=== PATIENT | female | born 1950 | race Caucasian/White ===

== ENCOUNTER 2023-07-19 12:59 | Emergency (ER) | payer MEDICARE, SELFPAY ==
[2023-07-19 13:00] VITALS: BP 153/109
[2023-07-19 13:34] LABS: ALT (SGPT) 53 U/L (0-35); AST (SGOT) 72 U/L (14-36); Albumin 3.9 g/dl (3.5-5.0); Alkaline Phosphatase 97 U/L (38-126); Blood Urea Nitrogen 18 mg/dl (7-17); Calcium 8.9 mg/dl (8.4-10.2); Carbon Dioxide 18 mmol/L (22-30); Chloride 107 mmol/L (98-107); Glucose 270 mg/dl (70-99); Potassium 4.4 mmol/L (3.5-5.1); Sodium 133 mmol/L (135-145); Total Bilirubin 1.5 mg/dl (0.2-1.3); Total Protein 8.5 g/dl (6.3-8.2); eGFR > 60.00
[2023-07-19 13:40] LABS: % Basophils 0.3 % (0-2); % Immature Granulocytes 0.5 % (0-0.5); % Lymphocytes 14.2 % (20.5-51.1); % Monocytes 5.1 % (1.7-9.3); % Neutrophils 79.9 % (42.2-75.2); Absolute Lymphocytes 0.9 10^3/uL (1.2-3.4); Absolute Monocytes 0.3 10^3/uL (0.1-0.6); Absolute Neutrophils 5.1 10^3/uL (1.4-6.5); Hematocrit 41.7 % (37.0-47.0); Mean Corp Hgb Conc. 33.6 g/dL (33.0-37.0); Mean Corpuscular Hgb 29.6 pg (27.0-31.0); Mean Corpuscular Volume 88.2 fL (81.0-99.0); Mean Platelet Volume 11.6 fL (7.4-10.4); Nucleated Red Blood Cells % 0 %; Platelet Count 131 10^3/uL (130-400); Red Blood Cell Count 4.73 10^6/uL (4.20-5.40); Red Cell Dist. Width 17.5 % (11.5-14.5); White Blood Cell Count 6.3 10^3/uL (4.8-10.8)
--- NOTE | 2023-07-19 14:34 | ED.GENMED ---
History of Present Illness
<Birgit Lopes PA-C - Last Filed: 07/21/23 18:56>
General
Chief Complaint: Musculo-Skeletal Complaint
Source: patient
Exam Limitations: none
Time Seen by Provider: 07/19/23 14:29
Nursing documentation reviewed up to this point in time: agreed with
Travel History
Have you had any contact with someone who has COVID-19?: No
Do you have any symptoms of coronavirus? Fever > 100 degrees, chills, cough, shortness of breath, sore throat, loss of taste or smell, muscle aches, or headache?: No
History of Present Illness
History of Present Illness:
72-year-old female with past medical history of polymyositis, hyperlipidemia, hypertension, diabetes presenting emergency department today with concerns of atraumatic left foot pain for the past few days, and right finger pain for the past few
weeks. Patient states that she started experiencing pain in her foot the last few days. Patient does not recall trauma to the foot, excessive jumping or new exercise routine, twisting her ankle, or anything else. Patient has had no falls. Patient
states that she also had an overlying redness to her left foot which her neurologist thought was that infection. Patient has no fevers or chills, nausea or vomiting, chest pain, shortness of breath. Patient denies foreign body, diabetic neuropathy,
recent injection in the area. Patient saw a librarian many years ago for a stress fracture in her left foot. Patient does have an orthopedic shoe at home to use for foot fractures, and she does have a walker. Patient does have some pain with
ambulation but is able to ambulate without difficulty.
Past History
<Birgit Lopes PA-C - Last Filed: 07/21/23 18:56>
Past History
ED Past Medical History: Asthma, CHF, HTN, Hypercholesterolemia, NIDDM, Other (polymyositis) and Other (breast cancer 2007)
ED Past Surgical History: Other (breast lumpectomy x 2)
Social History
Tobacco: Non-smoker
Alcohol: None
Drug: None
Personal:
Living: with family
Employment: Disabled
Family History
Family History: Diabetes
Review of Systems
<Birgit Lopes PA-C - Last Filed: 07/21/23 18:56>
Review of Systems
All Other Systems: ROS reviewed and negative except as documented in HPI and ROS
Phy Exam
<Birgit Lopes PA-C - Last Filed: 07/21/23 18:56>
Physical Exam
Physical Exam:
General: Patient is well appearing and in no acute distress.
Skin: On the right index finger, there is redness and swelling with an ulcerated lesion at the tip of the finger. On the dorsal surface of the left foot, there is a 3 cm right 2 cm area of erythema surrounding the second and third distal metatarsals.
Head: Normocephalic, atraumatic, no signs of trauma
Cardiac: Regular rate and rhythm, no murmurs
Peripheral Vascular: 2+ DP, PT pulses b/l. 2+ right radial and ulnar pulses, cap refill <2 seconds.
Pulm: Normal respiratory effort, no wheezes, rales, or rhonchi
Abdomen: No tenderness to palpation
Musculoskeletal: Patient has full range of motion of the right index finger and the right hand. Patient has full ROM of b/l lower extremities. Patient has tenderness to palpation of the left 2nd and 3rd metacarpals, no tenderness to palpation of the
phalanges.
Neuro: AAOx3.
Course
<Birgit Lopes PA-C - Last Filed: 07/21/23 18:56>
Orders/Labs/Results
Orders:
Orders
07/19/23 13:02
Foot, Left 3 View [CR Foot - Left Min 3 Views] Urgent
Comment:
Reason For Exam: pain
07/19/23 13:12
Complete Blood Count/With Diff Urgent
Comprehensive Metabolic Panel Urgent
Abnormal Lab Results
07/19/23
13:12
RDW 17.5 H %
(11.5-14.5)
MPV 11.6 H fL
(7.4-10.4)
Absolute Lymphs (auto) 0.9 L 10^3/uL
(1.2-3.4)
Neutrophils % 79.9 H %
(42.2-75.2)
Lymphocytes % 14.2 L %
(20.5-51.1)
Sodium 133 L mmol/L
(135-145)
Carbon Dioxide 18 L mmol/L
(22-30)
BUN 18 H mg/dl
(7-17)
Creatinine 0.5 L mg/dL
(0.6-1.0)
Glucose 270 H mg/dl
(70-99)
Total Bilirubin 1.5 H mg/dl
(0.2-1.3)
AST 72 H U/L
(14-36)
ALT 53 H U/L
(0-35)
Total Protein 8.5 H g/dl
(6.3-8.2)
07/19/23 13:12
07/19/23 13:12
Vital Signs
Initial and Last Documented VS:
Initial Vital Signs
Temp Pulse Resp BP Pulse Ox
98.4 F 111 16 153/109 98
07/19/23 13:00 07/19/23 13:00 07/19/23 13:00 07/19/23 13:00 07/19/23 13:00
Last Documented Vital Signs
Temp Pulse Resp BP Pulse Ox
98.4 F 111 16 153/109 98
07/19/23 13:00 07/19/23 13:00 07/19/23 13:00 07/19/23 13:00 07/19/23 13:00
<Samuel Sepulveda, DO - Last Filed: 07/24/23 08:10>
Orders/Labs/Results
Orders:
Orders
07/19/23 13:02
Foot, Left 3 View [CR Foot - Left Min 3 Views] Urgent
Comment:
Reason For Exam: pain
07/19/23 13:12
Complete Blood Count/With Diff Urgent
Comprehensive Metabolic Panel Urgent
Abnormal Lab Results
07/19/23
13:12
RDW 17.5 H %
(11.5-14.5)
MPV 11.6 H fL
(7.4-10.4)
Absolute Lymphs (auto) 0.9 L 10^3/uL
(1.2-3.4)
Neutrophils % 79.9 H %
(42.2-75.2)
Lymphocytes % 14.2 L %
(20.5-51.1)
Sodium 133 L mmol/L
(135-145)
Carbon Dioxide 18 L mmol/L
(22-30)
BUN 18 H mg/dl
(7-17)
Creatinine 0.5 L mg/dL
(0.6-1.0)
Glucose 270 H mg/dl
(70-99)
Total Bilirubin 1.5 H mg/dl
(0.2-1.3)
AST 72 H U/L
(14-36)
ALT 53 H U/L
(0-35)
Total Protein 8.5 H g/dl
(6.3-8.2)
07/19/23 13:12
07/19/23 13:12
Vital Signs
Initial and Last Documented VS:
Initial Vital Signs
Temp Pulse Resp BP Pulse Ox
98.4 F 111 16 153/109 98
07/19/23 13:00 07/19/23 13:00 07/19/23 13:00 07/19/23 13:00 07/19/23 13:00
Last Documented Vital Signs
Temp Pulse Resp BP Pulse Ox
98.4 F 111 16 153/109 98
07/19/23 13:00 07/19/23 13:00 07/19/23 13:00 07/19/23 13:00 07/19/23 13:00
<Birgit Lopes PA-C - Last Filed: 07/21/23 18:56>
MDM/Problems Addressed
Differential Diagnosis Includes:
Differentials include cellulitis, musculoskeletal sprain/strain, plantar fasciitis, tarsal fracture,
MDM/Problems Addressed:
foot pain
finger pain
Chronic conditions affecting care: DM and HTN
Acute Exacerbation and/or Progression of Chronic Illness: DM and HTN
<Birgit Lopes PA-C - Last Filed: 07/21/23 18:56>
*Pulse Oximetry
Patient hypoxic: no
*Critical Care Note
Total Time (30-74mins, 75-104mins- exclusive of procedures): Not Applicable
Data Reviewed
Review of Other/Old Records Reveals: Records (Reviewed ER physician documentation from 02/20/2020) and Discharge Summary (Reviewed discharge summary from 01/26/2022)
Source: patient and records
<Birgit Lopes PA-C - Last Filed: 07/21/23 18:56>
Patient Management
Escalation/DeEscalation of care consider admission/obs:
72-year-old female with past medical history of polymyositis, hyperlipidemia, hypertension, diabetes presenting emergency department today with concerns of atraumatic left foot pain for the past few days, and right finger pain for the past few
weeks. On exam, she is able to bear weight but with pain. She also has tenderness palpation of the left second and third metatarsals. There is a small area of erythema overlying the left second and third metatarsal she also has right finger pain,
is swollen and there is a small ulcerated lesion on the superficial surface. She states that a while back, she poked herself while embroidering the wound has never healed despite use of topical antibiotic ointment. Her x-ray reveals a nondisplaced
fracture involving the distal shaft of the second metatarsal. We will give patient referral for a librarian, and have her wear her orthopedic foot boot at home, and use her walker as needed. In terms of her erythema on her foot, I do not think
this represents acute cellulitis, however in the setting of her right finger pain and erythema, we will treat for developing cellulitis with Keflex. Patient aware of plan all questions answered, stable for discharge
ED Attending Note
<Birgit Lopes PA-C - Last Filed: 07/21/23 18:56>
-
Portions of this chart may have been created with voice recognition software.� Occasional wrong word or��sound alike� substitutions may have occurred due to the inherent limitations of voice recognition software.
<Samuel Sepulveda DO - Last Filed: 07/24/23 08:10>
ED Attending Note
Patient seen and examined by attending physician: Yes
I performed a history and physical exam of patient and discussed management with resident, I reviewed resident's note and agree with documented findings and plan of care.: Yes
ED Attending Note:
I have reviewed and agree with history and treatment plan by Birgit Lopes. My exam reveals 72-year-old female with left foot erythema and tenderness palpation. X-ray showing nondisplaced fracture of distal shaft of second metatarsal. Patient
has walker boot at home which she will use. Follow-up with podiatry
-
Portions of this chart may have been created with voice recognition software.� Occasional wrong word or��sound alike� substitutions may have occurred due to the inherent limitations of voice recognition software. Questionable cellulitis, no fever
erythema related to fracture.
Discharge Plan
Departure
Patient Disposition: Home (Routine Discharge)
Date of Disposition: 07/19/23
Time of Disposition: 15:02
Patient with high blood pressure during this ER visit?: Yes
Condition: Good
Discharge Problem:
Metatarsal stress fracture of left foot
Instructions: Stress Fracture of the Metatarsal Bone (DC), Cellulitis (Skin Infection), Adult (DC)
Prescriptions:
New
cephalexin 500 mg capsule
500 mg PO Q6H 5 Days Qty: 20 0RF
No Action
prednisone 5 MG tablet
15 mg PO DAILY Qty: 0
Gammagard Liquid 10 GRAM/100 ML solution
1 dose IV UD
Patient Comments:
05/13/20- SUNDAY,SUNDAY AND SUNDAY (EVERY WEEK) EVERY THREE WEEK
Rx Instructions:
take every 3 weeks for only 3 days during those 3 weeks
carvedilol 12.5 MG tablet
25 mg PO BID
spironolactone 25 MG tablet
12.5 mg PO DAILY
albuterol sulfate 1 PUFF HFA aerosol inhaler
2 puff inhalation R Q4HPRN PRN (Reason: SOB)
furosemide 20 MG tablet
20 mg PO DAILY PRN (Reason: leg swelling )
Patient Comments:
therapeutic multivitamin Tablet
1 tab PO DAILY
calcium carbonate 500 mg calcium (1,250 mg) Tablet
500 mg PO DAILY
lisinopril 10 mg Tablet
10 mg PO DAILY
alendronate 70 mg tablet
70 mg PO FR
pantoprazole 40 mg Tablet,Delayed Release (Dr/Ec)
40 mg PO DAILY 30 Days Qty: 30 2RF
Eliquis DVT-PE Treat 30D Start 5 mg (74 tabs) tablets,dose pack
5 mg PO ONCE Qty: 74 0RF
Eliquis 5 mg tablet
5 mg PO BID 30 Days Qty: 60 0RF
Rx Instructions:
Start taking once finished Eliquis starter pack
Referrals:
Angel Hurtado DPM [Specified Professional Personl] - Call in 1-3 days for appt
Cole Suazo MD [Family Provider] -
Activity Restrictions/Additional Instructions:
We have sent a medication called Keflex to your pharmacy. Please take 1 tablet 4 times daily for 5 days.
Please wear your orthotic foot boot while ambulating and use your walker as needed. Please call your librarian tomorrow for an appointment for follow-up.
Please return emergency department for any concerns.
Interventions
Interventions:
*Risk Screen - Suicide Last Done: 07/19/23 13:00
*General Assessment Last Done: 07/19/23 13:00
*Neglect/Abuse Screening Last Done: 07/19/23 13:00
ED- Fall Risk Assessment Last Done: 07/19/23 13:53
*ED COVID-19 Vaccine History Last Done: 07/19/23 13:00
*Nursing Disposition Last Done: 07/19/23 15:19
ED-Musculoskeletal Assessment Last Done: 07/19/23 13:51
Discharge Date and Time
Discharge Date/Time: 07/19/23 15:20
== END 2023-07-19 15:20 | disposition home or self-care (01) ==
LOC: EMR 12:59
PROVIDERS: EMERGENCY PHYSICIAN Emergency Medicine; FAMILY PHYSICIAN Family Medicine
DX: M84.375A Stress fracture, left foot, initial encounter for fracture (principal); X58.XXXA Exposure to other specified factors, initial encounter; M79.644 Pain in right finger(s); E78.00 Pure hypercholesterolemia, unspecified; I10 Essential (primary) hypertension; E11.9 Type 2 diabetes mellitus without complications
CPT/HCPCS: 99284; 73630; 80053; 85025

== ENCOUNTER 2023-09-12 09:47 | Emergency (ER) | payer MEDICARE, SELFPAY ==
[2023-09-12 09:49] VITALS: BP 125/70
--- NOTE | 2023-09-12 10:54 | ED.GENMED ---
History of Present Illness
General
Chief Complaint: Back Pain
Source: patient
Exam Limitations: none
Time Seen by Provider: 09/12/23 10:39
Nursing documentation reviewed up to this point in time: agreed with
Travel History
Have you had any contact with someone who has COVID-19?: No
Do you have any symptoms of coronavirus? Fever > 100 degrees, chills, cough, shortness of breath, sore throat, loss of taste or smell, muscle aches, or headache?: No
History of Present Illness
History of Present Illness:
72-year-old female with history of polymyositis on chronic steroids CHF hypertension hyperlipidemia diverticulitis insulin-dependent diabetes, DVT history on presents to the ER for evaluation of low back pain. She reports on Sunday, 3 days
ago she stood up while getting up off of the toilet and heard and felt a crack in the low back. Since then she has had low back pain which is worse with any movement twisting turning etc. She denies any radiation to legs. She denies any
incontinence of bowel or bladder she denies any numbness tingling or weakness to extremities. She has been taking Tylenol without relief
Past History
Past History
ED Past Medical History: Asthma, CHF, HTN, Hypercholesterolemia, NIDDM, Other (polymyositis) and Other (breast cancer 2007)
ED Past Surgical History: Other (breast lumpectomy x 2)
Social History
Tobacco: Non-smoker
Alcohol: None
Drug: None
Personal:
Living: with family
Employment: Disabled
Family History
Family History: Diabetes
Review of Systems
Review of Systems
Allergies reviewed?: Yes
All Other Systems: ROS reviewed and negative except as documented in HPI and ROS
Constitutional: Reports no symptoms
Respiratory: Reports no symptoms
Cardiac: Reports no symptoms
ABD/GI: Reports no symptoms
Musculoskeletal: Reports back pain (low back pain )
Skin: Reports no symptoms
Hematologic/Lymphatic: Reports no symptoms
Psychiatric: Reports no symptoms
Phy Exam
General Physical Exam
General Presentation: no apparent distress
General age: appears stated age
General Skin: warm and dry
General Habitus: normal
General Mental: alert
Gastrointestinal Exam
Gastrointestinal Exam: non tender and soft
Neurological Exam
Neurological Exam: alert, oriented x3, no motor deficits and no sensory deficits
Musculoskeletal Exam
Musculoskeletal Exam: other (Nontender throughout however there is a second-degree burn( reports from heating pad) to lower back )
Skin Exam
Skin Exam: normal color and warm/dry
Psychiatric Exam
Psychiatric Exam: normal mood/affect
Course
Orders/Labs/Results
Orders:
Orders
09/12/23 10:53
Lidocaine [Lidocaine 4% Patch] 1 patch TOPICAL NOW STA
diazePAM [Valium Injection] 5 mg IM NOW STA
Lumbar Spine Complete, 4 View [CR Lumbar Spine Comp Min 4 Vw*] Urgent
Comment:
Reason For Exam: pain
09/12/23 10:54
Acetaminophen [Tylenol] 1,000 mg PO NOW STA
09/12/23 12:32
Vital Signs- Treatment ONCE
Frequency: Once
Vital Signs
Initial and Last Documented VS:
Initial Vital Signs
Temp Pulse Resp BP Pulse Ox
98.3 F 86 18 125/70 99
09/12/23 09:49 09/12/23 09:49 09/12/23 09:49 09/12/23 09:49 09/12/23 09:49
Last Documented Vital Signs
Temp Pulse Resp BP Pulse Ox
98.3 F 54 14 151/87 97
09/12/23 09:49 09/12/23 12:35 09/12/23 12:35 09/12/23 12:35 09/12/23 12:35
MDM/Problems Addressed
Differential Diagnosis Includes:
Not limited to lumbar sprain strain herniated disc, compression fracture
MDM/Problems Addressed:
Patient is a 71-year-old female who complains of low back pain. She complains of pain ever since she got up off the toilet 3 days ago. At that time she had a crack in her back. She denies any actual trauma. She has had pain across her low back
but does not radiate. Denies any bowel or bladder incontinence denies any numbness tingling this. Patient presents awake alert no acute distress worse with changing position symptoms distant with muscular pain however x-ray does show a compression
fracture age-indeterminate was not seen on prior imaging. Patient was given Valium here and a lidocaine patch feeling better. She is already on low-dose steroids so we will hold off on that. I did review with family and patient that Valium is
sedating however because this has helped her will DC with a short course of Valium along with Tylenol lidocaine patch and outpatient Ortho follow-up
Acute Exacerbation and/or Progression of Chronic Illness:
On steroids for polymyositis
*Critical Care Note
Total Time (30-74mins, 75-104mins- exclusive of procedures): Not Applicable
ED Attending Note
-
Portions of this chart may have been created with voice recognition software.� Occasional wrong word or��sound alike� substitutions may have occurred due to the inherent limitations of voice recognition software.
Discharge Plan
Departure
Patient Disposition: Home (Routine Discharge)
Date of Disposition: 09/12/23
Time of Disposition: 12:31
Patient with high blood pressure during this ER visit?: No
Condition: Fair
Covid-19: Not Applicable
Discharge Problem:
Low back pain, Closed compression fracture of body of first lumbar vertebra
Instructions: Low Back Pain (DC), Vertebral Compression Fracture (DC)
Prescriptions:
New
diazepam [Valium] 5 mg tablet
5 mg PO TID PRN (Reason: muscle spasm) Qty: 10 0RF
lidocaine 5 % adhesive patch,medicated
1 patch topical DAILY PRN (Reason: back pain) Qty: 15 0RF
Rx Instructions:
remove after 12 hrs
No Action
prednisone 5 MG tablet
15 mg PO DAILY Qty: 0
Gammagard Liquid 10 GRAM/100 ML solution
1 dose IV UD
Patient Comments:
05/13/20- SUNDAY,SUNDAY AND SUNDAY (EVERY WEEK) EVERY THREE WEEK
Rx Instructions:
take every 3 weeks for only 3 days during those 3 weeks
carvedilol 12.5 MG tablet
25 mg PO BID
spironolactone 25 MG tablet
12.5 mg PO DAILY
albuterol sulfate 1 PUFF HFA aerosol inhaler
2 puff inhalation R Q4HPRN PRN (Reason: SOB)
furosemide 20 MG tablet
20 mg PO DAILY PRN (Reason: leg swelling )
Patient Comments:
therapeutic multivitamin Tablet
1 tab PO DAILY
calcium carbonate 500 mg calcium (1,250 mg) Tablet
500 mg PO DAILY
lisinopril 10 mg Tablet
10 mg PO DAILY
alendronate 70 mg tablet
70 mg PO FR
pantoprazole 40 mg Tablet,Delayed Release (Dr/Ec)
40 mg PO DAILY 30 Days Qty: 30 2RF
Eliquis DVT-PE Treat 30D Start 5 mg (74 tabs) tablets,dose pack
5 mg PO ONCE Qty: 74 0RF
Eliquis 5 mg tablet
5 mg PO BID 30 Days Qty: 60 0RF
Rx Instructions:
Start taking once finished Eliquis starter pack
cephalexin 500 mg capsule
500 mg PO Q6H 5 Days Qty: 20 0RF
Referrals:
Cole Suazo MD [Family Provider] -
Miki Rivera MD [Active] -
Activity Restrictions/Additional Instructions:
As discussed a prescription for Valium was sent to your pharmacy as a muscle relaxer. This medication will cause drowsiness no driving or drinking alcohol taking this medication. Take 1 every 8 hours only as needed for muscle spasm. You may take
your regular Tylenol every 4-6 hours. A prescription for lidocaine patch was sent to your pharmacy take as directed. Follow-up with orthopedics in the next several days for reevaluation and return of any worsening of symptoms.
Interventions
Interventions:
*Risk Screen - Suicide Last Done: 09/12/23 09:49
*General Assessment Last Done: 09/12/23 11:13
*Neglect/Abuse Screening Last Done: 09/12/23 11:13
*ED COVID-19 Vaccine History Last Done: 09/12/23 09:49
*Nursing Disposition Last Done: 09/12/23 12:48
ED-Musculoskeletal Assessment Last Done: 09/12/23 11:13
Discharge Date and Time
Discharge Date/Time: 09/12/23 12:49
Print Language: MICRONESIAN
[2023-09-12] MEDS: LIDOCAINE 4% PATCH 1 PATCH TOPICAL (11:02)
[2023-09-12] MEDS: TYLENOL 1000 MG PO (11:04)
[2023-09-12] MEDS: VALIUM INJECTION 5 MG IM (11:05)
[2023-09-12 12:35] VITALS: BP 151/87
== END 2023-09-12 12:49 | disposition home or self-care (01) ==
LOC: EMR 09:47
PROVIDERS: EMERGENCY PHYSICIAN Emergency Medicine; FAMILY PHYSICIAN Family Medicine
DX: M54.50 Low back pain, unspecified (principal); M48.56XA Collapsed vertebra, not elsewhere classified, lumbar region, initial encounter for fracture
CPT/HCPCS: 99284; 96372; 72110

== ENCOUNTER → 2023-10-15 06:50 | Outpatient (REF) | payer MEDICARE, SELFPAY | LOC: PAVMRI 06:50 | PROVIDERS: ATTENDING PHYSICIAN Physical Medicine & Rehabilitation; FAMILY PHYSICIAN Family Medicine | DX: S32.010A Wedge compression fracture of first lumbar vertebra, initial encounter for closed fracture (principal); M54.50 Low back pain, unspecified | CPT/HCPCS: 72148 ==

== ENCOUNTER → 2023-11-15 10:49 | Outpatient (REF) | payer MEDICARE, SELFPAY | LOC: EEG 10:49 | PROVIDERS: ATTENDING PHYSICIAN Specialist; FAMILY PHYSICIAN Family Medicine | DX: R41.89 Other symptoms and signs involving cognitive functions and awareness (principal) | CPT/HCPCS: 95812 ==

== ENCOUNTER → 2023-12-11 06:43 | Outpatient (REF) | payer MEDICARE, SELFPAY ==
--- NOTE | 2023-11-16 13:29 | EEG.RPT ---
Electroencephalogram Report
Recording
Date of EE11/15/23
Type of EEG: Routine
Length of EEG recordin mins
Done with Video Recording: Yes
Patient Status: Outpatient
Recording Conditions: Awake and Drowsy
Hyperventilation Performed: No
Photic Stimulation Performed: Yes
Report
METHODS
A 21 channel digitized electroencephalogram was performed at [facility]. The 10/20 international system of electrode placement was used. In addition to EEG, the patient was monitored for EKG. The duration of the recording was 51 minutes.
BACKGROUND
During the awake state, with the eyes closed, the background consisted of a normal amplitude, 11 Hertz posterior reactive rhythm that attenuated appropriately with eye opening. Beta activity was distributed diffusely with an anterior predominance.
There was a normal anterior-posterior voltage gradient. With eye opening the background activity changed to a low voltage mixture of alpha, beta, and occasional theta range frequencies. There were no significant asymmetries of background activity
noted.
PHOTIC STIMULATION
Photic stimulation using a step-huitron increase in photic frequency varying from 1-31 Hertz resulted in no driving responses but no appearance of abnormal activity.
ABNORMAL EEG ACTIVITY
None
CLINICAL EVENTS
None
INTERPRETATION AND CLINICAL CORRELATION
This EEG is normal during the awake and drowsy states as well as during the activation procedure of photic stimulation. No seizures were noted during the recording. A normal EEG, in itself, does not rule out a diagnosis of epilepsy. If clinical
suspicion for seizure persists, a sleep-deprived and/or prolonged recording may be warranted.
== END ==
LOC: PAVMRI 06:43
PROVIDERS: ATTENDING PHYSICIAN Specialist; FAMILY PHYSICIAN Family Medicine
DX: R41.89 Other symptoms and signs involving cognitive functions and awareness (principal)
CPT/HCPCS: 70551

== ENCOUNTER 2024-04-24 19:11 | Emergency (ER) | payer MEDICARE, SELFPAY ==
[2024-04-24 19:13] VITALS: BP 181/113
--- NOTE | 2024-04-24 19:38 | ED.GENMED ---
History of Present Illness
General
Chief Complaint: Nose Bleed
Time Seen by Provider: 04/24/24 19:38
History of Present Illness
History of Present Illness:
TIME OF INITIAL ENCOUNTER: 7:45 PM
HPI: The patient presents due to a nosebleed. She is on Eliquis. She took both doses of her Eliquis today. She has been having nosebleeds and they becoming more frequent over the last few weeks. She had IVIG infusion earlier today�she takes IVIG
due to history of polymyositis.
EXAM:
GENERAL: Well appearing in no distress
HEENT: Moist oral mucosa
NEUROLOGIC: Excellent strength all extremities, no obvious coordination deficits
PSYCHIATRIC: Appropriate mental status, normal insight and judgement
EXTREMITIES: Nontender, no edema, moves all extremities equally
SKIN: No rash, no lesions
NUMBER AND COMPLEXITY OF PROBLEMS ADDRESSED AT THE ENCOUNTER
� Chronic conditions affecting care: CHF, diverticular disease, high blood pressure, hyperlipidemia, IDDM
� Acute Exacerbation and/or Progression of Chronic Illness: This is an acute problem
� Differential Diagnosis includes: Poorly controlled high blood pressure, anterior nosebleed, posterior nosebleed, coagulopathy
AMOUNT AND/OR COMPLEXITY OF DATA TO BE REVIEWED AND ANALYZED
� I performed an independent evaluation of and my interpretation is:
EKG:
CT:
X-rays:
Laboratory Studies:
Other:
� Review of other/old records: I reviewed records, the patient's hemoglobin and platelet count were checked and relatively unremarkable in July 2023
� Clinical information was obtained by an independent historian:
� Prescriptions/Medications Considered but not given:
� Further testing considered but not performed: Considered blood work however the patient's nosebleed is fairly mild and easily controlled
RISK OF COMPLICATIONS AND/OR MORBIDITY OR MORTALITY OF PATIENT MANAGEMENT
� Social determinants of health affecting care: Lives at home
� Discussion with other providers:
� Escalation of care including admission/observation vs risk of discharge considered: We used Charles-Synephrine soaked cotton twice and I also used silver nitrate cautery stick. She did rebleed at 1 point but then overall after a
period of observation she has no longer been bleeding. Notified of her high blood pressure and need to continue blood pressure medication. She says at times her blood pressure is low therefore will not make any other changes. Encouraged her to
hold next dose of Eliquis.
ANY OTHER UPDATES:
Past History
Past History
ED Past Medical History: Asthma, CHF, HTN, Hypercholesterolemia, NIDDM, Other (polymyositis) and Other (breast cancer 2007)
ED Past Surgical History: Other (breast lumpectomy x 2)
Social History
Tobacco: Non-smoker
Alcohol: None
Drug: None
Personal:
Living: with family
Employment: Disabled
Family History
Family History: Diabetes
Phy Exam
Physical Exam
Physical Exam:
See HPI
Course
Orders/Labs/Results
Orders:
Orders
04/24/24 19:50
Phenylephrine 0.5% Regular Spr [Charles-Synephrine 0.5% Nasal Galt] 1 spray .ROUTE .STK-MED ONE
Vital Signs
Initial and Last Documented VS:
Initial Vital Signs
Temp Pulse Resp BP Pulse Ox
36.4 C 113 18 181/113 98
04/24/24 19:13 04/24/24 19:13 04/24/24 19:13 04/24/24 19:13 04/24/24 19:13
Last Documented Vital Signs
Temp Pulse Resp BP Pulse Ox
36.4 C 113 18 160/104 98
04/24/24 19:13 04/24/24 19:13 04/24/24 19:13 04/24/24 20:01 04/24/24 19:13
Procedures
Nosebleed
Drug treatment: Neosynephrine
Treatment: Silver nitrate cautery
Additional information:
Patient refuses packing
*Critical Care Note
Total Time (30-74mins, 75-104mins- exclusive of procedures): Not Applicable
ED Attending Note
-
Portions of this chart may have been created with voice recognition software.� Occasional wrong word or��sound alike� substitutions may have occurred due to the inherent limitations of voice recognition software.
Discharge Plan
Departure
Patient Disposition: Home (Routine Discharge)
Date of Disposition: 04/24/24
Time of Disposition: 21:17
Patient with high blood pressure during this ER visit?: Yes
Discharge Problem:
Acute anterior epistaxis
Instructions: Nosebleeds (DC), BLOOD PRESSURE
Prescriptions:
No Action
prednisone 5 MG tablet
15 mg PO DAILY Qty: 0
Gammagard Liquid 10 GRAM/100 ML solution
1 dose IV UD
Patient Comments:
05/13/20- SUNDAY,SUNDAY AND SUNDAY (EVERY WEEK) EVERY THREE WEEK
Rx Instructions:
take every 3 weeks for only 3 days during those 3 weeks
carvedilol 12.5 MG tablet
25 mg PO BID
spironolactone 25 MG tablet
12.5 mg PO DAILY
albuterol sulfate 1 PUFF HFA aerosol inhaler
2 puff inhalation R Q4HPRN PRN (Reason: SOB)
furosemide 20 MG tablet
20 mg PO DAILY PRN (Reason: leg swelling )
Patient Comments:
therapeutic multivitamin Tablet
1 tab PO DAILY
calcium carbonate 500 mg calcium (1,250 mg) Tablet
500 mg PO DAILY
lisinopril 10 mg Tablet
10 mg PO DAILY
alendronate 70 mg tablet
70 mg PO FR
pantoprazole 40 mg Tablet,Delayed Release (Dr/Ec)
40 mg PO DAILY 30 Days Qty: 30 2RF
Eliquis DVT-PE Treat 30D Start 5 mg (74 tabs) tablets,dose pack
5 mg PO ONCE Qty: 74 0RF
Eliquis 5 mg tablet
5 mg PO BID 30 Days Qty: 60 0RF
Rx Instructions:
Start taking once finished Eliquis starter pack
cephalexin 500 mg capsule
500 mg PO Q6H 5 Days Qty: 20 0RF
diazepam [Valium] 5 mg tablet
5 mg PO TID PRN (Reason: muscle spasm) Qty: 10 0RF
lidocaine 5 % adhesive patch,medicated
1 patch topical DAILY PRN (Reason: back pain) Qty: 15 0RF
Rx Instructions:
remove after 12 hrs
Referrals:
Mario Radford MD [Active] - Follow up in 2-3 days
Activity Restrictions/Additional Instructions:
Be sure to continue your blood pressure medication as your blood pressure was very high when he came in here today. I recommend that you hold tomorrow morning's Eliquis dose. We gave you Charles-Synephrine soaked cotton twice and I also used silver
nitrate cautery. I have given you the contact information for local ENT to follow-up with. I recommend using saline sprays. You start rebleeding, I strongly recommend that you pinch the nostrils underneath the nasal bone for at least 30 minutes.
Interventions
Interventions:
*Risk Screen - Suicide Last Done: 04/24/24 19:13
*General Assessment Last Done: 04/24/24 19:13
*Neglect/Abuse Screening Last Done: 04/24/24 19:13
ED- Fall Risk Assessment Last Done: 04/24/24 19:58
*ED COVID-19 Vaccine History Last Done: 04/24/24 19:58
ED-EENT Assessment Last Done: 04/24/24 19:58
Discharge Date and Time
Print Language: SOUTH AFRICAN
[2024-04-24 19:58] VITALS: BMI 32.3
[2024-04-24 20:01] VITALS: BP 160/104
[2024-04-24 21:35] VITALS: BP 139/70
== END 2024-04-24 21:45 | disposition home or self-care (01) ==
LOC: EMR 19:11
PROVIDERS: EMERGENCY PHYSICIAN Emergency Medicine; FAMILY PHYSICIAN Family Medicine
DX: R04.0 Epistaxis (principal); I11.0 Hypertensive heart disease with heart failure; I50.9 Heart failure, unspecified; E11.9 Type 2 diabetes mellitus without complications; E78.00 Pure hypercholesterolemia, unspecified; J45.909 Unspecified asthma, uncomplicated; Z79.01 Long term (current) use of anticoagulants
CPT/HCPCS: 30901; 99282

== ENCOUNTER → 2024-06-16 12:28 | Outpatient (REF) | payer MEDICARE, SELFPAY | LOC: WOUND 12:28 | PROVIDERS: ATTENDING PHYSICIAN Surgery; FAMILY PHYSICIAN Family Medicine | DX: L97.222 Non-pressure chronic ulcer of left calf with fat layer exposed (principal); L97.312 Non-pressure chronic ulcer of right ankle with fat layer exposed; I87.2 Venous insufficiency (chronic) (peripheral); I73.9 Peripheral vascular disease, unspecified; I50.43 Acute on chronic combined systolic (congestive) and diastolic (congestive) heart failure; M33.20 Polymyositis, organ involvement unspecified; E11.65 Type 2 diabetes mellitus with hyperglycemia; Z79.4 Long term (current) use of insulin | CPT/HCPCS: 11042; 99204 ==

== ENCOUNTER → 2024-06-23 09:13 | Outpatient (REF) | payer MEDICARE, SELFPAY | LOC: WOUND 09:13 | PROVIDERS: ATTENDING PHYSICIAN Surgery; FAMILY PHYSICIAN Family Medicine | DX: L97.222 Non-pressure chronic ulcer of left calf with fat layer exposed (principal); L97.312 Non-pressure chronic ulcer of right ankle with fat layer exposed; I87.2 Venous insufficiency (chronic) (peripheral); I73.9 Peripheral vascular disease, unspecified | CPT/HCPCS: 97597 ==

== ENCOUNTER → 2024-07-02 08:42 | Outpatient (REF) | payer MEDICARE, SELFPAY | LOC: RAD 08:42 | PROVIDERS: ATTENDING PHYSICIAN Surgery; FAMILY PHYSICIAN Family Medicine | DX: I87.2 Venous insufficiency (chronic) (peripheral) (principal) | CPT/HCPCS: 93970 ==

== ENCOUNTER → 2024-07-08 09:29 | Outpatient (REF) | payer MEDICARE, SELFPAY | LOC: WOUND 09:29 | PROVIDERS: ATTENDING PHYSICIAN Surgery; FAMILY PHYSICIAN Family Medicine | DX: L97.222 Non-pressure chronic ulcer of left calf with fat layer exposed (principal); L97.312 Non-pressure chronic ulcer of right ankle with fat layer exposed; I87.2 Venous insufficiency (chronic) (peripheral); I73.9 Peripheral vascular disease, unspecified; I50.43 Acute on chronic combined systolic (congestive) and diastolic (congestive) heart failure; M33.20 Polymyositis, organ involvement unspecified; E11.65 Type 2 diabetes mellitus with hyperglycemia; Z79.4 Long term (current) use of insulin | CPT/HCPCS: 11042 ==

== ENCOUNTER → 2024-07-10 14:18 | Outpatient (REF) | payer MEDICARE, SELFPAY | LOC: RAD 14:18 | PROVIDERS: ATTENDING PHYSICIAN Surgery; FAMILY PHYSICIAN Family Medicine | DX: I73.9 Peripheral vascular disease, unspecified (principal) | CPT/HCPCS: 93922 ==

== ENCOUNTER → 2024-07-15 09:39 | Outpatient (REF) | payer MEDICARE, SELFPAY | LOC: WOUND 09:39 | PROVIDERS: ATTENDING PHYSICIAN Surgery; FAMILY PHYSICIAN Family Medicine | DX: L97.222 Non-pressure chronic ulcer of left calf with fat layer exposed (principal); L97.312 Non-pressure chronic ulcer of right ankle with fat layer exposed; I87.2 Venous insufficiency (chronic) (peripheral); I73.9 Peripheral vascular disease, unspecified; I50.43 Acute on chronic combined systolic (congestive) and diastolic (congestive) heart failure; M33.20 Polymyositis, organ involvement unspecified; E11.65 Type 2 diabetes mellitus with hyperglycemia; Z79.4 Long term (current) use of insulin | CPT/HCPCS: 11042 ==

== ENCOUNTER 2024-07-24 08:30 | Emergency (ER) | payer MEDICARE, SELFPAY ==
[2024-07-24 08:32] VITALS: BP 144/76
[2024-07-24 09:18] LABS: % Basophils 0.5 % (0-2); % Eosinophils 0.5 % (0-6); % Immature Granulocytes 0.8 % (0-0.5); % Lymphocytes 30.5 % (20.5-51.1); % Monocytes 11.4 % (1.7-9.3); % Neutrophils 56.3 % (42.2-75.2); Absolute Immature Granulocytes 0.1 10^3/uL (0-0.05); Absolute Monocytes 0.7 10^3/uL (0.1-0.6); Absolute Neutrophils 3.7 10^3/uL (1.4-6.5); Hemoglobin 13.8 g/dL (12.0-16.0); Mean Corp Hgb Conc. 32.9 g/dL (33.0-37.0); Mean Corpuscular Hgb 28.9 pg (27.0-31.0); Mean Corpuscular Volume 87.9 fL (81.0-99.0); Mean Platelet Volume 10.3 fL (7.4-10.4); Nucleated Red Blood Cells % 0 %; Platelet Count 141 10^3/uL (130-400); Red Blood Cell Count 4.78 10^6/uL (4.20-5.40); Red Cell Dist. Width 19.4 % (11.5-14.5); White Blood Cell Count 6.5 10^3/uL (4.8-10.8)
[2024-07-24 09:22] VITALS: BP 117/79; BMI 30.6
[2024-07-24 09:32] LABS: Blood Urea Nitrogen 37 mg/dl (7-17); Calcium 9.3 mg/dl (8.4-10.2); Carbon Dioxide 19 mmol/L (22-30); Chloride 108 mmol/L (98-107); Estimated Creatinine Clearance 73 ml/min; Glucose 132 mg/dl (70-99); Potassium 4.5 mmol/L (3.5-5.1); Sodium 138 mmol/L (135-145); eGFR > 60.00
[2024-07-24 10:00] VITALS: BP 116/75
--- NOTE | 2024-07-24 10:04 | ED.GENMED ---
History of Present Illness
General
Chief Complaint: Nose Bleed
Source: patient and spouse
Exam Limitations: none
Time Seen by Provider: 07/24/24 08:44
Nursing documentation reviewed up to this point in time: agreed with
History of Present Illness
History of Present Illness:
73-year-old female with past medical history of A-fib currently on Eliquis, CHF hypertension hyperlipidemia presenting to the emergency department today with concerns of a nosebleed from the left nostril upon awakening a few hours prior to arrival
to the emergency department. Difficulty controlling this with pressure at home. Has had many nosebleeds in the past. Denies any additional symptoms
Past History
Past History
ED Past Medical History: Asthma, CHF, HTN, Hypercholesterolemia, NIDDM, Other (polymyositis) and Other (breast cancer 2007)
ED Past Surgical History: Other (breast lumpectomy x 2)
Social History
Tobacco: Non-smoker
Alcohol: None
Drug: None
Personal:
Living: with family
Employment: Disabled
Family History
Family History: Diabetes
Review of Systems
Review of Systems
Allergies reviewed?: Yes
All Other Systems: ROS reviewed and negative except as documented in HPI and ROS
Phy Exam
Physical Exam
Physical Exam:
GENERAL: Alert , in no apparent distress
EYE: pupils equal and reactive
NECK: Supple, no significant adenopathy.
ENT: Anterior nosebleed from the left o/p clr, mmm.
CARDIAC: Regular rate and rhythm .
LUNGS: Clear breath sounds bilaterally, no acute respiratory distress, no wheezes/rales/rhonchi
ABDOMEN: Soft, without focal tenderness, no r/g, no cvat
NEUROLOGICAL: Alert and oriented, no focal neuro deficits
SKIN: Warm and dry, skin intact.
MUSCULOSKELETAL: No edema, well perfused.
PSYCH: Normal and appropriate interaction.
Course
Orders/Labs/Results
Orders:
Orders
07/24/24 08:49
Phenylephrine 0.5% Regular Spr [Charles-Synephrine 0.5% Nasal Frederic] 1 spray .ROUTE .STK-MED ONE
07/24/24 09:00
Oxymetazoline HCl [Afrin Nasal Frederic] See Dose Instructions NASAL BID
07/24/24 09:02
BMP [Basic Metabolic Panel] Urgent
CBC/With Diff [Complete Blood Count/With Diff] Urgent
Abnormal Lab Results
07/24/24
09:02
MCHC 32.9 L g/dL
(33.0-37.0)
RDW 19.4 H %
(11.5-14.5)
Abs Immat Gran (auto) 0.1 H 10^3/uL
(0-0.05)
Absolute Monos (auto) 0.7 H 10^3/uL
(0.1-0.6)
Immature Gran % 0.8 H %
(0-0.5)
Monocytes % 11.4 H %
(1.7-9.3)
Chloride 108 H mmol/L
(98-107)
Carbon Dioxide 19 L mmol/L
(22-30)
BUN 37 H mg/dl
(7-17)
Glucose 132 H mg/dl
(70-99)
07/24/24 09:02
07/24/24 09:02
Vital Signs
Initial and Last Documented VS:
Initial Vital Signs
Temp Pulse Resp BP Pulse Ox
98.1 F 53 18 144/76 100
07/24/24 08:32 07/24/24 08:32 07/24/24 08:32 07/24/24 08:32 07/24/24 08:32
Last Documented Vital Signs
Temp Pulse Resp BP Pulse Ox
98.1 F 69 18 116/75 98
07/24/24 08:32 07/24/24 10:00 07/24/24 08:32 07/24/24 10:00 07/24/24 10:06
Procedures
Nosebleed
Drug treatment: Neosynephrine
Treatment: local pressure applied and other (Anterior balloon 4.5 cm)
Post treatment bleeding: none- good control
MDM/Problems Addressed
MDM/Problems Addressed:
73-year-old female presenting to the emergency department today with concerns of a nosebleed to the left nostril starting this morning. Here there was significant bleeding. Complicated by patient being on Eliquis. Difficulty controlling this with
topical measures packing was then placed. ENT was contacted to ensure close follow-up. Patient is stable no bleeding for over an hour while here. Return precautions given. Thank you
*Critical Care Note
Total Time (30-74mins, 75-104mins- exclusive of procedures): Not Applicable
ED Attending Note
-
Portions of this chart may have been created with voice recognition software.� Occasional wrong word or��sound alike� substitutions may have occurred due to the inherent limitations of voice recognition software.
Discharge Plan
Departure
Patient Disposition: Home (Routine Discharge)
Date of Disposition: 07/24/24
Time of Disposition: 10:04
Patient with high blood pressure during this ER visit?: No
Condition: Good
Covid-19: Not Applicable
Discharge Problem:
Left-sided epistaxis
Instructions: Nosebleeds (DC)
Prescriptions:
No Action
prednisone 5 MG tablet
15 mg PO DAILY Qty: 0
Gammagard Liquid 10 GRAM/100 ML solution
1 dose IV UD
Patient Comments:
05/13/20- SUNDAY,SUNDAY AND SUNDAY (EVERY WEEK) EVERY THREE WEEK
Rx Instructions:
take every 3 weeks for only 3 days during those 3 weeks
carvedilol 12.5 MG tablet
25 mg PO BID
spironolactone 25 MG tablet
12.5 mg PO DAILY
albuterol sulfate 1 PUFF HFA aerosol inhaler
2 puff inhalation R Q4HPRN PRN (Reason: SOB)
furosemide 20 MG tablet
20 mg PO DAILY PRN (Reason: leg swelling )
Patient Comments:
therapeutic multivitamin Tablet
1 tab PO DAILY
calcium carbonate 500 mg calcium (1,250 mg) Tablet
500 mg PO DAILY
lisinopril 10 mg Tablet
10 mg PO DAILY
alendronate 70 mg tablet
70 mg PO FR
pantoprazole 40 mg Tablet,Delayed Release (Dr/Ec)
40 mg PO DAILY 30 Days Qty: 30 2RF
Eliquis DVT-PE Treat 30D Start 5 mg (74 tabs) tablets,dose pack
5 mg PO ONCE Qty: 74 0RF
Eliquis 5 mg tablet
5 mg PO BID 30 Days Qty: 60 0RF
Rx Instructions:
Start taking once finished Eliquis starter pack
cephalexin 500 mg capsule
500 mg PO Q6H 5 Days Qty: 20 0RF
diazepam [Valium] 5 mg tablet
5 mg PO TID PRN (Reason: muscle spasm) Qty: 10 0RF
lidocaine 5 % adhesive patch,medicated
1 patch topical DAILY PRN (Reason: back pain) Qty: 15 0RF
Rx Instructions:
remove after 12 hrs
Referrals:
Cole Suazo MD [Family Provider] -
Robert oPrter MD [Active] - Follow up in 5-7 days
Activity Restrictions/Additional Instructions:
You came to the emergency department today with concerns of a nosebleed. You had packing placed. This will need to be removed by ENT. Please call to make an appointment over the next 2 to 4 days. Return for any worsening, new or concerning
symptoms.
Interventions
Interventions:
*Risk Screen - Suicide Last Done: 07/24/24 08:32
*General Assessment Last Done: 07/24/24 08:32
*Neglect/Abuse Screening Last Done: 07/24/24 08:32
*ED- Fall Risk Assessment Last Done: 07/24/24 09:22
*ED COVID-19 Vaccine History Last Done: 07/24/24 09:22
ED-EENT Assessment Last Done: 07/24/24 09:23
Discharge Date and Time
Print Language: FRENCH
[2024-07-24 10:26] VITALS: BP 116/75
== END 2024-07-24 10:34 | disposition home or self-care (01) ==
LOC: EMR 08:30
PROVIDERS: Physician Assistant; EMERGENCY PHYSICIAN Emergency Medicine; FAMILY PHYSICIAN Family Medicine
DX: R04.0 Epistaxis (principal); I48.91 Unspecified atrial fibrillation; I11.0 Hypertensive heart disease with heart failure; I50.9 Heart failure, unspecified; E78.00 Pure hypercholesterolemia, unspecified; E11.9 Type 2 diabetes mellitus without complications; J45.909 Unspecified asthma, uncomplicated; Z79.01 Long term (current) use of anticoagulants; Z83.3 Family history of diabetes mellitus; Z85.3 Personal history of malignant neoplasm of breast
CPT/HCPCS: 99283; 80048; 85025

== ENCOUNTER → 2024-07-29 13:57 | Outpatient (REF) | payer MEDICARE, SELFPAY | LOC: WOUND 13:57 | PROVIDERS: ATTENDING PHYSICIAN Surgery; FAMILY PHYSICIAN Family Medicine | DX: L97.222 Non-pressure chronic ulcer of left calf with fat layer exposed (principal); L97.312 Non-pressure chronic ulcer of right ankle with fat layer exposed; I87.2 Venous insufficiency (chronic) (peripheral); I73.9 Peripheral vascular disease, unspecified; I50.43 Acute on chronic combined systolic (congestive) and diastolic (congestive) heart failure; M33.20 Polymyositis, organ involvement unspecified; E11.65 Type 2 diabetes mellitus with hyperglycemia; Z79.4 Long term (current) use of insulin | CPT/HCPCS: 99213 ==

== ENCOUNTER 2024-08-03 11:29 | Inpatient (IN) | payer MEDICARE, SELFPAY ==
[2024-07-31 21:47] VITALS: BP 157/75
[2024-07-31 22:27] VITALS: BMI 31.5
[2024-07-31 23:35] VITALS: BP 108/72
[2024-07-31 23:46] LABS: Hematocrit 41.7 % (37.0-47.0); Hemoglobin 13.8 g/dL (12.0-16.0); Mean Corp Hgb Conc. 33.1 g/dL (33.0-37.0); Mean Corpuscular Hgb 28.6 pg (27.0-31.0); Mean Corpuscular Volume 86.5 fL (81.0-99.0); Mean Platelet Volume 10.1 fL (7.4-10.4); Platelet Count 149 10^3/uL (130-400); Red Blood Cell Count 4.82 10^6/uL (4.20-5.40); Red Cell Dist. Width 18.6 % (11.5-14.5); White Blood Cell Count 6.3 10^3/uL (4.8-10.8)
[2024-07-31 23:54] LABS: Blood Urea Nitrogen 33 mg/dl (7-17); Calcium 9.2 mg/dl (8.4-10.2); Carbon Dioxide 23 mmol/L (22-30); Chloride 102 mmol/L (98-107); Estimated Creatinine Clearance 56 ml/min; Glucose 178 mg/dl (70-99); Potassium 4.3 mmol/L (3.5-5.1); Sodium 135 mmol/L (135-145); eGFR > 60.00
[2024-08-01] VITALS (16 sets, daily range): BP systolic 78–136; BP diastolic 50–83; BMI 31.5; BMI 33.5
[2024-08-01 00:03] LABS: NT-proBNP 1590 pg/ml
[2024-08-01 00:46] LABS: % Eosinophils 0.5 % (0-6); % Lymphocytes 21.4 % (20.5-51.1); % Monocytes 13.7 % (1.7-9.3); % Neutrophils 62.4 % (42.2-75.2); Absolute Basophils 0.1 10^3/uL (0-0.2); Absolute Immature Granulocytes 0.1 10^3/uL (0-0.05); Absolute Lymphocytes 1.3 10^3/uL (1.2-3.4); Absolute Monocytes 0.9 10^3/uL (0.1-0.6); Absolute Neutrophils 3.9 10^3/uL (1.4-6.5); Nucleated Red Blood Cells % 0 %
[2024-08-01] MEDS: TORADOL 15 MG IV (01:18)
--- NOTE | 2024-08-01 01:56 | ED.GENMED ---
History of Present Illness
General
Chief Complaint: Skin Problem
Source: patient
Time Seen by Provider: 07/31/24 22:13
History of Present Illness
History of Present Illness:
73-year-old female presents to the emergency room complaining of pain in her right calf and ankle. Patient has a wound to the posterior calf which has been evaluated and treated at the wound care center. She was recently started on oral
antibiotics. Pain seems to be gotten significantly worse over the past 24 hours. She has difficulty weightbearing. No fever. Patient does take Eliquis due to DVT. also concerned that her left lower extremity has become more swollen.
She denies any chest pain or shortness of breath.
Past History
Past History
ED Past Medical History: Asthma, CHF, HTN, Hypercholesterolemia, NIDDM, Other (polymyositis) and Other (breast cancer 2007)
ED Past Surgical History: Other (breast lumpectomy x 2)
Social History
Tobacco: Non-smoker
Alcohol: None
Drug: None
Personal:
Living: with family
Employment: Disabled
Family History
Family History: Diabetes
Phy Exam
Physical Exam
Physical Exam:
General: Awake, Alert, Oriented X3. Appears uncomfortable at time
Vitals: unremarkable
Head: Atraumatic
Eyes: Pupils equal, EOMI
Throat: Airway intact, no exudates
Neck: Trachea midline
Lungs: Clear and equal b/l
Heart: Regular rate, no murmurs
Abd: Soft, Nontender, No pulsatile mass
Neuro: Nonfocal
Skin: Warm, dry, no rash
Extremities: Palpable dorsalis pedis pulses equal b/l, left lower extremity has 2+ edema which is nonpitting. Right lower extremity has no edema but there is a roughly 3 cm x 2 cm superficial ulcerative type wound which does have some purulent
drainage. The area surrounding the wound is erythematous and tender. Patient has tenderness even a bit distant from the wound but there is no crepitance.
Course
Orders/Labs/Results
Orders:
Orders
07/31/24 23:08
Ankle, Right 3 view CR [CR Ankle - Right Min 3 Views *] Urgent
Comment:
Reason For Exam: lateral ankle pain
07/31/24 23:09
Basic Metabolic Panel Urgent
Complete Blood Count/With Diff Urgent
NT-proBNP Urgent
08/01/24 00:00
US Periph Venous LOWER Ext Magdiel Urgent
Reason For Exam: leg swelling/discomfort
08/01/24 01:16
Ketorolac [Toradol] 15 mg .ROUTE .STK-MED ONE
08/01/24 01:17
Ketorolac [Toradol] 15 mg IV NOW STA
08/01/24 01:46
HYDROmorphone [Dilaudid] 0.5 mg IV NOW STA
08/01/24 01:57
Ondansetron Injectable [Zofran] 4 mg .ROUTE .STK-MED ONE
08/01/24 01:58
CT Lower Ext W/iv Cont Rt Urgent
Comment:
Reason For Exam: r calf wound/pain eval for deep space inf
08/01/24 02:02
Ondansetron Injectable [Zofran] 4 mg IV NOW STA
08/01/24 02:07
Wound Culture [Wound/Abscess/Other Culture] Urgent
NIKITA Source: Leg
Specimen Description: Right
Date Specimen was Collected: 08/01/24
Time Specimen was Collected: 02:01
08/01/24 03:06
Ampicillin/Sulbactam 3 G [Unasyn] 3 gm 0.9% Sodium Chloride 100 ml [Nss] 100 ml IV NOW
Vancomycin [Vancocin] 2,000 mg 0.9% Sodium Chloride 500 ml [Nss] 500 ml IV NOW
08/01/24 03:11
Admit/Transfer Patient As Directed
Co-Sign Provider:
Level of Care: Observation services
Assign to:: Medical/Surgical
Physician / Group: hospitalist
Diagnosis: non-healing, infected LE wound
08/01/24 03:12
PRN Pain Medication Management As Directed
May give lesser potent ordered pain med per pt: Yes
preference::
Protocol:: Medication orders for pain may be administered in a
manner that supports deferring to patient preference
when the pt is:
- Requesting an ordered lesser potent pain medication.
Least to most potent pain medications are defined
as: acetaminophen < NSAID < tramadol < opioids
(morphine, oxycodone, hydromorphone).
- Requesting a lesser dose of the same medication IF
ORDERED.
- Requesting a less intrusive route of administration
if both routes are prescribed by the provider (PO <
IV).
08/01/24 03:13
Code Status As Directed
Resuscitation Status: Do not resuscitate
Reached after discussion with pt or family/Healthcare POA: Yes
DNR Bracelet Application ONCE
08/01/24 04:19
Acetaminophen [Tylenol] 650 mg PO Q4HPRN PRN
Bisacodyl [Dulcolax] 10 mg RECTAL [id number] PRN
Docusate W/Senna [Senokot-S] 1 tablet PO BIDPRN PRN
HYDROmorphone [Dilaudid] 0.5 mg IV Q4HPRN PRN
Ketorolac [Toradol] 10 mg IV Q6HPRN PRN
Ondansetron Injectable [Zofran] 4 mg IV Q6HPRN PRN
Polyethylene Glycol Powder [Miralax] 17 grams PO DAILYPRN PRN
VANCOMYCIN Pharmacy to Dose [VANCOCIN Pharmacy to Dose] 1 each Pharmacy To Prepare [Call Pharmacy To Prepare] 0 ml IV PER PROTOCOL
08/01/24 04:19
Consult Notification Routine
Specialty to Notify: Infectious Disease
Date consulting provider notified: 08/01/24
Time consulting provider notified: 07:53
Notified:: Provider
Comment: TT
INFECTIOUS DISEASE CONSULT Routine
Consulting Provider: Miranda Aly
Was physician already notified: No
Reason for consult: non-healing ulcer, possible infection
WOUND/OSTOMY CONSULT Routine
Reason for Consult: poorly healing RLE wound
VTE Contraindication Routine
VTE Mechanical Device Contraindication: Medical Contraindication
Pharmocologic Contraindication: Medical Contraindication
Activity As Directed
Activity Level: With Assistance
Bedside Glucose Monitoring As Directed
Frequency: AC&HS
Elevate Extremity As Directed
Extremity:: Right leg
Vital Signs As Directed
Frequency: Per unit guidelines
08/01/24 Breakfast
1800 calorie (15 carb) Diabetic
At Your Request: Limited, Aitchbone Breaker Required
Does patient need a safe tray?: No
08/01/24 07:18
Basic Metabolic Panel IN AM
CRP [C-Reactive Protein] IN AM
Complete Blood Count/No Diff IN AM
ESR [Erythrocyte Sed Rate] IN AM
Uric Acid IN AM
MRSA Screen Routine
NIKITA Source: Nose
Specimen Description:
08/01/24 07:30
Insulin Aspart Corrective Low [Novolog Flexpen-Low Resistance] See Protocol SC AC
08/01/24 08:00
Apixaban [Eliquis] 5 mg PO BID
Carvedilol [Coreg] 12.5 mg PO BID
Ezetimibe [Zetia] 10 mg PO DAILY
Gabapentin [Neurontin] 300 mg PO BID
Lisinopril [Zestril] 10 mg PO DAILY
Pantoprazole [Protonix] 40 mg PO DAILY
Prednisone [Deltasone] 10 mg PO DAILY
Repaglinide [Prandin] 2 mg PO TID @ 0800,1200,1700
Spironolactone [Aldactone] 12.5 mg PO DAILY
insulin glargine [Lantus Solostar U-100 Insulin] 5 unit SC DAILY
Abnormal Lab Results
07/31/24
23:09
RDW 18.6 H %
(11.5-14.5)
Abs Immat Gran (auto) 0.1 H 10^3/uL
(0-0.05)
Absolute Monos (auto) 0.9 H 10^3/uL
(0.1-0.6)
Immature Gran % 1.0 H %
(0-0.5)
Monocytes % 13.7 H %
(1.7-9.3)
BUN 33 H mg/dl
(7-17)
Glucose 178 H mg/dl
(70-99)
07/31/24 23:09
07/31/24 23:09
Vital Signs
Initial and Last Documented VS:
Initial Vital Signs
Temp Pulse Resp BP Pulse Ox
98.9 F 60 18 157/75 98
07/31/24 21:47 07/31/24 21:47 07/31/24 21:47 07/31/24 21:47 07/31/24 21:47
Last Documented Vital Signs
Temp Pulse Resp BP Pulse Ox
98.2 F 80 14 123/71 97
08/01/24 19:30 08/01/24 21:15 08/01/24 19:30 08/01/24 21:15 08/01/24 19:30
MDM/Problems Addressed
Differential Diagnosis Includes:
Wound infection, deep space infection of the calf such as necrotizing fasciitis, osteomyelitis
MDM/Problems Addressed:
Patient presents with significant pain in her calf/lateral ankle. Physical exam is significant for a wound which appears superficial. There is some surrounding erythema but all in all the amount of pain seems out of proportion to the wound. DVT
studies are negative. Labs are nonremarkable except for mild elevation of BUN suggesting some volume contraction. Patient has required IV analgesia to control her pain. Antibiotics chosen to cover diabetic type foot/lower limb infection. Patient
requires hospitalization for close monitoring for progression of infection given the amount of pain she is experiencing
*Pulse Oximetry
Patient hypoxic: no
*Foamite Mixer Interpretation
Rate: normal
Interpretation: normal
Rhythm: sinus
*Critical Care Note
Total Time (30-74mins, 75-104mins- exclusive of procedures): Not Applicable
Patient Management
Social determinants of health affecting care: Strong social support
ED Attending Note
-
Portions of this chart may have been created with voice recognition software.� Occasional wrong word or��sound alike� substitutions may have occurred due to the inherent limitations of voice recognition software.
Discharge Plan
Departure
Patient Disposition: Admit
Date of Disposition: 08/01/24
Time of Disposition: 01:56
Presentation/result/management discussed w/ accepting MD/DO: Hospitalist
Condition: Fair
Discharge Problem:
Wound infection
Interventions
Interventions:
*Risk Screen - Suicide Last Done: 07/31/24 21:47
*General Assessment Last Done: 07/31/24 21:47
*Neglect/Abuse Screening Last Done: 07/31/24 21:47
*ED- Fall Risk Assessment Last Done: 07/31/24 21:47
*ED COVID-19 Vaccine History Last Done: 07/31/24 21:47
*Nursing Disposition Last Done: 08/01/24 07:30
ED-Skin Assessment Last Done: 08/01/24 03:06
[2024-08-01] MEDS: ZOFRAN 4 MG IV (02:02)
[2024-08-01] MEDS: DILAUDID 0.5 MG IV (02:03)
--- NOTE | 2024-08-01 02:59 | HPS.HSE ---
Family Physician
-
Family Physician: Cole Suazo
Chief Complaint
-
Right leg pain
History of Present Illness
This is a 73-year-old female with past medical history significant for polymyositis, proximal atrial fibrillation on anticoagulation, history of DVT, congestive heart failure with preserved EF, GERD, insulin-dependent diabetes and hypertension
presenting to the emergency department with right lower extremity pain and swelling.
Patient reports she has been managing bilateral lower extremity wounds for several weeks and being managed by wound care. She reported that during management of this wound she had multiple studies including ultrasounds of her lower extremity which
was shows vascular arterial insufficiency to the right lower extremity with a pending reperfusion procedure by vascular in about 2 to 3 weeks. She reported that she also had bilateral lower extremity swelling for which she was evaluated by
cardiology. She had echo focal findings for CHF but was placed on Lasix 40 mg daily. She has had significant decrease in the swelling since then.
She gets evaluation by wound care every week and the wound in the left lower extremity has been healing well but the right lower extremity remains purulent. She was started on doxycycline about 5 days ago. She denies having any fevers or chills.
She reports pain in the lower extremity which seems to be localized to the ankle. Spouse and patient denies any recent fall. Denies any recent injuries. No history of gout. She had a recently decreased dose of prednisone to 10 mg daily from 25
mg daily.
In the emergency department today she was afebrile, blood pressure was 100/60 with a pulse of 82 and she was satting 98% on room air. White count was 6.3 she had normal hemoglobin and platelets. Electrolytes BUN and creatinine were normal. X-ray
of the right ankle has not been officially read. Per my view there is no acute fracture. Joint space appears normal.
Medical History
Past Medical History
Past Medical History: Reports Asthma, Cancer (Left breast CA with lumpectomy), CHF, HTN, Hypercholesterolemia, NIDDM and Other (Polymyositis diverticulosis/diverticulitis)
Past Surgical History: Reports Cholecystectomy, Gynocological (Tubal ligation 1980, hysterectomy 1989), Orthopedic (Left/right meniscus repair, right TKA 2004, CTR 2019), Tonsilectomy and Other ( cataract extraction 2017)
Social History
Tobacco: Non-smoker
Alcohol: None
Drug: None
Personal:
Living: With Family ( )
Family History
Family History: Not pertinent
Allergies / Home Medications
Allergies reflects when Allergies were last updated in [facility].
Home Medications with original date entered in [facility]
Allergy/Medication List:
Allergies
Allergy/AdvReac Type Severity Reaction Status Date / Time
codeine Allergy Vomiting Verified 07/31/24 21:46
metformin Allergy effects Verified 07/31/24 21:46
polymositis
Zdqnawe-ECR-DuN Reductase Allergy effects Verified 07/31/24 21:46
Inhibitor polymyositis
[Dgmqclj-Cvn-Ort Reductase
Inhibitor]
Home Medications
prednisone 5 mg tablet 10 mg PO DAILY POLYMYOSITIS ##0 05/03/17
carvedilol 12.5 mg tablet 12.5 mg PO BID Blood pressure 05/13/20
immune glob,gamma (IgG) 10 %-gly-IgA over 50 mcg/mL injection solution (Gammagard Liquid) 1 dose IV UD Neurological Condition 05/13/20
spironolactone 25 mg tablet 12.5 mg PO DAILY Fluid retention/Swelling 05/13/20
furosemide 20 mg tablet 20 mg PO DAILY leg swelling 01/18/22
lisinopril 10 mg tablet 10 mg PO DAILY Blood pressure 01/18/22
alendronate 70 mg tablet 70 mg PO FR Osteoporosis 01/20/22
apixaban 5 mg tablet (Eliquis) 5 mg PO BID Venous thrombosis 30 days #60 tabs 01/23/22
pantoprazole 40 mg tablet,delayed release 40 mg PO DAILY GERD 30 days #30 tabs 01/23/22
ezetimibe 10 mg tablet 10 mg PO DAILY 08/01/24
gabapentin 300 mg capsule 300 mg PO BID 08/01/24
insulin glargine 100 unit/mL (3 mL) subcutaneous pen (Lantus Solostar U-100 Insulin) 5 unit SC DAILY 08/01/24
repaglinide 2 mg tablet 2 mg PO TID 08/01/24
Review of Systems
-
History Source: Patient
Constitutional: Reports No Symptoms
EENT: Reports No Symptoms
Respiratory: Reports No Symptoms
Cardiac: Reports No Symptoms
Abdomen/GI: Reports No Symptoms
: Reports No Symptoms
Musculoskeletal: Reports Joint Pain (right ankle) and Joint Swelling (Right ankle)
Skin: Reports No Symptoms
Neurological: Reports No Symptoms
Endocrine: Reports No Symptoms
Hematologic/Lymphatic: Reports No Symptoms
Psych: Reports No Symptoms
Physical Exam
Vital Signs
Vital Signs
Temp Pulse Resp BP Pulse Ox
98.9 F 82 18 97/60 100
07/31/24 21:47 08/01/24 01:20 07/31/24 21:47 08/01/24 01:20 08/01/24 01:20
Physical Exam
General: Well Developed, Well Nourished, No Apparent Distress and Conversant
HEENT: NormoCephalic, Anicteric, Moist mucous membranes and Atraumatic
Respiratory: Clear
Cardiac: S1/S2 and Regular Rhythm
Breast: Deferred by me
GI: Soft, Non Tender, Non Distended and Normal Bowel Sounds
Rectal: Deferred by Provider
Genito-urinary: Deferred by me
Musculoskeletal: No Clubbing, No Cyanosis and Edema, Right Lower Extremity (trace ankle edema with ankle effusion)
Skin: Warm and Lesions (she has a purulent wound on the right lower extremity with slight surrounding erythema. Slightly tender to touch)
Neuro: AO x 3 and Nonfocal/grossly intact
Hematologic/Lymphatic: No Lymphadenopathy
Psych: Calm
Laboratory Results
-
07/31/24 23:09
07/31/24 23:09
Data Reviewed
-
Diagnostic Radiology: Image Personally Visualized and interpreted
Ultrasound: Report Reviewed by me
Lab Data: Labs Reviewed by me
Old Records: Reviewed
Impression/Plan
-
IMPRESSION:
74-year-old female with history of diabetes, hyperlipidemia, polymyositis, CHF with preserved EF who presents to the emergency department with right ankle pain. She has a nonhealing superficial ulcer in the right lower extremity near the ankle.
Examination shows effusion of the ankle with slight tenderness to joint motion but minimal tenderness to palpation. No erythema in the ankle. The wound itself has slight purulent drainage with slight surrounding erythema. No clear deep wound
observable on examination. There is mild tenderness to palpation on at the site of the wound. It appears that this wound is not healing secondary to vascular insufficiency for which she had a vascular ultrasound previously and is pending
reperfusion procedure by vascular. She is currently on doxycycline for 5 days 41. She has no signs of systemic infection including no fevers chills hypotension, no blasts leukocytosis. Electrolytes were normal. I suspect trauma to the ankle
likely secondary to sprain.
PLAN:
1. Ankle pain and swelling - pain with palpation and joint motion, slight effusion. No obvious fracture on Xray
- admit to med/surg
- f/u xray read
- elevate right leg
- pain control
- check esr/crp and uric acid
2. Infection - Right leg wound. Drainage possibley infected without systemic signs. No obvious cellulitis. Cannot rule out deep tissue infection
- u/s w/o DVT
- obtain CT of the R LE
- continue doxycyclone for now, cultures and broaden abx if febrile
- wound care consultation
- ID consultation
3. DM II
- continue lantus 5 am
- repaglinide 2mg tid ac
- sliding scale insulin
4. AFIB
- continue eliquis
- continue carvedilol
5. CHF - she is euvolemic on exam. Trace edema on RLE
- continue carvedilol and lisinopril with spironolactone
- holding lasix 40mg po daily for now
- monitor k, mag
6. Polymyosites
- continue prednisone 10 daily
- outpatient ivig
DVT PPX - on apixaban
Code status - DNR
[2024-08-01] MEDS: UNASYN IV (03:46)
[2024-08-01] MEDS: VANCOCIN 540 MG IV (04:23)
[2024-08-01 07:33] LABS: Hematocrit 37.5 % (37.0-47.0); Hemoglobin 12.4 g/dL (12.0-16.0); Mean Corp Hgb Conc. 33.1 g/dL (33.0-37.0); Mean Corpuscular Hgb 28.9 pg (27.0-31.0); Mean Corpuscular Volume 87.4 fL (81.0-99.0); Mean Platelet Volume 10.7 fL (7.4-10.4); Platelet Count 165 10^3/uL (130-400); Red Blood Cell Count 4.29 10^6/uL (4.20-5.40); Red Cell Dist. Width 18.5 % (11.5-14.5); White Blood Cell Count 5.8 10^3/uL (4.8-10.8)
--- NOTE | 2024-08-01 07:45 | PTCARENOTE ---
Patient incontinent of urine. Patient cleaned and purewick repositioned.
[2024-08-01 07:49] LABS: Lactic Acid 1.5 mmol/L (0.7-2.0)
[2024-08-01 08:03] LABS: Blood Urea Nitrogen 35 mg/dl (7-17); Calcium 8.7 mg/dl (8.4-10.2); Carbon Dioxide 24 mmol/L (22-30); Chloride 104 mmol/L (98-107); Creatine Phosphokinase 177 U/L (30-135); Estimated Creatinine Clearance 56 ml/min; Glucose 92 mg/dl (70-99); Potassium 3.8 mmol/L (3.5-5.1); Sodium 139 mmol/L (135-145); Uric Acid 6.2 mg/dl (2.5-6.2); eGFR > 60.00
[2024-08-01] MEDS: NOVOLOG FLEXPEN-LOW RESISTANCE SC (08:08)
[2024-08-01 08:14] LABS: Erythrocyte Sed Rate 80 mm/hour (0-20)
[2024-08-01] MEDS: LANTUS 0.05 UNITS SC (10:03)
[2024-08-01] MEDS: ZETIA 10 MG PO (10:04)
[2024-08-01] MEDS: ALDACTONE 12.5 MG PO (10:04)
[2024-08-01] MEDS: DELTASONE 10 MG PO (10:04)
[2024-08-01] MEDS: PRANDIN 2 MG PO ×3 (10:04→17:40)
[2024-08-01] MEDS: PROTONIX 40 MG PO (10:04)
[2024-08-01] MEDS: ZESTRIL 10 MG PO (10:05)
[2024-08-01] MEDS: COREG 12.5 MG PO ×2 (10:05→21:15)
[2024-08-01] MEDS: ELIQUIS 5 MG PO ×2 (10:05→21:16)
[2024-08-01] MEDS: NEURONTIN 300 MG PO ×2 (10:05→21:16)
--- NOTE | 2024-08-01 10:24 | WOUNDNOTE ---
[facility] RN note: Patient admitted with LE wounds and pain
See H&P for complete history.
PMH: Polymyosytis, CHF, HTN, IDDM, arthritis, PVD. Patient follows at [facility].
Wound Location and type/assessment: Patient admitted with painful wounds to right posterior lower leg and left medial ankle wounds. See worklist for measurements and description. Patient reports increased pain to these wounds recently. Pictures and
notes reviewed from most recent [facility] on 07/24. The right posterior leg wound appears to have worsened. The wound has blueish/green drainage and adherent brown and yellow slough. The left posterior ankle has some purulent drainage, adherent slough and
painful erythema surrounding wound. Patient also admitted with stage 2 PI to left buttock. The wound is surrounded by non-blanchable red skin and superficial open areas. Sacrum and bilateral heels are both blanchable and intact.
Appetite: Good
Pressure redistribution devices in place: Patient placed on [facility] Air bed by this engineering technical writer and RNMilena. Heels off-loaded with pillows under calves. Patient positioned upright to eat breakfast.
Plan: TT with Hospitalist regarding CHICO which indicate PVD. Plan for vascular consult. ID consult has been ordered. Will recommend Dakins and Santyl to leg wounds and local wound care for stage 2 PI of buttock. Will confirm orders with hospitalist
and update nurse. Updated care plan and will follow as needed.
Note to case management of equipment requested for discharge:
Recommend follow up at wound care center upon discharge.
--- NOTE | 2024-08-01 10:34 | CON.ID ---
Consultation
-
Date/Time Consultation Requested: 08/01/24 4:19
Date/Time Consultation Performed: 08/01/24 10:35
Requesting Provider: Dr Briseno
Performing Provider: Dr Aly
Reason for Consultation: non-healing ulcer, possible infection
Chief Complaint / Past History
Chief Complaint
right leg pain
History of Present Illness
Ms Viveros is a 73 year old female with history of polymyositis (prednisone recently tapered from 25 mg to 10 mg), dCHF, chronic bilateral lower extremity wounds, Dm2 who presented here last night for right lower extremity pain and swelling. Of
note planned for reperfusion procedure which is planned in several weeks. She attends wound care weekly, the right lower extremity has recently become purulent and she was started on doxycycline 5 days prior to arrival. No fevers or chills, there
increased pain in the lower extremity. No fall, injury or history of gout.
Since arrival here she has been afebrile, bp initially hypotensive now stable, wbc 6.3 now 5.8, hgb 12.4, plt 165, no L shift, na 139, cr 0.8, crp 32, ck 177, a ct has been done on the lower extremity but not yet read, wound culture pending,
currently on vancomycin, ID is consulted for assistance with management.
Past History
Additional Past Medical History:
Asthma, Cancer (Left breast CA with lumpectomy), CHF, HTN, Hypercholesterolemia, NIDDM and Other (Polymyositis diverticulosis/diverticulitis)
Additional Past Surgical History:
Reports Cholecystectomy, Gynecological (Tubal ligation 1980, hysterectomy 1989), Orthopedic (Left/right meniscus repair, right TKA 2004, CTR 2018), Tonsillectomy and cataract extraction 2017
Allergy History:
codeine Allergy (Verified 07/31/24 21:46)
Vomiting
metformin Allergy (Verified 07/31/24 21:46)
effects polymositis
Cdjhsdm-OJZ-VoM Reductase Inhibitor [Dddulze-Kjb-Oqb Reductase Inhibitor] Allergy (Verified 07/31/24 21:46)
effects polymyositis
Medications Reviewed: Yes
Social History
Tobacco: Non-Smoker
Alcohol: None
Drug: None
Family History
Family History: Not Pertinent
Review of Systems
Review of Systems
General: Negative Fever or Chills
All systems: All other systems were reviewed and were negative
Vital Signs
Temp Pulse Resp BP Pulse Ox
97.8 F 84 21 106/59 92
08/01/24 09:00 08/01/24 10:00 08/01/24 10:00 08/01/24 09:57 08/01/24 09:00
Physical Exam
Physical Exam
Constitutional: No Acute Distress and Chronically Ill
Cardiovascular: Regular Rate and S1/S2; Negative Murmur or Rub
Pulmonary: Clear and Symmetric; Negative Wheezes, Rales or Rhonchi
Gastrointestinal: Soft, Non Tender, Non Distended and Normal Bowel Sounds
Skin: Warm and Dry; Negative Rash or Jaundice
Wound: Other (bilateral lower extremity wounds, L with minimal surrounding, nonpurulent erythema, R wound with developing eschar, mild slough)
Lab / Diagnostic Study Results
08/01/24 07:18
08/01/24 07:18
Abs Immat Gran (auto) 0.1 10^3/uL (0-0.05) H 07/31/24 23:09
Absolute Neuts (auto) 3.9 10^3/uL (1.4-6.5) 07/31/24 23:09
Absolute Lymphs (auto) 1.3 10^3/uL (1.2-3.4) 07/31/24 23:09
Absolute Monos (auto) 0.9 10^3/uL (0.1-0.6) H 07/31/24 23:09
Absolute Basos (auto) 0.1 10^3/uL (0-0.2) 07/31/24 23:09
Immature Gran % 1.0 % (0-0.5) H 07/31/24 23:09
Neutrophils % 62.4 % (42.2-75.2) 07/31/24 23:09
Lymphocytes % 21.4 % (20.5-51.1) 07/31/24 23:09
Monocytes % 13.7 % (1.7-9.3) H 07/31/24 23:09
Eosinophils % 0.5 % (0-6) 07/31/24 23:09
Basophils % 1.0 % (0-2) 07/31/24 23:09
ESR 80 mm/hour (0-20) H 08/01/24 07:18
Lactic Acid 1.5 mmol/L (0.7-2.0) 08/01/24 07:18
C-Reactive Protein 32.10 mg/L (0.0-10.00) H 08/01/24 07:18
Microbiology Results
Micro:
08/01/24 07:18 MRSA Screen - Pending
Nose
08/01/24 02:07 Wound Culture - Pending
Leg - Right Gram Stain - Pending
Assessment / Plan
Right Lower extremity Wound Infection
R TKA
Polymyositis on prednisone 10 mg po qday
Functionally Immunosuppressed - Recently on prednisone 25 mg PO qday
DM2
- follow up lower extremity CT [facility] radiology read, vision radiology: no organized fluid collection, possible cellulitis
- venous US without DVT
- CHICO with arterial insufficiency
- wound culture pending - expect polymicrobial lusi fernando - likley colonization
- mrsa screen pending
- start keflex 500 mg PO QID
- note that lasix 20 mg po qday currently being held, management per IM service
- agree with vascular surgery evaluation
Care Review
Plan reviewed with: Physician (Dr Mag laboy)
--- NOTE | 2024-08-01 10:51 | WOUNDNOTE ---
RIGHT POSTERIOR LEG
--- NOTE | 2024-08-01 10:51 | WOUNDNOTE ---
RIGHT POSTERIOR LEG
--- NOTE | 2024-08-01 10:52 | WOUNDNOTE ---
LEFT MEDIAL ANKLE
--- NOTE | 2024-08-01 10:52 | WOUNDNOTE ---
LEFT MEDIAL ANKLE
--- NOTE | 2024-08-01 10:52 | WOUNDNOTE ---
SA[place] 1950 [id number]
[2024-08-01 11:43] LABS: Glycohemoglobin (HgbA1c) 8.4 % (4.0-5.6)
[2024-08-01] MEDS: KEFLEX 500 MG PO ×3 (12:20→21:17)
[2024-08-01 12:21] LABS: Glucose - Point of Care 203 mg/dl (70-99)
[2024-08-01] MEDS: NOVOLOG FLEXPEN-LOW RESISTANCE 2 UNITS SC (12:54)
--- NOTE | 2024-08-01 13:05 | PTCARENOTE ---
Plan of care discussed at length with spouse and daughter. Spouse verbalized understanding and appreciation for update.
--- NOTE | 2024-08-01 14:02 | PTCARENOTE ---
Patient encouraged to reposition self. Patient is able to turn self side to side, but prefers not to turn because he back hurts.
--- NOTE | 2024-08-01 14:33 | W.PN.UPDATE ---
Update Note
Progress Note Update
Oral abx
Appreciate ID recs
Vascular Consult
Wound Care
restart lasix
--- NOTE | 2024-08-01 15:36 | CON.VAS ---
Addendum entered and electronically signed by Beny aDwson MD 08/01/24 17:43:
Seen and examined with MONTY Hawkins. Agree with findings as noted below. 73-year-old female with myositis admitted with right posterior calf wound. Seen and examined with her daughter and son at the bedside who provided a good additional bit of
history. The patient has been essentially nonmobile for some time now given her my ascites and overall weakness. Very limited ambulation, very limited movement. Sits much of the day in a recliner. No prior history of revascularization
procedures. Medical risk factors as noted in the remainder of the history below.
On exam/she is awake and alert. Breathing is unlabored. Abdomen is soft. Right lower extremity with 2+ femoral, popliteal, DP pulse palpable. Foot is warm. Wound as pictured in wound care pictures. On the left side she has a palpable DP pulse
as well.
Noninvasive studies reviewed. Right-sided ankle-brachial index is not reliable/noncompressible. TBI is 0.4, moderate to severely reduced.
I reviewed images of CT scan of the lower extremity that was performed with contrast. Limited imaging of the arteries, but noted calcified below the knee vessels.
Plan/ Nonhealing/necrotic posterior calf wound. Discussed with family that she definitively has calcified below the knee vessels. However I am not completely convinced that this wound not healing is purely ischemic in nature. I suspect that this
is a pressure related phenomenon/pressure necrosis from her immobility. And there may be a superimposed ischemic component. However, may not be easily revascularizable or revascularizable at all as this may be secondary to calcinosis of the small
cutaneous vessels. She does have a palpable pedal pulse on exam. For completeness sake would recommend arteriography especially given TBI of 0.4. Discussed procedure at length with the patient, her son, her daughter as well as her over
the phone. Discussed anticipated outcomes. Discussed risk include but not limited to bleeding, arterial injury/worsened or acute limb ischemia. Discussed also concomitant debridement of the right calf given the extent of the wound and necrosis.
They understand all wished to proceed. Will plan surgery on Sunday for right lower extremity arteriogram and debridement of Wound.
Original Note:
Consultation
Consultation Request
Performing Provider: Samir
Reason for Consultation: Nonhealing right ankle wound
Medical History
-
Chief Complaint: Right ankle pain
History of Present Illness:
73-year-old female with past medical history polymyositis, A-fib on Eliquis, history of DVT, CHF, GERD, insulin-dependent diabetes, hypertension here for right ankle wound with increased pain and swelling. Patient began seeing Dr. Mccray on
06/16/2024 for nonhealing right ankle wound and small left leg wounds. Patient recently also seeing cardiology for increased swelling to bilateral lower extremities. She was started on Lasix and per the patient's family the swelling has decreased
significantly. Patient was going to wound care center weekly for wound care but states the wound has only gotten worse. About 5 days ago she was started on doxycycline for purulent drainage and increased redness to the site. She is chronically on
steroids and was recently decreased the dose from 25 mg to 10 mg daily of prednisone. Patient and family deny trauma to her lower extremity.
Patient is a poor historian. Family at bedside helpful filling in the gaps. Patient states she does not ambulate more than 1 step to the couch from the commode. She states she does not walk because it is inconvenient to do so. Family states she
does not walk because of the polymyositis. Patient denies pain in her feet at night. She states right now she has ankle pain at the wound site on the right. She does not remember the last time she was walking. She does not have any history of
vascular stents or balloons that she is aware of. She has not had issue healing wounds in the past.
Patient was to see Dr. Henry in the office on 08/06/2024 for the first time for PAD evaluation.
Patient had CHICO and TBI as an outpatient on 07/10/2024:
1. Noncompressible arteries bilaterally, suggestive of medial calcinosis and/or arterial noncompliance, which makes measured ankle-brachial indices unreliable. Toe brachial indices are considered more reliable in this situation.
2. Right toe index 0.41 (normal greater than 0.7). Spectral Doppler waveforms at the level of the ankle are within normal limits.
3. Left toe brachial index measures 0.84. Spectral Doppler waveforms are within normal limits at the ankle.
Past Medical History
Past Medical History: Other (Polymyositis, A-fib on Eliquis, DVT, CHF, GERD, insulin-dependent diabetes, hypertension, asthma, left breast c/o, diverticulitis)
Past Surgical History: Other (Tubal ligation, hysterectomy, meniscus repair, right TKA, CAD TR, tonsillectomy)
Social History
Tobacco: Non-Smoker
Alcohol: None
Drug: None
Personal:
Living: With Family
Family History
Family History: Reviewed & Not Pertinent
Allergies / Home Medications
Allergy/AdvReac Type Severity Reaction Status Date / Time
codeine Allergy Vomiting Verified 07/31/24 21:46
metformin Allergy effects Verified 07/31/24 21:46
polymositis
Ingabxr-EBQ-XxX Reductase Allergy effects Verified 07/31/24 21:46
Inhibitor polymyositis
[Eyavnkf-Kai-Hkg Reductase
Inhibitor]
�Medication �Instructions �Recorded �Confirmed �Type
prednisone 5 mg tablet 10 mg PO DAILY POLYMYOSITIS ##0 05/03/17 08/01/24 History
carvedilol 12.5 mg tablet 12.5 mg PO BID Blood pressure 05/13/20 08/01/24 History
immune glob,gamma (IgG) 10 1 dose IV UD Neurological Condition 05/13/20 01/18/22 History
%-gly-IgA over 50 mcg/mL injection
solution (Gammagard Liquid)
spironolactone 25 mg tablet 12.5 mg PO DAILY Fluid 05/13/20 08/01/24 History
retention/Swelling
furosemide 20 mg tablet 20 mg PO DAILY leg swelling 01/18/22 08/01/24 History
lisinopril 10 mg tablet 10 mg PO DAILY Blood pressure 01/18/22 08/01/24 History
alendronate 70 mg tablet 70 mg PO FR Osteoporosis 01/20/22 08/01/24 History
apixaban 5 mg tablet (Eliquis) 5 mg PO BID Venous thrombosis 30 01/23/22 08/01/24 Rx
days #60 tabs
pantoprazole 40 mg tablet,delayed 40 mg PO DAILY GERD 30 days #30 01/23/22 08/01/24 Rx
release tabs
ezetimibe 10 mg tablet 10 mg PO DAILY 08/01/24 08/01/24 History
gabapentin 300 mg capsule 300 mg PO BID 08/01/24 08/01/24 History
insulin glargine 100 unit/mL (3 5 unit SC DAILY 08/01/24 08/01/24 History
mL) subcutaneous pen (Lantus
Solostar U-100 Insulin)
repaglinide 2 mg tablet 2 mg PO TID 08/01/24 08/01/24 History
Review of Systems
-
History Source: Patient and Family
All other systems: Negative unless noted
Constitutional: Reports No Symptoms
EENT: Reports No Symptoms
Respiratory: Reports No Symptoms
Cardiac: Reports No Symptoms
Vascular: Denies Leg Pain / Claudication
Musculoskeletal: Reports Edema
Skin: Reports Other (Right ankle wound)
Neurological: Reports No Symptoms
Physical Exam
Vital Signs
Temp Pulse Resp BP Pulse Ox
99.7 F 86 17 110/54 94
08/01/24 12:00 08/01/24 12:22 08/01/24 12:22 08/01/24 12:22 08/01/24 12:00
Lab Results
08/01/24 07:18
08/01/24 07:18
Cxs-C-Nxudzuihzlk Pept 1590 pg/ml 07/31/24 23:09
Physical Exam
General: No Apparent Distress
HEENT: Normocephalic and Atraumatic
Respiratory: Non Labored Respirations
Cardiac: Negative JVD
GI: Soft and Non Tender
Musculoskeletal: No Clubbing, No Cyanosis and No Edema
Skin: Warm
Neuro: Awake, Alert and Oriented (Forgetful)
Psych: Calm
Pulses: Bilateral Dorsalis Pedis: +2
Assessment / Plan
-
73-year-old female here with nonhealing right ankle wound/cellulitis
Plan:
-Will discuss with attending
Data Reviewed
-
Labs: Labs Reviewed by me
[2024-08-01 16:35] LABS: Glucose - Point of Care 282 mg/dl (70-99)
[2024-08-01] MEDS: NOVOLOG FLEXPEN-LOW RESISTANCE 3 UNITS SC (16:51)
--- NOTE | 2024-08-01 18:46 | PTCARENOTE ---
Pt w/ no void during the day. Bladder scanned for 1250ml. Assisted pt x2 OOB to BSC, able to void only 400mL, bladder scanned for 863ml, Dr Mag hayward, straight cathed for 900mL at this time.
[2024-08-01] MEDS: DESENEX/MITRAZOL/ZEASORB 1 APPLIC TOPICAL (21:17)
[2024-08-01 21:26] LABS: Glucose - Point of Care 246 mg/dl (70-99)
[2024-08-02 03:53] VITALS: BP 130/70
[2024-08-02 06:00] VITALS: BMI 30.9
[2024-08-02 07:30] LABS: ALT (SGPT) 24 U/L (0-35); AST (SGOT) 37 U/L (14-36); Albumin 3.2 g/dl (3.5-5.0); Alkaline Phosphatase 96 U/L (38-126); Blood Urea Nitrogen 28 mg/dl (7-17); Calcium 8.9 mg/dl (8.4-10.2); Carbon Dioxide 21 mmol/L (22-30); Chloride 107 mmol/L (98-107); Estimated Creatinine Clearance 74 ml/min; Glucose 75 mg/dl (70-99); Potassium 4.4 mmol/L (3.5-5.1); Sodium 137 mmol/L (135-145); Total Bilirubin 1.1 mg/dl (0.2-1.3); Total Protein 6.8 g/dl (6.3-8.2); eGFR > 60.00
[2024-08-02 08:12] VITALS: BP 121/71
[2024-08-02 08:18] LABS: Hematocrit 37.2 % (37.0-47.0); Hemoglobin 12.4 g/dL (12.0-16.0); Mean Corp Hgb Conc. 33.3 g/dL (33.0-37.0); Mean Corpuscular Hgb 29.2 pg (27.0-31.0); Mean Corpuscular Volume 87.5 fL (81.0-99.0); Mean Platelet Volume 10.2 fL (7.4-10.4); Platelet Count 135 10^3/uL (130-400); Red Blood Cell Count 4.25 10^6/uL (4.20-5.40); Red Cell Dist. Width 18.2 % (11.5-14.5); White Blood Cell Count 6.5 10^3/uL (4.8-10.8)
[2024-08-02] MEDS: LANTUS SC (08:46)
[2024-08-02] MEDS: PRANDIN PO ×2 (08:46→13:10)
[2024-08-02] MEDS: NOVOLOG FLEXPEN-LOW RESISTANCE SC ×2 (08:50→12:00)
[2024-08-02 08:58] LABS: Glucose - Point of Care 66 mg/dl (70-99)
[2024-08-02 09:16] LABS: Glucose - Point of Care 83 mg/dl (70-99)
[2024-08-02] MEDS: ALDACTONE 12.5 MG PO (09:43)
[2024-08-02] MEDS: ELIQUIS 5 MG PO ×2 (09:52→21:03)
[2024-08-02] MEDS: KEFLEX 500 MG PO ×4 (09:52→21:03)
[2024-08-02] MEDS: DELTASONE 10 MG PO (09:52)
[2024-08-02] MEDS: ZETIA 10 MG PO (09:53)
[2024-08-02] MEDS: LASIX 20 MG PO (09:53)
[2024-08-02] MEDS: PROTONIX 40 MG PO (09:53)
[2024-08-02] MEDS: NEURONTIN 300 MG PO ×2 (09:53→21:03)
[2024-08-02] MEDS: ZESTRIL 10 MG PO (09:53)
[2024-08-02] MEDS: COREG 12.5 MG PO ×2 (09:57→21:02)
[2024-08-02 11:35] VITALS: BP 110/65
[2024-08-02 11:55] LABS: Glucose - Point of Care 121 mg/dl (70-99)
--- NOTE | 2024-08-02 12:58 | W.PN.HOSP.TC ---
Today's Communication/Plan
-
abx
debridement and angiogram sunday
- hold repaglinide 2mg tid ac
Assessment / Plan
Assessment / Plan
Physical Exam
Constitutional: No Acute Distress and Chronically Ill
Cardiovascular: Regular Rate and S1/S2; Negative Murmur or Rub
Pulmonary: Clear and Symmetric; Negative Wheezes, Rales or Rhonchi
Gastrointestinal: Soft, Non Tender, Non Distended and Normal Bowel Sounds
Skin: Warm and Dry; Negative Rash or Jaundice
Wound: Other (bilateral lower extremity wounds, L with minimal surrounding, nonpurulent erythema, R wound with developing eschar, mild slough)
#Right Lower extremity Wound Infection
-abx
-F/u wound cultures
-keflex
-vascular consult
-debridement by vascular
-ID Consulted
#PAD
-vascular consulted
-angiogram sunday
-on eliquis
#DM II
- continue lantus 5 am
- hold repaglinide 2mg tid ac
- sliding scale insulin
#AFIB
- continue eliquis
- continue carvedilol
# CHF - she is euvolemic on exam. Trace edema on RLE
- continue carvedilol and lisinopril with spironolactone
- resume lasix 40mg po daily for now
- monitor k, mag
6. Polymyositis
- continue prednisone 10 daily
- outpatient ivig
DVT PPX - on apixaban
Code status - DNR
Anticipated Discharge: > 48 hours
Subjective/Interval History
-
Date of Service: August 02, 2024
no acute events
Objective Data
-
Labs:
Laboratory Results
08/02/24 08/02/24
06:27 08:04
WBC Cancelled 6.5
Hgb Cancelled 12.4
Hct Cancelled 37.2
Plt Count Cancelled 135
Sodium 137
Potassium 4.4
Chloride 107
Carbon Dioxide 21 L
BUN 28 H
Creatinine 0.6
Glucose 75
Calcium 8.9
Total Bilirubin 1.1
AST 37 H
ALT 24
Alkaline Phosphatase 96
Vital Signs:
Vital Signs
Temp Pulse Resp BP Pulse Ox
97.8 F 80 18 110/65 97
08/02/24 11:35 08/02/24 11:35 08/02/24 11:35 08/02/24 11:35 08/02/24 11:35
I&O
08/01/24 08/02/24 08/03/24
06:59 06:59 06:59
Intake Total 720 / 720
Output Total 2700 / 2700 100 / 100
Balance -1979 / -1979 -100 / -100
Review of Systems
-
History Source: Patient
All other systems: Not reviewed unless documented
Physical Exam
-
General: Well Developed, Well Nourished and No Apparent Distress
HEENT: Normocephalic, Atraumatic and Moist Mucous Membranes
Respiratory: Clear to Auscultation
Cardiac: Regular Rhythm and S1/S2; Negative Murmur
GI: Soft and Nontender
Musculoskeletal: No Cyanosis, Edema, Left Lower Extrem (KEILA wrapped ) and Other
Skin: Warm and Dry
Neuro: Awake, Alert and Nonfocal/Grossly Intact
Data Reviewed
-
Labs: Labs Reviewed by me
[2024-08-02 13:54] LABS: Glucose - Point of Care 211 mg/dl (70-99)
[2024-08-02] MEDS: DAKIN'S SOLUTION 0.125% 1/4 STRENGTH 10 ML TOPICAL (13:54)
[2024-08-02] MEDS: DESENEX/MITRAZOL/ZEASORB 1 APPLIC TOPICAL ×2 (13:56→21:04)
--- NOTE | 2024-08-02 15:36 | CM ---
Patient seen bedside w/ sister. Initial assessment completed. Patient is a 73-year-old female with past medical history significant for polymyositis, proximal atrial fibrillation on anticoagulation, history of DVT, congestive heart failure with
preserved EF, GERD, insulin-dependent diabetes and hypertension presenting to the emergency department with right lower extremity pain and swelling. For angiogram on Sunday.
Patient reports that she resides w/ spouse in a single story mobile home w/ javy access. Patient shared her adult son stays there as well. Patient ambulates w/ a RW. Patient has grab bar in the bathroom. Patient is independent w/ ADLs. Patient's
spouse is supportive as she has an autoimmune disease that limits her mobility and strength in her thighs and biceps. Patient shared her does the laundry and does the grocery shopping. Patient denies SNF hx, engaged in OP therapy years ago.
Patient shared she has an infusion nurse that comes to her home every 3 weeks.
Address, point of contact and insurance verified
PCP: Cole Suazo
Pharmacy: [facility]
Patient is admitted as OBS. [place] form verbally reviewed, patient given a copy, copy placed on chart
Plan: Anticipate home; no needs
[2024-08-02] MEDS: SANTYL OINTMENT 1 APPLIC TOPICAL (15:37)
[2024-08-02 15:44] VITALS: BP 119/64
[2024-08-02 16:37] LABS: Glucose - Point of Care 301 mg/dl (70-99)
[2024-08-02] MEDS: NOVOLOG FLEXPEN-LOW RESISTANCE 4 UNITS SC (17:57)
--- NOTE | 2024-08-02 18:11 | PTCARENOTE ---
Following pt's urinary outputs as pt was having difficulty with urinary retention. Pt's last bladder scan at 1540 was 380ml PVR after voiding 350ml. Pt up to commode again at 1800 and voiding 300ml, will continue to monitor.
--- NOTE | 2024-08-02 18:27 | PTCARENOTE ---
Pt's blood sugar at 1630, 301. Pt asymptomatic. Pt on a low resistance sliding scale and will get 4 units of Novolog per orders. Made Dr. Hathaway aware that pt's blood sugar 301. No change in orders, will monitor.
[2024-08-02 19:28] VITALS: BP 124/76
[2024-08-02 21:15] LABS: Glucose - Point of Care 266 mg/dl (70-99)
[2024-08-02 23:48] VITALS: BP 133/80
[2024-08-03 02:41] LABS: Glucose - Point of Care 201 mg/dl (70-99)
[2024-08-03 03:48] VITALS: BP 119/71
[2024-08-03 06:00] VITALS: BMI 31.6
[2024-08-03 06:31] LABS: Hematocrit 36.8 % (37.0-47.0); Hemoglobin 12.2 g/dL (12.0-16.0); Mean Corp Hgb Conc. 33.2 g/dL (33.0-37.0); Mean Corpuscular Hgb 29.2 pg (27.0-31.0); Mean Platelet Volume 10.4 fL (7.4-10.4); Platelet Count 137 10^3/uL (130-400); Red Blood Cell Count 4.18 10^6/uL (4.20-5.40); Red Cell Dist. Width 17.8 % (11.5-14.5); White Blood Cell Count 6.1 10^3/uL (4.8-10.8)
[2024-08-03 07:00] VITALS: BP 104/69
[2024-08-03 07:00] LABS: ALT (SGPT) 23 U/L (0-35); AST (SGOT) 31 U/L (14-36); Albumin 3.1 g/dl (3.5-5.0); Alkaline Phosphatase 94 U/L (38-126); Blood Urea Nitrogen 25 mg/dl (7-17); Calcium 8.9 mg/dl (8.4-10.2); Carbon Dioxide 24 mmol/L (22-30); Chloride 104 mmol/L (98-107); Estimated Creatinine Clearance 75 ml/min; Glucose 149 mg/dl (70-99); Potassium 4.1 mmol/L (3.5-5.1); Sodium 136 mmol/L (135-145); Total Bilirubin 1.1 mg/dl (0.2-1.3); Total Protein 6.7 g/dl (6.3-8.2); eGFR > 60.00
[2024-08-03 07:12] LABS: Glucose - Point of Care 147 mg/dl (70-99)
[2024-08-03] MEDS: NOVOLOG FLEXPEN-LOW RESISTANCE SC ×3 (08:47→18:18)
[2024-08-03] MEDS: PROTONIX 40 MG PO (09:34)
[2024-08-03] MEDS: ELIQUIS 5 MG PO ×2 (09:34→21:39)
[2024-08-03] MEDS: NEURONTIN 300 MG PO ×2 (09:34→20:53)
[2024-08-03] MEDS: COREG 12.5 MG PO (09:35)
[2024-08-03] MEDS: KEFLEX 500 MG PO ×2 (09:35→12:55)
[2024-08-03] MEDS: ZETIA 10 MG PO (09:35)
[2024-08-03] MEDS: SANTYL OINTMENT 1 APPLIC TOPICAL (09:36)
[2024-08-03] MEDS: DELTASONE 10 MG PO (09:36)
[2024-08-03] MEDS: LASIX 20 MG PO (09:36)
[2024-08-03] MEDS: ZESTRIL 10 MG PO (09:36)
[2024-08-03] MEDS: ALDACTONE 12.5 MG PO (09:36)
[2024-08-03] MEDS: DAKIN'S SOLUTION 0.125% 1/4 STRENGTH 10 ML TOPICAL (09:37)
[2024-08-03] MEDS: DESENEX/MITRAZOL/ZEASORB 1 APPLIC TOPICAL ×2 (09:39→20:54)
[2024-08-03] MEDS: FLUSH (NSS) 1 FLUSH IV (09:39)
[2024-08-03] MEDS: LANTUS 0.05 UNITS SC (09:39)
[2024-08-03 11:00] VITALS: BP 104/59
[2024-08-03 11:40] LABS: Glucose - Point of Care 142 mg/dl (70-99)
--- NOTE | 2024-08-03 12:54 | W.PN.HOSP.TC ---
Addendum entered and electronically signed by Kevin Hathaway MD 08/03/24 14:12:
3 second pause, asymptomatic. reduce coreg dose - if re-occurs - Cards consult
Original Note:
Today's Communication/Plan
-
abx
angiogram, debridement marilin
Assessment / Plan
Assessment / Plan
Physical Exam
Constitutional: No Acute Distress and Chronically Ill
Cardiovascular: Regular Rate and S1/S2; Negative Murmur or Rub
Pulmonary: Clear and Symmetric; Negative Wheezes, Rales or Rhonchi
Gastrointestinal: Soft, Non Tender, Non Distended and Normal Bowel Sounds
Skin: Warm and Dry; Negative Rash or Jaundice
Wound: Other (bilateral lower extremity wounds, L with minimal surrounding, nonpurulent erythema, R wound with developing eschar, mild slough)
#Right Lower extremity Wound Infection
-Wound Culture - Psuedomonas Aeurginosa.
-abx
-F/u wound cultures
-vascular consult
-debridement and angio by vascular Sunday
-ID Consulted
#PAD
-vascular consulted
-angiogram Sunday
-on eliquis
#DM II
- continue lantus 5 am
- hold repaglinide 2mg tid ac
- sliding scale insulin
#AFIB
- continue eliquis
- continue carvedilol
# CHF - she is euvolemic on exam. Trace edema on RLE
- continue carvedilol and lisinopril with spironolactone
- resume lasix 40mg po daily for now
- monitor k, mag
6. Polymyositis
- continue prednisone 10 daily
- outpatient ivig
DVT PPX - on apixaban
Code status - DNR
Anticipated Discharge: 24 - 48 hours
Subjective/Interval History
-
Date of Service: August 03, 2024
no acute events
Objective Data
-
Labs:
Laboratory Results
08/03/24
06:13
WBC 6.1
Hgb 12.2
Hct 36.8 L
Plt Count 137
Sodium 136
Potassium 4.1
Chloride 104
Carbon Dioxide 24
BUN 25 H
Creatinine 0.5 L
Glucose 149 H
Calcium 8.9
Total Bilirubin 1.1
AST 31
ALT 23
Alkaline Phosphatase 94
Vital Signs:
Vital Signs
Temp Pulse Resp BP Pulse Ox
98.5 F 80 16 104/59 96
08/03/24 11:00 08/03/24 11:00 08/03/24 11:00 08/03/24 11:00 08/03/24 11:00
I&O
08/02/24 08/03/24 08/04/24
06:59 06:59 06:59
Intake Total 720 / 720 1500 / 1500
Output Total 2700 / 2700 2850 / 2850
Balance -1979 / -1980 -1350 / -1350
Review of Systems
-
History Source: Patient
All other systems: Not reviewed unless documented
Physical Exam
-
General: Well Developed, Well Nourished and No Apparent Distress
HEENT: Normocephalic, Atraumatic and Moist Mucous Membranes
Respiratory: Clear to Auscultation
Cardiac: Regular Rhythm and S1/S2; Negative Murmur
GI: Soft and Nontender
Musculoskeletal: No Cyanosis, Edema, Left Lower Extrem (KEILA wrapped ) and Other
Skin: Warm and Dry
Neuro: Awake, Alert and Nonfocal/Grossly Intact
Data Reviewed
-
Labs: Labs Reviewed by me
--- NOTE | 2024-08-03 14:50 | PTCARENOTE ---
Pt had noted 3.25 sec pause over night when getting up to the BSC, asymptomatic. Made Dr. Hathaway aware of pause, MD wants pt to continue on telemetry.
[2024-08-03 15:00] VITALS: BP 113/66
[2024-08-03 16:27] LABS: Glucose - Point of Care 320 mg/dl (70-99)
[2024-08-03] MEDS: NOVOLOG FLEXPEN-MODERATE RESISTANCE 7 UNITS SC (17:43)
--- NOTE | 2024-08-03 18:26 | PTCARENOTE ---
Pt's dinner blood sugar 320, asymptomatic. Made Dr. Hathaway aware, see new orders for moderate corrective sliding scale and increase in Lantus. Updated pt and son of plan.
[2024-08-03 19:48] VITALS: BP 121/75
[2024-08-03] MEDS: CIPRO 500 MG PO (20:52)
[2024-08-03] MEDS: COREG 6.25 MG PO (20:53)
[2024-08-03 21:38] LABS: Glucose - Point of Care 131 mg/dl (70-99)
--- NOTE | 2024-08-03 21:43 | PTCARENOTE ---
Discuss during the hand off report if Eliquis should be held since the pt will have arteriogram and wound debridement. Anya HOLT reached out to Dr. Hathaway who said at this point Eliquis will continue.
[2024-08-03 23:48] VITALS: BP 140/85
[2024-08-04] VITALS (19 sets, daily range): BP systolic 99–134; BP diastolic 65–105; BMI 30.3
[2024-08-04 01:51] LABS: Glucose - Point of Care 120 mg/dl (70-99)
[2024-08-04] MEDS: TYLENOL 650 MG PO ×2 (05:06→20:00)
[2024-08-04 08:04] LABS: Hematocrit 36.4 % (37.0-47.0); Hemoglobin 12.1 g/dL (12.0-16.0); Mean Corp Hgb Conc. 33.2 g/dL (33.0-37.0); Mean Corpuscular Hgb 29.2 pg (27.0-31.0); Mean Corpuscular Volume 87.7 fL (81.0-99.0); Mean Platelet Volume 10.7 fL (7.4-10.4); Platelet Count 153 10^3/uL (130-400); Red Blood Cell Count 4.15 10^6/uL (4.20-5.40); Red Cell Dist. Width 17.4 % (11.5-14.5); White Blood Cell Count 6.4 10^3/uL (4.8-10.8)
[2024-08-04 08:40] LABS: ALT (SGPT) 21 U/L (0-35); AST (SGOT) 27 U/L (14-36); Albumin 3.1 g/dl (3.5-5.0); Alkaline Phosphatase 98 U/L (38-126); Blood Urea Nitrogen 27 mg/dl (7-17); Calcium 8.9 mg/dl (8.4-10.2); Carbon Dioxide 23 mmol/L (22-30); Chloride 102 mmol/L (98-107); Estimated Creatinine Clearance 73 ml/min; Glucose 81 mg/dl (70-99); Sodium 135 mmol/L (135-145); Total Protein 6.6 g/dl (6.3-8.2); eGFR > 60.00
[2024-08-04] MEDS: NOVOLOG FLEXPEN-MODERATE RESISTANCE SC ×2 (08:42→14:58)
[2024-08-04] MEDS: SANTYL OINTMENT 1 APPLIC TOPICAL (08:45)
[2024-08-04] MEDS: ZETIA 10 MG PO (08:46)
[2024-08-04] MEDS: LASIX 20 MG PO (08:46)
[2024-08-04] MEDS: CIPRO 500 MG PO ×2 (08:46→19:57)
[2024-08-04] MEDS: DELTASONE 10 MG PO (08:46)
[2024-08-04] MEDS: NEURONTIN 300 MG PO ×2 (08:46→19:58)
[2024-08-04] MEDS: PROTONIX 40 MG PO (08:46)
[2024-08-04 08:49] LABS: Glucose - Point of Care 89 mg/dl (70-99)
[2024-08-04] MEDS: ZESTRIL PO (08:49)
[2024-08-04] MEDS: LANTUS SC (08:49)
[2024-08-04] MEDS: DESENEX/MITRAZOL/ZEASORB 1 APPLIC TOPICAL ×2 (08:49→20:00)
[2024-08-04] MEDS: COREG PO (08:50)
[2024-08-04] MEDS: ALDACTONE PO (08:50)
[2024-08-04] MEDS: DAKIN'S SOLUTION 0.125% 1/4 STRENGTH 10 ML TOPICAL (08:50)
[2024-08-04 12:10] LABS: Glucose - Point of Care 151 mg/dl (70-99)
--- NOTE | 2024-08-04 12:17 | CM ---
Patient continues to need acute care. Will review PT/OT when it becomes available if patient is able to participate. Will discuss SNF options if patient needs to transfer to rehab prior to returning home.
Plan: Case management will continue to follow and assist with discharge planning. SNF vrs. Home.
--- NOTE | 2024-08-04 12:20 | TRANSFER ---
Pt transferred to label cutter recovery area, pt aaox3 with stable vitals upon arrival. BL pedal pulses weak but palpable. Pt placed on conveyor monitor and vital sights obtained. 113/65 71 afib, 16rr, 96% room air. Will Monitor pt closely
--- NOTE | 2024-08-04 13:17 | W.SUR.PREOP ---
Pre-Operative Surgical Note
-
I have examined this patient prior to the performance of the scheduled procedure.
The patient's condition is unchanged from the time of the current History and
Physical and the patient is able to undergo the scheduled procedure.
--- NOTE | 2024-08-04 15:00 | W.SUR.POST ---
Surgical Immediate Post Op
Note
Pre Op Diagnosis: PAD, gangrene
Post Op Diagnosis: Same
Procedure Performed: RLE arteriogram, right above the knee popliteal artery stent placement, right ankle wound debridement
Primary Surgeon: Samir
Anesthesia: general
Estimated Blood Loss: 5cc
Fluids: see anesthesia flow sheet
Drains/Shunts: none
Specimens/Cultures: tissue culture
Doppler/Duplex/Angio (Y/N): Y
Complications: none
Operative Findings: successful stent placement
[2024-08-04 15:23] LABS: Glucose - Point of Care 218 mg/dl (70-99)
--- NOTE | 2024-08-04 15:51 | OR.RPT ---
Operative Report
Operative Report
PROCEDURE DATE: 08/04/2024
Preoperative diagnosis: Nonhealing, necrotic right posterior calf wound. Concern for peripheral arterial disease.
Postoperative diagnosis: Same
Procedure:
1. Duplex assisted left common femoral artery cannulation.
2. Aortogram and pelvic angiogram.
3. Right lower extremity arteriogram with third order vessel catheterization right popliteal artery via left common femoral artery puncture.
4. Balloon angioplasty and stent placement right [id number] popliteal artery with [employer] Zilver PTX 6 mm x 4 cm self-expanding stent.
5. Left femoral angiogram and Torres Pro-glide percutaneous suture closure left common femoral artery.
6. Supervision and interpretation.
7. Sharp excisional debridement right posterior distal calf necrotic wound measuring approximately 6 cm x 3.5 cm depth less than 1 cm. Debridement through skin and subcutaneous tissue only.
Surgeon: Samir
Manager Consumer: None
Complications: None
Anesthesia: General, LMA
Fluoroscopy:
6.7 min
56 mGy
9.56 Gy.cm2
Indications for procedure:
Right calf/ankle posterior necrotic wound. Risk/benefit/alternatives of angiography and debridement of wound were fully discussed. Patient understood all wished to proceed.
Description of procedure:
Patient was identified, brought to the operating room. Placed on the table in the supine position. After the adequate administration of anesthesia, the patient was prepped and draped in the standard surgical fashion. A standard preoperative
timeout was undertaken and everybody was in agreement with the plan.
The left common femoral artery was accessed with a micropuncture kit under direct duplex ultrasound guidance. A 5 [place] sheath was then advanced over a 0.035 inch wire, and a carrington's hook catheter was advanced into the abdominal aorta.
Aortogram and pelvic angiogram was obtained. Findings as follows:
Infrarenal aorta: Patent with no significant stenosis
Right common iliac artery: Patent with no significant stenosis
Right external iliac artery: Patent with no significant stenosis
Left common iliac artery: Patent with no significant stenosis
Left external iliac artery: Patent with no significant stenosis
Using a floppy angled hydrophilic wire, the right common femoral artery was cannulated and the catheter was advanced. Right lower extremity arteriogram was obtained. Findings as follows:
Common femoral artery: Patent with no significant stenosis
Profunda femoris artery: Patent with no significant stenosis
Superficial femoral artery: Patent with no significant stenosis
Popliteal artery: Patent with bulky plaque in the mid above-knee popliteal artery. I had to frog-legged the right leg in order to visualize the entirety of the popliteal artery secondary to knee prosthetic. However I could clearly see a bulky
popcorn-like plaque that resulted in at least a moderate to high-grade stenosis focally. The remainder the popliteal artery is without significant stenosis.
Below the knee the patient had three-vessel runoff. However all 3 vessels were heavily diseased with calcified plaque and somewhat diminutive throughout. Both the anterior tibial/dorsalis pedis and posterior tibial arteries did cross the ankle to
give rise to the arch on the foot, but it was a somewhat diseased calcified arch.
At this point I selectively cannulated the superficial femoral artery and then exchanged for a Storq wire and then an up and over 6 [place] sheath. The patient was given 5017 is heparin. Next I was able to traverse the area of popliteal stenosis
with the Storq wire and then over the Storq wire I then passed a 6 mm x 4 cm [employer] Zilver PTX stent which I elected to primarily stent this stenosis. I then post angioplastied the stent with a 5 mm angioplasty balloon. Completion angiography
demonstrated excellent resolution of the stenosis with excellent flow through the stent and preserved flow through the runoff. At this point is very satisfied. The sheath was withdrawn to the left external iliac artery and left femoral angiogram
demonstrated good puncture in the left common femoral artery. The artery appeared suitable for percutaneous closure. I therefore then used a Torres Pro-glide percutaneous suture to close the common femoral artery. Manual pressure was also gently
applied. Hemostasis was fully noted. Upon completion the patient had a 2+ palpable right popliteal pulse as well as a 1+ DP pulse on the foot.
At this point I then placed a dressing on the left groin puncture site and then prepped and draped the right calf. Using a 15 blade scalpel sharp debridement was performed of the posterior right calf distal wound with measurements as noted in the
procedure section above. There is no evidence of any gross infection, but the skin itself appeared slightly necrotic. When I got down to the subcutaneous tissue there appeared to be reasonable healthy tissue and reasonable bleeding. Slightly
skin drier than I would have hoped, but some bleeding was noted. The wound was irrigated and hemostasis was achieved and confirmed. At this point a wet-to-dry type dressing was applied. An Jose Elias bandage was also applied. Patient tolerated procedure
well.
--- NOTE | 2024-08-04 15:56 | W.PN.UPDATE ---
Update Note
Progress Note Update
Patient was in the OR during my rounds at approximately 3 pm
chart reviewed
do not feel that pseudomonas needs coverage - likely a transient colonizer
favor 5 day course of keflex 08/01-08/05
will revisit patient tomorrow
[2024-08-04] MEDS: DILAUDID 0.25 MG IV (16:04)
[2024-08-04] MEDS: ASPIR LOW (ENTERIC COATED) 81 MG PO (16:56)
--- NOTE | 2024-08-04 17:00 | PTCARENOTE ---
Received patient from PACU in bed. AAOx3, drowsy. Ordered strict bedrest and keep RLE straight until 2044. Dressing noted to RLE. Family at bedside. Call ramires in close reach.
[2024-08-04] MEDS: NSS 1000 IV (17:02)
[2024-08-04 17:08] LABS: Glucose - Point of Care 279 mg/dl (70-99)
[2024-08-04] MEDS: NOVOLOG FLEXPEN-MODERATE RESISTANCE 5 UNITS SC (17:08)
--- NOTE | 2024-08-04 17:29 | W.PN.HOSP.TC ---
Today's Communication/Plan
-
discussed with and dgt in room. Await post op evaluation by vascular surgery and then will be in contact with CM for potential SNF on dc
Assessment / Plan
Assessment / Plan
#Right Lower extremity Wound Infection
-Wound Culture - Pseudomonas Aeurginosa.
-abx, as per ID, felt to be a transient colonizer
-F/u wound cultures
-vascular consult appreciated, reviewed with Dr. Dawson
-debridement and angio by vascular just completed
felt to be nonhealing necrotic rt posterior claf wound
-ID Consulted
#PAD
-vascular consulted
-on eliquis
#DM II
- continue lantus 5 am
- hold repaglinide 2mg tid ac
- sliding scale insulin
#AFIB
- continue eliquis
- continue carvedilol
# CHF - she is euvolemic on exam. Trace edema on RLE
- continue carvedilol and lisinopril with spironolactone
- resume lasix 40mg po daily for now
- monitor k, mag
6. Polymyositis
- continue prednisone 10 daily
- outpatient ivig
DVT PPX - on apixaban
Code status - DNR
Anticipated Discharge: 24 - 48 hours
Subjective/Interval History
-
Date of Service: August 04, 2024
Pt returns from vascular intervention
Objective Data
-
Labs:
Laboratory Results
08/04/24
07:04
WBC 6.4
Hgb 12.1
Hct 36.4 L
Plt Count 153
Sodium 135
Potassium 4.0
Chloride 102
Carbon Dioxide 23
BUN 27 H
Creatinine 0.6
Glucose 81
Calcium 8.9
Total Bilirubin 1.0
AST 27
ALT 21
Alkaline Phosphatase 98
Vital Signs:
Vital Signs
Temp Pulse Resp BP Pulse Ox
97.7 F 73 18 130/82 97
08/04/24 16:45 08/04/24 16:45 08/04/24 16:45 08/04/24 16:45 08/04/24 16:45
I&O
08/03/24 08/04/24 08/05/24
06:59 06:59 06:59
Intake Total 1500 / 1500 1440 / 1440 100 / 100
Output Total 2850 / 2850 3200 / 3200 600 / 600
Balance -1350 / -1350 -1760 / -1760 -500 / -500
Review of Systems
-
History Source: Patient and Family (reviewed with and dgt, April)
Constitutional: Denies Fever
EENT: Reports No Symptoms Reported
Respiratory: Reports No Symptoms
Cardiac: Reports No Symptoms
Abdomen/GI: Reports No Symptoms
Musculoskeletal: Reports Other (rt leg surgically wrapped)
Physical Exam
-
General: Well Developed, Well Nourished and No Apparent Distress
HEENT: Normocephalic, Atraumatic and Moist Mucous Membranes
Respiratory: Clear to Auscultation; Negative Wheezes, Rales or Rhonchi
Cardiac: Regular Rhythm and S1/S2
GI: Nontender and Nondistended
Musculoskeletal: No Clubbing, No Cyanosis and No Edema
Skin: Warm and Dry
[2024-08-04] MEDS: COREG 6.25 MG PO (19:58)
[2024-08-04 21:25] LABS: Glucose - Point of Care 231 mg/dl (70-99)
[2024-08-05] VITALS (8 sets, daily range): BP systolic 121–139; BP diastolic 64–88; PULSE 79–86; O2SAT 95–99; BMI 30.3; BMI 30.1
--- NOTE | 2024-08-05 06:33 | PTCARENOTE ---
Pt. had brief run tachycardia in the 120's (alarming VT but pt. has large bundle branch block at baseline, ? bundle flip?) at 2245. Pt. talking to me at the time, asymptomatic. Also having some PVC's. Hospitalist DITCH WORKER Adrianna notified, Mag added to AM
labs. Otherwise pt. did well overnight, left groin site dressing with no new drainage, no S&S hematoma, pedal pulse weakly palpable (verified with Doppler), sensation and movement intact. Tylenol effective for right lower leg discomfort. Voiding
without difficulty on bedpan.
[2024-08-05 07:36] LABS: Glucose - Point of Care 175 mg/dl (70-99)
--- NOTE | 2024-08-05 07:48 | PN.CDI ---
CDI
- -
CDI:
Physician Documentation Request
Admit Date: 08/03/24 11:29
Dear Doctor Sudarshan,
Patient admitted with right lower extremity wound infection.
08/01 N note, 'Patient also admitted with stage 2 PI to left buttock.'
Physician documentation of the type and location of wounds is required for compliant documentation. Based on the above clinical findings and your assessment, please provide the following in your progress note:
Type (etiology) of ulcer/wound:
- Pressure (decubitus) ulcer
- Other
- Unable to determine
For a pressure ulcer, please also include the stage* of the ulcer:
- Stage 1 - Skin intact, non-blanchable redness
- Stage 2 - Partial thickness loss of dermis, includes intact or open blister
- Stage 3 - Full thickness tissue not including bone, tendon or muscle
- Stage 4 - Full thickness tissue loss, including exposed bone, tendon or muscle
- Unstageable - Full thickness loss in which the base of the ulcer is covered by slough (yellow, romano, walters, green or brown) and/or eschar (romano, brown or black) in the wound bed.
- Unable to determine
Use of terms such as suspected, likely, concern for, or probable (associated with a specific diagnosis that is being evaluated, monitored, or treated as if it exists) are acceptable and can be coded in the inpatient setting, when documented at the
time of discharge.
Thank you,
Sylwia MCNALLY,RN,CCDS
CDI Specialist
Available via tiger text
Please use your independent medical judgment in providing your response.
*Source: National Pressure Ulcer Advisory Panel (NPUAP)
[2024-08-05] MEDS: CIPRO 500 MG PO ×2 (08:46→20:31)
[2024-08-05] MEDS: DELTASONE 10 MG PO (08:46)
[2024-08-05] MEDS: NEURONTIN 300 MG PO ×2 (08:46→20:32)
[2024-08-05] MEDS: LASIX 20 MG PO (08:47)
[2024-08-05] MEDS: PROTONIX 40 MG PO (08:47)
[2024-08-05] MEDS: ASPIR LOW (ENTERIC COATED) 81 MG PO (08:50)
[2024-08-05] MEDS: ALDACTONE 12.5 MG PO (08:51)
[2024-08-05] MEDS: COREG 6.25 MG PO ×2 (08:51→20:31)
[2024-08-05] MEDS: LANTUS 0.07 UNITS SC (08:51)
[2024-08-05] MEDS: ZESTRIL 10 MG PO (08:51)
[2024-08-05] MEDS: NOVOLOG FLEXPEN-MODERATE RESISTANCE 1 UNITS SC (08:52)
[2024-08-05] MEDS: ZETIA 10 MG PO (08:53)
[2024-08-05 09:00] LABS: Hematocrit 40.4 % (37.0-47.0); Hemoglobin 13.3 g/dL (12.0-16.0); Mean Corp Hgb Conc. 32.9 g/dL (33.0-37.0); Mean Corpuscular Hgb 28.9 pg (27.0-31.0); Mean Corpuscular Volume 87.8 fL (81.0-99.0); Mean Platelet Volume 11.2 fL (7.4-10.4); Platelet Count 157 10^3/uL (130-400); Red Cell Dist. Width 17.1 % (11.5-14.5); White Blood Cell Count 7.6 10^3/uL (4.8-10.8)
[2024-08-05 09:10] LABS: INR 1.24; PT 15.9 Sec (11.4-14.6)
[2024-08-05 09:11] LABS: APTT 31.2 Sec (23.4-35.0)
[2024-08-05 09:52] LABS: ALT (SGPT) 26 U/L (0-35); AST (SGOT) 34 U/L (14-36); Alkaline Phosphatase 113 U/L (38-126); Blood Urea Nitrogen 27 mg/dl (7-17); Calcium 9.1 mg/dl (8.4-10.2); Carbon Dioxide 21 mmol/L (22-30); Chloride 102 mmol/L (98-107); Estimated Creatinine Clearance 73 ml/min; Glucose 181 mg/dl (70-99); Magnesium 2.1 mg/dl (1.6-2.3); Potassium 4.7 mmol/L (3.5-5.1); Sodium 137 mmol/L (135-145); Total Bilirubin 0.9 mg/dl (0.2-1.3); eGFR > 60.00
--- NOTE | 2024-08-05 10:53 | W.PN.VS ---
Today's Communication / Plan
-
See below.
Assessment/Plan
-
Assessment: 73-year-old female POD #1 from right lower extremity angiogram with intervention and debridement of posterior calf
Plan:
From a vascular surgical perspective okay to reinitiate home anticoagulation
Asked wound care to reevaluate wound for recommendations of dressing changes and if they feel wound would benefit from wound VAC, debridement area is superficial thus unclear if wound VAC would provide increased benefit or hold suction
Subjective Data
-
Date of Service: August 05, 2024
Patient seen and examined at bedside, reports adequate postoperative pain management. Denies nausea, vomiting, fever, and chills.
Objective Data
-
Vital Signs
Temp Pulse Resp BP Pulse Ox
97.8 F 80 18 139/78 98
08/05/24 07:25 08/05/24 07:25 08/05/24 07:25 08/05/24 07:25 08/05/24 07:25
Intake and Output
08/04/24 08/05/24 08/06/24
06:59 06:59 06:59
Intake Total 1440 / 1440 620 / 620
Output Total 3200 / 3200 900 / 900
Balance -1760 / -1760 -280 / -280
Intake:
Oral fluids 1440 / 1440 360 / 360
IV fluids (Total) 260 / 260
normosol 100 / 100
Output:
Urine, Voided 3200 / 3200 900 / 900
Lab Results
08/05/24 07:58
08/05/24 07:58
Calcium 9.1 mg/dl (8.4-10.2) 08/05/24 07:58
Magnesium 2.1 mg/dl (1.6-2.3) 08/05/24 07:58
Total Bilirubin 0.9 mg/dl (0.2-1.3) 08/05/24 07:58
AST 34 U/L (14-36) 08/05/24 07:58
ALT 26 U/L (0-35) 08/05/24 07:58
Alkaline Phosphatase 113 U/L (38-126) 08/05/24 07:58
Total Protein 8.0 g/dl (6.3-8.2) D 08/05/24 07:58
Albumin 4.0 g/dl (3.5-5.0) 08/05/24 07:58
Physical Exam
-
No apparent distress, resting in bed comfortably
No tachycardia
No dyspnea
Right lower extremity debridement dressing CDI, dressing changed by this provider with new wet-to-dry dressing and resecured with Jose Elias wrap, evidence of good granulation tissue
Right foot warm, Doppler DP pulse
--- NOTE | 2024-08-05 10:53 | W.PN.ID1 ---
Date of Service
Date of Service: August 05, 2024
Today's Communication
- currently on ciprofloxacin, restart keflex, would continue both for another 5 days
- follow up with PCP
Assessment / Plan
Right Lower extremity Wound Infection
R TKA
Polymyositis on prednisone 10 mg po qday
DM2
- tissue culture reportedly sent from the OR
- currently on ciprofloxacin, restart keflex, would continue both for another 5 days
- follow up with PCP
Chief Complaint
-: Other (wound infection)
Subjective / Review of Systems
afebrile
bp stable
brief run of tachycardia this AM
OR report: angioplasty and stent of R above knee popliteal artery, Sharp excisional debridement right posterior distal calf necrotic wound measuring approximately 6 cm x 3.5 cm depth less than 1 cm. Debridement through skin and subcutaneous tissue
only.
Vital Signs / Physical Exam
Vital Signs
Vital Signs
Temp Pulse Resp BP Pulse Ox
97.8 F 80 18 139/78 98
08/05/24 07:25 08/05/24 07:25 08/05/24 07:25 08/05/24 07:25 08/05/24 07:25
Physical Exam
Constitutional: No Acute Distress and Chronically Ill
Cardiovascular: Regular Rate and S1/S2; Negative Murmur or Rub
Pulmonary: Clear and Symmetric; Negative Wheezes or Rales
Gastrointestinal: Soft, Non Tender, Non Distended and Normal Bowel Sounds
Skin: Warm and Dry; Negative Rash or Jaundice
Wound: Other (some surrounding erythema, no purulent drainage, no significant warmth)
Objective Data
Lab Data
Lab Results
08/05/24 07:58
08/05/24 07:58
ESR 80 mm/hour (0-20) H 08/01/24 07:18
PT 15.9 Sec (11.4-14.6) H 08/05/24 07:58
INR 1.24 08/05/24 07:58
APTT 31.2 Sec (23.4-35.0) 08/05/24 07:58
Estimated Creat Clear 73 ml/min 08/05/24 07:58
Lactic Acid 1.5 mmol/L (0.7-2.0) 08/01/24 07:18
Total Bilirubin 0.9 mg/dl (0.2-1.3) 08/05/24 07:58
AST 34 U/L (14-36) 08/05/24 07:58
ALT 26 U/L (0-35) 08/05/24 07:58
Alkaline Phosphatase 113 U/L (38-126) 08/05/24 07:58
C-Reactive Protein 32.10 mg/L (0.0-10.00) H 08/01/24 07:18
Most recent labs reviewed.
Micro Results:
08/01/24 02:07 Wound Culture - Final
Leg - Right Pseudomonas aeruginosa
Gram Stain - Final
08/01/24 07:18 MRSA Screen - Final
Nose No Methicillin Resistant Staphylococcus aureus isolated.
[2024-08-05] MEDS: SANTYL OINTMENT 1 APPLIC TOPICAL (11:07)
[2024-08-05] MEDS: DAKIN'S SOLUTION 0.125% 1/4 STRENGTH 30 ML TOPICAL (11:12)
[2024-08-05] MEDS: DESENEX/MITRAZOL/ZEASORB 1 APPLIC TOPICAL ×2 (11:13→20:31)
[2024-08-05] MEDS: TYLENOL 650 MG PO (11:23)
[2024-08-05 12:09] LABS: Glucose - Point of Care 215 mg/dl (70-99)
--- NOTE | 2024-08-05 12:12 | WOUNDNOTE ---
CLOSER VIEW OF Kameron SPANN
--- NOTE | 2024-08-05 12:12 | WOUNDNOTE ---
L LOWER ANTERIOR LEG
[2024-08-05] MEDS: NOVOLOG FLEXPEN-MODERATE RESISTANCE 3 UNITS SC (13:15)
--- NOTE | 2024-08-05 14:06 | CM ---
Addendum entered by CRISTA Monzon 08/06/24 11:44:
Spoke with patent's spouse who confirmed that he would like for patient to return home with VN services. Attending updated.
Original Note:
Reviewed therapy notes. Met with patient to discuss discharge planning as patient is not near baseline. Patient stated that she lives on all one floor and her spouse and son are home with her all day and have been able to support her. She also
stated that she is all on one floor and she has ramp access into her home. She was agreeable to VN and stated her preference of . Will ask attending for an order.
Plan: Case management will continue to follow and assist with discharge planning. Home with VN through .
--- NOTE | 2024-08-05 15:58 | W.PN.HOSP.TC ---
Today's Communication/Plan
-
potential dc tomorrow
Assessment / Plan
Assessment / Plan
#Right Lower extremity Wound Infection
-Wound Culture - Pseudomonas Aeurginosa.
-abx, as per ID, felt to be a transient colonizer
-F/u wound cultures
-vascular consult appreciated, reviewed with Dr. Dawson
-debridement and angio by vascular completed
felt to be nonhealing necrotic rt posterior calf wound
-ID Consulted, input appreciated
Cipro/Keflex to continue for 5 more days
#PAD
-vascular consulted
-on eliquis, has been resumed
#DM II
- continue lantus 5 am
- hold repaglinide 2mg tid ac
- sliding scale insulin
'Patient also admitted with stage 2 PI to left buttock.
#AFIB
- continue eliquis
- continue carvedilol
# CHF - she is euvolemic on exam. Trace edema on RLE
- continue carvedilol and lisinopril with spironolactone
- resume lasix 40mg po daily for now
- monitor k, mag
6. Polymyositis
- continue prednisone 10 daily
- outpatient ivig
reviewed with CM, as it stands currently, family wants to take pt home with VN, though there has been a lot of discussion and await confirmation that this is there final decision
Confirmed with Dr. Dawson, either location would be fine to be dc tomorrow
DVT PPX - on apixaban
Code status - DNR
Anticipated Discharge: Within 24 hours
Subjective/Interval History
-
Date of Service: August 05, 2024
Vasc Surg cleared to resume Eliquis
Objective Data
-
Labs:
Laboratory Results
08/05/24
07:58
WBC 7.6
Hgb 13.3
Hct 40.4
Plt Count 157
PT 15.9 H
INR 1.24
APTT 31.2
Sodium 137
Potassium 4.7
Chloride 102
Carbon Dioxide 21 L
BUN 27 H
Creatinine 0.6
Glucose 181 H
Calcium 9.1
Total Bilirubin 0.9
AST 34
ALT 26
Alkaline Phosphatase 113
Vital Signs:
Vital Signs
Temp Pulse Resp BP Pulse Ox
97.8 F 81 20 130/86 98
08/05/24 15:21 08/05/24 15:21 08/05/24 15:21 08/05/24 15:21 08/05/24 15:21
I&O
08/04/24 08/05/24 08/06/24
06:59 06:59 06:59
Intake Total 1440 / 1440 620 / 620
Output Total 3200 / 3200 900 / 900
Balance -1760 / -1760 -280 / -280
Review of Systems
-
History Source: Patient and Family (reviewed with and dgt, April)
Constitutional: Denies Fever
EENT: Reports No Symptoms Reported
Respiratory: Reports No Symptoms
Cardiac: Reports No Symptoms
Abdomen/GI: Reports No Symptoms
Musculoskeletal: Reports Other (rt leg surgically wrapped)
Physical Exam
-
General: Well Developed, Well Nourished and No Apparent Distress
HEENT: Normocephalic, Atraumatic and Moist Mucous Membranes
Respiratory: Clear to Auscultation; Negative Wheezes, Rales or Rhonchi
Cardiac: S1/S2 and Irregular Rhythm
GI: Nontender and Nondistended
Musculoskeletal: No Clubbing, No Cyanosis and No Edema
Skin: Warm and Dry
[2024-08-05 16:47] LABS: Glucose - Point of Care 276 mg/dl (70-99)
[2024-08-05] MEDS: NOVOLOG FLEXPEN-MODERATE RESISTANCE 5 UNITS SC (17:25)
[2024-08-05] MEDS: KEFLEX 500 MG PO ×2 (17:27→22:08)
[2024-08-05] MEDS: ELIQUIS 5 MG PO (20:34)
[2024-08-05 21:39] LABS: Glucose - Point of Care 248 mg/dl (70-99)
[2024-08-06] VITALS (7 sets, daily range): BP systolic 108–145; BP diastolic 66–90; PULSE 85; BMI 29.4
[2024-08-06 08:10] LABS: Glucose - Point of Care 161 mg/dl (70-99)
[2024-08-06 08:18] LABS: Hematocrit 38.6 % (37.0-47.0); Hemoglobin 12.9 g/dL (12.0-16.0); Mean Corp Hgb Conc. 33.4 g/dL (33.0-37.0); Mean Corpuscular Hgb 28.9 pg (27.0-31.0); Mean Corpuscular Volume 86.5 fL (81.0-99.0); Mean Platelet Volume 9.9 fL (7.4-10.4); Platelet Count 180 10^3/uL (130-400); Red Blood Cell Count 4.46 10^6/uL (4.20-5.40); Red Cell Dist. Width 17.3 % (11.5-14.5); White Blood Cell Count 7.1 10^3/uL (4.8-10.8)
[2024-08-06] MEDS: ZETIA 10 MG PO (08:50)
[2024-08-06] MEDS: ZESTRIL PO (08:50)
[2024-08-06] MEDS: KEFLEX 500 MG PO ×4 (08:51→22:10)
[2024-08-06] MEDS: ASPIR LOW (ENTERIC COATED) 81 MG PO (08:51)
[2024-08-06] MEDS: LASIX 20 MG PO (08:51)
[2024-08-06] MEDS: DELTASONE 10 MG PO (08:51)
[2024-08-06] MEDS: CIPRO 500 MG PO ×2 (08:52→20:43)
[2024-08-06] MEDS: ALDACTONE PO (08:52)
[2024-08-06] MEDS: ELIQUIS 5 MG PO ×2 (08:53→20:43)
[2024-08-06] MEDS: COREG PO (08:53)
[2024-08-06] MEDS: PROTONIX 40 MG PO (08:53)
[2024-08-06] MEDS: NEURONTIN 300 MG PO ×2 (08:53→20:43)
[2024-08-06] MEDS: NOVOLOG FLEXPEN-MODERATE RESISTANCE 1 UNITS SC (08:58)
[2024-08-06] MEDS: LANTUS 0.07 UNITS SC (08:59)
[2024-08-06 09:26] LABS: ALT (SGPT) 23 U/L (0-35); AST (SGOT) 28 U/L (14-36); Albumin 3.8 g/dl (3.5-5.0); Alkaline Phosphatase 104 U/L (38-126); Blood Urea Nitrogen 33 mg/dl (7-17); Calcium 9.2 mg/dl (8.4-10.2); Carbon Dioxide 21 mmol/L (22-30); Chloride 104 mmol/L (98-107); Estimated Creatinine Clearance 62 ml/min; Glucose 162 mg/dl (70-99); Potassium 4.5 mmol/L (3.5-5.1); Sodium 137 mmol/L (135-145); Total Bilirubin 0.8 mg/dl (0.2-1.3); Total Protein 7.4 g/dl (6.3-8.2); eGFR > 60.00
[2024-08-06] MEDS: SANTYL OINTMENT 1 APPLIC TOPICAL (10:54)
[2024-08-06] MEDS: DAKIN'S SOLUTION 0.125% 1/4 STRENGTH 30 ML TOPICAL (10:55)
[2024-08-06] MEDS: DESENEX/MITRAZOL/ZEASORB 1 APPLIC TOPICAL (10:56)
[2024-08-06] MEDS: TYLENOL 650 MG PO ×3 (11:06→20:45)
[2024-08-06 12:35] LABS: Glucose - Point of Care 218 mg/dl (70-99)
[2024-08-06] MEDS: NOVOLOG FLEXPEN-MODERATE RESISTANCE 3 UNITS SC (12:56)
--- NOTE | 2024-08-06 13:53 | W.PN.ID1 ---
Date of Service
Date of Service: August 06, 2024
Today's Communication
- c/w ciprofloxacin & keflex x4 more days
Assessment / Plan
Right Lower extremity Wound Infection
R TKA
Polymyositis on prednisone 10 mg po qday
DM2
- tissue culture reportedly sent from the OR however I do not see these resulted
- c/w ciprofloxacin & keflex x4 more days
- follow up with PCP
Chief Complaint
-: Other (wound infection)
Subjective / Review of Systems
afebrile
bp stable
family report she is forgetful
some pain in the ankle
Vital Signs / Physical Exam
Vital Signs
Vital Signs
Temp Pulse Resp BP Pulse Ox
98.1 F 76 18 115/80 100
08/06/24 11:43 08/06/24 11:43 08/06/24 11:43 08/06/24 11:43 08/06/24 11:43
Physical Exam
Constitutional: No Acute Distress
Cardiovascular: Regular Rate and S1/S2; Negative Murmur or Rub
Pulmonary: Clear and Symmetric; Negative Wheezes or Rales
Gastrointestinal: Soft, Non Tender, Non Distended and Normal Bowel Sounds
Skin: Warm and Dry; Negative Rash or Jaundice
Objective Data
Lab Data
Lab Results
08/06/24 07:49
08/06/24 07:49
ESR 80 mm/hour (0-20) H 08/01/24 07:18
PT 15.9 Sec (11.4-14.6) H 08/05/24 07:58
INR 1.24 08/05/24 07:58
APTT 31.2 Sec (23.4-35.0) 08/05/24 07:58
Estimated Creat Clear 62 ml/min 08/06/24 07:49
Lactic Acid 1.5 mmol/L (0.7-2.0) 08/01/24 07:18
Total Bilirubin 0.8 mg/dl (0.2-1.3) 08/06/24 07:49
AST 28 U/L (14-36) 08/06/24 07:49
ALT 23 U/L (0-35) 08/06/24 07:49
Alkaline Phosphatase 104 U/L (38-126) 08/06/24 07:49
C-Reactive Protein 32.10 mg/L (0.0-10.00) H 08/01/24 07:18
Most recent labs reviewed.
Micro Results:
08/01/24 02:07 Wound Culture - Final
Leg - Right Pseudomonas aeruginosa
Gram Stain - Final
08/01/24 07:18 MRSA Screen - Final
Nose No Methicillin Resistant Staphylococcus aureus isolated.
--- NOTE | 2024-08-06 16:32 | W.PN.HOSP.TC ---
Today's Communication/Plan
-
potential dc tomorrow
Assessment / Plan
Assessment / Plan
#Right Lower extremity Wound, ischemic etiology
-Wound Culture - Pseudomonas Aeurginosa.
-abx, as per ID, felt to be a transient colonizer
-F/u wound cultures
-vascular consult appreciated, reviewed with Dr. Dawson
-debridement and angio by vascular completed
felt to be nonhealing necrotic rt posterior calf wound
-ID Consulted, input appreciated
Cipro/Keflex to continue for 4 more days
#PAD
-vascular consulted
-on eliquis, has been resumed
#DM II
- continue lantus 5 am
- hold repaglinide 2mg tid ac
- sliding scale insulin
'Patient also admitted with stage 2 PI to left buttock.
#AFIB
- continue eliquis
- continue carvedilol
# CHF - she is euvolemic on exam. Trace edema on RLE
- continue carvedilol and lisinopril with spironolactone
- resume lasix 40mg po daily for now
- monitor k, mag
6. Polymyositis
- continue prednisone 10 daily
- outpatient ivig
7. cognitive impairment
appears mild and as per family she appears back to baseline
?vascular dementia
reviewed with CM, as it stands currently, family wants to take pt home with VN, though there has been a lot of discussion and confirmation that this is the decision
Confirmed with Dr. Dawson, either location would be fine to be dc tomorrow
probably approaching optimal state
discussed with family in room, plan will be to dc tomorrow
DVT PPX - on apixaban
Code status - DNR
Anticipated Discharge: Within 24 hours
Subjective/Interval History
-
Date of Service: August 06, 2024
Having pain at incision site
Objective Data
-
Labs:
Laboratory Results
08/06/24
07:49
WBC 7.1
Hgb 12.9
Hct 38.6
Plt Count 180
Sodium 137
Potassium 4.5
Chloride 104
Carbon Dioxide 21 L
BUN 33 H
Creatinine 0.7
Glucose 162 H
Calcium 9.2
Total Bilirubin 0.8
AST 28
ALT 23
Alkaline Phosphatase 104
Vital Signs:
Vital Signs
Temp Pulse Resp BP Pulse Ox
98.1 F 85 18 108/66 98
08/06/24 15:58 08/06/24 15:58 08/06/24 15:58 08/06/24 15:58 08/06/24 15:58
I&O
08/05/24 08/06/24 08/07/24
06:59 06:59 06:59
Intake Total 620 / 620 3020 / 3020 720 / 720
Output Total 900 / 900 800 / 800 1450 / 1450
Balance -280 / -280 2220 / 2220 -730 / -730
Review of Systems
-
History Source: Patient and Family (reviewed with , son and dgt April)
Constitutional: Denies Fever
EENT: Reports No Symptoms Reported
Respiratory: Reports No Symptoms
Cardiac: Reports No Symptoms
Abdomen/GI: Reports No Symptoms
Musculoskeletal: Reports Other (rt leg surgically wrapped)
Physical Exam
-
General: Well Developed, Well Nourished and No Apparent Distress
HEENT: Normocephalic, Atraumatic and Moist Mucous Membranes
Respiratory: Clear to Auscultation; Negative Wheezes, Rales or Rhonchi
Cardiac: S1/S2 and Irregular Rhythm
GI: Nontender and Nondistended
Musculoskeletal: No Clubbing, No Cyanosis and No Edema
Skin: Warm and Dry
[2024-08-06 17:00] LABS: Glucose - Point of Care 299 mg/dl (70-99)
[2024-08-06] MEDS: NOVOLOG FLEXPEN-MODERATE RESISTANCE 5 UNITS SC (17:36)
[2024-08-06] MEDS: COREG 6.25 MG PO (20:43)
[2024-08-06] MEDS: DESENEX/MITRAZOL/ZEASORB TOPICAL (20:52)
[2024-08-06 21:09] LABS: Glucose - Point of Care 241 mg/dl (70-99)
[2024-08-07 03:00] VITALS: BP 123/81
[2024-08-07 07:10] LABS: Glucose - Point of Care 131 mg/dl (70-99)
[2024-08-07] MEDS: NOVOLOG FLEXPEN-MODERATE RESISTANCE SC (07:15)
[2024-08-07 07:29] VITALS: BP 120/75
[2024-08-07] MEDS: ALDACTONE 12.5 MG PO (08:49)
[2024-08-07] MEDS: NEURONTIN 300 MG PO (08:49)
[2024-08-07] MEDS: ELIQUIS 5 MG PO (08:50)
[2024-08-07] MEDS: LASIX 20 MG PO (08:50)
[2024-08-07] MEDS: COREG 6.25 MG PO (08:50)
[2024-08-07] MEDS: PROTONIX 40 MG PO (08:50)
[2024-08-07] MEDS: ASPIR LOW (ENTERIC COATED) 81 MG PO (08:50)
[2024-08-07] MEDS: DELTASONE 10 MG PO (08:51)
[2024-08-07] MEDS: ZESTRIL 10 MG PO (08:51)
[2024-08-07] MEDS: ZETIA 10 MG PO (08:51)
[2024-08-07] MEDS: KEFLEX 500 MG PO (08:51)
[2024-08-07] MEDS: CIPRO 500 MG PO (08:51)
[2024-08-07] MEDS: SANTYL OINTMENT 1 APPLIC TOPICAL (08:51)
[2024-08-07] MEDS: LANTUS 0.07 UNITS SC (08:52)
[2024-08-07] MEDS: DESENEX/MITRAZOL/ZEASORB 1 APPLIC TOPICAL (08:55)
[2024-08-07] MEDS: DAKIN'S SOLUTION 0.125% 1/4 STRENGTH 10 ML TOPICAL (08:56)
--- NOTE | 2024-08-07 09:08 | W.PN.HOSP.TC ---
Today's Communication/Plan
-
dc to home
Assessment / Plan
Assessment / Plan
#Right Lower extremity Wound, ischemic etiology
-Wound Culture - Pseudomonas Aeurginosa.
-abx, as per ID, felt to be a transient colonizer
-F/u wound cultures
-vascular consult appreciated, reviewed with Dr. Dawson
-debridement and angio by vascular completed
felt to be nonhealing necrotic rt posterior calf wound
-ID Consulted, input appreciated
Cipro/Keflex to continue for 3 more days
#PAD
-vascular consulted
-on eliquis, has been resumed
#DM II
- continue lantus 5 am
- hold repaglinide 2mg tid ac
- sliding scale insulin
'Patient also admitted with stage 2 PI to left buttock.
#AFIB
- continue eliquis
- continue carvedilol
# CHF - she is euvolemic on exam. Trace edema on RLE
- continue carvedilol and lisinopril with spironolactone
- resume lasix 40mg po daily for now
- monitor k, mag
6. Polymyositis
- continue prednisone 10 daily
- outpatient ivig
7. cognitive impairment
appears mild and as per family she appears back to baseline
?vascular dementia
reviewed with CM, as it stands currently, family wants to take pt home with VN, though there has been a lot of discussion and confirmation that this is the decision
Confirmed with Dr. Dawson, either location would be fine to be dc tomorrow
probably approaching optimal state
discussed with family in room, plan will be to dc tomorrow
DVT PPX - on apixaban
Code status - DNR
dc done at computer with assistance of Nhan (son)
More than 30 minutes spent in discharge including
Final examination of the patient
Summarizing hospital stay
Instructions for continuing care to all relevant caregivers
Preparation of discharge records, prescriptions, and referral forms
Total time spent (in minutes): 45
Anticipated Discharge: Today
Subjective/Interval History
-
Date of Service: August 07, 2024
In good spirits, anxiously awaiting dc
Objective Data
-
Vital Signs:
Vital Signs
Temp Pulse Resp BP Pulse Ox
97.5 F 77 16 120/75 100
08/07/24 07:29 08/07/24 08:50 08/07/24 07:29 08/07/24 08:50 08/07/24 07:29
I&O
08/06/24 08/07/24 08/08/24
06:59 06:59 06:59
Intake Total 3020 / 3020 1440 / 1440
Output Total 800 / 800 2750 / 2750
Balance 2220 / 2220 -1310 / -1310
Review of Systems
-
History Source: Family (son, Nhan)
Constitutional: Denies Fever
EENT: Reports No Symptoms Reported
Respiratory: Reports No Symptoms
Cardiac: Reports No Symptoms
Abdomen/GI: Reports No Symptoms
Musculoskeletal: Reports Other (rt leg surgically wrapped)
Neuro: Reports Other (chronic cognitive impairment, has been evaluated by neurologist in past (Dr. Mora in [place]))
Physical Exam
-
General: Well Developed, Well Nourished and No Apparent Distress
HEENT: Normocephalic, Atraumatic and Moist Mucous Membranes
Respiratory: Clear to Auscultation; Negative Wheezes, Rales or Rhonchi
Cardiac: S1/S2 and Irregular Rhythm
GI: Nontender and Nondistended
Musculoskeletal: No Clubbing, No Cyanosis and No Edema
Skin: Warm and Dry
--- NOTE | 2024-08-07 10:05 | CM ---
Received consult for home health. Spoke with patient's spouse previously and he would like [facility]. Referral made through [facility].
Plan: Case management will continue to follow and assist with discharge planning. Home with VN services.
--- NOTE | 2024-08-07 10:10 | W.DS.TRANS ---
DC Summary - Supervisor Water Softener Service
-
Discharge Instructions:
Sleep Apnea Risk Low
Discharge Diagnosis/Procedures Rt lower extremity angiogram with intervention
and debridement
Diet As tolerated,Diabetic, Carb Controlled
Activity No strenuous activity
Driving Restrictions No driving
Bathing Restrictions wrap wound in water proof covering
Blood Work CBC, BMP in 1-2 weeks
Other Services VN
Instructions:
Stand-Alone Forms: DC Instr - Vascular OR
Changes to Home Medications: Yes
Discharge Medications:
DC Medications w/original date entered in [facility]
carvedilol 12.5 mg tablet 12.5 mg PO BID Blood pressure 05/13/20
immune glob,gamma (IgG) 10 %-gly-IgA over 50 mcg/mL injection solution (Gammagard Liquid) 1 dose IV UD Neurological Condition 05/13/20
furosemide 20 mg tablet 20 mg PO DAILY leg swelling 01/18/22
lisinopril 10 mg tablet 10 mg PO DAILY Blood pressure 01/18/22
alendronate 70 mg tablet 70 mg PO FR Osteoporosis 01/20/22
apixaban 5 mg tablet (Eliquis) 5 mg PO BID Venous thrombosis 30 days #60 tabs 01/23/22
pantoprazole 40 mg tablet,delayed release 40 mg PO DAILY GERD 30 days #30 tabs 01/23/22
ezetimibe 10 mg tablet 10 mg PO DAILY High Cholesterol 08/01/24
gabapentin 300 mg capsule 300 mg PO BID Neurological Condition 08/01/24
insulin glargine 100 unit/mL (3 mL) subcutaneous pen (Lantus Solostar U-100 Insulin) 5 unit SC DAILY Diabetes 08/01/24
repaglinide 2 mg tablet 2 mg PO TID Diabetes 08/01/24
aspirin 81 mg tablet,delayed release 81 mg PO DAILY #0 tabs 08/07/24
cephalexin 500 mg capsule 500 mg PO QID #14 caps 08/07/24
ciprofloxacin HCl 500 mg tablet 500 mg PO BID #6 tabs 08/07/24
collagenase clostridium histo. 250 unit/gram topical ointment (Santyl) 1 applic topical DAILY #90 grams 08/07/24
miconazole nitrate 2 % topical powder (Miconazorb AF) 1 applic topical BID #85 grams 08/07/24
prednisone 10 mg tablet 10 mg PO DAILY #0 tabs 08/07/24
sodium hypochlorite 0.125 % solution (Dakin's Solution) 1 applic topical DAILY #473 mL 08/07/24
spironolactone 25 mg tablet 25 mg PO DAILY Fluid retention/Swelling #0 tabs 08/07/24
Home Medication Changes
Aspirin 81 mg added (as per Dr. Dawson)
short term oral antibiotics added
Pending Results: No
== END 2024-08-07 11:04 | disposition home health service (06) | DRG 253 ==
LOC: 4 EAST ACU 11:29
PROVIDERS: Internal Medicine; Nurse Practitioner; ADMITTING PHYSICIAN Internal Medicine; ATTENDING PHYSICIAN Internal Medicine; CONSULT PHYSICIAN Student in an Organized Health Care Education/Training Program; EMERGENCY PHYSICIAN Emergency Medicine; FAMILY PHYSICIAN Family Medicine; OTHER PHYSICIAN Surgery Vascular Surgery
PROC: 047M34Z Dilation of Right Popliteal Artery with Drug-eluting Intraluminal Device, Percutaneous Approach (ICD-10-PCS; 2024-08-04)
PROC: 0JBN0ZZ Excision of Right Lower Leg Subcutaneous Tissue and Fascia, Open Approach (ICD-10-PCS; 2024-08-04)
PROC: B41C1ZZ Fluoroscopy of Pelvic Arteries using Low Osmolar Contrast (ICD-10-PCS; 2024-08-04)
PROC: B41D1ZZ Fluoroscopy of Aorta and Bilateral Lower Extremity Arteries using Low Osmolar Contrast (ICD-10-PCS; 2024-08-04)
DX: E11.52 Type 2 diabetes mellitus with diabetic peripheral angiopathy with gangrene (principal); I48.20 Chronic atrial fibrillation, unspecified; L97.211 Non-pressure chronic ulcer of right calf limited to breakdown of skin; I50.32 Chronic diastolic (congestive) heart failure; M33.20 Polymyositis, organ involvement unspecified; I11.0 Hypertensive heart disease with heart failure; Z79.52 Long term (current) use of systemic steroids; F03.A0 Unspecified dementia, mild, without behavioral disturbance, psychotic disturbance, mood disturbance, and anxiety; Z79.899 Other long term (current) drug therapy; Z90.49 Acquired absence of other specified parts of digestive tract; Z90.710 Acquired absence of both cervix and uterus; Z96.651 Presence of right artificial knee joint; Z88.5 Allergy status to narcotic agent; Z88.8 Allergy status to other drugs, medicaments and biological substances; M81.0 Age-related osteoporosis without current pathological fracture; K21.9 Gastro-esophageal reflux disease without esophagitis; Z85.3 Personal history of malignant neoplasm of breast; Z79.01 Long term (current) use of anticoagulants; Z79.4 Long term (current) use of insulin; E78.00 Pure hypercholesterolemia, unspecified; I25.10 Atherosclerotic heart disease of native coronary artery without angina pectoris; J45.909 Unspecified asthma, uncomplicated; Z79.83 Long term (current) use of bisphosphonates; Z86.718 Personal history of other venous thrombosis and embolism
CPT/HCPCS: 88304; 11042; 11043; 37226; 73610; 73701; 75625; 75716; 80048; 80053; 82550; 82962; 83036; 83605; 83735; 83880; 84550; 85025; 85027; 85610; 85652; 85730; 86140; 87070; 87077; 87186; 87205; 93005; 93970; 96374; 96375; 97116; 97162; 97166; 97530; 97535; 99285; C1725; C1760; C1769; C1874; C1887; C1894; Q9967

== ENCOUNTER → 2024-09-02 10:40 | Outpatient (REF) | payer MEDICARE, SELFPAY | LOC: RAD 10:40 | PROVIDERS: ATTENDING PHYSICIAN Physician Assistant | DX: I73.9 Peripheral vascular disease, unspecified (principal); I87.2 Venous insufficiency (chronic) (peripheral) | CPT/HCPCS: 93922; 93925 ==

== ENCOUNTER → 2024-09-26 09:02 | Outpatient (REF) | payer MEDICARE, SELFPAY | LOC: WOUND 09:02 | PROVIDERS: ATTENDING PHYSICIAN Surgery; FAMILY PHYSICIAN Family Medicine | DX: L97.212 Non-pressure chronic ulcer of right calf with fat layer exposed (principal); I73.9 Peripheral vascular disease, unspecified; I87.2 Venous insufficiency (chronic) (peripheral); I50.43 Acute on chronic combined systolic (congestive) and diastolic (congestive) heart failure; M33.20 Polymyositis, organ involvement unspecified; E11.65 Type 2 diabetes mellitus with hyperglycemia; Z79.4 Long term (current) use of insulin | CPT/HCPCS: 11042 ==

== ENCOUNTER 2024-10-08 09:27 | Inpatient (IN) | payer MEDICARE, SELFPAY ==
[2024-10-07] VITALS (23 sets, daily range): BP systolic 81–125; BP diastolic 48–81; PULSE 84; O2SAT 97–98; BMI 32.0
[2024-10-07 02:45] LABS: % Basophils 0.3 % (0-2); % Eosinophils 0.9 % (0-6); % Immature Granulocytes 0.5 % (0-0.5); % Lymphocytes 15.1 % (20.5-51.1); % Monocytes 11.1 % (1.7-9.3); % Neutrophils 72.1 % (42.2-75.2); Absolute Eosinophils 0.1 10^3/uL (0-0.7); Absolute Immature Granulocytes 0.1 10^3/uL (0-0.05); Absolute Lymphocytes 1.4 10^3/uL (1.2-3.4); Absolute Neutrophils 6.6 10^3/uL (1.4-6.5); Hemoglobin 13.2 g/dL (12.0-16.0); Mean Corp Hgb Conc. 33.8 g/dL (33.0-37.0); Mean Corpuscular Hgb 30.6 pg (27.0-31.0); Mean Corpuscular Volume 90.3 fL (81.0-99.0); Nucleated Red Blood Cells % 0 %; Platelet Count 153 10^3/uL (130-400); Red Blood Cell Count 4.32 10^6/uL (4.20-5.40); Red Cell Dist. Width 17.2 % (11.5-14.5); White Blood Cell Count 9.2 10^3/uL (4.8-10.8)
--- NOTE | 2024-10-07 04:15 | ED.GENMED ---
History of Present Illness
General
Chief Complaint: Chest Pain
Source: patient, records and spouse
Exam Limitations: none
Time Seen by Provider: 10/07/24 03:41
Nursing documentation reviewed up to this point in time: agreed with
History of Present Illness
History of Present Illness:
73-year-old female complex past medical history
Presents with fatigue generalized weakness onset a few days ago had been doing well after admission for nonhealing wound with vascular surgery followed up at the wound care center, had been on antibiotics was getting home [facility] physical
therapy late last week developed generalized weakness trouble getting up out of the chair leg weakness left greater than right no dysuria or frequency did develop some back pain thought it may have been related to her prior compression
fracture he put a brace on her with some relief, patient apparently developed some chest pain this evening, so also having pain in her bilateral great toes after having her nails cut at the [employer] customer service representative was treated with topical treatment was scheduled
to see the [employer] customer service representative tomorrow additionally some redness and swelling in her bilateral earlobes, to see her nascar racer recently told they did not think she was in congestive heart failure, does have A-fib on Eliquis, patient also with purulent
drainage from her bilateral ears
Past History
Past History
ED Past Medical History: Asthma, CHF, HTN, Hypercholesterolemia, NIDDM, Other (polymyositis) and Other (breast cancer 2007)
ED Past Surgical History: Orthopedic and Other (breast lumpectomy x 2)
Social History
Tobacco: Non-smoker
Alcohol: None
Drug: None
Personal:
Living: with family
Employment: Disabled
Family History
Family History: Diabetes
Review of Systems
Review of Systems
All Other Systems: Not applicable
Constitutional: Reports fatigue; Denies fever
EENT: Reports no symptoms
Respiratory: Reports no symptoms
Cardiac: Reports chest pain
ABD/GI: Reports no symptoms
: Reports no symptoms
Musculoskeletal: Reports muscle pain and back pain
Skin: Reports no symptoms
Neurological: Reports weakness; Denies dizzy or headache
Endocrine: Reports no symptoms
Hematologic/Lymphatic: Reports no symptoms
Phy Exam
Physical Exam
Physical Exam:
Physical Exam
General: Chronically ill-appearing female
Neck: Redness is purulence from her bilateral earlobe
Heart: Irregular tachycardia
Lungs: no acute respiratory distress. Bibasilar crackles
Abdomen: Nontender
Neuro: Globally weak
Skin: Wound on right posterior calf erythema mild warmth
Psychiatric:cooperative
Extremities: Trace edema
Scores
Heart Score for Chest Pain Patients
STEMI patient?: Not applicable
Course
Orders/Labs/Results
Orders:
Orders
10/07/24 01:45
Electrocardiogram (*1) Urgent
Reason for Study: Chest Pain
EKG- Treatment ONCE
10/07/24 02:34
Complete Blood Count/With Diff Urgent
Erythrocyte Sed Rate Urgent
Comment: ADD ON
10/07/24 03:44
C-Reactive Protein Urgent
Comment: ADD ON
Comprehensive Metabolic Panel Urgent
Comment: REDRAW
Creatine Phosphokinase Urgent
Comment: ADD ON
NT-proBNP Urgent
Comment: REDRAW
Troponin I Urgent
Comment: REDRAW
10/07/24 04:06
Add On- LAB Urgent
Tests Added?: cpk, esr/crp
CT Head W/o Iv Contrast Urgent
Comment:
Reason For Exam: weakness
CR Chest - 2 Views Urgent
Comment:
Reason For Exam: weakness
10/07/24 05:12
Urinalysis Reflex To Culture Urgent
Date Specimen was Collected: 10/07/24
Time Specimen was Collected: 05:11
10/07/24 05:19
Acetaminophen [Tylenol] 650 mg .ROUTE .STK-MED ONE
10/07/24 05:21
Acetaminophen [Tylenol] 650 mg PO NOW STA
Acetaminophen [Tylenol] 650 mg PO NOW STA
10/07/24 05:23
CeFAZolin 1 GRAM [Ancef] 1 gram in 5 ml IV NOW
10/07/24 05:30
Blood Culture Q30M
NIKITA Source: Blood/Venous
Specimen Description:
10/07/24 06:00
Blood Culture Q30M
NIKITA Source: Blood/Venous
Specimen Description:
10/07/24 08:00
Ciprofloxacin HCl [Cipro] 500 mg PO BID
Abnormal Lab Results
10/07/24 10/07/24 10/07/24
02:34 03:44 05:12
RDW 17.2 H %
(11.5-14.5)
Abs Immat Gran (auto) 0.1 H 10^3/uL
(0-0.05)
Absolute Neuts (auto) 6.6 H 10^3/uL
(1.4-6.5)
Absolute Monos (auto) 1.0 H 10^3/uL
(0.1-0.6)
Lymphocytes % 15.1 L %
(20.5-51.1)
Monocytes % 11.1 H %
(1.7-9.3)
ESR 94 H mm/hour
(0-20)
Sodium 133 L mmol/L
(135-145)
Carbon Dioxide 21 L mmol/L
(22-30)
BUN 28 H mg/dl
(7-17)
Glucose 121 H mg/dl
(70-99)
Troponin I 0.037 H* ng/ml
C-Reactive Protein 60.50 H mg/L
(0.0-10.00)
Ur Occult Blood Reflex 1+ A
(Negative)
Urine Albumin (Reflex) 1+ A
(Neg - Trace)
10/07/24 02:34
10/07/24 03:44
Vital Signs
Initial and Last Documented VS:
Initial Vital Signs
Temp Pulse Resp BP
97.6 F 85 18 122/60
10/07/24 01:39 10/07/24 01:39 10/07/24 01:39 10/07/24 01:39
Last Documented Vital Signs
Temp Pulse Resp BP Pulse Ox
97.6 F 74 16 116/65 97
10/07/24 01:39 10/07/24 02:15 10/07/24 02:15 10/07/24 02:00 10/07/24 02:15
MDM/Problems Addressed
Differential Diagnosis Includes:
Infection deconditioning occult trauma UTI electrolyte abnormality anemia heart failure ACS
MDM/Problems Addressed:
Weakness
Chronic conditions affecting care: DM, HTN, Arrhythmia, PVD, Neurological disorder, Previous abdomnial surgery, Immunosuppressed, Kidney disease, Cancer and Other
Acute Exacerbation and/or Progression of Chronic Illness: DM, HTN, Arrhythmia, PVD, Neurological disorder, Previous abdomnial surgery, Immunosuppressed, Kidney disease, Cancer and Other
*Radiology
Radiology exam reviewed: radiology read reviewed
*Pulse Oximetry
Patient hypoxic: no
*EKG
Interpreted by ED Provider?: Yes
Interpretation: abnormal
Comparison EKG: no comparison EKG present
Heart Rate: 112
Rate: normal
Rhythm: a-fib
Ischemia: non-specific ST changes
*Cloth Shrinking Machine Operator Helper Interpretation
Rate: normal
Interpretation: normal
Heart Rate: 78
Rhythm: sinus
*Critical Care Note
Total Time (30-74mins, 75-104mins- exclusive of procedures): Not Applicable
Update Note
Update Note:
Update, inflammatory markers are up, patient is deconditioned, multiple chronic medical conditions, possible sites of infection include her earlobes or toes right calf previously on Ancef and Cipro which will be restarted 's unable to care
for her at this debilitated state, will require admission supportive care physical therapy case management consideration for specialty consultation
ED Attending Note
-
Portions of this chart may have been created with voice recognition software.� Occasional wrong word or��sound alike� substitutions may have occurred due to the inherent limitations of voice recognition software.
Discharge Plan
Departure
Patient Disposition: Admit
Date of Disposition: 10/07/24
Time of Disposition: 05:38
Admit to: Med/Surg
Presentation/result/management discussed w/ accepting MD/DO: Hospitalist
Patient with high blood pressure during this ER visit?: No
Condition: Fair
Discharge Problem:
Polymyositis, Immunosuppression due to chronic steroid use, Wound infection, Pressure injury of left buttock, stage 2, Chronic systolic (congestive) heart failure
Prescriptions:
No Action
Gammagard Liquid 10 GRAM/100 ML solution
1 dose IV UD
Patient Comments:
05/13/20- SUNDAY,SUNDAY AND SUNDAY (EVERY WEEK) EVERY THREE WEEK
Rx Instructions:
take every 3 weeks for only 3 days during those 3 weeks
carvedilol 12.5 MG tablet
12.5 mg PO BID
furosemide 20 MG tablet
20 mg PO DAILY
Patient Comments:
lisinopril 10 mg Tablet
10 mg PO DAILY
alendronate 70 mg tablet
70 mg PO FR
Rx Instructions:
Weekly
pantoprazole 40 mg Tablet,Delayed Release (Dr/Ec)
40 mg PO DAILY 30 Days Qty: 30 2RF
Eliquis 5 mg tablet
5 mg PO BID 30 Days Qty: 60 0RF
Rx Instructions:
Start taking once finished Eliquis starter pack
repaglinide 2 mg Tablet
2 mg PO TID
gabapentin 300 mg Capsule
300 mg PO BID
ezetimibe 10 mg Tablet
10 mg PO DAILY
insulin glargine [Lantus Solostar U-100 Insulin] 100 unit/mL (3 mL) Insulin Pen
5 unit SC DAILY
miconazole nitrate [Miconazorb AF] 2 % Powder
1 applic topical BID Qty: 85 0RF
ciprofloxacin HCl 500 mg Tablet
500 mg PO BID Qty: 6 0RF
Dakin's Solution 0.125 % Solution
1 applic topical DAILY Qty: 473 0RF
prednisone 10 mg Tablet
10 mg PO DAILY Qty: 0 0RF
cephalexin 500 mg Capsule
500 mg PO QID Qty: 14 0RF
Santyl 250 unit/gram Ointment
1 applic topical DAILY Qty: 90 0RF
spironolactone 25 MG tablet
25 mg PO DAILY Qty: 0 0RF
aspirin 81 mg Tablet,Delayed Release (Dr/Ec)
81 mg PO DAILY Qty: 0 0RF
Referrals:
Cole Suazo MD [Family Provider, Family Practice]
Interventions
Interventions:
*Risk Screen - Suicide Last Done: 10/07/24 01:53
*General Assessment Last Done: 10/07/24 01:53
*Neglect/Abuse Screening Last Done: 10/07/24 01:53
*ED- Fall Risk Assessment Last Done: 10/07/24 01:53
*ED COVID-19 Vaccine History Last Done: 10/07/24 01:53
ED- Cardiac Assessment Last Done: 10/07/24 02:22
Discharge Date and Time
Print Language: [id number]
[2024-10-07 04:16] LABS: ALT (SGPT) 28 U/L (0-35); AST (SGOT) 30 U/L (14-36); Albumin 3.9 g/dl (3.5-5.0); Alkaline Phosphatase 92 U/L (38-126); Blood Urea Nitrogen 28 mg/dl (7-17); Calcium 8.7 mg/dl (8.4-10.2); Carbon Dioxide 21 mmol/L (22-30); Chloride 104 mmol/L (98-107); Estimated Creatinine Clearance 64 ml/min; Glucose 121 mg/dl (70-99); Potassium 4.4 mmol/L (3.5-5.1); Sodium 133 mmol/L (135-145); Total Bilirubin 1.3 mg/dl (0.2-1.3); Total Protein 7.3 g/dl (6.3-8.2); eGFR > 60.00
[2024-10-07 04:30] LABS: NT-proBNP 1640 pg/ml; Troponin I 0.037 ng/ml
[2024-10-07 04:39] LABS: Creatine Phosphokinase 83 U/L (30-135)
[2024-10-07 05:07] LABS: Erythrocyte Sed Rate 94 mm/hour (0-20)
[2024-10-07] MEDS: TYLENOL 650 MG PO ×2 (05:21→09:02)
[2024-10-07 05:27] LABS: Urine Albumin 1+ (Neg - Trace); Urine Bilirubin Negative (Negative); Urine Character Clear (Clear); Urine Color Yellow; Urine Glucose Negative (Negative); Urine Ketone Negative (Negative); Urine Leukocyte Negative (Negative); Urine Nitrite Negative (Negative); Urine Occult Blood 1+ (Negative); Urine Specific Gravity 1.015 (<1.030); Urine Urobilinogen Negative (Neg - 1+)
--- NOTE | 2024-10-07 06:02 | HPS.HSE ---
Family Physician
-
Family Physician: Cole Suazo
Chief Complaint
-
Weakness
History of Present Illness
Patient is a 73y F with PMH significant for polymyositis, PAD and CHF who presents to ED complaining of weakness and back discomfort. Patient was last hospitalized 08/01 - 08/07 secondary to LE wound / infection. She underwent RLE
revascularization procedure (stent) at that time and debridement of R calf wound. She was treated with abx for Pseudomonas in wound cultures (not OR cultures). SNF was recommended at discharge; however, patient and preferred home D/C. She
has been followed by VN and wound care and reportedly been doing fairly well.
Patient states that she has had increasing weakness in the legs and difficulty with transfers for the past week or more. stated that she had some complaints of back discomfort as well. She wore a back brace with minimal improvement in her
symptoms.
With persistent / increasing weakness and complaints of back discomfort, patient presented to the ED for further evaluation.
She denies any chest pain, cough, SOB, fevers / chills, N/V/D, etc.
Medical History
Past Medical History
Past Medical History: Reports Asthma, Cancer (Left breast CA with lumpectomy), CHF, HTN, Hypercholesterolemia, NIDDM and Other (Polymyositis, Diverticulosis/diverticulitis)
Past Surgical History: Reports Cholecystectomy, Gynocological (Tubal ligation 1980, hysterectomy 1989), Orthopedic (Left/right meniscus repair, right TKA 2004, CTR 2019), Tonsilectomy and Other ( cataract extraction 2017, RLE Popliteal Artery
Stent, R Posterior Calf I&D)
Social History
Tobacco: Non-smoker
Alcohol: None
Drug: None
Personal:
Living: With Family ( )
Family History
Family History: Not pertinent
Allergies / Home Medications
Allergies reflects when Allergies were last updated in [facility].
Home Medications with original date entered in [facility]
Allergy/Medication List:
Allergies
Allergy/AdvReac Type Severity Reaction Status Date / Time
codeine Allergy Vomiting Verified 07/31/24 21:46
metformin Allergy effects Verified 07/31/24 21:46
polymositis
Stjqujp-VNW-LqA Reductase Allergy effects Verified 07/31/24 21:46
Inhibitor (Gnehygc-Yfb-Dwn polymyositis
Reductase Inhibitor)
Home Medications
carvedilol 12.5 mg tablet 12.5 mg PO BID Blood pressure 05/13/20
immune glob,gamma (IgG) 10 %-gly-IgA over 50 mcg/mL injection solution (Gammagard Liquid) 1 dose IV UD Neurological Condition 05/13/20
furosemide 20 mg tablet 20 mg PO DAILY leg swelling 01/18/22
lisinopril 10 mg tablet 10 mg PO DAILY Blood pressure 01/18/22
alendronate 70 mg tablet 70 mg PO FR Osteoporosis 01/20/22
apixaban 5 mg tablet (Eliquis) 5 mg PO BID Venous thrombosis 30 days #60 tabs 01/23/22
pantoprazole 40 mg tablet,delayed release 40 mg PO DAILY GERD 30 days #30 tabs 01/23/22
ezetimibe 10 mg tablet 10 mg PO DAILY High Cholesterol 08/01/24
gabapentin 300 mg capsule 300 mg PO BID Neurological Condition 08/01/24
insulin glargine 100 unit/mL (3 mL) subcutaneous pen (Lantus Solostar U-100 Insulin) 5 unit SC DAILY Diabetes 08/01/24
repaglinide 2 mg tablet 2 mg PO TID Diabetes 08/01/24
aspirin 81 mg tablet,delayed release 81 mg PO DAILY #0 tabs 08/07/24
collagenase clostridium histo. 250 unit/gram topical ointment (Santyl) 1 applic topical DAILY #90 grams 08/07/24
miconazole nitrate 2 % topical powder (Miconazorb AF) 1 applic topical BID #85 grams 08/07/24
prednisone 10 mg tablet 10 mg PO DAILY #0 tabs 08/07/24
sodium hypochlorite 0.125 % solution (Dakin's Solution) 1 applic topical DAILY #473 mL 08/07/24
spironolactone 25 mg tablet 25 mg PO DAILY Fluid retention/Swelling #0 tabs 08/07/24
Review of Systems
-
History Source: Patient
A 12 point ROS was completed and negative except as noted: Yes
Constitutional: Reports Fatigue; Denies Fever or Chills
Respiratory: Denies Cough or Trouble Breathing
Cardiac: Denies Chest Pain or Palpitations
Abdomen/GI: Denies Abdominal Pain, Nausea, Vomiting or Diarrhea
: Denies Dysuria or Frequency
Musculoskeletal: Reports Other (back pain); Denies Joint Pain
Neurological: Reports Weakness; Denies Dizzy or Headache
Psych: Denies Depression or Anxiety
Physical Exam
Vital Signs
Vital Signs
Temp Pulse Resp BP Pulse Ox
97.6 F 74 16 116/65 97
10/07/24 01:39 10/07/24 02:15 10/07/24 02:15 10/07/24 02:00 10/07/24 02:15
Physical Exam
General: Other (73y F in no acute distress. Pos tachypneic on exam - though she denies dyspnea.)
HEENT: Moist mucous membranes, PERRLA and Other (Minimal darkening / purple discoloration of the earlobes. Not erythematous, indurated or tender. EAC clear.)
Respiratory: Other (Decreased at baes - otherwise clear.)
Cardiac: S1/S2, Irregular Rhythm and Murmur (II/ NIKUNJ)
GI: Soft, Non Tender, Non Distended and Normal Bowel Sounds
Musculoskeletal: No Clubbing, No Cyanosis and Other (1+ LE edema bilaterally. No marked erythema, induration, increased warmth, etc. Dressing in place over R calf wound without strikethrough / bleeding.)
Neuro: Awake and Alert; No Oriented
Laboratory Results
-
10/07/24 02:34
10/07/24 03:44
Laboratory Results
Total Bilirubin 1.3 mg/dl (0.2-1.3) 10/07/24 03:44
AST 30 U/L (14-36) 10/07/24 03:44
ALT 28 U/L (0-35) 10/07/24 03:44
Alkaline Phosphatase 92 U/L (38-126) 10/07/24 03:44
Troponin I 0.037 ng/ml H* 10/07/24 03:44
Impression/Plan
-
A/P: Patient is a 73y F with PMH significant for polymyositis, ASCVD, HTN and DM-II who presents to ED from home complaining of weakness and back discomfort.
Ambulatory Dysfunction
LE Weakness
Back Pain
Polymyositis
- Observe overnight for further evaluation and treatment.
- Patient is afebrile without leukocytosis and is not toxic appearing.
- I see no evidence of acute infectious process.
- ? flare of PM causing increased weakness (CPK is normal but ESR / CRP significantly elevated).
- PT / OT evaluations.
- Increase usual prednisone to 20mg daily (from 10).
- On IVIG every 3 weeks as an outpatient.
- Blood cultures obtained in the ED.
- Observe off of any additional abx for now.
- Consider spine imaging if cultures positive, back pain increases or weakness persists.
Chronic HFpEF
Abnormal Troponin - Unknown Type
- Patient denies any chest pain or dyspnea (though she is tachypneic during my exam).
- EKG with chronic LBBB and no evident changes.
- Follow troponin to peak.
- Monitor for any new / worsening symptoms.
- Continue usual CV med regimen including Lasix / Aldactone regimens.
- Change Lasix back to prior 40mg daily dose (currently 20mg).
- Follow I/Os, daily weights, etc.
ASCVD
Right Calf Wound
- PAD s/p R popliteal artery stent in July 2024.
- Continue current CV med regimen.
- Continue local care to R calf wound.
Chronic Atrial Fibrillation
- Stable. Continue carvedilol and Eliquis.
DM-II
- Stable. Continue basal insulin + SSI coverage as needed.
- Update A1C.
DVT Prophylaxis: On Eliquis
Code Status: DNR
[2024-10-07 06:12] LABS: Urine White Cell 0-2 /HPF (0-5)
[2024-10-07] MEDS: ANCEF 5 IV (06:45)
[2024-10-07 08:38] LABS: Glucose - Point of Care 110 mg/dl (70-99)
--- NOTE | 2024-10-07 08:41 | PHANOTE ---
med rec note-called patient spouse with no answer, patient came with medication list but she does not know her medication. left message for spouse to call back. checking ecw with patient med list
[2024-10-07] MEDS: ASPIR LOW (ENTERIC COATED) 81 MG PO (08:50)
[2024-10-07] MEDS: COREG 12.5 MG PO ×2 (08:50→20:11)
[2024-10-07] MEDS: NOVOLOG FLEXPEN-LOW RESISTANCE SC (08:50)
[2024-10-07] MEDS: DELTASONE 20 MG PO (08:50)
[2024-10-07] MEDS: ZESTRIL 10 MG PO (08:51)
[2024-10-07] MEDS: ELIQUIS 5 MG PO ×2 (08:51→20:11)
[2024-10-07] MEDS: PROTONIX 40 MG PO (08:51)
[2024-10-07] MEDS: LASIX 40 MG PO (08:51)
[2024-10-07] MEDS: NEURONTIN 300 MG PO ×3 (08:51→20:11)
[2024-10-07] MEDS: ALDACTONE 25 MG PO (08:51)
[2024-10-07] MEDS: LANTUS 0.05 UNITS SC (08:56)
[2024-10-07 10:56] LABS: Troponin I 0.036 ng/ml
[2024-10-07 11:42] LABS: TSH Reflex To Free T4 1.72 uIU/ml (0.47-4.68)
--- NOTE | 2024-10-07 11:51 | W.PN.UPDATE ---
Update Note
Progress Note Update
Seen and examined independent of overnight physician. Patient states of back pain. States she has low blood pressure.
Patient's son at bedside who states patient probably moved furniture at home subsequently afterwards had back pain.
Patient has been feeling extremely weak at home. Being followed in wound care center for right lower extremity wound
General: Resting comfortably in bed
HEENT: Moist mucous membranes, and Other (Minimal darkening / purple discoloration of the earlobes. Not erythematous, indurated or tender. EAC clear.)
Respiratory: Decreased breath sound
Cardiac: S1/S2, Irregular Rhythm and Murmur (II/ NIKUNJ)
GI: Soft, Non Tender, Non Distended and Normal Bowel Sounds
Musculoskeletal: No Clubbing, No Cyanosis and Other (1+ LE edema bilaterally. No marked erythema, induration, increased warmth, etc. Dressing in place over R calf wound without strikethrough / bleeding.)
Neuro: Awake and Alert; No Oriented
A/P: Patient is a 73y F with PMH significant for polymyositis, ASCVD, HTN and DM-II who presents to ED from home complaining of weakness and back discomfort.
Ambulatory Dysfunction
LE Weakness
Back Pain
Polymyositis
- ? flare of PM causing increased weakness (CPK is normal but ESR / CRP significantly elevated).
- PT / OT evaluations.
- Increase usual prednisone to 20mg daily (from 10).
- On IVIG every 3 weeks as an outpatient.
- Blood cultures obtained in the ED.
- Observe off of any additional abx for now.
- Check Lumbar xray
Chronic HFpEF
Elevated troponin
- Patient denies any chest pain or dyspnea (though she is tachypneic during my exam).
- EKG with chronic LBBB and no evident changes.
- Follow troponin to [facility].
- Monitor for any new / worsening symptoms.
- Follow I/Os, daily weights, etc.
ASCVD
Right Calf Wound
- PAD s/p R popliteal artery stent in July 2024.
- Continue current CV med regimen.
- Continue local care to R calf wound.
Chronic Atrial Fibrillation
- Stable. Continue carvedilol and Eliquis.
DM-II
- Stable. Continue basal insulin + SSI coverage as needed.
- Update A1C.
Mild hypotension likely secondary to additional dose of gabapentin
- Give gentle IV fluids. Holding Lasix.
Suspected cognitive impairment likely secondary to dementia
CT head with mild to moderate atrophy.
Chronic venous insufficiency
DVT Prophylaxis: On Eliquis
Code Status: DNR
Discussed with patient's son at bedside in details
[2024-10-07] MEDS: LR 1000 IV (11:52)
[2024-10-07] MEDS: ProAmatine 5 MG PO (12:10)
--- NOTE | 2024-10-07 12:20 | WOUNDNOTE ---
[facility] RN note: Patient admitted with Polymyositis.
See H&P for complete history.
PMH: Polymyositis, CHF, HTN, IDDM, arthritis, PVD. Patient follows at [facility].
Wound Location and type/assessment: Patient known to service, last seen 08/05/24 for b/l leg wounds from PAD/PVD. Last admission vascular debrided R posterior leg wound and R leg stenting done. Now admitted with healed L leg wound and slow to heal R
posterior leg wound, patient is on prednisone. Reviewed last note from wound center on 09/26/24, using Santyl dressing and lesly wrap. Alfredito at bedside confirmed he has a follow up apt at wound center this Sunday and continues to follow with
Samir, next apt December 29. Healing stage 2 PI to left buttock, now barely open and weeping scant amt. Chronic dark discolored skin on both buttocks, patient sits in chair for prolonged periods of time. and state she gets oob to chair
and can ambulate to commode. Using Barrier cream to buttocks. Patient turns with minimal assist, heels are blanchable red.
Appetite: Good
Pressure redistribution devices in place: Patient on stretcher, turned to R semi side lying position and placed air chair cushion under calves to offload heels. states he has 2 air cushions at home. Brought in air overlay and asked nurse
to use on bed when transferred to floor. Expects to get bed assignment soon.
Plan: Recommend continue Santyl to R leg wound daily and lesly wrap. Local wound care done, foam to heels and lesly wrap knee high on R leg. Changed silicone foam on L buttock. Will confirm orders with hospitalist and updated nurse. Updated care plan
and will follow as needed.
Note to case management of equipment requested for discharge: Resume VN.
Recommend follow up at wound care center upon discharge.
[2024-10-07 13:15] LABS: Glucose - Point of Care 397 mg/dl (70-99)
[2024-10-07 13:16] LABS: Troponin I 0.032 ng/ml
[2024-10-07] MEDS: NOVOLOG FLEXPEN-LOW RESISTANCE 5 UNITS SC ×2 (13:37→16:39)
--- NOTE | 2024-10-07 14:48 | PTCARENOTE ---
Received pt from ED into bed 403-1. Pt pulled over x4 to bed. Static air overlay in place. LR @ 80ml/hr infusing into L AC. No complaints at this time, oriented to room, call ramires within reach.
--- NOTE | 2024-10-07 15:57 | PTCARENOTE ---
Pt neurologist Dr. Mora requests all tests/notes to be faxed to [phone].
[2024-10-07 16:43] LABS: Glucose - Point of Care 385 mg/dl (70-99)
[2024-10-07 21:49] LABS: Glucose - Point of Care 308 mg/dl (70-99)
[2024-10-07] MEDS: NOVOLOG FLEXPEN 4 UNITS SC (22:06)
[2024-10-08 00:21] LABS: Glucose - Point of Care 260 mg/dl (70-99)
[2024-10-08 03:13] LABS: Glucose - Point of Care 200 mg/dl (70-99)
[2024-10-08 03:29] VITALS: BP 116/66
[2024-10-08 06:00] VITALS: BMI 31.8
[2024-10-08 06:51] LABS: Blood Urea Nitrogen 22 mg/dl (7-17); Calcium 8.5 mg/dl (8.4-10.2); Carbon Dioxide 21 mmol/L (22-30); Chloride 107 mmol/L (98-107); Estimated Creatinine Clearance 75 ml/min; Glucose 156 mg/dl (70-99); HDL Cholesterol 42 mg/dl; LDL Cholesterol, Calculated 67 mg/dl; Potassium 4.2 mmol/L (3.5-5.1); Sodium 135 mmol/L (135-145); Total Cholesterol 125 mg/dl (50-199); Triglyceride 84 mg/dl (10-149); Very Low Density Lipoprotein 16 mg/dl (0-30); eGFR > 60.00
[2024-10-08 06:52] LABS: Hematocrit 34.1 % (37.0-47.0); Hemoglobin 11.5 g/dL (12.0-16.0); Mean Corp Hgb Conc. 33.7 g/dL (33.0-37.0); Mean Corpuscular Hgb 30.6 pg (27.0-31.0); Mean Corpuscular Volume 90.7 fL (81.0-99.0); Mean Platelet Volume 10.3 fL (7.4-10.4); Platelet Count 122 10^3/uL (130-400); Red Blood Cell Count 3.76 10^6/uL (4.20-5.40); Red Cell Dist. Width 16.5 % (11.5-14.5); White Blood Cell Count 7.5 10^3/uL (4.8-10.8)
[2024-10-08] MEDS: DELTASONE 20 MG PO (08:03)
[2024-10-08] MEDS: SANTYL OINTMENT 1 APPLIC TOPICAL (08:03)
[2024-10-08] MEDS: PROTONIX 40 MG PO (08:04)
[2024-10-08] MEDS: ELIQUIS 5 MG PO ×2 (08:04→20:15)
[2024-10-08] MEDS: ZESTRIL 10 MG PO (08:04)
[2024-10-08] MEDS: NEURONTIN 300 MG PO ×2 (08:04→20:15)
[2024-10-08] MEDS: ASPIR LOW (ENTERIC COATED) 81 MG PO (08:04)
[2024-10-08] MEDS: ALDACTONE 25 MG PO (08:04)
[2024-10-08] MEDS: NOVOLOG FLEXPEN-LOW RESISTANCE SC (08:05)
[2024-10-08] MEDS: COREG 12.5 MG PO ×2 (08:05→20:15)
[2024-10-08] MEDS: LANTUS 0.05 UNITS SC (08:06)
[2024-10-08 08:15] LABS: Glucose - Point of Care 112 mg/dl (70-99)
[2024-10-08 08:24] VITALS: BP 122/76
[2024-10-08 08:45] LABS: Glycohemoglobin (HgbA1c) 6.4 % (4.0-5.6)
[2024-10-08 10:30] VITALS: BMI 31.8
[2024-10-08 11:33] VITALS: BP 91/51
--- NOTE | 2024-10-08 11:45 | W.PN.HOSP.TC ---
Today's Communication/Plan
-
Await for rehab evaluation
Hold Lasix
DC Aldactone
Continue with carvedilol and lisinopril
Assessment / Plan
Assessment / Plan
General: Resting comfortably in bed
HEENT: Moist mucous membranes, and Other (Minimal darkening / purple discoloration of the earlobes. Not erythematous, indurated or tender. EAC clear.)
Respiratory: Decreased breath sound
Cardiac: S1/S2, Irregular Rhythm and Murmur (II/ NIKUNJ)
GI: Soft, Non Tender, Non Distended and Normal Bowel Sounds
Musculoskeletal: No Clubbing, No Cyanosis and Other (1+ LE edema bilaterally. No marked erythema, induration, increased warmth, etc. Dressing in place over R calf wound without strikethrough / bleeding.)
Neuro: Awake and Alert; No Oriented
A/P: Patient is a 73y F with PMH significant for polymyositis, ASCVD, HTN and DM-II who presents to ED from home complaining of weakness and back discomfort.
Ambulatory Dysfunction
LE Weakness
Back Pain
Polymyositis
Acute L1 compression fracture
- Since back pain and ambulation with therapy. If with significant pain and weakness with activity may need to consider MRI but for now hold off . PT / OT evaluations.
- Increase usual prednisone to 20mg daily (from 10).
- On IVIG every 3 weeks as an outpatient.
- Blood cultures obtained in the ED remains negative so far
- Observe off of any additional abx for now.
- Lumbar xray noted. Pain control. per family, pt does not do too good with opiates. Cont w/ gabapentin.
Chronic HFpEF
Nonischemic myocardial injury likely secondary to hypertension
- Patient denies any chest pain or dyspnea
- EKG with chronic LBBB and no evident changes.
- Troponin down trended.
- Holding Lasix. DC Aldactone. Patient with significant drop in blood pressures noted.
- Follow I/Os, daily weights, etc.
ASCVD
Right Calf Wound
- PAD s/p R popliteal artery stent in July 2024.
- Continue current CV med regimen.
- Continue local care to R calf wound.
Chronic Atrial Fibrillation
- Stable. Continue carvedilol and Eliquis.
DM-II
- Stable. Continue basal insulin + SSI coverage as needed.
- Update A1C.
Mild hypotension likely secondary to additional dose of gabapentin
- Blood pressure stabilized.
Suspected cognitive impairment likely secondary to dementia
-CT head with mild to moderate atrophy.
Thrombocytopenia
-trend for now
History of polymyositis
-On IVIG as outpatient
Chronic venous insufficiency
DVT Prophylaxis: On Eliquis
Code Status: DNR
Updated patient's spouse over the phone in details
Anticipated Discharge: > 48 hours
Subjective/Interval History
-
Date of Service: October 08, 2024
States some mild back pain
States has not gotten out of bed
Objective Data
-
Labs:
Laboratory Results
10/08/24
05:47
WBC 7.5
Hgb 11.5 L
Hct 34.1 L
Plt Count 122 L D
Sodium 135
Potassium 4.2
Chloride 107
Carbon Dioxide 21 L
BUN 22 H
Creatinine 0.5 L
Glucose 156 H
Calcium 8.5
Vital Signs:
Vital Signs
Temp Pulse Resp BP Pulse Ox
98.6 F 85 18 91/51 96
10/08/24 11:33 10/08/24 11:33 10/08/24 11:33 10/08/24 11:33 10/08/24 11:33
I&O
10/07/24 10/08/24 10/09/24
06:59 06:59 06:59
Output Total 300 / 300 300 / 300
Balance -300 / -300 -300 / -300
[2024-10-08 12:12] LABS: Glucose - Point of Care 169 mg/dl (70-99)
[2024-10-08] MEDS: NOVOLOG FLEXPEN-LOW RESISTANCE 1 UNITS SC (12:37)
[2024-10-08 15:56] VITALS: BP 115/53
[2024-10-08 16:34] LABS: Glucose - Point of Care 317 mg/dl (70-99)
[2024-10-08] MEDS: NOVOLOG FLEXPEN-LOW RESISTANCE 4 UNITS SC (18:03)
[2024-10-08 19:42] VITALS: BP 109/64
[2024-10-08 21:40] LABS: Glucose - Point of Care 344 mg/dl (70-99)
[2024-10-08] MEDS: NOVOLOG FLEXPEN 4 UNITS SC (23:22)
[2024-10-08 23:37] VITALS: BP 116/60
[2024-10-09] VITALS (15 sets, daily range): BP systolic 114–143; BP diastolic 64–92; BMI 31.5
[2024-10-09 06:22] LABS: % Basophils 0.3 % (0-2); % Eosinophils 0.4 % (0-6); % Immature Granulocytes 0.7 % (0-0.5); % Lymphocytes 16.9 % (20.5-51.1); % Neutrophils 71.7 % (42.2-75.2); Absolute Immature Granulocytes 0.1 10^3/uL (0-0.05); Absolute Lymphocytes 1.2 10^3/uL (1.2-3.4); Absolute Monocytes 0.7 10^3/uL (0.1-0.6); Absolute Neutrophils 5.2 10^3/uL (1.4-6.5); Hematocrit 34.7 % (37.0-47.0); Hemoglobin 11.7 g/dL (12.0-16.0); Mean Corp Hgb Conc. 33.7 g/dL (33.0-37.0); Mean Corpuscular Hgb 30.4 pg (27.0-31.0); Mean Corpuscular Volume 90.1 fL (81.0-99.0); Mean Platelet Volume 9.9 fL (7.4-10.4); Nucleated Red Blood Cells % 0 %; Platelet Count 140 10^3/uL (130-400); Red Blood Cell Count 3.85 10^6/uL (4.20-5.40); Red Cell Dist. Width 16.4 % (11.5-14.5); White Blood Cell Count 7.2 10^3/uL (4.8-10.8)
[2024-10-09 06:43] LABS: Blood Urea Nitrogen 25 mg/dl (7-17); Calcium 9.1 mg/dl (8.4-10.2); Carbon Dioxide 21 mmol/L (22-30); Chloride 103 mmol/L (98-107); Estimated Creatinine Clearance 75 ml/min; Glucose 209 mg/dl (70-99); Potassium 4.3 mmol/L (3.5-5.1); Sodium 132 mmol/L (135-145); eGFR > 60.00
[2024-10-09 06:57] LABS: Vitamin D, 25-OH*** 45.1 ng/mL (30-80)
[2024-10-09 08:07] LABS: Glucose - Point of Care 188 mg/dl (70-99)
[2024-10-09] MEDS: NOVOLOG FLEXPEN-LOW RESISTANCE 1 UNITS SC (08:25)
[2024-10-09] MEDS: NEURONTIN 300 MG PO ×2 (08:27→20:02)
[2024-10-09] MEDS: PROTONIX 40 MG PO (08:27)
[2024-10-09] MEDS: DELTASONE 20 MG PO (08:27)
[2024-10-09] MEDS: SANTYL OINTMENT 1 APPLIC TOPICAL (08:28)
[2024-10-09] MEDS: ZESTRIL 10 MG PO (08:28)
[2024-10-09] MEDS: COREG 12.5 MG PO ×2 (08:28→20:02)
[2024-10-09] MEDS: ASPIR LOW (ENTERIC COATED) 81 MG PO (08:28)
[2024-10-09] MEDS: ELIQUIS 5 MG PO ×2 (08:28→20:02)
[2024-10-09] MEDS: LANTUS 0.05 UNITS SC (08:29)
[2024-10-09] MEDS: VITAMIN D3 (cholecalciferol) 125 MCG PO (08:30)
[2024-10-09] MEDS: FLUSH (NSS) 1 FLUSH IV ×2 (08:31→08:32)
--- NOTE | 2024-10-09 11:09 | W.PN.HOSP.TC ---
Today's Communication/Plan
-
cont gabapentin
restart lasix
monitor BP
PT/OT SNF. CM aware
Assessment / Plan
Assessment / Plan
General: Resting comfortably in bed
HEENT: Moist mucous membranes,
Respiratory: Decreased breath sound
Cardiac: S1/S2, Irregular Rhythm and Murmur (II/ NIKUNJ)
GI: Soft, Non Tender, Non Distended and Normal Bowel Sounds
Musculoskeletal: No Clubbing, No Cyanosis and Other (1+ LE edema bilaterally. No marked erythema, induration, increased warmth, etc. Dressing in place over R calf wound without strikethrough / bleeding.)
Neuro: Awake and Alert; No Oriented
A/P: Patient is a 73y F with PMH significant for polymyositis, ASCVD, HTN and DM-II who presents to ED from home complaining of weakness and back discomfort.
Ambulatory Dysfunction
LE Weakness
Back Pain
Polymyositis
Acute L1 compression fracture
- Since back pain and ambulation with therapy. If with significant pain and weakness with activity may need to consider MRI but for now hold off . PT / OT evaluations.
- Increase usual prednisone to 20mg daily (from 10).
- On IVIG every 3 weeks as an outpatient.
- Blood cultures obtained in the ED remains negative so far
- Observe off of any additional abx for now.
- Lumbar xray noted. Pain control. per family, pt does not do too good with opiates. Cont w/ gabapentin.
Chronic HFpEF
Nonischemic myocardial injury likely secondary to hypotension
- Patient denies any chest pain or dyspnea
- EKG with chronic LBBB and no evident changes.
- Troponin down trended.
- Restart Lasix 40mg takes TID weekly. DC Aldactone. Patient with significant drop in blood pressures noted.
- Follow I/Os, daily weights, etc. BP starting to stabilize.
ASCVD
Right Calf Wound
- PAD s/p R popliteal artery stent in July 2024.
- Continue current CV med regimen.
- Continue local care to R calf wound.
Chronic Atrial Fibrillation
- Stable. Continue carvedilol and Eliquis.
DM-II -hyperglycemia due to steroids
- Stable. Continue basal insulin + SSI coverage as needed. Restart po meds
- Update A1C at 6.4.
Mild hypotension likely secondary to additional dose of gabapentin
- Blood pressure stabilized.
Suspected cognitive impairment likely secondary to dementia
-CT head with mild to moderate atrophy.
Thrombocytopenia
-trend for now
History of polymyositis
-On IVIG as outpatient
Mild hyponatremia
-monitor
Chronic venous insufficiency
DVT Prophylaxis: On Eliquis
Code Status: DNR
PT/OT-SNF.
called spouse to update but requested call back later time
Anticipated Discharge: Within 24 hours
Subjective/Interval History
-
Date of Service: October 09, 2024
sitting in chair
denies back pain currently
denies any chest pain or sob.
denies lightheadedness or dizziness
Objective Data
-
Labs:
Laboratory Results
10/09/24
05:34
WBC 7.2
Hgb 11.7 L
Hct 34.7 L
Plt Count 140
Sodium 132 L
Potassium 4.3
Chloride 103
Carbon Dioxide 21 L
BUN 25 H
Creatinine 0.5 L
Glucose 209 H
Calcium 9.1
Vital Signs:
Vital Signs
Temp Pulse Resp BP Pulse Ox
97.5 F 55 18 130/70 100
10/09/24 07:54 10/09/24 08:28 10/09/24 07:54 10/09/24 08:28 10/09/24 07:54
I&O
10/08/24 10/09/24 10/10/24
06:59 06:59 06:59
Intake Total 960 / 960 240 / 240
Output Total 300 / 300 300 / 300
Balance -300 / -300 660 / 660 240 / 240
[2024-10-09] MEDS: DESENEX/MITRAZOL/ZEASORB 1 APPLIC TOPICAL (11:59)
[2024-10-09 12:01] LABS: Glucose - Point of Care 230 mg/dl (70-99)
[2024-10-09] MEDS: PRANDIN 2 MG PO ×2 (12:02→16:56)
[2024-10-09] MEDS: NOVOLOG FLEXPEN-LOW RESISTANCE 2 UNITS SC ×2 (12:03→16:54)
--- NOTE | 2024-10-09 13:41 | PN.CDI ---
CDI
- -
CDI:
Physician Documentation Request
Admit Date: 10/08/24 09:27
Dear Doctor Dora,
Please review the following and provide your response in the progress notes.
Clinical Indicators:
- Wound note indicates Stage 2 left buttock pressure injury, POA
Physician documentation of the type and location of wounds is required for compliant documentation. Based on the above clinical findings and your assessment, please provide the following in your progress note:
1. Location of the ulcer/wound, including laterality.
2. Type (etiology) of ulcer/wound:
- Diabetic ulcer
- Arterial (ischemic) ulcer
- Venous stasis ulcer
- Pressure (decubitus) ulcer
- Other
Use of terms such as suspected, likely, concern for, or probable (associated with a specific diagnosis that is being evaluated, monitored, or treated as if it exists) are acceptable and can be coded in the inpatient setting, when documented at the
time of discharge.
Thank you,
Kori Xavier RN
CDI Specialist
Please use your independent medical judgment in providing your response.
*Source: National Pressure Ulcer Advisory Panel (NPUAP)
[2024-10-09] MEDS: FLUSH (NSS) 2 FLUSH IV (16:31)
[2024-10-09] MEDS: NON-FORMULARY ITEM 500 IV (16:31)
[2024-10-09 16:44] LABS: Glucose - Point of Care 242 mg/dl (70-99)
--- NOTE | 2024-10-09 17:44 | CM ---
Alert awake forgetful patient who lives with her Chivo in a mobile home with a ramp.She is assisted in all activities of daily living.PT OT =SNF. Family given pack data for SNF
Commode walker wc
[facility] hx /NO SNF hx
Pharmacy [facility] [place]
PCP Dr Borja
PLAN To SNF after located
[2024-10-09 21:04] LABS: Glucose - Point of Care 315 mg/dl (70-99)
[2024-10-09 23:54] LABS: Glucose - Point of Care 318 mg/dl (70-99)
[2024-10-10] VITALS (15 sets, daily range): BP systolic 118–140; BP diastolic 67–94; BMI 30.4
[2024-10-10] MEDS: NOVOLOG FLEXPEN 4 UNITS SC (00:12)
[2024-10-10 03:23] LABS: Glucose - Point of Care 216 mg/dl (70-99)
[2024-10-10 08:10] LABS: Glucose - Point of Care 160 mg/dl (70-99)
[2024-10-10] MEDS: NOVOLOG FLEXPEN-LOW RESISTANCE 1 UNITS SC (09:39)
[2024-10-10] MEDS: LANTUS 0.1 UNITS SC (09:39)
[2024-10-10] MEDS: SANTYL OINTMENT 1 APPLIC TOPICAL (09:41)
[2024-10-10] MEDS: ELIQUIS 5 MG PO ×2 (09:42→21:16)
[2024-10-10] MEDS: NEURONTIN 300 MG PO ×2 (09:42→21:16)
[2024-10-10] MEDS: PRANDIN 2 MG PO ×3 (09:42→17:01)
[2024-10-10] MEDS: COREG 12.5 MG PO ×2 (09:42→21:16)
[2024-10-10] MEDS: ZETIA 10 MG PO (09:42)
[2024-10-10] MEDS: DELTASONE 20 MG PO (09:42)
[2024-10-10] MEDS: PROTONIX 40 MG PO (09:42)
[2024-10-10] MEDS: DESENEX/MITRAZOL/ZEASORB 1 APPLIC TOPICAL (09:43)
[2024-10-10] MEDS: ASPIR LOW (ENTERIC COATED) 81 MG PO (09:43)
[2024-10-10] MEDS: ZESTRIL 10 MG PO (09:43)
[2024-10-10] MEDS: VITAMIN D3 (cholecalciferol) 125 MCG PO (09:43)
[2024-10-10] MEDS: TYLENOL 650 MG PO (10:34)
[2024-10-10] MEDS: LASIX 40 MG PO (10:34)
--- NOTE | 2024-10-10 10:34 | CM ---
Spoke with family in room with pt.
PT OT indicate SNF.
PAC data given .
Referral placed for [facility] . [facility] [place] .
PLAN To SNF after located
--- NOTE | 2024-10-10 11:25 | W.PN.HOSP.TC ---
Addendum entered and electronically signed by Mendoza John MD 10/10/24 13:15:
Stage 2 left buttock pressure injury, POA
Original Note:
Today's Communication/Plan
-
Await placement
IVIG day 2 of 2
adjusted lantus
dec steroids in 1-2 days
pt/ot-oob
Assessment / Plan
Assessment / Plan
General: Resting comfortably in bed
HEENT: Moist mucous membranes,
Respiratory: Decreased breath sound
Cardiac: S1/S2, Irregular Rhythm and Murmur (II/ NIKUNJ)
GI: Soft, Non Tender, Non Distended and Normal Bowel Sounds
Musculoskeletal: No Clubbing, No Cyanosis and Other (1+ LE edema bilaterally. No marked erythema, induration, increased warmth, etc. Dressing in place over R calf wound without strikethrough / bleeding.)
Neuro: Awake and Alert; No Oriented,
A/P: Patient is a 73y F with PMH significant for polymyositis, ASCVD, HTN and DM-II who presents to ED from home complaining of weakness and back discomfort.
Ambulatory Dysfunction
LE Weakness
Back Pain
Acute L4 compression fracture
Chronic L1 compression fracture
- Since back pain and ambulation with therapy. If with significant pain and weakness with activity may need to consider MRI but for now hold off . PT / OT evaluations.
- Increase usual prednisone to 20mg daily (from 10).
- Blood cultures obtained in the ED remains negative so far
- Observe off of any additional abx for now.
- Lumbar xray noted. Pain control. per family, pt does not do too good with opiates. Cont w/ gabapentin.
Chronic HFpEF
Nonischemic myocardial injury likely secondary to hypotension
- Patient denies any chest pain or dyspnea
- EKG with chronic LBBB and no evident changes.
- Troponin down trended.
- Restart Lasix 40mg takes TID weekly. DC Aldactone. Patient with significant drop in blood pressures noted.
- Follow I/Os, daily weights, etc. BP starting to stabilize.. Check ECHO.
ASCVD
Right Calf Wound
- PAD s/p R popliteal artery stent in July 2024.
- Continue current CV med regimen.
- Continue local care to R calf wound.
Chronic Atrial Fibrillation
- Stable. Continue carvedilol and Eliquis.
DM-II -hyperglycemia due to steroids
- Stable. Continue basal insulin + SSI coverage as needed. Restart po meds. increase lantus to 10 units
- Update A1C at 6.4.
Mild hypotension likely secondary to additional dose of gabapentin
- Blood pressure stabilized.
Suspected cognitive impairment likely secondary to dementia
-CT head with mild to moderate atrophy.
Thrombocytopenia
-trend for now
History of polymyositis
-On IVIG -spouse brought in medication from home. Receiving over course of 2 days here.
Mild hyponatremia
-monitor
Chronic venous insufficiency
DVT Prophylaxis: On Eliquis
Code Status: DNR
PT/OT-SNF.
discussed with spouse at bedside in details
Anticipated Discharge: Today
Subjective/Interval History
-
Date of Service: October 10, 2024
No overnight events
Objective Data
-
Vital Signs:
Vital Signs
Temp Pulse Resp BP Pulse Ox
97.5 F 86 16 134/87 99
10/10/24 07:15 10/10/24 09:42 10/10/24 07:15 10/10/24 09:43 10/10/24 07:15
I&O
10/09/24 10/10/24 10/11/24
06:59 06:59 06:59
Intake Total 960 / 960 480 / 480
Output Total 300 / 300 300 / 300
Balance 660 / 660 180 / 180
Data Reviewed
-
Total Time Spent with Patient (in minutes): 55
[2024-10-10 12:01] LABS: Glucose - Point of Care 124 mg/dl (70-99)
[2024-10-10] MEDS: NOVOLOG FLEXPEN-LOW RESISTANCE SC (12:09)
[2024-10-10] MEDS: NON-FORMULARY ITEM 500 IV (16:18)
[2024-10-10] MEDS: FLUSH (NSS) 2 FLUSH IV (16:18)
--- NOTE | 2024-10-10 16:27 | CM ---
Spoke with Alfredito reviewed snf .
Alfredito picked [facility] for SNF.
Pt for discharge tomorrow to [facility].
will come to hospital at 1 pm to transport pt tomorrow.
AUREA Rogers form [facility] pt
[facility]
report [phone]
fax [phone]
PLAN To [facility] tomorrow.
[2024-10-10 16:28] LABS: Glucose - Point of Care 223 mg/dl (70-99)
[2024-10-10] MEDS: NOVOLOG FLEXPEN-LOW RESISTANCE 2 UNITS SC (16:35)
[2024-10-10 21:38] LABS: Glucose - Point of Care 319 mg/dl (70-99)
[2024-10-10] MEDS: NOVOLOG FLEXPEN 5 UNITS SC (22:02)
[2024-10-11 03:44] LABS: Glucose - Point of Care 230 mg/dl (70-99)
[2024-10-11 06:00] VITALS: BMI 29.8
[2024-10-11 08:19] LABS: Glucose - Point of Care 150 mg/dl (70-99)
[2024-10-11 08:25] VITALS: BP 137/83
[2024-10-11] MEDS: ZETIA 10 MG PO (08:31)
[2024-10-11] MEDS: ZESTRIL 10 MG PO (08:31)
[2024-10-11] MEDS: DELTASONE 20 MG PO (08:31)
[2024-10-11] MEDS: PROTONIX 40 MG PO (08:31)
[2024-10-11] MEDS: NEURONTIN 300 MG PO (08:32)
[2024-10-11] MEDS: SANTYL OINTMENT 1 APPLIC TOPICAL (08:32)
[2024-10-11] MEDS: ELIQUIS 5 MG PO (08:32)
[2024-10-11] MEDS: COREG 12.5 MG PO (08:32)
[2024-10-11] MEDS: VITAMIN D3 (cholecalciferol) 125 MCG PO (08:32)
[2024-10-11] MEDS: ASPIR LOW (ENTERIC COATED) 81 MG PO (08:32)
[2024-10-11] MEDS: FOSAMAX 70 MG PO (08:33)
[2024-10-11] MEDS: LANTUS 0.1 UNITS SC (09:25)
[2024-10-11] MEDS: PRANDIN 2 MG PO ×2 (09:25→12:25)
[2024-10-11] MEDS: NOVOLOG FLEXPEN-LOW RESISTANCE 1 UNITS SC (09:25)
--- NOTE | 2024-10-11 09:48 | CM ---
CM confirmed with [facility] to accept today at 1pm. Spouse to transport.
Report # [phone]
fax [phone]
--- NOTE | 2024-10-11 11:02 | W.PN.HOSP.TC ---
Today's Communication/Plan
-
dc to snf
Assessment / Plan
Assessment / Plan
General: Resting comfortably in bed
HEENT: Moist mucous membranes,
Respiratory: Decreased breath sound
Cardiac: S1/S2, Irregular Rhythm and Murmur (II/ NIKUNJ)
GI: Soft, Non Tender, Non Distended and Normal Bowel Sounds
Musculoskeletal: No Clubbing, No Cyanosis and Other (1+ LE edema bilaterally. No marked erythema, induration, increased warmth, etc. Dressing in place over R calf wound without strikethrough / bleeding.)
Neuro: Awake and Alert; No Oriented,
A/P: Patient is a 73y F with PMH significant for polymyositis, ASCVD, HTN and DM-II who presents to ED from home complaining of weakness and back discomfort.
Ambulatory Dysfunction
LE Weakness
Back Pain
Acute L4 compression fracture
Chronic L1 compression fracture
- Since back pain and ambulation with therapy. If with significant pain and weakness with activity may need to consider MRI but for now hold off . PT / OT evaluations.
- Blood cultures obtained in the ED remains negative so far
- Observe off of any additional abx for now.
- Lumbar xray noted. Pain control. per family, pt does not do too good with opiates. Cont w/ gabapentin.
Chronic HFpEF
Nonischemic myocardial injury likely secondary to hypotension
- Patient denies any chest pain or dyspnea
- EKG with chronic LBBB and no evident changes.
- Troponin down trended.
- Restart Lasix 40mg takes TID weekly. DC Aldactone. Patient with significant drop in blood pressures noted.
- Follow I/Os, daily weights, etc. BP starting to stabilize.. Check ECHO.
ASCVD
Right Calf Wound
- PAD s/p R popliteal artery stent in July 2024.
- Continue current CV med regimen.
- Continue local care to R calf wound.
Chronic Atrial Fibrillation
- Stable. Continue carvedilol and Eliquis.
DM-II -hyperglycemia due to steroids
- Stable. Continue basal insulin + SSI coverage as needed. Restart po meds. increase lantus to 10 units
- Update A1C at 6.4.
Mild hypotension likely secondary to additional dose of gabapentin
- Blood pressure stabilized.
Suspected cognitive impairment likely secondary to dementia
-CT head with mild to moderate atrophy.
Thrombocytopenia
-trend for now
History of polymyositis
-On IVIG -spouse brought in medication from home. Receiving over course of 2 days here.
Mild hyponatremia
-monitor
Chronic venous insufficiency
DVT Prophylaxis: On Eliquis
Code Status: DNR
PT/OT-SNF.
discussed with spouse at bedside in details on 10/10/24
More than 30 minutes spent in discharge including
Final examination of the patient
Summarizing hospital stay
Instructions for continuing care to all relevant caregivers
Preparation of discharge records, prescriptions, and referral forms
Total time spent (in minutes): 52
Anticipated Discharge: Today
Subjective/Interval History
-
Date of Service: October 11, 2024
Patient in good spirits
Denies back pain
Objective Data
-
Vital Signs:
Vital Signs
Temp Pulse Resp BP Pulse Ox
97.6 F 87 18 137/83 99
10/11/24 08:25 10/11/24 08:25 10/11/24 08:25 10/11/24 08:25 10/11/24 08:25
I&O
10/10/24 10/11/24 10/12/24
06:59 06:59 06:59
Intake Total 480 / 480 660 / 660
Output Total 300 / 300 250 / 250
Balance 180 / 180 410 / 410
--- NOTE | 2024-10-11 11:04 | W.DCSUMMARY ---
Discharge Summary
Discharge Data
Date of Admission: 10/08/24
Date of Discharge: 10/11/24
-
Pending Results: No
Hospital Course
73-year-old female past medical history of chronic ambulatory dysfunction, back pain, L1 compression fracture, chronic HFrEF, right calf chronic wound, atrial fibrillation, diabetes mellitus, cognitive impairment, history of polymyositis who is
presenting from home with severe back pain. Patient underwent imaging which showed patient had acute L4 compression fracture. Patient without any urinary or fecal incontinence. No saddle anesthesia. Patient pain was controlled with outpatient
regimen of gabapentin 300 mg twice daily. Patient was eval by physical and Occupational Therapy recommendation group home facility. Patient was able to ambulate and get out of bed without significant pain. Patient also with history of
polymyositis and received IVIG home dose regimen over the course of 2 days. Patient also with hypotension which was noted and received IV fluid resuscitation. Patient Aldactone was continued. Patient troponin were elevated which down trended.
Patient without any chest pain. Echocardiogram was performed which showed EF of 50 to 55%. Stage I diastolic dysfunction. EKG with chronic left bundle branch block. Patient blood pressure stabilized with discontinuation of Aldactone.. Patient
was also started on high-dose of steroids on admission for her history of polymyositis which was weaned off to her chronic steroid of 10 mg daily. Also was found to have vitamin D deficiency and was started on supplementation. Patient will be
discharged to group home facility.
Discharge Plan
-
Patient Disposition: Fdc/SNF
Discharge Diagnosis/Procedures: Back pain secondary to L4 compression fracture likely secondary to osteoporosis
Hypotension
Nonischemic myocardial injury
Diabetes mellitus uncontrolled due to steroids
Vitamin D deficiency
Condition: Fair
Diet: 2 Gram Sodium and Diabetic, Carb Controlled
Activity Restrictions/Additional Instructions:
Wound Care Instructions
R posterior leg: clean with wound cleanser, Santyl yong thick, adaptic, abd pad and darby change daily.
L buttock: clean with soap and water, silicone foam change q 3 days and prn soilage. Can also use barrier cream if foam does not stay daily and prn soilage.
Jose Elias wrap R leg knee high daily, can remove at bedtime. Leg elevation when sitting
offloading cushion when sitting
Follow up at wound care center call for an appointment.
Referrals:
Cole Suazo MD [Family Provider, [facility]] - in less than 1 week
Additional Discharge Medication Instructions: Spironolactone was discontinued due to hypotension.
Prescriptions:
New
cholecalciferol (vitamin D3) 125 mcg (5,000 unit) Tablet
125 mcg PO DAILY 30 Days Qty: 30 0RF
Continued
Gammagard Liquid 10 GRAM/100 ML solution
50 ml IV UD
Rx Instructions:
take two out of the month
carvedilol 12.5 MG tablet
12.5 mg PO BID
furosemide 20 MG tablet
40 mg PO MOWEFR
Patient Comments:
lisinopril 10 mg Tablet
10 mg PO DAILY
alendronate 70 mg tablet
70 mg PO FR
Rx Instructions:
Weekly
pantoprazole 40 mg Tablet,Delayed Release (Dr/Ec)
40 mg PO DAILY 30 Days Qty: 30 2RF
Eliquis 5 mg tablet
5 mg PO BID 30 Days Qty: 60 0RF
repaglinide 2 mg Tablet
2 mg PO AC
gabapentin 300 mg Capsule
300 mg PO BID
ezetimibe 10 mg Tablet
10 mg PO DAILY
miconazole nitrate [Miconazorb AF] 2 % Powder
1 applic topical BID Qty: 85 0RF
Rx Instructions:
folds and groin
Dakin's Solution 0.125 % Solution
1 applic topical DAILY Qty: 473 0RF
prednisone 10 mg Tablet
10 mg PO DAILY Qty: 0 0RF
Santyl 250 unit/gram Ointment
1 applic topical DAILY Qty: 90 0RF
Rx Instructions:
calf wound 6cm x 3.5cm
aspirin 81 mg Tablet,Delayed Release (Dr/Ec)
81 mg PO DAILY Qty: 0 0RF
Changed
insulin glargine [Basaglar KwikPen U-100 Insulin] 100 unit/mL (3 mL) Insulin Pen
7 unit SC DAILY Qty: 0 0RF
Discontinued
spironolactone 25 MG tablet
25 mg PO DAILY Qty: 0 0RF
Discharge Orders:
Discharge Patient (As Directed); Ordered 10/11/24
Ordered By: Mendoza John
Discharge Date and Time
Print Language: KINYARWANDA
[2024-10-11 11:55] LABS: Glucose - Point of Care 146 mg/dl (70-99)
[2024-10-11] MEDS: NOVOLOG FLEXPEN-LOW RESISTANCE SC (11:57)
== END 2024-10-11 14:11 | DRG 546 ==
LOC: 4 EAST ACU 09:27
PROVIDERS: ADMITTING PHYSICIAN Hospitalist; ATTENDING PHYSICIAN Hospitalist; EMERGENCY PHYSICIAN Emergency Medicine; FAMILY PHYSICIAN Family Medicine
DX: M33.20 Polymyositis, organ involvement unspecified (principal); E87.1 Hypo-osmolality and hyponatremia; I48.20 Chronic atrial fibrillation, unspecified; I50.42 Chronic combined systolic (congestive) and diastolic (congestive) heart failure; I5A Non-ischemic myocardial injury (non-traumatic); M48.56XA Collapsed vertebra, not elsewhere classified, lumbar region, initial encounter for fracture; M81.0 Age-related osteoporosis without current pathological fracture; I25.10 Atherosclerotic heart disease of native coronary artery without angina pectoris; E11.65 Type 2 diabetes mellitus with hyperglycemia; Z66 Do not resuscitate; D69.6 Thrombocytopenia, unspecified; L89.322 Pressure ulcer of left buttock, stage 2; M54.9 Dorsalgia, unspecified; I95.9 Hypotension, unspecified; E55.9 Vitamin D deficiency, unspecified; Z79.01 Long term (current) use of anticoagulants; Z79.4 Long term (current) use of insulin; Z79.899 Other long term (current) drug therapy; T38.0X5A Adverse effect of glucocorticoids and synthetic analogues, initial encounter
CPT/HCPCS: 51701; 51798; 70450; 71046; 72100; 80048; 80053; 80061; 81003; 81015; 82306; 82550; 82962; 83036; 83880; 84443; 84484; 85025; 85027; 85652; 86140; 87040; 93005; 93306; 96361; 96374; 96376; 97116; 97163; 97167; 97530; 97535; 99285

== ENCOUNTER → 2024-10-17 14:54 | Outpatient (REF) | payer MEDICARE, SELFPAY | LOC: MRI 14:54 | PROVIDERS: ATTENDING PHYSICIAN Specialist; FAMILY PHYSICIAN Family Medicine | DX: R41.89 Other symptoms and signs involving cognitive functions and awareness (principal) | CPT/HCPCS: 70551 ==

== ENCOUNTER → 2024-11-04 10:14 | Outpatient (REF) | payer MEDICARE, SELFPAY | LOC: WOUND 10:14 | PROVIDERS: ATTENDING PHYSICIAN Surgery; FAMILY PHYSICIAN Family Medicine | DX: L97.212 Non-pressure chronic ulcer of right calf with fat layer exposed (principal); I87.2 Venous insufficiency (chronic) (peripheral); I50.43 Acute on chronic combined systolic (congestive) and diastolic (congestive) heart failure; M33.20 Polymyositis, organ involvement unspecified; I77.6 Arteritis, unspecified; L88 Pyoderma gangrenosum; Z79.4 Long term (current) use of insulin | CPT/HCPCS: 11104; 11105; 88305; 99214 ==

== ENCOUNTER → 2024-11-21 10:13 | Outpatient (REF) | payer MEDICARE, SELFPAY | LOC: WOUND 10:13 | PROVIDERS: ATTENDING PHYSICIAN Surgery; FAMILY PHYSICIAN Family Medicine | DX: L97.212 Non-pressure chronic ulcer of right calf with fat layer exposed (principal); L88 Pyoderma gangrenosum; I73.9 Peripheral vascular disease, unspecified; I87.2 Venous insufficiency (chronic) (peripheral); I50.43 Acute on chronic combined systolic (congestive) and diastolic (congestive) heart failure; M33.20 Polymyositis, organ involvement unspecified; E11.65 Type 2 diabetes mellitus with hyperglycemia; I77.6 Arteritis, unspecified; Z79.4 Long term (current) use of insulin | CPT/HCPCS: 99213 ==

== ENCOUNTER → 2024-12-11 13:11 | Outpatient (REF) | payer MEDICARE, SELFPAY | LOC: WOUND 13:11 | PROVIDERS: ATTENDING PHYSICIAN Surgery; FAMILY PHYSICIAN Family Medicine | DX: L97.212 Non-pressure chronic ulcer of right calf with fat layer exposed (principal); L88 Pyoderma gangrenosum; I73.9 Peripheral vascular disease, unspecified; I87.2 Venous insufficiency (chronic) (peripheral); M33.20 Polymyositis, organ involvement unspecified; E11.65 Type 2 diabetes mellitus with hyperglycemia; Z79.4 Long term (current) use of insulin; I77.6 Arteritis, unspecified | CPT/HCPCS: 99213 ==

== ENCOUNTER 2024-12-15 10:48 | Emergency (ER) | payer MEDICARE, SELFPAY ==
[2024-12-15 11:08] VITALS: BP 114/75
[2024-12-15 11:42] LABS: Hematocrit 38.8 % (37.0-47.0); Hemoglobin 12.2 g/dL (12.0-16.0); Mean Corp Hgb Conc. 31.4 g/dL (33.0-37.0); Mean Corpuscular Volume 88.6 fL (81.0-99.0); Nucleated Red Blood Cells % 0 %; Platelet Count 172 10^3/uL (130-400); Red Cell Dist. Width 17.4 % (11.5-14.5)
[2024-12-15 12:08] LABS: ALT (SGPT) 25 U/L (0-35); AST (SGOT) 40 U/L (14-36); Albumin 4.2 g/dl (3.5-5.0); Alkaline Phosphatase 136 U/L (38-126); Blood Urea Nitrogen 28 mg/dl (7-17); Calcium 8.7 mg/dl (8.4-10.2); Carbon Dioxide 22 mmol/L (22-30); Glucose 168 mg/dl (70-99); Potassium 3.8 mmol/L (3.5-5.1); Sodium 142 mmol/L (135-145); Total Protein 7.9 g/dl (6.3-8.2); eGFR > 60.00
[2024-12-15 12:16] LABS: Chloride 109 mmol/L (98-107)
[2024-12-15 12:18] LABS: Troponin I 0.021 ng/ml
--- NOTE | 2024-12-15 14:58 | EDRN ---
Dr. Benitez in room w/ pt at this time.
[2024-12-15 15:01] VITALS: BMI 32.0
--- NOTE | 2024-12-15 15:04 | ED.GENMED ---
History of Present Illness
General
Chief Complaint: Swelling
Source: patient and spouse
Exam Limitations: none
Time Seen by Provider: 12/15/24 14:37
History of Present Illness
History of Present Illness:
74-year-old female with increased bilateral leg swelling over the last week to 2 weeks. Has increased her Lasix for 3 days last week with no benefit. No chest pain. Mild shortness of breath with exertion but this has been ongoing. No fever
chills cough or other complaints. Chronic wounds to the lower extremities.
Past History
Past History
ED Past Medical History: Asthma, CHF, HTN, Hypercholesterolemia, NIDDM, Other (polymyositis) and Other (breast cancer 2007)
ED Past Surgical History: Orthopedic and Other (breast lumpectomy x 2)
Social History
Tobacco: Non-smoker
Alcohol: None
Drug: None
Personal:
Living: with family
Employment: Disabled
Family History
Family History: Diabetes
Review of Systems
Review of Systems
All Other Systems: Not applicable
Respiratory: Denies cough
Cardiac: Denies chest pain or syncope
Phy Exam
Physical Exam
Physical Exam:
GENERAL: Alert and oriented in no apparent distress
EYE: Orbits normal.
NECK: Supple, no significant adenopathy.
ENT: Pharynx without erythema
CARDIAC: Regular rate and rhythm without any obvious murmurs.
LUNGS: No respiratory distress at rest. A few crackles bilaterally. No wheezing or rhonchi
ABDOMEN: Soft, without focal tenderness or distention
NEUROLOGICAL: Alert and oriented , grossly non-focal
SKIN: Warm and dry, no rash or lesion, no discoloration, skin intact.
MUSCULOSKELETAL: Significant bilateral lower extremity pitting edema with compression stockings in place. Wounds covered by bandages. No obvious cellulitis
PSYCH: Normal and appropriate interaction.
Scores
Heart Failure Risk
Heart Failure Risk Score: Yes
History of Stroke or TIA: No
History of intubation for respiratory distress: No
Heart rate on ED arrival >/= 110: No
SaO2 <90% on arrival on room air: No
HR >/=110 during 3min walk test (or too ill to perform test): No
ECG has acute ischemic changes: No
Urea >/=12mmol/L (BUN 33.6mg/dL): No
Serum CO2>/=35mmol/L: No
Troponin I or T elevated to TN Level (0.4mg/dL): No
NT-proBNP >/=5,000ng/L (5,000pg/ml): No
HF Risk Score: 0
Admission Status: LOW RISK 2.8% Consider discharge to home with f/u visit to PCP/Wet Room Worker
Course
Orders/Labs/Results
Orders:
Orders
12/15/24 11:11
Electrocardiogram (*1) Urgent
Reason for Study: Chest Pain
Cardiac Monitoring- Treatment ONCE
EKG- Treatment ONCE
IV Insert/Care/Rem.- Treatment PRN
O2 Therapy [RESP] Urgent
Titrate/Wean O2 to maintain O2 sat greater than (%): 90
Special Instructions: Maintain sats >/=90%
Pulse Ox/spot Check [RESP] Urgent
Quantity: 1
Special Instructions: ON ROOM AIR
12/15/24 11:24
BNP [NT-proBNP] Urgent
Complete Blood Count/With Diff Urgent
Comprehensive Metabolic Panel Urgent
Troponin I Urgent
12/15/24 15:02
CXR2 [CR Chest - 2 Views ] Urgent
Comment:
Reason For Exam: bilateral leg swelling
12/15/24 15:35
Furosemide [Lasix] 80 mg IV NOW STA
Abnormal Lab Results
12/15/24
11:24
MCHC 31.4 L g/dL
(33.0-37.0)
RDW 17.4 H %
(11.5-14.5)
Abs Immat Gran (auto) 0.1 H 10^3/uL
(0-0.05)
Absolute Neuts (auto) 7.2 H 10^3/uL
(1.4-6.5)
Absolute Lymphs (auto) 0.9 L 10^3/uL
(1.2-3.4)
Immature Gran % 0.6 H %
(0-0.5)
Neutrophils % 83.0 H %
(42.2-75.2)
Lymphocytes % 9.8 L %
(20.5-51.1)
Chloride 109 H mmol/L
(98-107)
BUN 28 H mg/dl
(7-17)
Glucose 168 H mg/dl
(70-99)
AST 40 H U/L
(14-36)
Alkaline Phosphatase 136 H U/L
(38-126)
12/15/24 11:24
12/15/24 11:24
Vital Signs
Initial and Last Documented VS:
Initial Vital Signs
Temp Pulse Resp BP Pulse Ox
98.0 F 96 16 114/75 99
12/15/24 11:08 12/15/24 11:08 12/15/24 11:08 12/15/24 11:08 12/15/24 11:08
Last Documented Vital Signs
Temp Pulse Resp BP Pulse Ox
98.0 F 95 16 150/100 97
12/15/24 11:08 12/15/24 16:15 12/15/24 16:15 12/15/24 16:15 12/15/24 16:15
MDM/Problems Addressed
Differential Diagnosis Includes:
Patient has a few crackles but in no severe respiratory distress. Some respiratory symptoms with exertion. Lower extremity edema bilaterally not responding to p.o. Lasix. 5 kg weight gain since early October. Component of fluid retention. Will
check chest x-ray. Option of increasing her diuretic versus admission. Patient and spouse are leaning towards admission
*Radiology
Radiology exam reviewed: preliminary read by ED provider (Negative) and radiology read reviewed (Negative)
*Pulse Oximetry
SaO2: 99
Oxygen Mode of Delivery: Room air
Patient hypoxic: no
*EKG
Interpretation: abnormal
Comparison EKG: no changes
Heart Rate: 87
Rate: normal
Rhythm: a-fib
[place]: normal axis
Interval: normal interval
QRS Pattern: left bundle branch block
Ischemia: non-specific ST changes
*Critical Care Note
Total Time (30-74mins, 75-104mins- exclusive of procedures): Not Applicable
Data Reviewed
Review of Other/Old Records Reveals: Labs, Records, Radiology Studies and Testing
Update Note
Update Note:
Patient remained stable and nontoxic. I talked to her uppers edge burnisher. She was supposed to start metolazone. This morning. Very reasonable to give her IV dose of diuretic now, increase her daily diuretic of Lasix document how low zone and follow-up
closely. Patient's uppers edge burnisher is comfortable with this. She has no new shortness of breath. Creatinine is stable. BNP is stable.
ED Attending Note
-
Portions of this chart may have been created with voice recognition software.� Occasional wrong word or��sound alike� substitutions may have occurred due to the inherent limitations of voice recognition software.
Discharge Plan
Departure
Patient Disposition: Home (Routine Discharge)
Date of Disposition: 12/15/24
Time of Disposition: 15:52
Patient with high blood pressure during this ER visit?: Yes
Discharge Problem:
Bilateral lower extremity edema
Instructions: Dependent Edema (DC), BLOOD PRESSURE
Prescriptions:
No Action
Gammagard Liquid 10 GRAM/100 ML solution
50 ml IV UD
Rx Instructions:
take two out of the month
carvedilol 12.5 MG tablet
12.5 mg PO BID
furosemide 20 MG tablet
40 mg PO MOWEFR
Patient Comments:
lisinopril 10 mg Tablet
10 mg PO DAILY
alendronate 70 mg tablet
70 mg PO FR
Rx Instructions:
Weekly
pantoprazole 40 mg Tablet,Delayed Release (Dr/Ec)
40 mg PO DAILY 30 Days Qty: 30 2RF
Eliquis 5 mg tablet
5 mg PO BID 30 Days Qty: 60 0RF
repaglinide 2 mg Tablet
2 mg PO AC
gabapentin 300 mg Capsule
300 mg PO BID
ezetimibe 10 mg Tablet
10 mg PO DAILY
miconazole nitrate [Miconazorb AF] 2 % Powder
1 applic topical BID Qty: 85 0RF
Rx Instructions:
folds and groin
Dakin's Solution 0.125 % Solution
1 applic topical DAILY Qty: 473 0RF
prednisone 10 mg Tablet
10 mg PO DAILY Qty: 0 0RF
Santyl 250 unit/gram Ointment
1 applic topical DAILY Qty: 90 0RF
Rx Instructions:
calf wound 6cm x 3.5cm
aspirin 81 mg Tablet,Delayed Release (Dr/Ec)
81 mg PO DAILY Qty: 0 0RF
cholecalciferol (vitamin D3) 125 mcg (5,000 unit) Tablet
125 mcg PO DAILY 30 Days Qty: 30 0RF
insulin glargine [Basaglar KwikPen U-100 Insulin] 100 unit/mL (3 mL) Insulin Pen
7 unit SC DAILY Qty: 0 0RF
Referrals:
Cole Suazo MD [Family Provider, [facility]]
Activity Restrictions/Additional Instructions:
Increase your Lasix to 80 mg/day for now
Start the metolazone and potassium per your uppers edge burnisher
Contact them in the next 2 to 3 days. Depending on your response they may lower increase or keep these doses the same
Interventions
Interventions:
*Risk Screen - Suicide Last Done: 12/15/24 15:02
*General Assessment Last Done: 12/15/24 15:02
*Neglect/Abuse Screening Last Done: 12/15/24 15:02
*ED- Fall Risk Assessment Last Done: 12/15/24 15:02
*ED COVID-19 Vaccine History Last Done: 12/15/24 15:02
*Nursing Disposition Last Done: 12/15/24 16:30
ED- Cardiac Assessment Last Done: 12/15/24 15:09
ED- Pulmonary Assessment Last Done: 12/15/24 15:09
ED-Skin Assessment Last Done: 12/15/24 15:16
Discharge Date and Time
Discharge Date/Time: 12/15/24 16:30
Print Language: EGYPTIAN
[2024-12-15 15:25] VITALS: BP 150/96
--- NOTE | 2024-12-15 15:26 | EDRN ---
Dr. Benitez speaking w/ pt and family.
[2024-12-15 16:15] VITALS: BP 150/100
[2024-12-15] MEDS: LASIX 80 MG IV (16:15)
== END 2024-12-15 16:30 | disposition home or self-care (01) ==
LOC: EMR 10:48
PROVIDERS: Student in an Organized Health Care Education/Training Program; EMERGENCY PHYSICIAN Emergency Medicine; FAMILY PHYSICIAN Family Medicine
DX: R60.0 Localized edema (principal); J45.909 Unspecified asthma, uncomplicated; I11.0 Hypertensive heart disease with heart failure; I50.9 Heart failure, unspecified; E78.00 Pure hypercholesterolemia, unspecified; E11.9 Type 2 diabetes mellitus without complications; I48.91 Unspecified atrial fibrillation; Z83.3 Family history of diabetes mellitus; Z85.3 Personal history of malignant neoplasm of breast
CPT/HCPCS: 99283; 96374; 71046; 80053; 83880; 84484; 85025; 93005

== ENCOUNTER 2024-12-19 12:49 | Inpatient (IN) | payer MEDICARE, SELFPAY ==
[2024-12-18] VITALS (8 sets, daily range): BP systolic 97–139; BP diastolic 55–106; PULSE 77–102; BMI 30.3; BMI 29.6
[2024-12-18 11:51] LABS: Hematocrit 41.9 % (37.0-47.0); Hemoglobin 13.0 g/dL (12.0-16.0); Mean Corp Hgb Conc. 31.0 g/dL (33.0-37.0); Mean Corpuscular Volume 89.3 fL (81.0-99.0); Nucleated Red Blood Cells % 0 %; Platelet Count 195 10^3/uL (130-400); Red Cell Dist. Width 17.5 % (11.5-14.5)
[2024-12-18 12:05] LABS: Blood Urea Nitrogen 46 mg/dl (7-17); Calcium 8.7 mg/dl (8.4-10.2); Carbon Dioxide 27 mmol/L (22-30); Chloride 99 mmol/L (98-107); Glucose 91 mg/dl (70-99); Sodium 137 mmol/L (135-145); eGFR > 60.00
[2024-12-18 12:38] LABS: Troponin I 0.038 ng/ml
--- NOTE | 2024-12-18 12:39 | ED.GENMED ---
History of Present Illness
General
Chief Complaint: Blood Pressure Problem
Source: patient, records and spouse
Exam Limitations: none
Time Seen by Provider: 12/18/24 11:53
Nursing documentation reviewed up to this point in time: agreed with
History of Present Illness
History of Present Illness:
74-year-old female presents with fatigue lethargy low blood pressure seen in the ER recently was volume overloaded, Lasix was increased started on metolazone discharged to home apparently visiting nurse checked on her today 3 readings of low blood
pressure spouse says as low as the 60s, systolic
Past History
Past History
ED Past Medical History: Asthma, CHF, HTN, Hypercholesterolemia, NIDDM, Other (polymyositis) and Other (breast cancer 2007)
ED Past Surgical History: Orthopedic and Other (breast lumpectomy x 2)
Social History
Tobacco: Non-smoker
Alcohol: None
Drug: None
Personal:
Living: with family
Employment: Disabled
Family History
Family History: Diabetes
Review of Systems
Review of Systems
All Other Systems: Not applicable
Constitutional: Reports fatigue
Respiratory: Denies trouble breathing
ABD/GI: Reports nausea
Neurological: Reports dizzy and weakness
Phy Exam
Physical Exam
Physical Exam:
Physical Exam
General: Chronically ill-appearing female
Neck: No
Heart: s1/s2 regular rate and rhythm, no murmur. equal radial pulses.
Lungs: No wheeze
Abdomen: Not tender
Neuro: alert and oriented. no focal neurological deficits
Skin: no rash
Psychiatric: well kept. interactive and cooperative
Extremities: Trace
Course
Orders/Labs/Results
Orders:
Orders
12/18/24 11:40
Electrocardiogram (*1) Urgent
Reason for Study: Vertigo / Dizzy
EKG- Treatment ONCE
12/18/24 11:44
Basic Metabolic Panel Urgent
Complete Blood Count/With Diff Urgent
NT-proBNP Urgent
Comment: ADD ON
12/18/24 11:53
Add On- LAB Urgent
Tests Added?: pBNP
12/18/24 11:54
Urinalysis Reflex To Culture Urgent
CR Chest - 2 Views Urgent
Comment:
Reason For Exam: weakness
12/18/24 11:55
Troponin I Urgent
12/18/24 12:41
Orthostatic VS- Treatment ONCE
12/18/24 12:53
NSS 500mL Bolus over 30 minutes 0.9% Sodium Chloride 500 ml [Nss] 500 ml IV BOLUS
Abnormal Lab Results
12/18/24 12/18/24
11:44 11:55
WBC 11.2 H 10^3/uL
(4.8-10.8)
MCHC 31.0 L g/dL
(33.0-37.0)
RDW 17.5 H %
(11.5-14.5)
Abs Immat Gran (auto) 0.1 H 10^3/uL
(0-0.05)
Absolute Neuts (auto) 8.8 H 10^3/uL
(1.4-6.5)
Absolute Monos (auto) 1.0 H 10^3/uL
(0.1-0.6)
Neutrophils % 78.9 H %
(42.2-75.2)
Lymphocytes % 11.1 L %
(20.5-51.1)
BUN 46 H mg/dl
(7-17)
Troponin I 0.038 H* ng/ml
12/18/24 11:44
12/18/24 11:44
Vital Signs
Initial and Last Documented VS:
Initial Vital Signs
Temp Pulse Resp BP Pulse Ox
97.4 F 74 16 102/66 95
12/18/24 11:35 12/18/24 11:35 12/18/24 11:35 12/18/24 11:35 12/18/24 11:35
Last Documented Vital Signs
Temp Pulse Resp BP Pulse Ox
97.4 F 64 16 97/60 100
12/18/24 11:35 12/18/24 12:00 12/18/24 11:35 12/18/24 12:00 12/18/24 12:40
MDM/Problems Addressed
Differential Diagnosis Includes:
Overdiuresis UTI electrolyte abnormality renal insufficiency
MDM/Problems Addressed:
Weakness low blood
Chronic conditions affecting care: Cardiomyopathy
Acute Exacerbation and/or Progression of Chronic Illness: Cardiomyopathy
*Radiology
Radiology exam reviewed: preliminary read by ED provider
*Pulse Oximetry
SaO2: 100
Oxygen Mode of Delivery: Room air
Patient hypoxic: no
*EKG
Interpreted by ED Provider?: Yes
Interpretation: normal
Comparison EKG: no comparison EKG present
Heart Rate: 78
Rate: normal
Rhythm: sinus
Ischemia: non-specific ST changes
*Audit Mgr Interpretation
Rate: normal
Interpretation: normal
Heart Rate: 78
Rhythm: sinus
*Critical Care Note
Total Time (30-74mins, 75-104mins- exclusive of procedures): Not Applicable
Update Note
Update Note:
1 PM labs noted blood pressure in the 90s, suspect she is orthostatic volume contracted due to overdiuresis, will give back volume, likely admit high risk situation she is elderly multiple chronic medical conditions anticoagulated, reviewed with
spouse who is in agreement he would also like her to get her IVIG today which she is due for he is prashanth bring it in
ED Attending Note
-
Portions of this chart may have been created with voice recognition software.� Occasional wrong word or��sound alike� substitutions may have occurred due to the inherent limitations of voice recognition software.
Discharge Plan
Departure
Patient Disposition: Admit
Date of Disposition: 12/18/24
Time of Disposition: 12:54
Presentation/result/management discussed w/ accepting MD/DO: Hospitalist
Patient with high blood pressure during this ER visit?: No
Condition: Fair
Covid-19: Not Applicable
Discharge Problem:
Ambulatory dysfunction, Diabetes, Orthostasis
Prescriptions:
No Action
Gammagard Liquid 10 GRAM/100 ML solution
50 ml IV UD
Rx Instructions:
take two out of the month
carvedilol 12.5 MG tablet
12.5 mg PO BID
furosemide 20 MG tablet
40 mg PO MOWEFR
Patient Comments:
lisinopril 10 mg Tablet
10 mg PO DAILY
alendronate 70 mg tablet
70 mg PO FR
Rx Instructions:
Weekly
pantoprazole 40 mg Tablet,Delayed Release (Dr/Ec)
40 mg PO DAILY 30 Days Qty: 30 2RF
Eliquis 5 mg tablet
5 mg PO BID 30 Days Qty: 60 0RF
repaglinide 2 mg Tablet
2 mg PO AC
gabapentin 300 mg Capsule
300 mg PO BID
ezetimibe 10 mg Tablet
10 mg PO DAILY
miconazole nitrate [Miconazorb AF] 2 % Powder
1 applic topical BID Qty: 85 0RF
Rx Instructions:
folds and groin
Dakin's Solution 0.125 % Solution
1 applic topical DAILY Qty: 473 0RF
prednisone 10 mg Tablet
10 mg PO DAILY Qty: 0 0RF
Santyl 250 unit/gram Ointment
1 applic topical DAILY Qty: 90 0RF
Rx Instructions:
calf wound 6cm x 3.5cm
aspirin 81 mg Tablet,Delayed Release (Dr/Ec)
81 mg PO DAILY Qty: 0 0RF
cholecalciferol (vitamin D3) 125 mcg (5,000 unit) Tablet
125 mcg PO DAILY 30 Days Qty: 30 0RF
insulin glargine [Basaglar KwikPen U-100 Insulin] 100 unit/mL (3 mL) Insulin Pen
7 unit SC DAILY Qty: 0 0RF
Referrals:
Cole Suazo MD [Family Provider, Family Practice]
Interventions
Interventions:
*Risk Screen - Suicide Last Done: 12/18/24 11:41
*General Assessment Last Done: 12/18/24 11:41
*Neglect/Abuse Screening Last Done: 12/18/24 11:41
*ED- Fall Risk Assessment Last Done: 12/18/24 11:40
*ED COVID-19 Vaccine History Last Done: 12/18/24 11:40
ED- Cardiac Assessment Last Done: 12/18/24 11:41
ED- Neurological Assessment Last Done: 12/18/24 11:41
ED- Pulmonary Assessment Last Done: 12/18/24 11:41
Discharge Date and Time
Print Language: BAHAMIAN
--- NOTE | 2024-12-18 13:01 | HPS.HSE ---
Addendum entered and electronically signed by Waylon Schmitt MD 12/18/24 15:15:
see update note for addendum
Original Note:
Family Physician
-
Family Physician: Cole Suazo
Chief Complaint
-
Lethargy and Hypotension
History of Present Illness
Patient is a 74 y/o female past medical history of PAD s/p RLE stent, CHF, A-Fib, DM and polymyositis who presents with lethargy and hypotension. Patient was seen here at the [facility] emergency department on Dec 15 due to increased
lower extremity edema. She was increased to increase her Lasix from 40mg MWF to 80mg MWF, and her hired worker has also recommended added metolazone 2.5mg daily which she started as well. Today patient was noted to be more lethargic than usual.
Her visiting nurse came for her routine IVIG infusion and noted her to be very hypotensive. EMS was called and she was brought to the emergency department for evaluation.
Medical History
Past Medical History
Past Medical History: Reports Other
Additional Past Medical History:
Peripheral Arterial Disease s/p Right Popliteal Stent
Chronic HFpEF
Permanent Atrial Fibrillation
Essential Hypertension
Hyperlipidemia
Diabetes Mellitus, Type II
Polymyositis
Cognitive Impairment
Breast Cancer s/p Left Lumpectomy
Past Surgical History: Reports Other
Additional Past Surgical History:
Left Lumpectomy
Hysterectomy
Cholecystectomy
Carpal Tunnel Release
Right Total Knee Replacement
Bilateral Meniscus Repair
Social History
Tobacco: Non-smoker
Alcohol: None
Drug: None
Personal:
Living: With Family ( )
Family History
Family History: Not pertinent
Allergies / Home Medications
Allergies reflects when Allergies were last updated in [employer].
Home Medications with original date entered in [employer]
Allergy/Medication List:
Allergies
Allergy/AdvReac Type Severity Reaction Status Date / Time
codeine Allergy Vomiting Verified 07/31/24 21:46
metformin Allergy effects Verified 07/31/24 21:46
polymositis
Mveobmh-TUR-FtY Reductase Allergy effects Verified 07/31/24 21:46
Inhibitor (Tsyueby-Whk-Dgg polymyositis
Reductase Inhibitor)
Home Medications
carvedilol 12.5 mg tablet 12.5 mg PO BID Blood pressure 05/13/20
immune glob,gamma (IgG) 10 %-gly-IgA over 50 mcg/mL injection solution (Gammagard Liquid) 50 ml IV UD Neurological Condition 05/13/20
furosemide 20 mg tablet 80 mg PO MOWEFR leg swelling 01/18/22
lisinopril 10 mg tablet 10 mg PO DAILY Blood pressure 01/18/22
alendronate 70 mg tablet 70 mg PO FR Osteoporosis 01/20/22
apixaban 5 mg tablet (Eliquis) 5 mg PO BID Venous thrombosis 30 days #60 tabs 01/23/22
pantoprazole 40 mg tablet,delayed release 40 mg PO DAILY GERD 30 days #30 tabs 01/23/22
ezetimibe 10 mg tablet 10 mg PO DAILY High Cholesterol 08/01/24
gabapentin 300 mg capsule 300 mg PO BID Neurological Condition 08/01/24
aspirin 81 mg tablet,delayed release 81 mg PO DAILY #0 tabs 08/07/24
prednisone 10 mg tablet 10 mg PO DAILY #0 tabs 08/07/24
cholecalciferol (vitamin D3) 25 mcg (1,000 unit) capsule (Vitamin D3) 100 mcg PO DAILY 12/18/24
insulin aspart U-100 100 unit/mL (3 mL) subcutaneous pen (Novolog FlexPen U-100 Insulin aspart) 3 sliding scale dose SC AC 12/18/24
insulin glargine 100 unit/mL (3 mL) subcutaneous pen (Lantus Solostar U-100 Insulin) 3 unit SC DAILY 12/18/24
metolazone 2.5 mg tablet 2.5 mg PO DAILY 12/18/24
potassium chloride 20 mEq tablet,extended release 20 meq PO DAILY 12/18/24
Review of Systems
-
Unable to obtain full review of systems at this time due to: Other (Cognitive Impairment)
Physical Exam
Vital Signs
Vital Signs
Temp Pulse Resp BP Pulse Ox
97.4 F 64 16 97/60 100
12/18/24 11:35 12/18/24 12:00 12/18/24 11:35 12/18/24 12:00 12/18/24 12:40
Physical Exam
General: Comfortable and Conversant
HEENT: Anicteric and Moist mucous membranes
Respiratory: Clear and Non Labored Respirations
Cardiac: S1/S2 and Irregular Rhythm; No Tachycardia
GI: Soft and Non Tender
Rectal: Deferred by Provider
Musculoskeletal: No Clubbing, No Cyanosis and Other (Significant LLE edema; Minimal right lower extremity edema)
Skin: Warm and Dry
Neuro: Awake, Alert, Oriented and Nonfocal/grossly intact
Psych: Calm
Laboratory Results
-
12/18/24 11:44
12/18/24 11:44
Laboratory Results
Total Bilirubin Cancelled 12/18/24 11:44
AST Cancelled 12/18/24 11:44
ALT Cancelled 12/18/24 11:44
Alkaline Phosphatase Cancelled 12/18/24 11:44
Troponin I 0.038 ng/ml H* 12/18/24 11:55
Data Reviewed
-
Lab Data: Labs Reviewed by me
Old Records: Reviewed
Impression/Plan
-
Hypotension, likely related to overdiuresis
-Hold all diuretics
-Hold lisinopril
Unilateral Left Lower Extremity Edema
-Check Peripheral Vascular US
Elevated Troponin, likely non-ischemic myocardial injury related to hypotension
-Continue to trend troponin
Peripheral Arterial Disease s/p Right Popliteal Stent
-Continue aspirin
Chronic HFpEF
-Diuretics on hold as above
-Monitor daily weights
Permanent Atrial Fibrillation
-Continue Eliquis for anticoagulation
-Continue Coreg for rate control with hold parameters
Hyperlipidemia
-Continue Zetia
Diabetes Mellitus, Type II
-Continue Lantus and NovoLog
-Monitor sugars and continue coverage insulin
Polymyositis
-Patient maintained on IV IG as outpatient
-Continue prednisone
Cognitive Impairment
-Son notes patient has had a significant decline in her cognitive impairment and is not a reliable historian with impaired short term memory
Hx Breast Cancer s/p Left Lumpectomy
DVT proph: Eliquis
Code Status: Full Code
[2024-12-18] MEDS: NSS 500 IV (13:07)
[2024-12-18 13:16] LABS: Urine Character Clear (Clear)
[2024-12-18 13:39] LABS: Urine White Cell >100 /HPF (0-5)
--- NOTE | 2024-12-18 15:17 | W.PN.UPDATE ---
Update Note
Progress Note Update
I saw and examined the patient.
The FRANK Rowe's note was reviewed and I agree with the note.
Comment: 74 y/o F, hx of PAD s/p RLE stent, CHF, A. Fib, DM, hx of polymyositis on IVIG presenting to ER with lethargy, hypotension. Patient was recently seen in ER 12/15 with increasing LE edema and was placed on Lasix 80 and Metolazone. She has
lost weight and edema but today her visiting nurse noted lethargy and hypotension to 60s and recommended ER eval. Patient received IVF via EMS and in the ER and is more awake, less lethargic now per family. Denies any SOB or CP. No other complaints
at present.
Physical Exam
General: Comfortable and Conversant
HEENT: Anicteric and Moist mucous membranes
Respiratory: Clear and Non Labored Respirations
Cardiac: S1/S2 and Irregular Rhythm; No Tachycardia
GI: Soft and Non Tender
Rectal: Deferred by Provider
Musculoskeletal: No Clubbing, No Cyanosis and Other (Significant LLE edema; Minimal right lower extremity edema, RLE wound with surrounding redness)
Skin: Warm and Dry
Neuro: Awake, Alert, Oriented and Nonfocal/grossly intact
Psych: Calm
Assessment:
Hypotension, likely related to overdiuresis
- hold diuretics
- hold Lisinopril
Bilateral LE edema, L>R
Chronic venous insufficiency
- check Peripheral Vascular US
RLE wound with surrounding cellulitis
- IV Ancef
- wound care evaluation
Elevated Troponin, likely non-ischemic myocardial injury related to hypotension
- trend troponin to peak
Peripheral Arterial Disease s/p Right Popliteal Stent
- continue aspirin
Chronic HFpEF
- diuretics on hold as above
- Monitor daily weights
- Cardiology consult
Permanent chronic Atrial Fibrillation
- continue Eliquis for anticoagulation
- continue Coreg for rate control with hold parameters
Hyperlipidemia
- continue Zetia
Diabetes Mellitus, Type II
- continue Lantus and NovoLog
- monitor sugars and continue coverage insulin
Polymyositis
- patient maintained on IV IG as outpatient; due for 2 doses. Will arrange with inpatient pharmacist for dosing 12/19 and 12/20
- continue prednisone
Cognitive Impairment
- Son notes patient has had a significant decline in her cognitive impairment and is not a reliable historian with impaired short term memory
Hx Breast Cancer s/p Left Lumpectomy
Chronic back pain with known
Chronic L4 and L1 compression fracture
Suspected cognitive impairment likely secondary to dementia
- prior neuroimaging with atrophy
DVT proph: Eliquis
Code Status: Full Code
--- NOTE | 2024-12-18 15:20 | CM ---
CM reviewed chart and met with pt, and son bedside in ED. Pt lives with in mobile home, has ramp to enter,
needs assistance with ADLs and personal care, ambulates with walker. Also has WC, 2 commodes, shower rails and bench and couch cane.
She gets infusion at home for her myositis, missed infusion today, her brought the meds to the hospital and was told infusions could be given here.
STANFORD reviewed and signed by pt.
Hx [facility] and SNF at [facility].
PCP: Cole Suazo
Pharmacy: [facility]
CM will continue to follow for any discharge planning needs.
[2024-12-18 16:54] LABS: Glucose - Point of Care 203 mg/dl (70-99)
[2024-12-18 17:18] LABS: Potassium 3.4 mmol/L (3.5-5.1)
[2024-12-18 17:23] LABS: Troponin I 0.028 ng/ml
--- NOTE | 2024-12-18 17:43 | VATNOTE ---
left arm IV 24g kept since pt stated it was her home boat cleaning supervisor who started the IV site today.
[2024-12-18] MEDS: MAXIPIME 1000 MG IV (18:22)
[2024-12-18] MEDS: STERILE WATER FOR INJECTION 10 ML IV (18:23)
[2024-12-18] MEDS: KCL 40 MEQ PO (18:24)
[2024-12-18] MEDS: NOVOLOG FLEXPEN-MODERATE RESISTANCE 3 UNITS SC (18:25)
[2024-12-18 21:22] LABS: Glucose - Point of Care 260 mg/dl (70-99)
[2024-12-18] MEDS: COREG PO (22:20)
[2024-12-18] MEDS: NEURONTIN 300 MG PO (22:21)
[2024-12-18] MEDS: ELIQUIS 5 MG PO (22:21)
[2024-12-19] VITALS (7 sets, daily range): BP systolic 109–127; BP diastolic 59–74; PULSE 80; O2SAT 97; BMI 29.6
[2024-12-19] MEDS: MAXIPIME 1000 MG IV ×3 (01:55→17:31)
[2024-12-19] MEDS: STERILE WATER FOR INJECTION 10 ML IV ×3 (01:56→17:32)
[2024-12-19] MEDS: KCL 20 MEQ PO (07:35)
[2024-12-19] MEDS: NEURONTIN 300 MG PO ×2 (07:35→22:23)
[2024-12-19] MEDS: ASPIR LOW (ENTERIC COATED) 81 MG PO (07:35)
[2024-12-19] MEDS: DELTASONE 10 MG PO (07:35)
[2024-12-19] MEDS: PROTONIX 40 MG PO (07:35)
[2024-12-19] MEDS: ZETIA 10 MG PO (07:35)
[2024-12-19] MEDS: ELIQUIS 5 MG PO ×2 (07:35→22:23)
[2024-12-19] MEDS: COREG 12.5 MG PO ×2 (07:36→22:24)
[2024-12-19 07:50] LABS: Glucose - Point of Care 144 mg/dl (70-99)
[2024-12-19] MEDS: NOVOLOG FLEXPEN-MODERATE RESISTANCE SC (07:53)
[2024-12-19 07:57] LABS: Hematocrit 41.8 % (37.0-47.0); Hemoglobin 13.5 g/dL (12.0-16.0); Mean Corp Hgb Conc. 32.3 g/dL (33.0-37.0); Mean Corpuscular Volume 86.5 fL (81.0-99.0); Platelet Count 187 10^3/uL (130-400); Red Cell Dist. Width 17.3 % (11.5-14.5)
--- NOTE | 2024-12-19 08:32 | CON.CAR ---
Addendum entered and electronically signed by Melissa Ortiz DO 12/19/24 18:09:
I saw and examined the patient.
The Prepress Specialist's note was reviewed and I agree with the note.
Comment: Patient was seen and examined with cardiac PA. Overall she feels well and has no symptoms. 74-year-old female with past medical history of PAD status post right lower extremity stent 07/2024, heart failure, permanent A-fib, diabetes
mellitus, Polymyositis presented to ED 12/18/2024 with lethargy and hypotension. She was previously seen in the ED on 12/15/2024 due to increased lower extremity edema and Lasix was uptitrated from 40 mg 3 times a week to 80 mg 3 times a week.
Her outpatient tool maintenance worker also advised adding metolazone 2.5 mg daily. On day of admission her visiting nurse came for her routine IVIG and noted her to be hypotensive. EMS was called and she presented to ED.
GEN: No distress, awake, Ox3
HEENT: mmm
LUNGS: Clear to auscultation
CV: Irregular irregular, no murmur
ABD: soft, BS+, NT/ND
EXT: Trace to 1+ lower extremity edema. Right ankle wound wrapped with Jose Elias, left ankle skin tear
Currently diuretics are on hold given hypotension thought to be related to overdiuresis.
Blood pressure stable; patient asymptomatic
If stable in a.m., would restart Lasix at 40 mg daily rather than 40 mg 3 x week and no metolazone.
Replete K greater than 4. Magnesium was 2
Repeat labs planned next week
Patient has requested to transfer to [facility]; follow-up arranged
Will sign off, recall if need
Addendum entered and electronically signed by AUGUSTO Claudio 12/19/24 12:51:
I have obtained additional records from the patient's primary tool maintenance worker, Dr. Danie Palmer.
Patient last seen 11/05/2024. Cardiac meds at that time: Furosemide 40 mg Sunday, carvedilol 12.5 mg twice daily, lisinopril 10 mg daily, Eliquis 5 mg twice daily, Zetia 10 mg daily, aspirin 81 mg daily. She had previously been on
spironolactone which was stopped during October/2024 admission to for back pain where she was also found to be hypotensive.
Additional history to above: Left bundle branch block, left lower extremity DVT 01/2022 with unremarkable hypercoagulable workup. 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
indefinitely. She has chronic left lower extremity edema and has been advised to wear compression stocking on left and continue efforts to avoid overdiuresis.
Also with history of pulmonary hypertension, followed by Dr. Santamaria.
Lexiscan nuclear stress test 09/2021: Equivocal perfusion scan with minimal evidence for apical ischemia versus shifting breast attenuation artifact
I called Dr. Palmer's office again to discuss more recent adjustments in diuretic dosing as patient reported also being on metolazone 2.5 mg daily when she was admitted yest. Awaiting callback.
Original Note:
Consultation
Consultation Request
Date/Time Consultation Requested: 12/18/2024, 1731
Date/Time Consultation Performed: 12/19/2024, 0871
Requesting Provider: Dr Schmitt
Performing Provider: AUGUSTO Claudio for Dr. Ortiz
Reason for Consultation: HF, recent diuretic adjustment up, now hypotensive/orthostatic
Medical History
-
Chief Complaint: Weakness, fatigue
History of Present Illness:
74-year-old female with past medical history of PAD status post right lower extremity stent 07/2024, heart failure, permanent A-fib, diabetes mellitus, Polymyocitis presented to ED 12/18/2024 with lethargy and hypotension. She was previously seen
in the ED on 12/15/2024 due to increased lower extremity edema and Lasix was uptitrated from 40 mg 3 times a week to 80 mg 3 times a week. Her outpatient tool maintenance worker also advised adding metolazone 2.5 mg daily. On day of admission her visiting
nurse came for her routine IVIG and noted her to be hypotensive. EMS was called and she presented to ED.
ED workup:
BUN/creatinine 46/0.9, K3.4, NA 137, proBNP 950, hemoglobin 13.0, WBC 11.2
Troponin 0.038�0.028
Chest x-ray: Linear foci in left lower lobe similar to prior studies and are either atelectasis or scarring. Cardiomegaly, no evidence of decompensation
EKG: Atrial fibrillation, left bundle branch block compared to previous EKGs in ED, since 2022 all EKGs in [facility].
Patient had echo 10/10/2024: EF 50 to 55%, possible mild inferior apical hypokinesis, upper normal RV size and low normal RV function, mild to moderate MR, moderate TR
Patient denies shortness of breath, PND, orthopnea, chest pain, lightheadedness, palpitations, syncope.
Past medical history:
PAD status post right lower extremity stent 08/04/2024 balloon angioplasty and stent placement right [id number] popliteal artery for nonhealing necrotic right posterior calf wound
Heart failure improved EF, EF 30% 2012, Improved to 60 to 65% 2021
Atrial fibrillation, permanent
Diabetes mellitus
Polymyositis on IVIG every 3 weeks
Hyperlipidemia
Past Medical History
Past Medical History: Other (As above)
Past Surgical History: Other (Right popliteal stent, hysterectomy, cholecystectomy, right total knee replacement, bilateral meniscus repair, left lumpectomy, carpal tunnel release)
Social History
Tobacco: Non-Smoker
Alcohol: None
Allergies / Home Medications
Allergy/AdvReac Type Severity Reaction Status Date / Time
codeine Allergy Vomiting Verified 07/31/24 21:46
metformin Allergy effects Verified 07/31/24 21:46
polymositis
Jemivfu-BKE-WjM Reductase Allergy effects Verified 07/31/24 21:46
Inhibitor (Crslebq-Qek-Tau polymyositis
Reductase Inhibitor)
�Medication �Instructions �Recorded �Confirmed �Type
carvedilol 12.5 mg tablet 12.5 mg PO BID Blood pressure 05/13/20 12/18/24 History
immune glob,gamma (IgG) 10 50 ml IV UD Neurological Condition 05/13/20 12/18/24 History
%-gly-IgA over 50 mcg/mL injection
solution (Gammagard Liquid)
furosemide 20 mg tablet 80 mg PO MOWEFR leg swelling 01/18/22 12/18/24 History
lisinopril 10 mg tablet 10 mg PO DAILY Blood pressure 01/18/22 12/18/24 History
alendronate 70 mg tablet 70 mg PO FR Osteoporosis 01/20/22 12/18/24 History
apixaban 5 mg tablet (Eliquis) 5 mg PO BID Venous thrombosis 30 01/23/22 12/18/24 Rx
days #60 tabs
pantoprazole 40 mg tablet,delayed 40 mg PO DAILY GERD 30 days #30 01/23/22 12/18/24 Rx
release tabs
ezetimibe 10 mg tablet 10 mg PO DAILY High Cholesterol 08/01/24 12/18/24 History
gabapentin 300 mg capsule 300 mg PO BID Neurological 08/01/24 12/18/24 History
Condition
aspirin 81 mg tablet,delayed 81 mg PO DAILY #0 tabs 08/07/24 12/18/24 Rx
release
prednisone 10 mg tablet 10 mg PO DAILY #0 tabs 08/07/24 12/18/24 Rx
cholecalciferol (vitamin D3) 25 100 mcg PO DAILY 12/18/24 12/18/24 History
mcg (1,000 unit) capsule (Vitamin
D3)
insulin aspart U-100 100 unit/mL 3 sliding scale dose SC AC 12/18/24 12/18/24 History
(3 mL) subcutaneous pen (Novolog
FlexPen U-100 Insulin aspart)
insulin glargine 100 unit/mL (3 3 unit SC DAILY 12/18/24 12/18/24 History
mL) subcutaneous pen (Lantus
Solostar U-100 Insulin)
metolazone 2.5 mg tablet 2.5 mg PO DAILY 12/18/24 12/18/24 History
potassium chloride 20 mEq 20 meq PO DAILY 12/18/24 12/18/24 History
tablet,extended release
Review of Systems
-
History Source: Patient
All other systems: Negative unless noted
Physical Exam
Vital Signs
Temp Pulse Resp BP Pulse Ox
97.3 F 74 14 121/65 100
12/19/24 03:00 12/19/24 07:36 12/19/24 03:00 12/19/24 07:36 12/19/24 03:00
GEN: No distress, awake, Ox3
HEENT: supple, anicteric, mmm
LUNGS: Clear to auscultation
CV: Irregular irregular, no murmur
ABD: soft, BS+, NT/ND
EXT: Trace to 1+ lower extremity edema. Right ankle wound wrapped with Jose Elias, left ankle skin tear
NEURO: Gross non-focal
SKIN: No rash
Lab Results
12/19/24 07:34
Troponin I Cancelled 12/18/24 22:00
Wpa-D-Fevvicbtmuw Pept 950 pg/ml 12/18/24 11:44
Impression / Plan
-
PCP: Cole Suazo
Prim Cards: Dr. Palmer
Impression:
Lethargy
Hypotension in home setting, now improved
PAD status post right popliteal stent
Chronic heart failure improved EF
Lower extremity edema with recent up titration and diuretics
Permanent atrial fibrillation
Hyperlipidemia
Type 2 diabetes
Polymyositis
Cognitive impairment
Previous cardiovascular testing:
echo 10/10/2024: EF 50 to 55%, possible mild inferior apical hypokinesis, upper normal RV size and low normal RV function, mild to moderate MR, moderate TR
Echo 01/26: EF 60 to 65%, mild to moderate MR, mild TR
Echo 05/2020 EF 50%, mild to moderate MR, mild TR
Echo 06/2012: EF 30%, moderate MR
Right/left heart cath 07/04/2012: RA 18, PA 46/18, PW 22, minimal nonobstructive coronary atherosclerosis moderate MR
Plan:
1. Chronic heart failure improved EF
- In outpatient setting she is on lisinopril, carvedilol, furosemide
-Had recent up titration in furosemide and initiation of metolazone by primary tool maintenance worker due to continued lower extremity edema. In process of obtaining records from Dr. Palmer.
-Currently holding furosemide and lisinopril due to hypotension although BPs now improved.
- Does not appear volume overloaded, has minimal lower extremity edema
- Creatinine stable 0.7, BUN 41
-Echo October 2024 EF 50 to 55%
- If BPs improve and renal function stable resume lisinopril and diuretics in next 24 hours
Permanent atrial fibrillation
- Rate controlled on telemetry, A-fib 70s with PVCs, personally reviewed
- Continue oral anticoagulation with Eliquis
- Continue Coreg for rate control
PAD
- Followed by vascular surgery at [place] and is status post right popliteal stenting 07/2024
-On ASA 81 mg daily
-Has wound with concern for cellulitis and currently on IV Ancef.
- Wound care consulted by primary team
Elevated troponin
- Trending down
- No chest pain
- Likely nonischemic myocardial injury in setting of hypotension
Hyperlipidemia
- LDL 67 10/08/2024
- On Zetia
Hypokalemia
- On KCl 20 mEq daily, will give additional 40 mEq today for K3.4
[2024-12-19 08:53] LABS: Blood Urea Nitrogen 41 mg/dl (7-17); Calcium 9.7 mg/dl (8.4-10.2); Carbon Dioxide 28 mmol/L (22-30); Chloride 97 mmol/L (98-107); Estimated Creatinine Clearance 61 ml/min; Glucose 150 mg/dl (70-99); Magnesium 2.0 mg/dl (1.6-2.3); Potassium 3.4 mmol/L (3.5-5.1); Sodium 138 mmol/L (135-145); eGFR > 60.00
[2024-12-19 08:57] LABS: Glycohemoglobin (HgbA1c) 6.7 % (4.0-5.6)
[2024-12-19] MEDS: LANTUS 0.03 UNITS SC (08:59)
[2024-12-19] MEDS: KCL 40 MEQ PO (11:16)
[2024-12-19 11:23] LABS: Glucose - Point of Care 270 mg/dl (70-99)
--- NOTE | 2024-12-19 12:44 | W.PN.HOSP.TC ---
Today's Communication/Plan
-
see outlined plan below
Assessment / Plan
Assessment / Plan
Assessment:
Hypotension, likely related to overdiuresis
- hold diuretics
- hold Lisinopril
Bilateral LE edema, L>R
Chronic venous insufficiency
- no evidence of DVTs
RLE wound with surrounding cellulitis
- IV Cefepime, day 2
- wound care evaluation
possible UTI
- IV Cefepime, day 2
- pending culture
Elevated Troponin, likely non-ischemic myocardial injury related to hypotension
- troponin peaked 0.038
Peripheral Arterial Disease s/p Right Popliteal Stent
- continue aspirin
Chronic HFpEF
- diuretics on hold as above
- Monitor daily weights
- Cardiology following; will liaison with primary Cardiology (Dr. Palmer - [facility])
Permanent chronic Atrial Fibrillation
- continue Eliquis for anticoagulation
- continue Coreg for rate control with hold parameters
Hyperlipidemia
- continue Zetia
Diabetes Mellitus, Type II
- continue Lantus and NovoLog
- monitor sugars and continue coverage insulin
Polymyositis
- patient maintained on IV IG as outpatient; due for 2 doses. Will reschedule for outpatient after infection treatments complete
- continue prednisone
Cognitive Impairment
- Son notes patient has had a significant decline in her cognitive impairment and is not a reliable historian with impaired short term memory
Hx Breast Cancer s/p Left Lumpectomy
Chronic back pain with known
Chronic L4 and L1 compression fracture
- prn pain control
Suspected cognitive impairment likely secondary to dementia
- prior neuroimaging with atrophy
PAD s/p R pop stenting 07/2024
- OP f/u Dr. Dawson including OP Art US
Hypokalemia - replete prn
DVT ppx: Eliquis
Code: Full Code
Anticipated Discharge: > 48 hours
Subjective/Interval History
-
Date of Service: December 19, 2024
resting comfortably, no complaints at present
Objective Data
-
Labs:
Laboratory Results
12/19/24
07:34
WBC 8.8
Hgb 13.5
Hct 41.8
Plt Count 187
Sodium 138
Potassium 3.4 L
Chloride 97 L
Carbon Dioxide 28
BUN 41 H
Creatinine 0.7
Glucose 150 H
Calcium 9.7
Vital Signs:
Vital Signs
Temp Pulse Resp BP Pulse Ox
97.5 F 83 16 127/59 97
12/19/24 11:46 12/19/24 11:46 12/19/24 11:46 12/19/24 11:46 12/19/24 11:46
I&O
12/18/24 12/19/24 12/20/24
06:59 06:59 06:59
Intake Total 480 / 480
Balance 480 / 480
Physical Exam
-
General: No Apparent Distress
HEENT: Normocephalic and Atraumatic
Respiratory: Negative Wheezes
Cardiac: Regular Rhythm and S1/S2
GI: Soft
Musculoskeletal: No Edema
Neuro: AO x 3
Psych: Calm
Data Reviewed
-
Total Time Spent with Patient (in minutes): 42
Labs: Labs Reviewed by me
[2024-12-19] MEDS: NOVOLOG FLEXPEN-MODERATE RESISTANCE 5 UNITS SC (13:12)
--- NOTE | 2024-12-19 14:15 | W.PN.UPDATE ---
Update Note
Progress Note Update
spoke with pt Alfredito Viveros [phone]. 10-minute call
Patient has chronically been on Lasix 40 mg and has had chronic lower extremity edema
Recently she experienced increased lower extremity edema and Lasix dose was increased to 80 mg x 3 days with no improvement in edema.
Advised by Dr. Palmer's office to go to ED and was seen in ED 12/15/2024. tells me at that time ED physician spoke with Dr. Parra and they agreed to give Lasix 80 mg x 3 days in addition to metolazone 2.5 mg daily x 3 days, which
she took on 12/16-12/18. Was seen by infusion nurse on 12/18 and was noted to be weak, lethargic, and hypotensive with SBPs in the 60s which prompted current admission.
Currently diuretics are on hold given hypotension thought to be related to overdiuresis.
If stable in a.m., would restart Lasix at 40 mg daily rather than 40 mg 3 x week and no metolazone.
Pt's Alfredito requesting patient switch to Dr. Ortiz as her data collector as they live near [place] and would like data collector closer to home.
We can have her f/u in our office in 1 week with LOLITA and check f/u BMP, then f/u Dr Ortiz as new pt.
--- NOTE | 2024-12-19 14:28 | CM ---
Patient LOC to inpatient
IMM explained & signed. In chart
PT/OT to eval
PLAN: Await PT/OT evals, CM to follow for needs
--- NOTE | 2024-12-19 15:26 | WOUNDNOTE ---
RIGHT POSTERIOR LEG
--- NOTE | 2024-12-19 15:26 | WOUNDNOTE ---
RIGHT POSTERIOR LEG
--- NOTE | 2024-12-19 15:27 | WOUNDNOTE ---
LEFT LOWER LEG WOUND
--- NOTE | 2024-12-19 15:28 | WOUNDNOTE ---
BUTTOCKS, SACRAL COCCYX
--- NOTE | 2024-12-19 15:44 | WOUNDNOTE ---
[facility] RN note: Patient admitted with hypotension, right LE wound cellulitis, HF, afib, DM2, Polymyositis
See H&P for complete history.
PMH: afib, DM2, Polymyositis, breast cancer with lumpectomy, cognitive impairment.
Wound Location and type/assessment: Patient admitted with chronic wound to right posterior leg with cellulitis. Patient follow at [facility]. Spoke to over the phone who reported wound was more painful recently. At time of assessment wound has
thick yellow slough surrounded by erythema and indurated wound bed. Left leg with dry wound and erythema. explained that left leg wound was previously closed then opened again with increased LE edema. Patient has bilateral faint pedal pulses
and follows with Dr. Dawson (per next appointment is 12/29). Buttocks with chronic discoloration, stage 2 in the past but no open areas noted today. Patient demonstrated ability to stand with minimum assist and transfer to commode. Heels intact.
Appetite: Good
Pressure redistribution devices in place: Versa Care Air, heels should be off-loaded when in bed, air cushion placed in chair.
Plan: Wound cultures from RLE completed as ordered. Will recommend to clean with Dakins and pack with Dakins moistened gauze until follow up at [facility]. Dry dressing to left lower leg. Confirmed order for KIELA compression. Instructed patient to change
position frequently when sitting. Will confirm orders with hospitalist and update nurse. Updated care plan and will follow as needed.
Note to case management of equipment requested for discharge:
Recommend follow up at wound care center upon discharge.
[2024-12-19] MEDS: DAKIN'S SOLUTION 0.125% 1/4 STRENGTH 5 ML TOPICAL (15:59)
[2024-12-19 16:35] LABS: Glucose - Point of Care 342 mg/dl (70-99)
[2024-12-19] MEDS: NOVOLOG FLEXPEN-MODERATE RESISTANCE 7 UNITS SC (17:32)
[2024-12-19] MEDS: TYLENOL 650 MG PO (18:05)
[2024-12-19 21:31] LABS: Glucose - Point of Care 188 mg/dl (70-99)
[2024-12-20] MEDS: STERILE WATER FOR INJECTION 10 ML IV ×2 (02:45→10:08)
[2024-12-20] MEDS: MAXIPIME 1000 MG IV ×2 (02:46→10:07)
[2024-12-20] MEDS: TYLENOL 650 MG PO ×2 (02:58→11:08)
[2024-12-20 04:05] VITALS: BP 129/79
[2024-12-20 06:00] VITALS: BMI 29.6
[2024-12-20 06:29] LABS: Hematocrit 41.3 % (37.0-47.0); Hemoglobin 13.3 g/dL (12.0-16.0); Mean Corp Hgb Conc. 32.2 g/dL (33.0-37.0); Mean Corpuscular Volume 85.5 fL (81.0-99.0); Platelet Count 170 10^3/uL (130-400); Red Cell Dist. Width 17.0 % (11.5-14.5)
[2024-12-20 06:51] LABS: Blood Urea Nitrogen 37 mg/dl (7-17); Calcium 9.3 mg/dl (8.4-10.2); Carbon Dioxide 25 mmol/L (22-30); Chloride 99 mmol/L (98-107); Estimated Creatinine Clearance 71 ml/min; Glucose 185 mg/dl (70-99); Potassium 3.3 mmol/L (3.5-5.1); Sodium 135 mmol/L (135-145); eGFR > 60.00
[2024-12-20] MEDS: LASIX 40 MG PO (08:35)
[2024-12-20] MEDS: KCL 40 MEQ PO (08:36)
[2024-12-20] MEDS: LANTUS 0.03 UNITS SC (08:36)
[2024-12-20] MEDS: PROTONIX 40 MG PO (08:36)
[2024-12-20] MEDS: DELTASONE 10 MG PO (08:36)
[2024-12-20] MEDS: ELIQUIS 5 MG PO ×2 (08:36→19:33)
[2024-12-20] MEDS: NEURONTIN 300 MG PO ×2 (08:36→19:32)
[2024-12-20] MEDS: ASPIR LOW (ENTERIC COATED) 81 MG PO (08:36)
[2024-12-20] MEDS: ZETIA 10 MG PO (08:37)
[2024-12-20] MEDS: KCL 20 MEQ PO (08:38)
[2024-12-20] MEDS: COREG PO (08:47)
[2024-12-20 08:51] LABS: Glucose - Point of Care 195 mg/dl (70-99)
[2024-12-20] MEDS: NOVOLOG FLEXPEN-MODERATE RESISTANCE 1 UNITS SC (08:51)
[2024-12-20] MEDS: DAKIN'S SOLUTION 0.125% 1/4 STRENGTH 473 ML TOPICAL (08:52)
[2024-12-20 09:15] VITALS: BP 101/64
[2024-12-20] MEDS: VIBRAMYCIN 100 MG PO ×2 (11:08→19:32)
--- NOTE | 2024-12-20 11:34 | CM ---
CM met with Pamela and her . PT recommends home health care services. Pt and feel that they have everything that they need in the home; ramp entry, shower with seat, grab bars, 2 commodes. Pt and notified that if they feel
the need for home care to contact PCP to request VN services.
[2024-12-20 12:22] LABS: Glucose - Point of Care 239 mg/dl (70-99)
--- NOTE | 2024-12-20 12:25 | PTCARENOTE ---
Received pt from room 316-1 via wheelchair. Pt ambulated to chair x1 with RW.
[2024-12-20] MEDS: NOVOLOG FLEXPEN-MODERATE RESISTANCE 3 UNITS SC (12:36)
--- NOTE | 2024-12-20 13:09 | W.PN.HOSP.TC ---
Today's Communication/Plan
-
await final wound cultures
Cipro - follow QTc
Doxy for MRSA
home VN at discharge
Assessment / Plan
Assessment / Plan
Assessment:
Hypotension, likely related to overdiuresis
- resolved
Bilateral LE edema, L>R
Chronic venous insufficiency
- no evidence of DVTs
RLE wound with surrounding cellulitis
- IV Cefepime, day 3 - transition to oral Cipro - check QTc in AM
- added Doxy with MRSA colonization
- wound culture with pseudomonas (previously pansensitive)
- wound care evaluation appreciated
Serratia UTI
- IV Cefepime, day 3 - transition to oral Cipro - check QTc in AM
Elevated Troponin, likely non-ischemic myocardial injury related to hypotension
- troponin peaked 0.038
Peripheral Arterial Disease s/p Right Popliteal Stent
- continue aspirin
Chronic HFpEF
- diuretics on hold as above
- Monitor daily weights
- Cardiology following; will liaison with primary Cardiology (Dr. Palmer - [facility])
Permanent chronic Atrial Fibrillation
- continue Eliquis for anticoagulation
- continue Coreg for rate control with hold parameters
Hyperlipidemia
- continue Zetia
Diabetes Mellitus, Type II
- continue Lantus and NovoLog
- monitor sugars and continue coverage insulin
Polymyositis
- patient maintained on IV IG as outpatient; due for 2 doses. Will reschedule for outpatient after infection treatments complete
- continue prednisone
Cognitive Impairment
- Son notes patient has had a significant decline in her cognitive impairment and is not a reliable historian with impaired short term memory
Hx Breast Cancer s/p Left Lumpectomy
Chronic back pain with known
Chronic L4 and L1 compression fracture
- prn pain control
Suspected cognitive impairment likely secondary to dementia
- prior neuroimaging with atrophy
PAD s/p R pop stenting 07/2024
- OP f/u Dr. Dawson including OP Art US
Hypokalemia - replete prn
DVT ppx: Eliquis
Code: Full Code
Anticipated Discharge: Within 24 hours
Subjective/Interval History
-
Date of Service: December 20, 2024
resting comfortably, no complaints
Objective Data
-
Labs:
Laboratory Results
12/20/24
05:52
WBC 7.9
Hgb 13.3
Hct 41.3
Plt Count 170
Sodium 135
Potassium 3.3 L
Chloride 99
Carbon Dioxide 25
BUN 37 H
Creatinine 0.6
Glucose 185 H
Calcium 9.3
Vital Signs:
Vital Signs
Temp Pulse Resp BP Pulse Ox
97.4 F 75 18 101/64 97
12/20/24 09:15 12/20/24 09:15 12/20/24 09:15 12/20/24 09:15 12/20/24 09:15
I&O
12/19/24 12/20/24 12/21/24
06:59 06:59 06:59
Intake Total 480 / 480 180 / 180
Output Total 500 / 500
Balance 480 / 480 -320 / -320
Physical Exam
-
General: No Apparent Distress
HEENT: Normocephalic and Atraumatic
Respiratory: Negative Wheezes
Cardiac: Regular Rhythm and S1/S2
GI: Soft and Nontender
Musculoskeletal: No Edema
Neuro: AO x 3
Psych: Calm
Data Reviewed
-
Total Time Spent with Patient (in minutes): 41
Labs: Labs Reviewed by me
[2024-12-20 16:42] VITALS: BP 123/72
[2024-12-20 17:12] LABS: Glucose - Point of Care 371 mg/dl (70-99)
[2024-12-20] MEDS: NOVOLOG FLEXPEN-MODERATE RESISTANCE 9 UNITS SC (17:15)
[2024-12-20] MEDS: CIPRO 500 MG PO (19:33)
[2024-12-20] MEDS: COREG 12.5 MG PO (19:33)
[2024-12-20 19:52] VITALS: BP 125/65
[2024-12-20 22:02] LABS: Glucose - Point of Care 272 mg/dl (70-99)
[2024-12-20 23:44] VITALS: BP 132/75
[2024-12-21 03:26] VITALS: BP 101/79
[2024-12-21 07:30] VITALS: BP 126/84
[2024-12-21 07:30] LABS: Hematocrit 38.2 % (37.0-47.0); Hemoglobin 12.2 g/dL (12.0-16.0); Mean Corp Hgb Conc. 31.9 g/dL (33.0-37.0); Mean Corpuscular Volume 86.0 fL (81.0-99.0); Platelet Count 156 10^3/uL (130-400); Red Cell Dist. Width 16.9 % (11.5-14.5)
[2024-12-21 07:53] LABS: Blood Urea Nitrogen 35 mg/dl (7-17); Calcium 9.3 mg/dl (8.4-10.2); Carbon Dioxide 25 mmol/L (22-30); Chloride 103 mmol/L (98-107); Estimated Creatinine Clearance 71 ml/min; Glucose 206 mg/dl (70-99); Potassium 3.0 mmol/L (3.5-5.1); Sodium 136 mmol/L (135-145); eGFR > 60.00
[2024-12-21 08:06] LABS: Glucose - Point of Care 194 mg/dl (70-99)
[2024-12-21] MEDS: LANTUS 0.03 UNITS SC (08:07)
[2024-12-21] MEDS: ELIQUIS 5 MG PO ×2 (08:08→20:34)
[2024-12-21] MEDS: ASPIR LOW (ENTERIC COATED) 81 MG PO (08:08)
[2024-12-21] MEDS: VIBRAMYCIN 100 MG PO ×2 (08:08→20:34)
[2024-12-21] MEDS: KCL 20 MEQ PO (08:08)
[2024-12-21] MEDS: LASIX 40 MG PO (08:08)
[2024-12-21] MEDS: NEURONTIN 300 MG PO ×2 (08:08→20:34)
[2024-12-21] MEDS: DELTASONE 10 MG PO (08:08)
[2024-12-21] MEDS: COREG 12.5 MG PO (08:08)
[2024-12-21] MEDS: PROTONIX 40 MG PO (08:08)
[2024-12-21] MEDS: NOVOLOG FLEXPEN-MODERATE RESISTANCE 1 UNITS SC (08:09)
[2024-12-21] MEDS: CIPRO 500 MG PO (08:09)
[2024-12-21] MEDS: ZESTRIL 10 MG PO (08:09)
[2024-12-21] MEDS: ZETIA 10 MG PO (08:09)
[2024-12-21] MEDS: DAKIN'S SOLUTION 0.125% 1/4 STRENGTH 473 ML TOPICAL (08:10)
[2024-12-21] MEDS: STERILE WATER FOR INJECTION 10 ML IV ×2 (09:35→17:32)
[2024-12-21] MEDS: KCL 40 MEQ PO ×2 (09:35→12:53)
[2024-12-21] MEDS: MAXIPIME 1000 MG IV ×2 (09:35→17:31)
[2024-12-21] MEDS: FLUSH (NSS) 2 FLUSH IV (09:36)
[2024-12-21] MEDS: TYLENOL 650 MG PO ×2 (09:40→15:30)
[2024-12-21 11:30] VITALS: BP 114/66
--- NOTE | 2024-12-21 11:47 | W.PN.HOSP.TC ---
Today's Communication/Plan
-
dc in 24 hours after completion of day 5 of Cefepime for wound infection and UTI
Assessment / Plan
Assessment / Plan
Assessment:
Hypotension, likely related to overdiuresis
- resolved
Bilateral LE edema, L>R
Chronic venous insufficiency
- no evidence of DVTs
RLE wound with surrounding cellulitis
- wound culture with pseudomonas (pansensitive)
- IV Cefepime, day 4/5. QTC >500 precludes safe use of oral Cipro. Previously episode in July 2024 also treated over 5 days.
- continue Doxy, day 2/5 with MRSA colonization
- wound care evaluation appreciated
Serratia UTI
- IV Cefepime, day 4/5. QTC >500 precludes safe use of oral Cipro.
Elevated Troponin, likely non-ischemic myocardial injury related to hypotension
- troponin peaked 0.038
Peripheral Arterial Disease s/p Right Popliteal Stent
- continue aspirin
Chronic HFpEF
- continue Lasix 40mg daily
- Monitor daily weights
- OP Cardiology follow up. Patient will switch from [facility]iology to [facility] Cardiology.
Permanent chronic Atrial Fibrillation
- continue Eliquis for anticoagulation
- continue Coreg for rate control with hold parameters
Hyperlipidemia
- continue Zetia
Diabetes Mellitus, Type II
- continue Lantus and NovoLog
- monitor sugars and continue coverage insulin
Polymyositis
- patient maintained on IV IG as outpatient; due for 2 doses. Will reschedule for outpatient after infection treatments complete
- continue prednisone
Cognitive Impairment
- Son notes patient has had a significant decline in her cognitive impairment and is not a reliable historian with impaired short term memory
Hx Breast Cancer s/p Left Lumpectomy
Chronic back pain with known
Chronic L4 and L1 compression fracture
- prn pain control
Suspected cognitive impairment likely secondary to dementia
- prior neuroimaging with atrophy
PAD s/p R pop stenting 07/2024
- OP f/u Dr. Dawson including OP Art US
Hypokalemia - replete prn
DVT ppx: Eliquis
Code: Full Code
Anticipated Discharge: Within 24 hours
Subjective/Interval History
-
Date of Service: December 21, 2024
No new complaints at present
prolonged QTc precluded ongoing Cipro; patient switched back to Cefepime.
Objective Data
-
Labs:
Laboratory Results
12/21/24
06:30
WBC 6.8
Hgb 12.2
Hct 38.2
Plt Count 156
Sodium 136
Potassium 3.0 L
Chloride 103
Carbon Dioxide 25
BUN 35 H
Creatinine 0.5 L
Glucose 206 H
Calcium 9.3
Vital Signs:
Vital Signs
Temp Pulse Resp BP Pulse Ox
97.3 F 85 16 126/84 98
12/21/24 07:30 12/21/24 08:08 12/21/24 07:30 12/21/24 08:08 12/21/24 07:30
I&O
12/20/24 12/21/24 12/22/24
06:59 06:59 06:59
Intake Total 180 / 180
Output Total 500 / 500
Balance -320 / -320
Physical Exam
-
General: No Apparent Distress
HEENT: Normocephalic and Atraumatic
Respiratory: Negative Wheezes
Cardiac: Regular Rhythm and S1/S2
GI: Soft
Genito-urinary: No Costovertebral Tender
Neuro: AO x 3
Psych: Calm
Data Reviewed
-
Total Time Spent with Patient (in minutes): 41
Labs: Labs Reviewed by me
[2024-12-21 12:00] LABS: Glucose - Point of Care 250 mg/dl (70-99)
[2024-12-21] MEDS: NOVOLOG FLEXPEN-MODERATE RESISTANCE 5 UNITS SC (12:52)
[2024-12-21 16:00] VITALS: BP 93/57
[2024-12-21 16:04] VITALS: BMI 29.9
[2024-12-21 17:22] LABS: Glucose - Point of Care 379 mg/dl (70-99)
[2024-12-21] MEDS: NOVOLOG FLEXPEN-MODERATE RESISTANCE 9 UNITS SC (17:30)
[2024-12-21 17:53] VITALS: BP 103/69
[2024-12-21 19:10] LABS: Glucose - Point of Care 346 mg/dl (70-99)
--- NOTE | 2024-12-21 19:12 | PTCARENOTE ---
Glucose rechecked, continues to be elevated, result= 346. ADULT EDUCATION TEACHER made aware.
[2024-12-21 20:25] VITALS: BP 91/45
[2024-12-21] MEDS: COREG PO (20:33)
[2024-12-21 21:56] LABS: Glucose - Point of Care 279 mg/dl (70-99)
[2024-12-22 00:09] VITALS: BP 117/74
[2024-12-22] MEDS: STERILE WATER FOR INJECTION 10 ML IV ×2 (01:33→09:39)
[2024-12-22] MEDS: MAXIPIME 1000 MG IV ×2 (01:34→09:38)
[2024-12-22 03:30] VITALS: BP 96/55
[2024-12-22 06:00] VITALS: BMI 29.7
[2024-12-22 07:30] VITALS: BP 120/79
[2024-12-22 08:06] LABS: Glucose - Point of Care 169 mg/dl (70-99)
[2024-12-22 08:27] LABS: Hematocrit 39.5 % (37.0-47.0); Hemoglobin 12.7 g/dL (12.0-16.0); Mean Corp Hgb Conc. 32.2 g/dL (33.0-37.0); Mean Corpuscular Volume 86.8 fL (81.0-99.0); Platelet Count 159 10^3/uL (130-400); Red Cell Dist. Width 16.9 % (11.5-14.5)
[2024-12-22 08:46] LABS: Blood Urea Nitrogen 34 mg/dl (7-17); Calcium 9.0 mg/dl (8.4-10.2); Carbon Dioxide 22 mmol/L (22-30); Chloride 104 mmol/L (98-107); Estimated Creatinine Clearance 71 ml/min; Glucose 180 mg/dl (70-99); Potassium 3.7 mmol/L (3.5-5.1); Sodium 135 mmol/L (135-145); eGFR > 60.00
[2024-12-22] MEDS: LASIX 40 MG PO (08:59)
[2024-12-22] MEDS: ASPIR LOW (ENTERIC COATED) 81 MG PO (08:59)
[2024-12-22] MEDS: COREG 12.5 MG PO (09:00)
[2024-12-22] MEDS: PROTONIX 40 MG PO (09:00)
[2024-12-22] MEDS: VIBRAMYCIN 100 MG PO (09:00)
[2024-12-22] MEDS: KCL 20 MEQ PO (09:00)
[2024-12-22] MEDS: NEURONTIN 300 MG PO (09:00)
[2024-12-22] MEDS: ELIQUIS 5 MG PO (09:00)
[2024-12-22] MEDS: ZETIA 10 MG PO (09:00)
[2024-12-22] MEDS: ZESTRIL 10 MG PO (09:00)
[2024-12-22] MEDS: DELTASONE 10 MG PO (09:01)
[2024-12-22] MEDS: DAKIN'S SOLUTION 0.125% 1/4 STRENGTH 10 ML TOPICAL (09:06)
[2024-12-22] MEDS: LANTUS 0.03 UNITS SC (09:09)
[2024-12-22] MEDS: NOVOLOG FLEXPEN-MODERATE RESISTANCE 1 UNITS SC ×2 (09:10→12:40)
--- NOTE | 2024-12-22 10:25 | W.PN.HOSP.TC ---
Today's Communication/Plan
-
Discharge home with home health
Out patient follow up with Cardio, PCP and vascular surgeon
Assessment / Plan
Assessment / Plan
Assessment:
#Acute urinary tract infection
- On IV Cefepime
-Can be converted to PO Ciprofloxacin for 2 more days
#Hypotension; likely related to overdiuresis
- Bp 107/63
-Resolved
#RLE wound with surrounding cellulitis
- wound culture with pseudomonas (pansensitive)
- PO Doxycycline for 4 more days.
- Continue Doxy, day 2/5 with MRSA colonization
- On wound care
Bilateral LE edema, L>R
Chronic venous insufficiency
- no evidence of DVTs
Elevated Troponin, likely non-ischemic myocardial injury related to hypotension
- troponin peaked 0.038
Peripheral Arterial Disease
- On Aspirin ASA
- F/u Dr. Dawson including OP Art US
Permanent chronic Atrial Fibrillation
- Eliquis for anticoagulation
- Coreg for rate control with hold parameters
Hyperlipidemia
- continue Zetia
Diabetes Mellitus, Type II
169
- continue Lantus and NovoLog
- monitor sugars and continue coverage insulin
Polymyositis
- patient maintained on IV IG as outpatient; due for 2 doses. Will reschedule for outpatient after infection treatments complete
- continue prednisone
Hx Breast Cancer s/p Left Lumpectomy
Chronic back pain with known
Chronic L4 and L1 compression fracture
- prn pain control
Suspected cognitive impairment likely secondary to dementia
- prior neuroimaging with atrophy
Hypokalemia -
On PO Kcl 20meq 3.7 (3.0
DVT ppx: Eliquis
Code: Full Code
Dispo- home with home health
Anticipated Discharge: Today
Subjective/Interval History
-
Date of Service: December 22, 2024
Patient seen
No new complains
No significant overnight event
Objective Data
-
Labs:
Laboratory Results
12/22/24
08:04
WBC 7.0
Hgb 12.7
Hct 39.5
Plt Count 159
Sodium 135
Potassium 3.7
Chloride 104
Carbon Dioxide 22
BUN 34 H
Creatinine 0.6
Glucose 180 H
Calcium 9.0
Vital Signs:
Vital Signs
Temp Pulse Resp BP Pulse Ox
97.7 F 80 16 120/79 99
12/22/24 07:30 12/22/24 08:59 12/22/24 07:30 12/22/24 08:59 12/22/24 07:30
I&O
12/21/24 12/22/24 12/23/24
06:59 06:59 06:59
Intake Total 1080 / 1080
Balance 1080 / 1080
Review of Systems
-
History Source: Patient
Constitutional: Reports No Symptoms
EENT: Reports No Symptoms Reported
Respiratory: Reports No Symptoms
Cardiac: Reports No Symptoms
Abdomen/GI: Reports No Symptoms
Genitourinary: Reports No Symptoms
Musculoskeletal: Reports No Symptoms
Physical Exam
-
General: Well Developed and Well Nourished
HEENT: Normocephalic and Atraumatic
Respiratory: Clear to Auscultation
Cardiac: Regular Rhythm and S1/S2
GI: Soft, Nontender and Nondistended
Genito-urinary: No Costovertebral Tender
Musculoskeletal: No Edema
Psych: Calm
Data Reviewed
-
Labs: Labs Reviewed by me, Discussed with Physician and Discussed with Patient
[2024-12-22 11:30] VITALS: BP 107/63
[2024-12-22 12:05] LABS: Glucose - Point of Care 181 mg/dl (70-99)
[2024-12-22] MEDS: TYLENOL 650 MG PO (14:10)
--- NOTE | 2024-12-22 17:36 | CM ---
MD entered order for discharge.
Spoke with and patient .Both agree to discharge today . Agreed with IMM.
Offered V N . Both declined . does R leg wound care and has an appointment with WOUND care center this week.
Chivo drove her home.
PLAN Home no needs .
--- NOTE | 2024-12-22 19:03 | W.DCSUMMARY ---
Documented by User: Gretchen Dumont MD, Resident 12/22/24 23:23
Discharge Summary
Discharge Data
Date of Admission: 12/19/24
Date of Discharge: 12/22/24
-
Pending Results: No
Hospital Course
Discharging Physician : Gretchen Dumont MD, Bassam Morin DO
Disposition : Home with Home healh
Primary care physician : Cole Suazo
Principal Discharge diagnosis :
Chronic Discharge diagnosis :
Acute urinary retention
Hypotension due to fluid loss, overdiuresis
Right lower extremity wound with cellulitis
Nonischemic myocardial injury
Hospital Course :
Patient is a 74 y/o female past medical history of PAD s/p RLE stent, CHF, A-Fib, DM and polymyositis who presented to [facility] ED on 12/18/2024 with lethargy following a low blood pressure reading at home.
She had a recent medication increase of Lasix from 40 mg to 80 mg with the addition of metolazone 2.5 mg daily.
On presentation to the ED she had a heart rate of 100 irregular with significant LLE edema. Minimal right lower extremity edema, RLE wound with surrounding redness
BUN/creatinine 46/0.9, K3.4, NA 137, proBNP 950, hemoglobin 13.0, WBC 11.2 Troponin 0.038�0.028
Chest x-ray and EKG where unremarkable
She was admitted and the following problems were managed
Hypotension, likely related to overdiuresis
-Lasix and lisinopril was held
-Both resumed once her vitals were stabilized,
Unilateral Left Lower Extremity Edema
-Peripheral Vascular US, which showed no evidence of deep venous thrombosis of the lower extremities bilaterally.
RLE wound with surrounding cellulitis
- wound culture with pseudomonas (pansensitive)
- Doxycycline 100mg bid
Acute urinary tract infection
-Urinalysis; Serratia Pyuria
- IV Cefepime was given and then converted to Oral Ciprofloxacin, based on sensitivity results
-Elevated Troponin, likely non-ischemic myocardial injury related to hypotension
Troponin was monitored closely
Her other chronic conditions were concurrently managed
Following clinical improvement, she was subsequently discharged on her oral medications to follow up with her primary care, cardiology and Vascular surgery care on outpatient basis
Important imaging findings :
Peripheral vascular ultrasound 12/19/2024 No evidence of deep venous thrombosis of the lower extremities bilaterally.
CXR Linear foci in the left lower lobe are similar to prior studies and either atelectasis or scarring. There is cardiomegaly but no evidence of decompensation
CXR 12/18/2024
Discharge Plan
-
Patient Disposition: Home with Home Care
Discharge Diagnosis/Procedures: Serratia UTI
Hypotension secondary to over diuresis
Magdiel LE Edema
Right LE wound with cellulitis
NIDDMI
Condition: Fair
Diet: 2 Gram Sodium
Activity: As tolerated
Driving Restrictions: As prior to admission
Blood Work: Follow-up with your family doctor for BMP and CBC
Others Tests: Your outpatient arterial ultrasound for your vascular follow-up has been moved to Sunday12/26/2024 at 10:30 AM here at [facility] [address].
Other Services: VN
Specialty Instructions: Weigh Daily- Call MD for wt gain/loss 3 lbs overnight/5 lbs in 1 week
Activity Restrictions/Additional Instructions:
Wound Care Instructions Right Posterior Leg Wound- Clean with Dakins and loosely pack with Dakins moistened gauze. Cover with ABD and wrap with darby. Change daily.
Left LE wound-Clean with NS and cover with silicone border foam. Change Q 48 hours
Continue to wear your compression stockings
Air cushion to chair
Encourage frequent turning and repositioning
Follow up at wound care center as scheduled.

Follow-up with your family doctor within 1 week of discharge from the hospital. You have an appointment scheduled with cardiology on 12/25/2024 at 740 in the morning. You also have a vascular surgery office visit scheduled for 12/29/2024 at 10:45 in
the morning.
Referrals:
Cole Suazo MD [Family Provider, Family Practice]
Jada Acosta CRNP [Specified Professional Personl, Cardiology] - 12/25/24 7:40 am
Referral Note: you have a f/u appointment with Dr Ortiz's nurse practitioner at the [place] office
Magi Rosario CRNP [Specified Professional Personl, Vascular Surgery] - 12/29/24 10:45 am
Additional Discharge Medication Instructions: Take Ciprofloxacin 500mg by mouth 2 times a day for 2 days
Take Doxycycline 100mg by mouth 2 times a day for 4 days
Take Furosemide 40mg once daily indefinitely
Prescriptions:
New
doxycycline hyclate 100 mg Capsule
100 mg PO Q12 Qty: 9 0RF
furosemide 40 mg Tablet
40 mg PO DAILY Qty: 30 0RF
ciprofloxacin HCl 500 mg tablet
500 mg PO BID Qty: 5 0RF
Continued
Gammagard Liquid 10 GRAM/100 ML solution
50 ml IV UD
Rx Instructions:
take two days out of the month
carvedilol 12.5 MG tablet
12.5 mg PO BID
lisinopril 10 mg Tablet
10 mg PO DAILY
alendronate 70 mg tablet
70 mg PO FR
pantoprazole 40 mg Tablet,Delayed Release (Dr/Ec)
40 mg PO DAILY 30 Days Qty: 30 2RF
Eliquis 5 mg tablet
5 mg PO BID 30 Days Qty: 60 0RF
gabapentin 300 mg Capsule
300 mg PO BID
ezetimibe 10 mg Tablet
10 mg PO DAILY
prednisone 10 mg Tablet
10 mg PO DAILY Qty: 0 0RF
aspirin 81 mg Tablet,Delayed Release (Dr/Ec)
81 mg PO DAILY Qty: 0 0RF
cholecalciferol (vitamin D3) [Vitamin D3] 25 mcg (1,000 unit) Capsule
100 mcg PO DAILY
insulin aspart U-100 [Novolog FlexPen U-100 Insulin] 100 unit/mL (3 mL) Insulin Pen
3 sliding scale dose SC AC
insulin glargine [Lantus Solostar U-100 Insulin] 100 unit/mL (3 mL) Insulin Pen
3 unit SC DAILY
potassium chloride 20 mEq Tablet Extended Release
20 meq PO DAILY
Discontinued
furosemide 20 MG tablet
80 mg PO MOWEFR
Patient Comments:
metolazone 2.5 mg Tablet
2.5 mg PO DAILY
Discharge Orders:
Discharge Patient (As Directed); Ordered 12/22/24
Ordered By: Gretchen Dumont
Discharge Date and Time
Discharge Date/Time: 12/22/24 15:07
Print Language: LUXEMBOURGER

Documented by User: Bassam Morin DO 12/23/24 09:21
Discharge Summary
Discharge Data
Date of Admission: 12/19/24
Date of Discharge: 12/22/24
Total time spent discharging patient (in min): 32
Discharge Plan
-
Patient Disposition: Home with Home Care
Discharge Diagnosis/Procedures: Serratia UTI
Hypotension secondary to over diuresis
Magdiel LE Edema
Right LE wound with cellulitis
NIDDMI
Condition: Fair
Diet: 2 Gram Sodium
Activity: As tolerated
Driving Restrictions: As prior to admission
Blood Work: Follow-up with your family doctor for BMP and CBC
Others Tests: Your outpatient arterial ultrasound for your vascular follow-up has been moved to Sunday12/26/2024 at 10:30 AM here at [facility] [address].
Other Services: VN
Specialty Instructions: Weigh Daily- Call MD for wt gain/loss 3 lbs overnight/5 lbs in 1 week
Activity Restrictions/Additional Instructions:
Wound Care Instructions Right Posterior Leg Wound- Clean with Dakins and loosely pack with Dakins moistened gauze. Cover with ABD and wrap with darby. Change daily.
Left LE wound-Clean with NS and cover with silicone border foam. Change Q 48 hours
Continue to wear your compression stockings
Air cushion to chair
Encourage frequent turning and repositioning
Follow up at wound care center as scheduled.

Follow-up with your family doctor within 1 week of discharge from the hospital. You have an appointment scheduled with cardiology on 12/25/2024 at 740 in the morning. You also have a vascular surgery office visit scheduled for 12/29/2024 at 10:45 in
the morning.
Referrals:
Cole Suazo MD [Family Provider, Family Practice]
Jada Acosta CRNP [Specified Professional Personl, Cardiology] - 12/25/24 7:40 am
Referral Note: you have a f/u appointment with Dr Ortiz's nurse practitioner at the [place] office
Magi Rosario CRNP [Specified Professional Personl, Vascular Surgery] - 12/29/24 10:45 am
Additional Discharge Medication Instructions: Take Ciprofloxacin 500mg by mouth 2 times a day for 2 days
Take Doxycycline 100mg by mouth 2 times a day for 4 days
Take Furosemide 40mg once daily indefinitely
Prescriptions:
New
doxycycline hyclate 100 mg Capsule
100 mg PO Q12 Qty: 9 0RF
furosemide 40 mg Tablet
40 mg PO DAILY Qty: 30 0RF
ciprofloxacin HCl 500 mg tablet
500 mg PO BID Qty: 5 0RF
Continued
Gammagard Liquid 10 GRAM/100 ML solution
50 ml IV UD
Rx Instructions:
take two days out of the month
carvedilol 12.5 MG tablet
12.5 mg PO BID
lisinopril 10 mg Tablet
10 mg PO DAILY
alendronate 70 mg tablet
70 mg PO FR
pantoprazole 40 mg Tablet,Delayed Release (/Ec)
40 mg PO DAILY 30 Days Qty: 30 2RF
Eliquis 5 mg tablet
5 mg PO BID 30 Days Qty: 60 0RF
gabapentin 300 mg Capsule
300 mg PO BID
ezetimibe 10 mg Tablet
10 mg PO DAILY
prednisone 10 mg Tablet
10 mg PO DAILY Qty: 0 0RF
aspirin 81 mg Tablet,Delayed Release (Dr/Ec)
81 mg PO DAILY Qty: 0 0RF
cholecalciferol (vitamin D3) [Vitamin D3] 25 mcg (1,000 unit) Capsule
100 mcg PO DAILY
insulin aspart U-100 [Novolog FlexPen U-100 Insulin] 100 unit/mL (3 mL) Insulin Pen
3 sliding scale dose SC AC
insulin glargine [Lantus Solostar U-100 Insulin] 100 unit/mL (3 mL) Insulin Pen
3 unit SC DAILY
potassium chloride 20 mEq Tablet Extended Release
20 meq PO DAILY
Discontinued
furosemide 20 MG tablet
80 mg PO MOWEFR
Patient Comments:
metolazone 2.5 mg Tablet
2.5 mg PO DAILY
Discharge Orders:
Discharge Patient (As Directed); Ordered 12/22/24
Ordered By: Gretchen Dumont
Discharge Date and Time
Discharge Date/Time: 12/22/24 15:07
Print Language: LUXEMBOURGER
== END 2024-12-22 15:07 | disposition home or self-care (01) | DRG 603 ==
LOC: 3 WEST ACU 12:49
PROVIDERS: Emergency Medicine; Physician Assistant Medical; ADMITTING PHYSICIAN Internal Medicine; ATTENDING PHYSICIAN Internal Medicine; EMERGENCY PHYSICIAN Emergency Medicine; FAMILY PHYSICIAN Family Medicine; OTHER PHYSICIAN Internal Medicine Cardiovascular Disease
DX: L03.115 Cellulitis of right lower limb (principal); I5A Non-ischemic myocardial injury (non-traumatic); I50.32 Chronic diastolic (congestive) heart failure; I48.21 Permanent atrial fibrillation; M33.20 Polymyositis, organ involvement unspecified; N39.0 Urinary tract infection, site not specified; M48.56XA Collapsed vertebra, not elsewhere classified, lumbar region, initial encounter for fracture; L97.919 Non-pressure chronic ulcer of unspecified part of right lower leg with unspecified severity; I95.2 Hypotension due to drugs; T50.1X5A Adverse effect of loop [high-ceiling] diuretics, initial encounter; Z79.899 Other long term (current) drug therapy; Z88.5 Allergy status to narcotic agent; Z88.8 Allergy status to other drugs, medicaments and biological substances; E11.51 Type 2 diabetes mellitus with diabetic peripheral angiopathy without gangrene; B96.5 Pseudomonas (aeruginosa) (mallei) (pseudomallei) as the cause of diseases classified elsewhere; Z79.83 Long term (current) use of bisphosphonates; Z79.01 Long term (current) use of anticoagulants; Z79.4 Long term (current) use of insulin; B96.89 Other specified bacterial agents as the cause of diseases classified elsewhere; E78.00 Pure hypercholesterolemia, unspecified; E87.6 Hypokalemia; G89.29 Other chronic pain; I11.0 Hypertensive heart disease with heart failure; I27.20 Pulmonary hypertension, unspecified; I49.3 Ventricular premature depolarization; I87.2 Venous insufficiency (chronic) (peripheral); J45.909 Unspecified asthma, uncomplicated; K21.9 Gastro-esophageal reflux disease without esophagitis; M81.0 Age-related osteoporosis without current pathological fracture; Z79.82 Long term (current) use of aspirin; Z85.3 Personal history of malignant neoplasm of breast; Z90.710 Acquired absence of both cervix and uterus
CPT/HCPCS: 71046; 80048; 81003; 81015; 82962; 83036; 83735; 83880; 84132; 84484; 85025; 85027; 87070; 87077; 87086; 87147; 87186; 87205; 93005; 93970; 96360; 97110; 97129; 97163; 97167; 99285

== ENCOUNTER → 2024-12-26 10:34 | Outpatient (REF) | payer MEDICARE, SELFPAY | LOC: RAD 10:34 | PROVIDERS: ATTENDING PHYSICIAN Surgery Vascular Surgery; FAMILY PHYSICIAN Family Medicine | DX: I73.9 Peripheral vascular disease, unspecified (principal) | CPT/HCPCS: 93922; 93925 ==

== ENCOUNTER → 2025-01-01 10:15 | Outpatient (REF) | payer MEDICARE, SELFPAY | LOC: WOUND 10:15 | PROVIDERS: ATTENDING PHYSICIAN Surgery; FAMILY PHYSICIAN Family Medicine | DX: L97.212 Non-pressure chronic ulcer of right calf with fat layer exposed (principal); L97.322 Non-pressure chronic ulcer of left ankle with fat layer exposed; I73.9 Peripheral vascular disease, unspecified; I87.2 Venous insufficiency (chronic) (peripheral); L88 Pyoderma gangrenosum; I50.43 Acute on chronic combined systolic (congestive) and diastolic (congestive) heart failure; M33.20 Polymyositis, organ involvement unspecified; E11.65 Type 2 diabetes mellitus with hyperglycemia; I77.6 Arteritis, unspecified; Z79.4 Long term (current) use of insulin | CPT/HCPCS: 99213 ==

== ENCOUNTER → 2025-01-15 15:53 | Outpatient (REF) | payer MEDICARE, SELFPAY | LOC: MRI 3T 15:53 | PROVIDERS: ATTENDING PHYSICIAN Specialist; FAMILY PHYSICIAN Family Medicine | DX: G95.9 Disease of spinal cord, unspecified (principal) | CPT/HCPCS: 72141 ==

== ENCOUNTER → 2025-01-16 10:31 | Outpatient (REF) | payer MEDICARE, SELFPAY | LOC: WOUND 10:31 | PROVIDERS: ATTENDING PHYSICIAN Surgery; FAMILY PHYSICIAN Family Medicine | DX: L97.212 Non-pressure chronic ulcer of right calf with fat layer exposed (principal); L97.322 Non-pressure chronic ulcer of left ankle with fat layer exposed; I73.9 Peripheral vascular disease, unspecified; I87.2 Venous insufficiency (chronic) (peripheral); L88 Pyoderma gangrenosum; I50.43 Acute on chronic combined systolic (congestive) and diastolic (congestive) heart failure; M33.20 Polymyositis, organ involvement unspecified; E11.65 Type 2 diabetes mellitus with hyperglycemia; Z79.4 Long term (current) use of insulin; I77.6 Arteritis, unspecified | CPT/HCPCS: 99213 ==

== ENCOUNTER 2025-01-19 18:45 | Inpatient (IN) | payer MEDICARE, SELFPAY ==
[2025-01-19] VITALS (8 sets, daily range): BP systolic 122–146; BP diastolic 62–84; BMI 33.3; BMI 31.9
[2025-01-19 12:33] LABS: Hematocrit 37.1 % (37.0-47.0); Hemoglobin 11.9 g/dL (12.0-16.0); Mean Corp Hgb Conc. 32.1 g/dL (33.0-37.0); Mean Corpuscular Volume 88.5 fL (81.0-99.0); Nucleated Red Blood Cells % 0 %; Platelet Count 160 10^3/uL (130-400); Red Cell Dist. Width 20.2 % (11.5-14.5)
[2025-01-19 12:52] LABS: ALT (SGPT) 35 U/L (0-35); AST (SGOT) 50 U/L (14-36); Albumin 4.0 g/dl (3.5-5.0); Alkaline Phosphatase 143 U/L (38-126); Blood Urea Nitrogen 28 mg/dl (7-17); Calcium 9.0 mg/dl (8.4-10.2); Carbon Dioxide 22 mmol/L (22-30); Chloride 108 mmol/L (98-107); Glucose 163 mg/dl (70-99); Potassium 4.0 mmol/L (3.5-5.1); Sodium 140 mmol/L (135-145); Total Protein 8.1 g/dl (6.3-8.2); eGFR > 60.00
--- NOTE | 2025-01-19 17:10 | ED.GENMED ---
History of Present Illness
<Claude Vaughn PA-C - Last Filed: 01/19/25 23:54>
General
Chief Complaint: Swelling
Time Seen by Provider: 01/19/25 16:44
History of Present Illness
History of Present Illness:
74-year-old female with history of CHF, hypertension, hyperlipidemia, and insulin-dependent diabetes presents to the emergency department for evaluation of increasing bilateral leg edema. 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
week ago her Lasix was increased from 20 to 40 mg daily. Despite this the legs are increasingly swollen and her weight is increasing. She denies chest pain or shortness of breath. is concerned for development of blisters to the left lower
extremity and worsening appearance of a chronic wound to the right posterior lower extremity. She denies any fevers or chills
Past History
<Claude Vaughn PA-C - Last Filed: 01/19/25 23:54>
Past History
ED Past Medical History: Asthma, CHF, HTN, Hypercholesterolemia, NIDDM, Other (polymyositis) and Other (breast cancer 2007)
ED Past Surgical History: Orthopedic and Other (breast lumpectomy x 2)
Social History
Tobacco: Non-smoker
Alcohol: None
Drug: None
Personal:
Living: with family
Employment: Disabled
Family History
Family History: Diabetes
Review of Systems
<Claude Vaughn PA-C - Last Filed: 01/19/25 23:54>
Review of Systems
Allergies reviewed?: Yes
All Other Systems: ROS reviewed and negative except as documented in HPI and ROS
Phy Exam
<Claude Vaughn PA-C - Last Filed: 01/19/25 23:54>
Physical Exam
Physical Exam:
GEN: Well appearing, NAD, WDWN
HEENT: Oral mucosa moist, no scleral icterus
Cardiac: Regular rate
Lung: No respiratory distress, no tachypnea
MSK: Massive edema bilateral lower extremities, the left leg displays small to moderate-sized intact bullae with no overt erythema or tenderness. The right posterior calf displays a large stage III ulcer with no obvious purulent discharge
Skin: Good color, no pallor or jaundice, no rashes
Neuro: AO x3, moves all extremities freely
Psych: Calm, cooperative
Scores
<Claude Vaughn PA-C - Last Filed: 01/19/25 23:54>
Heart Failure Risk
Heart Failure Risk Score: Not Applicable
Course
<Claude Vaughn PA-C - Last Filed: 01/19/25 23:54>
Orders/Labs/Results
Orders:
Orders
01/19/25 12:24
Complete Blood Count/With Diff Urgent
Comprehensive Metabolic Panel Urgent
Pro-BNP [NT-proBNP] Urgent
01/19/25 Dinner
1800 calorie (15 carb) Diabetic
At Your Request: Full Participation
Does patient need a safe tray?: No
01/19/25 17:12
Electrocardiogram (*1) Urgent
Reason for Study: QTc Monitoring
Furosemide [Lasix] 40 mg IV NOW STA
CR Chest - 2 Views Urgent
Comment:
Reason For Exam: edema
01/19/25 18:16
Admit/Transfer Patient As Directed
Co-Sign Provider:
Level of Care: Inpatient admission
Assign to:: Telemetry
Physician / Group: Eric Berg
Diagnosis: acute on chronic heart failure
Reason for Telemetry: Acute Heart Failure
Date to Stop Telemetry: 01/22/25
Time to Stop Telemetry: 11:00
Reason for Hospitalization: acute on chronic heart failure
Expected length of stay greater than two midnights?: Yes
ELOS- Estimated Length of Stay in days: 3
I certify the patient meets the requirements for IP care: Yes
01/19/25 18:17
PRN Pain Medication Management As Directed
May give lesser potent ordered pain med per pt: Yes
preference::
Protocol:: Medication orders for pain may be administered in a
manner that supports deferring to patient preference
when the pt is:
- Requesting an ordered lesser potent pain medication.
Least to most potent pain medications are defined
as: acetaminophen < NSAID < tramadol < opioids
(morphine, oxycodone, hydromorphone).
- Requesting a lesser dose of the same medication IF
ORDERED.
- Requesting a less intrusive route of administration
if both routes are prescribed by the provider (PO <
IV).
01/19/25 18:18
Code Status As Directed
Resuscitation Status: Full Code
01/19/25 20:29
Acetaminophen [Tylenol] 650 mg PO Q4HPRN PRN
Apixaban [Eliquis] 5 mg PO BID
Gabapentin [Neurontin] 300 mg PO BID
Memantine HCl [Namenda] 10 mg PO BID
01/19/25 20:29
CARDIOLOGY CONSULT Routine
Consulting Provider: Ze Jose
Was physician already notified: Yes
HF DIETARY CONSULT Routine
HF EDUCATOR CONSULT Routine
Comment:
Activity As Directed
Activity Level: As Tolerated
Intake/ Output As Directed
Frequency: Per unit guidelines
Patient Education As Directed
Type: CHF folder
Comment: give on admission. Document in Interdisciplinary Education record
Sleep Apnea Assessment by RN As Directed
Comment:
Physician Instructions:
Vital Signs As Directed
Frequency: Per unit guidelines
Weight As Directed
Frequency: Daily
Type of Scale: Standing Scale
Comment: Daily morning weight. If unable to stand, use balanced bed scale.
Weight As Directed
Frequency: Once
Type of Scale: Standing Scale
Comment: Upon Admission. If unable to stand, use balanced bed scale.
Pulse Ox/cont/shift [RESP] Routine
Quantity: 1
Special Instructions: Daily pulse oximetry at rest. If greater than 92% at rest also obtain pulse oximetry
while ambulating as tolerated.
01/19/25 21:00
Carvedilol [Coreg] 6.25 mg PO BID
01/19/25 22:00
Lisinopril [Zestril] 5 mg PO HS
01/20/25 06:00
Basic Metabolic Panel IN AM
Complete Blood Count/No Diff IN AM
01/20/25 08:00
Aspirin Low Dose EC [Aspir Low (Enteric Coated)] 81 mg PO DAILY
Ezetimibe [Zetia] 10 mg PO DAILY
Furosemide [Lasix] 40 mg IV BID AT 0800,1600
Pantoprazole [Protonix] 40 mg PO DAILY
Potassium Chloride [KCl] 20 meq PO DAILY
Prednisone [Deltasone] 10 mg PO DAILY
insulin glargine [Lantus Solostar U-100 Insulin] 3 unit SC DAILY
01/22/25 11:00
DC Protocol for Telemetry ONCE
01/23/25 07:00
alendronate 70 mg PO FR@0700
Abnormal Lab Results
01/19/25
12:24
RBC 4.19 L 10^6/uL
(4.20-5.40)
Hgb 11.9 L g/dL
(12.0-16.0)
MCHC 32.1 L g/dL
(33.0-37.0)
RDW 20.2 H %
(11.5-14.5)
Absolute Lymphs (auto) 0.8 L 10^3/uL
(1.2-3.4)
Neutrophils % 79.8 H %
(42.2-75.2)
Lymphocytes % 13.3 L %
(20.5-51.1)
Chloride 108 H mmol/L
(98-107)
BUN 28 H mg/dl
(7-17)
Glucose 163 H mg/dl
(70-99)
AST 50 H U/L
(14-36)
Alkaline Phosphatase 143 H U/L
(38-126)
01/19/25 12:24
01/19/25 12:24
Vital Signs
Initial and Last Documented VS:
Initial Vital Signs
Temp Pulse Resp BP Pulse Ox
98.6 F 81 16 122/68 96
01/19/25 12:14 01/19/25 12:14 01/19/25 12:14 01/19/25 12:14 01/19/25 12:14
Last Documented Vital Signs
Temp Pulse Resp BP Pulse Ox
97.4 F 84 16 126/77 99
01/19/25 23:15 01/19/25 23:15 01/19/25 23:15 01/19/25 23:15 01/19/25 23:15
<Edgardo Cooley MD - Last Filed: 01/19/25 23:31>
Orders/Labs/Results
Orders:
Orders
01/19/25 12:24
Complete Blood Count/With Diff Urgent
Comprehensive Metabolic Panel Urgent
Pro-BNP [NT-proBNP] Urgent
01/19/25 Dinner
1800 calorie (15 carb) Diabetic
At Your Request: Full Participation
Does patient need a safe tray?: No
01/19/25 17:12
Electrocardiogram (*1) Urgent
Reason for Study: QTc Monitoring
Furosemide [Lasix] 40 mg IV NOW STA
CR Chest - 2 Views Urgent
Comment:
Reason For Exam: edema
01/19/25 18:16
Admit/Transfer Patient As Directed
Co-Sign Provider:
Level of Care: Inpatient admission
Assign to:: Telemetry
Physician / Group: Eric Berg
Diagnosis: acute on chronic heart failure
Reason for Telemetry: Acute Heart Failure
Date to Stop Telemetry: 01/22/25
Time to Stop Telemetry: 11:00
Reason for Hospitalization: acute on chronic heart failure
Expected length of stay greater than two midnights?: Yes
ELOS- Estimated Length of Stay in days: 3
I certify the patient meets the requirements for IP care: Yes
01/19/25 18:17
PRN Pain Medication Management As Directed
May give lesser potent ordered pain med per pt: Yes
preference::
Protocol:: Medication orders for pain may be administered in a
manner that supports deferring to patient preference
when the pt is:
- Requesting an ordered lesser potent pain medication.
Least to most potent pain medications are defined
as: acetaminophen < NSAID < tramadol < opioids
(morphine, oxycodone, hydromorphone).
- Requesting a lesser dose of the same medication IF
ORDERED.
- Requesting a less intrusive route of administration
if both routes are prescribed by the provider (PO <
IV).
01/19/25 18:18
Code Status As Directed
Resuscitation Status: Full Code
01/19/25 20:29
Acetaminophen [Tylenol] 650 mg PO Q4HPRN PRN
Apixaban [Eliquis] 5 mg PO BID
Gabapentin [Neurontin] 300 mg PO BID
Memantine HCl [Namenda] 10 mg PO BID
01/19/25 20:29
CARDIOLOGY CONSULT Routine
Consulting Provider: Ze Jose
Was physician already notified: Yes
HF DIETARY CONSULT Routine
HF EDUCATOR CONSULT Routine
Comment:
Activity As Directed
Activity Level: As Tolerated
Intake/ Output As Directed
Frequency: Per unit guidelines
Patient Education As Directed
Type: CHF folder
Comment: give on admission. Document in Interdisciplinary Education record
Sleep Apnea Assessment by RN As Directed
Comment:
Physician Instructions:
Vital Signs As Directed
Frequency: Per unit guidelines
Weight As Directed
Frequency: Daily
Type of Scale: Standing Scale
Comment: Daily morning weight. If unable to stand, use balanced bed scale.
Weight As Directed
Frequency: Once
Type of Scale: Standing Scale
Comment: Upon Admission. If unable to stand, use balanced bed scale.
Pulse Ox/cont/shift [RESP] Routine
Quantity: 1
Special Instructions: Daily pulse oximetry at rest. If greater than 92% at rest also obtain pulse oximetry
while ambulating as tolerated.
01/19/25 21:00
Carvedilol [Coreg] 6.25 mg PO BID
01/19/25 22:00
Lisinopril [Zestril] 5 mg PO HS
01/20/25 06:00
Basic Metabolic Panel IN AM
Complete Blood Count/No Diff IN AM
01/20/25 08:00
Aspirin Low Dose EC [Aspir Low (Enteric Coated)] 81 mg PO DAILY
Ezetimibe [Zetia] 10 mg PO DAILY
Furosemide [Lasix] 40 mg IV BID AT 0800,1600
Pantoprazole [Protonix] 40 mg PO DAILY
Potassium Chloride [KCl] 20 meq PO DAILY
Prednisone [Deltasone] 10 mg PO DAILY
insulin glargine [Lantus Solostar U-100 Insulin] 3 unit SC DAILY
01/22/25 11:00
DC Protocol for Telemetry ONCE
01/23/25 07:00
alendronate 70 mg PO FR@0700
Abnormal Lab Results
01/19/25
12:24
RBC 4.19 L 10^6/uL
(4.20-5.40)
Hgb 11.9 L g/dL
(12.0-16.0)
MCHC 32.1 L g/dL
(33.0-37.0)
RDW 20.2 H %
(11.5-14.5)
Absolute Lymphs (auto) 0.8 L 10^3/uL
(1.2-3.4)
Neutrophils % 79.8 H %
(42.2-75.2)
Lymphocytes % 13.3 L %
(20.5-51.1)
Chloride 108 H mmol/L
(98-107)
BUN 28 H mg/dl
(7-17)
Glucose 163 H mg/dl
(70-99)
AST 50 H U/L
(14-36)
Alkaline Phosphatase 143 H U/L
(38-126)
01/19/25 12:24
01/19/25 12:24
Vital Signs
Initial and Last Documented VS:
Initial Vital Signs
Temp Pulse Resp BP Pulse Ox
98.6 F 81 16 122/68 96
01/19/25 12:14 01/19/25 12:14 01/19/25 12:14 01/19/25 12:14 01/19/25 12:14
Last Documented Vital Signs
Temp Pulse Resp BP Pulse Ox
97.4 F 84 16 126/77 99
01/19/25 23:15 01/19/25 23:15 01/19/25 23:15 01/19/25 23:15 01/19/25 23:15
<Claude Vaughn PA-C - Last Filed: 01/19/25 23:54>
MDM/Problems Addressed
MDM/Problems Addressed:
Due to worsening edema and failure of outpatient diuresis will admit to the hospitalist service for further aggressive diuresis
<Claude Vaughn PA-C - Last Filed: 01/19/25 23:54>
*Pulse Oximetry
SaO2: 96
Oxygen Mode of Delivery: Room air
Patient hypoxic: no
*Critical Care Note
Total Time (30-74mins, 75-104mins- exclusive of procedures): Not Applicable
ED Attending Note
<Claude Vaughn PA-C - Last Filed: 01/19/25 23:54>
-
Portions of this chart may have been created with voice recognition software.� Occasional wrong word or��sound alike� substitutions may have occurred due to the inherent limitations of voice recognition software.
<Edgardo Cooley MD - Last Filed: 01/19/25 23:31>
ED Attending Note
Patient seen and examined by attending physician: Yes
ED Attending Note:
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 Denies fever or chills. Denies coughing. Denies
leg pain. Denies chest pain or shortness of breath. Denies recent illness.
Physical Exam
General: no apparent distress, not acutely ill. afebrile
Head: nc/at. eomi
Neck: supple. no jvd
Heart: s1/s2 regular rate and rhythm
Lungs: no acute respiratory distress. clear bilaterally
Abdomen: normal bowel sounds. not tender.
Neuro: alert and oriented x 3. no focal neurological deficits
Skin: no rash
Psychiatric: well kept. interactive and cooperative
Extremities: b/l LE edema. no calf tenderness.
History and exam consistent with worsening leg swelling despite outpatient treatment modification. As such, patient will be admitted for further evaluation and treatment, including IV diuresis. Patient's vital signs are stable. No indication for
or concern for PE at this time
Discharge Plan
Departure
Patient Disposition: Admit
Date of Disposition: 01/19/25
Time of Disposition: 17:24
Admit to: Telemetry
Presentation/result/management discussed w/ accepting MD/DO: Hospitalist
Discharge Problem:
Acute heart failure with preserved ejection fraction (HFpEF)
Interventions
Interventions:
*Risk Screen - Suicide Last Done: 01/19/25 12:15
*General Assessment Last Done: 01/19/25 18:00
*Neglect/Abuse Screening Last Done: 01/19/25 18:00
*ED- Fall Risk Assessment Last Done: 01/19/25 18:00
*ED COVID-19 Vaccine History Last Done: 01/19/25 20:45
*Nursing Disposition Last Done: 01/19/25 20:25
ED-Skin Assessment Last Done: 01/19/25 17:12
Discharge Date and Time
Discharge Date/Time: 01/19/25 20:25
--- NOTE | 2025-01-19 17:36 | HPS.HSE ---
Family Physician
-
Family Physician: Cole Suazo
Chief Complaint
-
increased bilateral lower extremity edema
History of Present Illness
Patient is a 74-year-old female with past medical history significant for hypertension, hyperlipidemia, permanent atrial fibrillation, HFpEF, type II diabetes and PAD who presented to [facility] ED for evaluation of increased bilateral lower extremity
edema. Patient and at bedside to assist with HPI. Patient has had increased edema for > 1 week and has completed 1 week of increased lasix to 40mg daily with no improvement. Patient explains that patient has had developing blisters
on LLE that have gotten significantly worse over past several days. Patient reports that her weight has increased. She denies any shortness of breath, cough or pain. No fevers, chills, chest pain, nausea, vomiting, consitpation, diarrhea or urinary
symptoms.
Medical History
Past Medical History
Past Medical History: Reports Other
Additional Past Medical History:
Peripheral Arterial Disease s/p Right Popliteal Stent
Chronic HFpEF
Permanent Atrial Fibrillation
Essential Hypertension
Hyperlipidemia
Diabetes Mellitus, Type II
Polymyositis
Cognitive Impairment
Breast Cancer s/p Left Lumpectomy
Past Surgical History: Reports Other
Additional Past Surgical History:
Left Lumpectomy
Hysterectomy
Cholecystectomy
Carpal Tunnel Release
Right Total Knee Replacement
Bilateral Meniscus Repair
Social History
Tobacco: Non-smoker
Alcohol: None
Drug: None
Personal:
Living: With Family ( )
Family History
Family History: Not pertinent
Allergies / Home Medications
Allergies reflects when Allergies were last updated in [facility].
Home Medications with original date entered in [facility]
Allergy/Medication List:
Allergies
Allergy/AdvReac Type Severity Reaction Status Date / Time
codeine Allergy Vomiting Verified 01/19/25 12:15
metformin Allergy effects Verified 01/19/25 12:15
polymositis
Isztolo-[id number] Reductase Allergy effects Verified 01/19/25 12:15
Inhibitor (Ieedaeh-Zxt-Yph polymyositis
Reductase Inhibitor)
Home Medications
carvedilol 12.5 mg tablet 6.25 mg PO BID Blood pressure 05/13/20
immune glob,gamma (IgG) 10 %-gly-IgA over 50 mcg/mL injection solution (Gammagard Liquid) 50 ml IV UD polymyositis 05/13/20
lisinopril 10 mg tablet 5 mg PO HS Blood pressure 01/18/22
alendronate 70 mg tablet 70 mg PO FR Osteoporosis 01/20/22
apixaban 5 mg tablet (Eliquis) 5 mg PO BID Venous thrombosis 30 days #60 tabs 01/23/22
pantoprazole 40 mg tablet,delayed release 40 mg PO DAILY GERD 30 days #30 tabs 01/23/22
ezetimibe 10 mg tablet 10 mg PO DAILY High Cholesterol 08/01/24
gabapentin 300 mg capsule 300 mg PO BID Neurological Condition 08/01/24
aspirin 81 mg tablet,delayed release 81 mg PO DAILY #0 tabs 08/07/24
prednisone 10 mg tablet 10 mg PO DAILY #0 tabs 08/07/24
cholecalciferol (vitamin D3) 25 mcg (1,000 unit) capsule (Vitamin D3) 100 mcg PO DAILY Supplement 12/18/24
insulin aspart U-100 100 unit/mL (3 mL) subcutaneous pen (Novolog FlexPen U-100 Insulin aspart) 10 sliding scale dose SC AC Diabetes 12/18/24
insulin glargine 100 unit/mL (3 mL) subcutaneous pen (Lantus Solostar U-100 Insulin) 3 unit SC DAILY Diabetes 12/18/24
potassium chloride 20 mEq tablet,extended release 20 meq PO DAILY Electrolyte Repletion 12/18/24
furosemide 40 mg tablet 40 mg PO DAILY #30 tabs 12/22/24
memantine 10 mg tablet 10 mg PO BID 01/19/25
Review of Systems
-
History Source: Patient and Family
Constitutional: Reports Weight Gain; Denies Fever, Weight Loss, Fatigue or Chills
EENT: Denies Sore Throat
Respiratory: Denies Cough or Trouble Breathing
Cardiac: Denies Chest Pain, Diaphoresis, Palpitations or Syncope
Abdomen/GI: Denies Abdominal Pain, Nausea, Vomiting or Diarrhea
: Denies Dysuria, Frequency, Flank Pain or Urgency
Musculoskeletal: Denies Joint Pain or Muscle Pain
Skin: Denies Rash
Neurological: Denies Dizzy, Headache, Weakness or Numbness
Endocrine: Denies Polyuria or Polydipsia
Physical Exam
Vital Signs
Vital Signs
Temp Pulse Resp BP Pulse Ox
98.6 F 81 16 122/68 96
01/19/25 12:14 01/19/25 12:14 01/19/25 12:14 01/19/25 12:14 01/19/25 17:12
Physical Exam
General: Well Developed, Well Nourished, No Apparent Distress, Comfortable and Conversant
HEENT: NormoCephalic, Moist mucous membranes and Atraumatic
Respiratory: Clear and Non Labored Respirations
Cardiac: S1/S2, Regular Rhythm and Peripheral Edema (+4 edema to BLLE ); No Murmur, Rub or Gallop
GI: Soft, Non Tender, Non Distended and Normal Bowel Sounds; No Organomegaly
Rectal: Deferred by Provider
Musculoskeletal: No Clubbing and No Cyanosis
Skin: Warm, IV/Catheter Site and Other (BLLE with new dressings in place (documentation indicates eft leg displays small to moderate-sized intact bullae with no overt erythema or tenderness. The right posterior calf displays a large stage III ulcer
with no obvious purulent discharge))
Neuro: Awake, AO x 3 and Nonfocal/grossly intact
Psych: Calm
Laboratory Results
-
01/19/25 12:24
01/19/25 12:24
Laboratory Results
Total Bilirubin 1.1 mg/dl (0.2-1.3) 01/19/25 12:24
AST 50 U/L (14-36) H 01/19/25 12:24
ALT 35 U/L (0-35) 01/19/25 12:24
Alkaline Phosphatase 143 U/L (38-126) H 01/19/25 12:24
Data Reviewed
-
Lab Data: Labs Reviewed by me (pBNP [id number])
Impression/Plan
-
IMPRESSION/PLAN:
#Acute on Chronic HFpEF
pBNP 1140
weight gain reported
failed out patient 1 week of doubled Lasix
- Admit to telemetry
- Consult Cardiology
- IV Lasix 40mg BID
- daily weights
- I & Os
- continue carvedilol
#Peripheral Arterial Disease
s/p Right Popliteal Stent
#Permanent Atrial Fibrillation
- continue carvedilol and metoprolol
- continue Eliquis
#Essential Hypertension
- continue lisinopril
#Hyperlipidemia
- continue ezetimibe
#Diabetes Mellitus, Type II
- AccuChecks AC & HS
- SSI
- continue Lantus
Code status: Full code
DVT prophylaxis: Eliquis
[2025-01-19 17:49] LABS: Glucose - Point of Care 86 mg/dl (70-99)
--- NOTE | 2025-01-19 18:03 | W.PN.UPDATE ---
Update Note
Progress Note Update
Attending�addendum:
I saw and examined the patient.
The REIMBURSEMENT LIAISON or PA's note was reviewed and I agree with the note.
Patient presented to the ER with bilateral lower extremity swelling left more than right, Lasix increased recently to 40 mg daily, no response
�patient seen and examined at bedside, denies any chest pain or shortness of breath, no abdominal pain, no nausea, no vomiting, no diarrhea or constipation.
Will be admitted under hospitalist service.
Physical�exam:
GENERAL : Patient is awake, alert, oriented x3
HEENT: Nonicteric sclerae, PERRLA, EOMI. Oropharynx clear. Moist mucous membranes. Conjunctivae appear well perfused.
CHEST: Chest wall is nontender.
HEART: Regular rate and rhythm without murmurs.
LUNGS: Clear to auscultation bilaterally.
ABDOMEN: Soft, positive bowel sounds, nontender, no organomegaly.
RECTAL: Deferred.
SKIN: No rash, no excessive bruising, petechiae, or purpura.
Lower extremities: +3 edema bilaterally bilateral leg dressing
�
Assessment/plan:
Worsening lower extremity edema.
Patient be placed on Lasix 40 mg IV twice daily.
Cardiology consult
IV antibiotic
BNP 1140
History of diabetes mellitus
Continue home medication
Insulin sliding scale
Diabetic diet
Hemoglobin A1c 6.7
History of hyperlipidemia.
Continue statin
Hypertension.
Continue home meds
CODE STATUS: Full code
DVT prophylaxis: Eliquis
Diet: DM/cardiac diet
family communication: Discussed with at bedside
Total�time�spent�on�today�s�encounter�was�75�minutes�which�included�time�spent�in�counseling�the�patient
family�regarding�diagnosis�and�treatment�plan�as�listed�above,�goals�of�care,�and�symptom�management.�Case�was�discussed�with�nursing�staff,�specialists,�and�care�coordinators/case�management.�All�labs�and�imaging�personally�reviewed�by�me.�Remainder
�the�time�spent�in�detailed�review�of�previous�records,�lab�data,�imaging,�and�other�medical�provider�documentation.
[2025-01-19] MEDS: LASIX 40 MG IV (18:47)
[2025-01-19 21:16] LABS: Glucose - Point of Care 144 mg/dl (70-99)
[2025-01-19] MEDS: ZESTRIL 5 MG PO (21:24)
[2025-01-19] MEDS: NEURONTIN 300 MG PO (21:24)
[2025-01-19] MEDS: ELIQUIS 5 MG PO (21:25)
[2025-01-19] MEDS: COREG 6.25 MG PO (21:25)
[2025-01-19] MEDS: NAMENDA 10 MG PO (21:25)
[2025-01-19] MEDS: TYLENOL 650 MG PO (23:06)
[2025-01-20] MEDS: DESENEX/MITRAZOL/ZEASORB TOPICAL (03:16)
[2025-01-20 03:36] VITALS: BP 123/79
[2025-01-20 06:00] VITALS: BMI 30.9
[2025-01-20 07:35] LABS: Hematocrit 40.1 % (37.0-47.0); Hemoglobin 12.7 g/dL (12.0-16.0); Mean Corp Hgb Conc. 31.7 g/dL (33.0-37.0); Mean Corpuscular Volume 86.6 fL (81.0-99.0); Platelet Count 132 10^3/uL (130-400); Red Cell Dist. Width 20.1 % (11.5-14.5)
[2025-01-20 07:59] LABS: Blood Urea Nitrogen 26 mg/dl (7-17); Calcium 8.8 mg/dl (8.4-10.2); Carbon Dioxide 25 mmol/L (22-30); Chloride 107 mmol/L (98-107); Estimated Creatinine Clearance 73 ml/min; Glucose 97 mg/dl (70-99); Potassium 3.2 mmol/L (3.5-5.1); Sodium 142 mmol/L (135-145); eGFR > 60.00
[2025-01-20] MEDS: DESENEX/MITRAZOL/ZEASORB 1 APPLIC TOPICAL ×2 (08:01→19:35)
[2025-01-20] MEDS: DELTASONE 10 MG PO (08:08)
[2025-01-20] MEDS: ELIQUIS 5 MG PO ×2 (08:08→19:35)
[2025-01-20] MEDS: PROTONIX 40 MG PO (08:08)
[2025-01-20] MEDS: KCL 20 MEQ PO (08:09)
[2025-01-20] MEDS: NEURONTIN 300 MG PO ×2 (08:09→19:34)
[2025-01-20] MEDS: ASPIR LOW (ENTERIC COATED) 81 MG PO (08:10)
[2025-01-20] MEDS: LASIX 40 MG IV ×2 (08:11→16:27)
[2025-01-20] MEDS: LANTUS 0.03 UNITS SC (08:15)
[2025-01-20 08:16] LABS: Glucose - Point of Care 100 mg/dl (70-99)
[2025-01-20] MEDS: FLUSH (NSS) 1 FLUSH IV (08:16)
[2025-01-20] MEDS: ZETIA 10 MG PO (08:19)
[2025-01-20] MEDS: COREG 6.25 MG PO ×2 (08:19→19:36)
[2025-01-20] MEDS: NAMENDA 10 MG PO ×2 (08:19→19:35)
[2025-01-20 08:25] VITALS: BP 116/66
[2025-01-20] MEDS: KCL 40 MEQ PO (08:33)
--- NOTE | 2025-01-20 10:01 | W.PN.HOSP.TC ---
Today's Communication/Plan
-
continue Lasix,
Pending cardiology consult
Assessment / Plan
Assessment / Plan
Impression:
Patient presented to the ER with bilateral lower extremity swelling left more than right, Lasix increased recently to 40 mg daily, no response
�patient seen and examined at bedside, denies any chest pain or shortness of breath, no abdominal pain, no nausea, no vomiting, no diarrhea or constipation.
Will be admitted under hospitalist service
Assessment/plan:
Acute on Chronic HFpEF
pBNP 1140
weight gain reported
failed out patient 1 week of doubled Lasix
- Admit to telemetry
- Consult Cardiology
- IV Lasix 40mg BID
- daily weights
- I & Os
- continue carvedilol
Peripheral Arterial Disease
s/p Right Popliteal Stent
Permanent Atrial Fibrillation
- continue carvedilol and metoprolol
- continue Eliquis
Essential Hypertension
- continue lisinopril
Hyperlipidemia
- continue ezetimibe
Diabetes Mellitus, Type II
- AccuChecks AC & HS
- SSI
- continue Lantus
CODE STATUS: Full code
DVT prophylaxis: Eliquis
Diet: DM/cardiac diet
family communication: Discussed with at bedside
Disposition: continue Lasix, pending cardiology consult
Total time spent on today's encounter was 65 minutes which included time spent in counseling the patient/family regarding diagnosis and treatment plan as listed above, goals of care, and symptom management. Case was discussed with nursing staff,
specialists, and care coordinators/case management. All labs and imaging personally reviewed by me. Remainder the time spent in detailed review of previous records, lab data, imaging, and other medical provider documentation.
Anticipated Discharge: 24 - 48 hours
Subjective/Interval History
-
Date of Service: January 20, 2025
Patient seen and examined at bedside, denies any chest pain or shortness of breath, no abdominal pain, no nausea, no vomiting, no diarrhea or constipation.
Objective Data
-
Labs:
Laboratory Results
01/20/25
07:07
WBC 4.7 L
Hgb 12.7
Hct 40.1
Plt Count 132
Sodium 142
Potassium 3.2 L
Chloride 107
Carbon Dioxide 25
BUN 26 H
Creatinine 0.6
Glucose 97
Calcium 8.8
Vital Signs:
Vital Signs
Temp Pulse Resp BP Pulse Ox
97.4 F 81 16 116/66 100
01/20/25 08:25 01/20/25 08:25 01/20/25 08:25 01/20/25 08:25 01/20/25 08:25
I&O
01/19/25 01/20/25 01/21/25
06:59 06:59 06:59
Intake Total 480 / 480
Output Total 1700 / 1700
Balance -1220 / -1220
Physical Exam
-
General: Well Developed, Well Nourished, No Apparent Distress and Comfortable
HEENT: Normocephalic, Atraumatic, Moist Mucous Membranes, No Ptosis, PERRLA and Nose Appears Normal
Respiratory: Clear to Auscultation and Non Labored Respirations
Cardiac: Regular Rhythm and S1/S2
Breast: Deferred by me
GI: Soft, Nontender, Nondistended and Normal Bowel Sounds
Genito-urinary: No Costovertebral Tender
Musculoskeletal: No Clubbing, No Cyanosis, Edema, Right Lower Extrem and Edema, Left Lower Extrem
Skin: Warm
Neuro: Awake, Alert, Oriented, AO x 3 and No Motor Deficits
Psych: Calm
Data Reviewed
-
Diagnostic Radiology: Image personally visualized and interpreted and Report Reviewed by me
CT Scan: Image personally visualized and interpreted and Report Reviewed by me
Ultrasound: Image personally visualized and interpreted and Report Reviewed by me
MRI: Image personally visualized and interpreted and Report Reviewed by me
Medical Tests (Nuc Med, Echo etc): Image personally visualized and interpreted and Report Reviewed by me
Labs: Labs Reviewed by me
Old Records: Reviewed
--- NOTE | 2025-01-20 10:11 | WOUNDNOTE ---
BILATERAL LOWER EXTREMITIES
--- NOTE | 2025-01-20 10:12 | WOUNDNOTE ---
LEFT MEDIAL LOWER LEG
--- NOTE | 2025-01-20 10:12 | WOUNDNOTE ---
RIGHT POSTERIOR LOWER LEG
--- NOTE | 2025-01-20 10:13 | WOUNDNOTE ---
SACRUM/COCCYX/BILATERAL BUTTOCKS
--- NOTE | 2025-01-20 10:20 | WOUNDNOTE ---
[facility] RN note: Patient admitted with acute heart failure.
See H&P for complete history.
PMH: Afib, DM2, Polymyositis, breast cancer with lumpectomy, cognitive impairment, venous leg ulcers.
Wound Location and type/assessment: Patient last seen 12/19/24, admitted with chronic FT venous wound to right posterior medial leg, pink mixed with yellow slough. L medial lower leg with venous intact serous blister and erythema surrounding.
Patient follows at [facility], reviewed current treatment. + faint pedal palpable pulses, +1 edema, heels intact. Buttocks with chronic discoloration, slow to aiden. Patient demonstrated ability to stand with minimum assist from [facility] and transfer to
commode. Now back in bed, turns self. Mild MASD in skin folds, miconazole in use.
Appetite: Good
Pressure redistribution devices in place: Accumax, pillow under calves. Encourage turning, leg elevation.
Plan: Local wound care applied to L leg. R leg with order Lexx to start tomorrow with Vashe moistened gauze and dry dressing. Today applied saline moistened gauze, dry gauze and kerlix. KEILA wraps applied knee high for compression. Patient states
at home helps with wound care. Does not like to use compression, difficult to put on. Recommend continue fungal powder to skin folds and Calazime for buttocks. Will confirm orders with hospitalist and updated nurse Alisia. Updated care plan and
will follow as needed.
Note to case management of equipment requested for discharge: no changes.
Recommend follow up at wound care center upon discharge.
--- NOTE | 2025-01-20 10:56 | CON.CAR ---
Addendum entered and electronically signed by Bassam Zelaya MD 01/20/25 14:14:
I saw and examined the patient.
The LABORATORY CHIEF or PA's note was reviewed and I agree with the note.
Comment: General: Well developed, well nourished in NAD.
Neck: Supple, no JVD, HJR, carotids +2 B/L, no bruits bilaterally.
Heart: Non displaced PMI, RRR, no murmurs, No S3, S4, no rubs.
Lungs: Scattered rhonchi
Extremities: Mild lower extremity edema bilaterally.
Neuro: Grossly nonfocal, awake, alert and oriented x3.
Eileen has a history of PAD status post right lower extremity stent 2024, chronic diastolic CHF, permanent A-fib, diabetes, polymyositis. She is admitted with increasing lower extremity edema despite of titration of outpatient diuretics for weight
gain. She had been admitted to [place] in December 2024 for lower extremity cellulitis and hypotension in the setting of outpatient overdiuresis. Diuretics was held initially restarted Lasix 40 mg daily. Discharge weight was 152 pounds and is
currently 158 pounds. Of note Lasix had to be held multiple times as an outpatient due to hypotension with lethargy and lisinopril was stopped due to hypotension and then changed to nighttime dosing and Coreg was decreased as well.
Will treat with Lasix 40 mg IV twice daily. Follow renal function and blood pressure closely. Discussed with patient in detail as well as son at bedside.
Original Note:
Consultation
Consultation Request
Date/Time Consultation Requested: 01/19/2025, 2028
Date/Time Consultation Performed: 01/20/2025, 1050
Requesting Provider: AUGUSTO Molina
Performing Provider: AUGUSTO Claudio for Dr Zelaya
Reason for Consultation: edema
Medical History
-
Chief Complaint: increased LE edema
History of Present Illness:
74-year-old female with past medical history of PAD status post right lower extremity stent 07/2024, heart failure preserved EF, permanent A-fib, diabetes mellitus, polymyocitis presented to ED 01/19/2025 with increasing B/L LE edema despite
uptitration of outpatient diuretics. She was previously admitted to [facility] 12/19/2024 - 12/22/2024 for right lower extremity cellulitis, hypotension in the setting of outpatient overdiuresis, UTI. proBNP at that time was 850. Diuretics held and
initially restarted Lasix 40 mg daily. She had previously been on both Lasix and PRN Metolazone in outpt setting due to increase LE edema. Discharge weight was 152 pounds. Since then she has had close outpatient cardiology follow-up. Lasix was
held multiple times due to intermittent hypotension with associated lethargy. Lisinopril was stopped due to hypotension then changed to nighttime dosing. Coreg was reduced to 6.25 mg bid. Over the past week she complained of increased lower
extremity edema with increase blistering wounds despite increasing Lasix to 40 mg daily in outpatient setting. Presented to ED 01/19/2025, proBNP 1140. Weight up to 170 pounds (on bed scale). Patient admitted and started on Lasix 40 mg IV twice
daily. Cardiology consulted.
Patient denies shortness of breath, PND, orthopnea, chest pain. She is mostly sedentary at the home setting. She wears compression stockings daily. Follow strict low-sodium diet.
ED workup:
BUN/creatinine 28/0.6, K 4.0, NA 140, proBNP 1140, hemoglobin 11.9, WBC 6.3
Troponin 0.038�0.028
Chest x-ray: No acute cardiopulmonary process
EKG: Atrial fibrillation, left bundle branch block
Patient had echo 10/10/2024: EF 50 to 55%, possible mild inferior apical hypokinesis, upper normal RV size and low normal RV function, mild to moderate MR, moderate TR
Patient denies shortness of breath, PND, orthopnea, chest pain, lightheadedness, palpitations, syncope.
Past medical history:
PAD status post right lower extremity stent 08/04/2024 balloon angioplasty and stent placement right [id number] popliteal artery for nonhealing necrotic right posterior calf wound
Heart failure improved EF, EF 30% 2012, Improved to 60 to 65% 2021
Atrial fibrillation, permanent
Diabetes mellitus
Polymyositis on IVIG every 3 weeks
Hyperlipidemia
UTI
Cellulitis
Past Medical History
Past Medical History: Other (As above)
Past Surgical History: Other (Right popliteal stent, hysterectomy, cholecystectomy, right total knee replacement, bilateral meniscus repair, left lumpectomy, carpal tunnel release)
Social History
Tobacco: Non-Smoker
Alcohol: None
Drug: None
Personal:
Living: With Family
Family History
Family History: Reviewed & Not Pertinent
Allergies / Home Medications
Allergy/AdvReac Type Severity Reaction Status Date / Time
codeine Allergy Vomiting Verified 01/19/25 12:15
metformin Allergy effects Verified 01/19/25 12:15
polymositis
Ajuqxkd-HLJ-EfN Reductase Allergy effects Verified 01/19/25 12:15
Inhibitor (Hibtdnn-Hzt-Els polymyositis
Reductase Inhibitor)
�Medication �Instructions �Recorded �Confirmed �Type
carvedilol 12.5 mg tablet 6.25 mg PO BID Blood pressure 05/13/20 01/19/25 History
immune glob,gamma (IgG) 10 50 ml IV UD polymyositis 05/13/20 01/19/25 History
%-gly-IgA over 50 mcg/mL injection
solution (Gammagard Liquid)
lisinopril 10 mg tablet 5 mg PO HS Blood pressure 01/18/22 01/19/25 History
alendronate 70 mg tablet 70 mg PO FR Osteoporosis 01/20/22 01/19/25 History
apixaban 5 mg tablet (Eliquis) 5 mg PO BID Venous thrombosis 30 01/23/22 01/19/25 Rx
days #60 tabs
pantoprazole 40 mg tablet,delayed 40 mg PO DAILY GERD 30 days #30 01/23/22 01/19/25 Rx
release tabs
ezetimibe 10 mg tablet 10 mg PO DAILY High Cholesterol 08/01/24 01/19/25 History
gabapentin 300 mg capsule 300 mg PO BID Neurological 08/01/24 01/19/25 History
Condition
aspirin 81 mg tablet,delayed 81 mg PO DAILY #0 tabs 08/07/24 01/19/25 Rx
release
prednisone 10 mg tablet 10 mg PO DAILY #0 tabs 08/07/24 01/19/25 Rx
cholecalciferol (vitamin D3) 25 100 mcg PO DAILY Supplement 12/18/24 01/19/25 History
mcg (1,000 unit) capsule (Vitamin
D3)
insulin aspart U-100 100 unit/mL 10 sliding scale dose SC AC 12/18/24 01/19/25 History
(3 mL) subcutaneous pen (Novolog Diabetes
FlexPen U-100 Insulin aspart)
insulin glargine 100 unit/mL (3 3 unit SC DAILY Diabetes 12/18/24 01/19/25 History
mL) subcutaneous pen (Lantus
Solostar U-100 Insulin)
potassium chloride 20 mEq 20 meq PO DAILY Electrolyte 12/18/24 01/19/25 History
tablet,extended release Repletion
furosemide 40 mg tablet 40 mg PO DAILY #30 tabs 12/22/24 01/19/25 Rx
memantine 10 mg tablet 10 mg PO BID Neurological Condition 01/19/25 01/19/25 History
Review of Systems
-
History Source: Patient
All other systems: Negative unless noted
Physical Exam
Vital Signs
Temp Pulse Resp BP Pulse Ox
97.4 F 81 16 116/66 100
01/20/25 08:25 01/20/25 08:25 01/20/25 08:25 01/20/25 08:25 01/20/25 08:25
Lab Results
01/20/25 07:07
01/20/25 07:07
Qkj-R-Vecgbpzdezl Pept 1140 pg/ml 01/19/25 12:24
GEN: No distress, awake, Ox3
HEENT: supple, anicteric, mmm
LUNGS: CTA, no wheezes/rales
CV: irreg, irreg, S1/S2, 05/12 syst LSB
ABD: soft, BS+, NT/ND
EXT: Legs wrapped in KEILA dressings, + 2 edema B/L
NEURO: Gross non-focal
SKIN: LE wounds per report, not visualized
Impression / Plan
-
PCP: Cole Suazo
Prim Cards: formerly a pt of Dr. Palmer at [facility], switching to Dr Ortiz but has not been seen by her in office yet
Impression:
LE edema
Hypotension in home setting
PAD status post right popliteal stent
Chronic heart failure improved EF
Permanent atrial fibrillation
Hyperlipidemia
Type 2 diabetes
Polymyositis
Cognitive impairment
Previous cardiovascular testing:
echo 10/10/2024: EF 50 to 55%, possible mild inferior apical hypokinesis, upper normal RV size and low normal RV function, mild to moderate MR, moderate TR
Echo 01/26: EF 60 to 65%, mild to moderate MR, mild TR
Echo 05/2020 EF 50%, mild to moderate MR, mild TR
Echo 06/2012: EF 30%, moderate MR
Right/left heart cath 07/04/2012: RA 18, PA 46/18, PW 22, minimal nonobstructive coronary atherosclerosis moderate MR
Plan:
1. Acute on chronic heart failure improved EF
- Volume overloaded with increased lower extremity edema, weight gain at least 11 pounds since last discharge in Dec 2024 when dry weight was 152 pounds.
-proBNP 1140, previously 850 when dry.
-agree Lasix 40 mg IV BID.
-consider change outpt diuretic to torsemide
-continue outpt lisinopril and carvedilol which have both been down titrated in past month due to hypotension and to allow for advancement of diuretics for lower extremity edema.
-Creatinine stable 0.6
-K3.2 and was repleted with 40 mEq today
-Echo October 2024 EF 50 to 55%
-cont daily wts, I/O
Permanent atrial fibrillation
- Rate controlled on telemetry, A-fib 70s with PVCs, personally reviewed
- Continue oral anticoagulation with Eliquis
- Continue Coreg for rate control
PAD
- Followed by vascular surgery at [place] and is status post right popliteal stenting 07/2024
-On ASA 81 mg daily
Hyperlipidemia
- LDL 67 10/08/2024
- On Zetia
Data Reviewed
-
EKG: Tracing Personally Visualized and interpreted
Labs: Labs Reviewed by me
Old Records: Reviewed
[2025-01-20 11:30] VITALS: BP 125/63
[2025-01-20 11:52] LABS: Glucose - Point of Care 123 mg/dl (70-99)
--- NOTE | 2025-01-20 12:36 | CM ---
Ben manager flight reviewed patient's chart and met with patient and states she lives in a mobile home with a ramp to enter, patient lives with spouse and son, patient is independent with adl's and uses a walker with ambulation, patient has a cane, w/c,
commode, in home, patient does not have visiting nurses, patient goes to [facility] 1-[facility] per month, and has home infusions.
PCP: Cole Suazo
Pharmacy: [facility]
Plan; Home with VN, patient wants to discuss VN with her spouse and will update case supervisor.
[2025-01-20 15:01] VITALS: BP 98/57
[2025-01-20] MEDS: FLUSH (NSS) 2 FLUSH IV (16:28)
[2025-01-20 16:57] LABS: Glucose - Point of Care 189 mg/dl (70-99)
[2025-01-20 19:20] VITALS: BP 121/67
[2025-01-20] MEDS: TYLENOL 650 MG PO (19:36)
[2025-01-20] MEDS: ZESTRIL 5 MG PO (21:24)
[2025-01-20 21:35] LABS: Glucose - Point of Care 254 mg/dl (70-99)
[2025-01-20 23:42] VITALS: BP 127/67
[2025-01-21] VITALS (8 sets, daily range): BP systolic 103–130; BP diastolic 55–80; PULSE 80; O2SAT 95–100; BMI 30.4
--- NOTE | 2025-01-21 02:20 | DOWNTIME ---
There was a [employer] Client V Block Saw Operator Downtime on 01/21/2025 from 0100 to 01/21/2025 at 0215. Downtime documentation of patient's care, including medication administrations, has been reconciled in the electronic record per guidelines. Refer to the
patient's paper chart under the miscellaneous tab to see printed paper medication records and downtime forms.
[2025-01-21 07:19] LABS: Glucose - Point of Care 183 mg/dl (70-99)
[2025-01-21] MEDS: LASIX 40 MG IV ×2 (08:08→17:59)
[2025-01-21] MEDS: FLUSH (NSS) 1 FLUSH IV (08:09)
[2025-01-21] MEDS: KCL 20 MEQ PO (08:10)
[2025-01-21] MEDS: PROTONIX 40 MG PO (08:10)
[2025-01-21] MEDS: NEURONTIN 300 MG PO ×2 (08:10→20:16)
[2025-01-21] MEDS: DELTASONE 10 MG PO (08:10)
[2025-01-21] MEDS: ASPIR LOW (ENTERIC COATED) 81 MG PO (08:10)
[2025-01-21] MEDS: ELIQUIS 5 MG PO ×2 (08:11→20:16)
[2025-01-21] MEDS: COREG 6.25 MG PO ×2 (08:11→20:18)
[2025-01-21] MEDS: LANTUS 0.03 UNITS SC (08:12)
[2025-01-21] MEDS: NAMENDA 10 MG PO ×2 (08:14→20:16)
[2025-01-21] MEDS: ZETIA 10 MG PO (08:14)
[2025-01-21] MEDS: DESENEX/MITRAZOL/ZEASORB 1 APPLIC TOPICAL ×2 (08:23→20:16)
[2025-01-21 08:25] LABS: Hematocrit 36.0 % (37.0-47.0); Hemoglobin 11.7 g/dL (12.0-16.0); Mean Corp Hgb Conc. 32.5 g/dL (33.0-37.0); Mean Corpuscular Volume 87.4 fL (81.0-99.0); Platelet Count 144 10^3/uL (130-400); Red Cell Dist. Width 19.4 % (11.5-14.5)
[2025-01-21 09:02] LABS: Blood Urea Nitrogen 24 mg/dl (7-17); Calcium 8.5 mg/dl (8.4-10.2); Carbon Dioxide 28 mmol/L (22-30); Chloride 104 mmol/L (98-107); Estimated Creatinine Clearance 72 ml/min; Glucose 183 mg/dl (70-99); Magnesium 1.8 mg/dl (1.6-2.3); Potassium 3.6 mmol/L (3.5-5.1); Sodium 137 mmol/L (135-145); eGFR > 60.00
--- NOTE | 2025-01-21 10:17 | CM ---
Per patient and son plan is to return to home and follow up with [facility], patient also has home infusions.
Plan; Home with family.
[2025-01-21 12:38] LABS: Glucose - Point of Care 309 mg/dl (70-99)
--- NOTE | 2025-01-21 12:46 | W.PN.CARDCBS ---
Addendum entered and electronically signed by Bassam Zelaya MD 01/21/25 13:25:
I saw and examined the patient.
The BELTING AND WEBBING INSPECTOR or PA's note was reviewed and I agree with the note.
Comment: General: Well developed, well nourished in NAD.
Neck: Supple, no JVD, HJR, carotids +2 B/L, no bruits bilaterally.
Heart: Non displaced PMI, RRR, no murmurs, No S3, S4, no rubs.
Lungs: Clear to auscultation bilaterally, no wheeze, rhonchi, rubs bilaterally,
normal expiratory phase.
Abdomen: Normal bowel sounds, soft, non-tender, non-distended.
Extremities: Moderate lower extremity edema bilaterally.
Neuro: Grossly nonfocal, awake, alert and oriented x3.
Weight is decreased 3 pounds with IV diuresis but stable blood pressure and renal function. Continue IV diuresis. Discussed with patient and son at bedside
Original Note:
Today's Communication / Plan
-
Ongoing diuresis
Follow BP, Coreg and lisinopril doses decreased as an outpatient due to hypotension recently
Impression / Plan
-
PCP: Cole Suazo
Prim Cards: formerly a pt of Dr. Palmer at [facility], switching to Dr Ortiz but has not been seen by her in office yet
Impression:
Admitted with acute HF and LE edema 01/19/2025
Hypotension in home setting
PAD status post right popliteal stent
Acute on chronic HFpEF
h/o improved cardiomyopathy with EF 30% by echo in 2012 and then improved to greater than 50% by echo since at least 2020
Permanent atrial fibrillation
Hyperlipidemia
Type 2 diabetes
Polymyositis
Cognitive impairment
Minimal nonobstructive CAD by cardiac cath 06/26/2012
Echo 06/2012: EF 30%, moderate MR
Echo 05/2020: EF 50%, mild to moderate MR, mild TR
Echo 01/2022: EF 60 to 65%, mild to moderate MR, mild TR
Echo 10/10/2024: EF 50 to 55%, possible mild inferior apical hypokinesis, upper normal RV size and low normal RV function, mild to moderate MR, moderate TR
Plan:
-Weight is down at least 8 lbs. with Lasix 40 mg IV BID. Patient was taking Lasix 40 mg PO daily prior to admission. There is consideration for changing outpatient diuretic to torsemide, will reassess closer to discharge
-Cre is stable at 0.6 on my review of labs 01/21/25
-EF 50-55% by echo 10/10/24. EF previously as low as 30% in 2012, but has been stable and greater than 50% since at least 2020. No need to repeat echo this admission
-GDMT has been adjusted in the last month due to hypotension to allow for increased diuretic dosing. Follow BP this admission.
-Outpatient dose of Coreg 6.25 mg BID has been continued
-Outpatient dose of lisinopril 5 mg daily has been continued
-Patient with known permanent A-fib and HR controlled with Coreg as noted above.
-Telemetry reviewed by me and patient remains in A-fib with controlled ventricular response
-Outpatient dose of Eliquis 5 mg BID (age 74, Cre 0.6, wt 70.5) has been continued
-LDL 67 and outpatient dose of Zetia 10 mg daily has been continued
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
Subjective
Date of Service: January 21, 2025
She reports her blood sugar is high but that she feels fine
Objective
Labs:
01/21/25 08:00
01/21/25 08:00
Labs
Hgb 11.7 g/dL (12.0-16.0) L 01/21/25 08:00
Hct 36.0 % (37.0-47.0) L 01/21/25 08:00
Plt Count 144 10^3/uL (130-400) 01/21/25 08:00
Sodium 137 mmol/L (135-145) 01/21/25 08:00
Potassium 3.6 mmol/L (3.5-5.1) 01/21/25 08:00
BUN 24 mg/dl (7-17) H 01/21/25 08:00
Creatinine 0.6 mg/dL (0.6-1.0) 01/21/25 08:00
Glucose 183 mg/dl (70-99) H 01/21/25 08:00
Vital Signs and I&O:
Vital Signs
Temp Pulse Resp BP Pulse Ox
98.2 F 79 16 107/55 97
01/21/25 12:20 01/21/25 12:20 01/21/25 12:20 01/21/25 12:20 01/21/25 12:20
Vital Signs
Temp Pulse Resp BP Pulse Ox
98.2 F 79 16 107/55 97
01/21/25 12:20 01/21/25 12:20 01/21/25 12:20 01/21/25 12:20 01/21/25 12:20
Intake & Output
01/19/25 01/20/25 01/21/25 01/22/25
06:59 06:59 06:59 06:59
Intake Total 480 / 480 1200 / 1200
Output Total 1700 / 1700 1795 / 1795
Balance -1220 / -1220 -595 / -595
Physical Exam
Physical Exam
GEN: NAD. AAOx3
LUNGS: RA.
CV: Afib on tele
--- NOTE | 2025-01-21 13:30 | W.PN.HOSP.TC ---
Today's Communication/Plan
-
continue Lasix,
pending ultrasound lower EXTR
Assessment / Plan
Assessment / Plan
Impression:
Patient presented to the ER with bilateral lower extremity swelling left more than right, Lasix increased recently to 40 mg daily, no response
�patient seen and examined at bedside, denies any chest pain or shortness of breath, no abdominal pain, no nausea, no vomiting, no diarrhea or constipation.
Will be admitted under hospitalist service
Patient started on IV Lasix 40 mg twice daily and was seen by cardiology.
Assessment/plan:
Acute CHF Exacerbation (Acute on Chronic HFpEF):
Patient has acute on chronic diastolic congestive heart failure
Patient presented with shortness of breath.
BNP level is elevated at 1140
Continue IV diuresing in form of Lasix 40 mg twice daily
Daily weight.
Strict I's and O's.
Consulted cardiology.
Most recent echo shows :
Normal left ventricular chamber size. Mild concentric left ventricular
hypertrophy. Low normal left ventricular systolic function. Possible mild
inferoapical hypokinesis. LVEF 50 to 55%. Stage I diastolic dysfunction
suggestive of abnormal relaxation.
Upper normal right ventricular size and low normal function.
Indexed LA volume is mildly abnormal (35-41 mL/m2).
Mildly dilated right atrium.
Mild to moderate mitral regurgitation.
Aortic sclerosis without stenosis.
Moderate tricuspid regurgitation. Estimated pulmonary artery pressure of 35
mmHg, assuming a right atrial pressure of 3 mmHg.
Compared to previous echo 01/20/22, there is now possible distal inferoapical
hypokinesis. The right ventricle is now upper normal size.
- continue carvedilol
Bilateral lower extremity ultrasound pending
Peripheral Arterial Disease
s/p Right Popliteal Stent
Permanent Atrial Fibrillation
- continue carvedilol and metoprolol
- continue Eliquis
Essential Hypertension
- continue lisinopril
Hyperlipidemia
- continue ezetimibe
Diabetes Mellitus, Type II
- AccuChecks AC & HS
- SSI
- continue Lantus
Deconditioning and ambulatory dysfunction.
PT/OT consult
CODE STATUS: Full code
DVT prophylaxis: Eliquis
Diet: DM/cardiac diet
family communication: Discussed with at bedside/discussed with son at bedside
Disposition: continue Lasix, pending ultrasound lower EXTR
Total time spent on today's encounter was 65 minutes which included time spent in counseling the patient/family regarding diagnosis and treatment plan as listed above, goals of care, and symptom management. Case was discussed with nursing staff,
specialists, and care coordinators/case management. All labs and imaging personally reviewed by me. Remainder the time spent in detailed review of previous records, lab data, imaging, and other medical provider documentation.
Anticipated Discharge: 24 - 48 hours
Subjective/Interval History
-
Date of Service: January 21, 2025
Patient seen and examined at bedside, son at bedside denies any chest pain , no shortness of breath, no abdominal pain, no nausea, no vomiting, no diarrhea or constipation.
lower extremity edema improved.
Objective Data
-
Labs:
Laboratory Results
01/21/25
08:00
WBC 5.2
Hgb 11.7 L
Hct 36.0 L
Plt Count 144
Sodium 137
Potassium 3.6
Chloride 104
Carbon Dioxide 28
BUN 24 H
Creatinine 0.6
Glucose 183 H
Calcium 8.5
Vital Signs:
Vital Signs
Temp Pulse Resp BP Pulse Ox
98.2 F 79 16 107/55 97
01/21/25 12:20 01/21/25 12:20 01/21/25 12:20 01/21/25 12:20 01/21/25 12:20
I&O
01/20/25 01/21/2501/22/25
06:59 06:59 06:59
Intake Total 480 / 480 1200 / 1200
Output Total 1700 / 1700 1795 / 1795
Balance -1220 / -1220 -595 / -595
Physical Exam
-
General: Well Developed, Well Nourished, No Apparent Distress and Comfortable
HEENT: Normocephalic, Atraumatic, Moist Mucous Membranes, No Ptosis, PERRLA and Nose Appears Normal
Respiratory: Clear to Auscultation and Non Labored Respirations
Cardiac: Regular Rhythm and S1/S2
Breast: Deferred by me
GI: Soft, Nontender, Nondistended and Normal Bowel Sounds
Genito-urinary: No Costovertebral Tender
Musculoskeletal: No Clubbing, No Cyanosis, Edema, Right Lower Extrem and Edema, Left Lower Extrem
Skin: Warm
Neuro: Awake, Alert, Oriented, AO x 3 and No Motor Deficits
Psych: Calm
[2025-01-21 16:54] LABS: Glucose - Point of Care 280 mg/dl (70-99)
[2025-01-21] MEDS: SANTYL OINTMENT 1 APPLIC TOPICAL (17:58)
[2025-01-21] MEDS: NOVOLOG FLEXPEN-LOW RESISTANCE 3 UNITS SC (18:06)
[2025-01-21] MEDS: NOVOLOG FLEXPEN 10 UNITS SC (18:40)
[2025-01-21 21:27] LABS: Glucose - Point of Care 96 mg/dl (70-99)
[2025-01-21] MEDS: ZESTRIL PO (21:30)
[2025-01-22 02:47] VITALS: BP 125/69
[2025-01-22 06:00] VITALS: BMI 30.5
[2025-01-22 07:14] VITALS: BP 106/68
[2025-01-22 08:10] LABS: Glucose - Point of Care 93 mg/dl (70-99)
[2025-01-22 08:52] LABS: Hematocrit 37.5 % (37.0-47.0); Hemoglobin 12.1 g/dL (12.0-16.0); Mean Corp Hgb Conc. 32.3 g/dL (33.0-37.0); Mean Corpuscular Volume 87.2 fL (81.0-99.0); Platelet Count 155 10^3/uL (130-400); Red Cell Dist. Width 19.9 % (11.5-14.5)
[2025-01-22] MEDS: NOVOLOG FLEXPEN 10 UNITS SC (09:01)
[2025-01-22] MEDS: PROTONIX 40 MG PO (09:01)
[2025-01-22] MEDS: NOVOLOG FLEXPEN-LOW RESISTANCE SC ×2 (09:01→13:16)
[2025-01-22] MEDS: KCL 20 MEQ PO ×2 (09:02→17:24)
[2025-01-22] MEDS: DELTASONE 10 MG PO (09:02)
[2025-01-22] MEDS: NEURONTIN 300 MG PO ×2 (09:02→20:01)
[2025-01-22] MEDS: ASPIR LOW (ENTERIC COATED) 81 MG PO (09:02)
[2025-01-22] MEDS: COREG 6.25 MG PO ×2 (09:02→20:01)
[2025-01-22] MEDS: ELIQUIS 5 MG PO ×2 (09:03→20:01)
[2025-01-22] MEDS: SANTYL OINTMENT 1 APPLIC TOPICAL (09:04)
[2025-01-22] MEDS: ZETIA 10 MG PO (09:04)
[2025-01-22] MEDS: NAMENDA 10 MG PO ×2 (09:05→20:01)
[2025-01-22] MEDS: LASIX 40 MG IV ×2 (09:05→17:24)
[2025-01-22] MEDS: LANTUS 0.03 UNITS SC (09:08)
[2025-01-22 09:23] LABS: Blood Urea Nitrogen 29 mg/dl (7-17); Calcium 9.0 mg/dl (8.4-10.2); Carbon Dioxide 26 mmol/L (22-30); Chloride 103 mmol/L (98-107); Estimated Creatinine Clearance 72 ml/min; Glucose 91 mg/dl (70-99); Magnesium 1.7 mg/dl (1.6-2.3); Potassium 3.5 mmol/L (3.5-5.1); Sodium 140 mmol/L (135-145); eGFR > 60.00
[2025-01-22 11:09] VITALS: BP 106/58
[2025-01-22 13:09] LABS: Glucose - Point of Care 83 mg/dl (70-99)
[2025-01-22] MEDS: NOVOLOG FLEXPEN SC (13:15)
[2025-01-22 13:29] LABS: Glycohemoglobin (HgbA1c) 6.1 % (4.0-5.6)
--- NOTE | 2025-01-22 13:29 | W.PN.CARDCBS ---
Addendum entered and electronically signed by Howard Khan DO 01/22/25 16:51:
I saw and examined the patient.
The Leg Assembler's note was reviewed and I agree with the note.
Comment:
Plan:
Cont IV diuresis. Will give patient additional Lasix 20 mg IV with her 40 mg IV p.m. She is close to her dry weight hopeful transition to Lasix 60 mg p.o. daily next 24 hours.
We discussed fluid and sodium restriction
If the patient continues to retain fluid as an outpatient, could consider transition to an alternative diuretic.
Echo with preserved EF no significant change from prior echo.
Discussed with at bedside
Discussed with primary service.
Original Note:
Today's Communication / Plan
-
check echo
replete K
Impression / Plan
-
PCP: Cole Suazo
Prim Cards: formerly a pt of Dr. Palmer at [facility], switching to Dr Ortiz but has not been seen by her in office yet
Impression:
Admitted with acute HF and LE edema 01/19/2025
Hypotension in home setting
PAD status post right popliteal stent
Acute on chronic HFpEF
h/o improved cardiomyopathy with EF 30% by echo in 2012 and then improved to greater than 50% by echo since at least 2020
Permanent atrial fibrillation
Hyperlipidemia
Type 2 diabetes
Polymyositis
Cognitive impairment
Minimal nonobstructive CAD by cardiac cath 06/26/2012
Echo 06/2012: EF 30%, moderate MR
Echo 05/2020: EF 50%, mild to moderate MR, mild TR
Echo 01/2022: EF 60 to 65%, mild to moderate MR, mild TR
Echo 10/10/2024: EF 50 to 55%, possible mild inferior apical hypokinesis, upper normal RV size and low normal RV function, mild to moderate MR, moderate TR
Echo 01/22/2025 pending
Plan:
-Weight up 1lb overnight but down at least 7 lbs with Lasix 40 mg IV BID. Dry wt thought to be 152 lbs, still 4 lbs above that. Patient was taking Lasix 40 mg PO daily prior to admission.
-LE edema has resolved. There is consideration for changing outpatient diuretic to torsemide, will reassess closer to discharge
-LE US negative for DVT
-Cre is stable at 0.6 on my review of labs 01/22/25
-K 3.5 01/22/2025- on KCl 20 meq daily - will give additional 20 meq today in setting of IV diuretics-I ordered
-EF 50-55% by echo 10/10/24. EF previously as low as 30% in 2012, but has been stable and greater than 50% since at least 2020. Given 2 admissions for heart failure since October 2024 and increase lower extremity edema in outpatient setting requiring
up titration of diuretics, will repeat echo- I ordered.
-GDMT has been adjusted in the last month due to hypotension to allow for increased diuretic dosing. Coreg and Lisinopril doses have both been decreased. BPs have been 100-120s/60s this admission. Pt denies dizziness.
-Outpatient dose of Coreg 6.25 mg BID has been continued
-Outpatient dose of lisinopril 5 mg daily has been continued
-Patient with known permanent A-fib and HR controlled with Coreg as noted above.
-Telemetry reviewed by me and patient remains in A-fib with controlled ventricular response in 70s with occ pvcs
-Outpatient dose of Eliquis 5 mg BID (age 74, Cre 0.6, wt 70.5) has been continued
-LDL 67 and outpatient dose of Zetia 10 mg daily has been continued
-
Progress Note - Fire Tender
Subjective
Date of Service: January 22, 2025
-LE edema improved
-no SOB
-no dizziness
Objective
Labs:
01/22/25 08:24
01/22/25 08:24
Labs
Hgb 12.1 g/dL (12.0-16.0) 01/22/25 08:24
Hct 37.5 % (37.0-47.0) 01/22/25 08:24
Plt Count 155 10^3/uL (130-400) 01/22/25 08:24
Sodium 140 mmol/L (135-145) 01/22/25 08:24
Potassium 3.5 mmol/L (3.5-5.1) 01/22/25 08:24
BUN 29 mg/dl (7-17) H 01/22/25 08:24
Creatinine 0.6 mg/dL (0.6-1.0) 01/22/25 08:24
Glucose 91 mg/dl (70-99) 01/22/25 08:24
Vital Signs and I&O:
Vital Signs
Temp Pulse Resp BP Pulse Ox
97.9 F 84 18 106/58 97
01/22/25 11:09 01/22/25 11:09 01/22/25 11:09 01/22/25 11:09 01/22/25 11:09
Vital Signs
Temp Pulse Resp BP Pulse Ox
97.9 F 84 18 106/58 97
01/22/25 11:09 01/22/25 11:09 01/22/25 11:09 01/22/25 11:09 01/22/25 11:09
Intake & Output
01/20/25 01/21/25 01/22/25 01/23/25
06:59 06:59 06:59 06:59
Intake Total 480 / 480 1200 / 1200 960 / 960
Output Total 1700 / 1700 1795 / 1795 1400 / 1400
Balance -1220 / -1220 -595 / -595 -440 / -440
Physical Exam
Physical Exam
GEN: No distress, awake, Ox3
HEENT: supple, anicteric, mmm
LUNGS: CTA, no wheezes/rales
CV: irreg, irreg, S1, S2
ABD: soft, BS+, NT/ND
EXT: No edema
NEURO: Gross non-focal
SKIN: No rash
--- NOTE | 2025-01-22 13:43 | HFEDUCATE ---
74 yo female admitted with HF and LE edema. Past medical history includes hypotension, PAD, A-fib, hyperlipidemia, Type 2 DM, polymyosistis, nonobstructive CAD.Her current echocardiogram shows an ejection fraction of 50-55%. She lives at home with
her spouse and son. her spouse who was at bedside reports doing all the cooking and Pamela does a low sodium diet and a 48oz fluid restriction per day. She has a scale and her makes sure she weighs herself daily.
I provided HF education and discussed the usual lifestyle recommendations. I advised her and her continue her low sodium diet of 2000-3000mg. per day and follow a 500-750mg. per meal restriction. I advised a 48 oz. fluid restriction per day
and discussed ways to achieve the recommendations. I also advised they continue weighing daily and monitoring for any slight weight gain. I reviewed how to monitor for exacerbations. We discussed other alarming symptoms to watch for and when to
notify the provider. We discussed need for medications.
Recommendations:
Continue all HF recommended medications as ordered on discharge.
Limit sodium intake to <500-750 mg. per meal.
Limit fluid intake to <48 oz per day.
Daily weights and contact provider for any weight gain >3lbs in one day or 5lbs in one week.
Follow up with provider as recommended.
--- NOTE | 2025-01-22 13:54 | W.PN.HOSP.TC ---
Today's Communication/Plan
-
continue Lasix, pending echo.
Assessment / Plan
Assessment / Plan
Impression:
Patient presented to the ER with bilateral lower extremity swelling left more than right, Lasix increased recently to 40 mg daily, no response
�patient seen and examined at bedside, denies any chest pain or shortness of breath, no abdominal pain, no nausea, no vomiting, no diarrhea or constipation.
Will be admitted under hospitalist service
Patient started on IV Lasix 40 mg twice daily and was seen by cardiology.
For lower extremity edema improved
Repeat echocardiogram
Assessment/plan:
Acute CHF Exacerbation (Acute on Chronic HFpEF):
Patient has acute on chronic diastolic congestive heart failure
Patient presented with shortness of breath.
BNP level is elevated at 1140
Continue IV diuresing in form of Lasix 40 mg twice daily
Daily weight.
Strict I's and O's.
Consulted cardiology.
Most recent echo shows :
Normal left ventricular chamber size. Mild concentric left ventricular
hypertrophy. Low normal left ventricular systolic function. Possible mild
inferoapical hypokinesis. LVEF 50 to 55%. Stage I diastolic dysfunction
suggestive of abnormal relaxation.
Upper normal right ventricular size and low normal function.
Indexed LA volume is mildly abnormal (35-41 mL/m2).
Mildly dilated right atrium.
Mild to moderate mitral regurgitation.
Aortic sclerosis without stenosis.
Moderate tricuspid regurgitation. Estimated pulmonary artery pressure of 35
mmHg, assuming a right atrial pressure of 3 mmHg.
Compared to previous echo 01/20/22, there is now possible distal inferoapical
hypokinesis. The right ventricle is now upper normal size.
- continue carvedilol
Bilateral lower extremity ultrasound negative for DVT.
Echocardiogram pending.
Peripheral Arterial Disease
s/p Right Popliteal Stent
Permanent Atrial Fibrillation
- continue carvedilol and metoprolol
- continue Eliquis
Essential Hypertension
- continue lisinopril
Hyperlipidemia
- continue ezetimibe
Diabetes Mellitus, Type II
- AccuChecks AC & HS
- SSI
- continue Lantus, patient on NovoLog Premeal 10 units but blood sugar dropped, changed to 5 units AC.
Deconditioning and ambulatory dysfunction.
PT/OT consult
CODE STATUS: Full code
DVT prophylaxis: Eliquis
Diet: DM/cardiac diet
family communication: Discussed with at bedside/discussed with son at bedside
Disposition: continue Lasix, pending echo.
Total time spent on today's encounter was 65 minutes which included time spent in counseling the patient/family regarding diagnosis and treatment plan as listed above, goals of care, and symptom management. Case was discussed with nursing staff,
specialists, and care coordinators/case management. All labs and imaging personally reviewed by me. Remainder the time spent in detailed review of previous records, lab data, imaging, and other medical provider documentation.
Anticipated Discharge: Within 24 hours
Subjective/Interval History
-
Date of Service: January 22, 2025
Patient seen and examined at bedside, son at bedside denies any chest pain , no shortness of breath, no abdominal pain, no nausea, no vomiting, no diarrhea or constipation.
lower extremity edema improved
Echo pending.
Objective Data
-
Labs:
Laboratory Results
01/22/25
08:24
WBC 5.4
Hgb 12.1
Hct 37.5
Plt Count 155
Sodium 140
Potassium 3.5
Chloride 103
Carbon Dioxide 26
BUN 29 H
Creatinine 0.6
Glucose 91
Calcium 9.0
Vital Signs:
Vital Signs
Temp Pulse Resp BP Pulse Ox
97.9 F 84 18 106/58 97
01/22/25 11:09 01/22/25 11:09 01/22/25 11:09 01/22/25 11:09 01/22/25 11:09
I&O
01/21/25 01/22/25 01/23/25
06:59 06:59 06:59
Intake Total 1200 / 1200 960 / 960
Output Total 1795 / 1795 1400 / 1400
Balance -595 / -595 -440 / -440
Physical Exam
-
General: Well Developed, Well Nourished, No Apparent Distress and Comfortable
HEENT: Normocephalic, Atraumatic, Moist Mucous Membranes, No Ptosis, PERRLA and Nose Appears Normal
Respiratory: Clear to Auscultation and Non Labored Respirations
Cardiac: Regular Rhythm and S1/S2
Breast: Deferred by me
GI: Soft, Nontender, Nondistended and Normal Bowel Sounds
Genito-urinary: No Costovertebral Tender
Musculoskeletal: No Clubbing, No Cyanosis, Edema, Right Lower Extrem and Edema, Left Lower Extrem
Skin: Warm
Neuro: Awake, Alert, Oriented, AO x 3 and No Motor Deficits
Psych: Calm
--- NOTE | 2025-01-22 14:57 | W.DCSUMMARY ---
Discharge Summary
Discharge Data
Date of Admission: 01/19/25
Date of Discharge: 01/22/25
Total time spent discharging patient (in min): 40
-
Pending Results: No
Hospital Course
Hospital course
Patient presented to the ER with bilateral lower extremity swelling left more than right, Lasix increased recently to 40 mg daily, no response
�patient seen and examined at bedside, denies any chest pain or shortness of breath, no abdominal pain, no nausea, no vomiting, no diarrhea or constipation.
Will be admitted under hospitalist service
Patient started on IV Lasix 40 mg twice daily and was seen by cardiology.
For lower extremity edema improved
Repeat echocardiogram shows:
1. Limited follow-up study to evaluate left ventricular function.
2. Normal left ventricular chamber size with low normal left ventricular systolic function, ejection fraction 50% with hypokinesis of the apical inferior wall.
3. A full study echo from October 2024 showed similar LV findings.
During hospitalization patient was treated from the following
Acute CHF Exacerbation (Acute on Chronic HFpEF):
Patient has acute on chronic diastolic congestive heart failure
Patient presented with shortness of breath.
BNP level is elevated at 1140
Continue IV diuresing in form of Lasix 40 mg twice daily
Daily weight.
Strict I's and O's.
Consulted cardiology.
Most recent echo shows :
Normal left ventricular chamber size. Mild concentric left ventricular
hypertrophy. Low normal left ventricular systolic function. Possible mild
inferoapical hypokinesis. LVEF 50 to 55%. Stage I diastolic dysfunction
suggestive of abnormal relaxation.
Upper normal right ventricular size and low normal function.
Indexed LA volume is mildly abnormal (35-41 mL/m2).
Mildly dilated right atrium.
Mild to moderate mitral regurgitation.
Aortic sclerosis without stenosis.
Moderate tricuspid regurgitation. Estimated pulmonary artery pressure of 35
mmHg, assuming a right atrial pressure of 3 mmHg.
Compared to previous echo 01/20/22, there is now possible distal inferoapical
hypokinesis. The right ventricle is now upper normal size.
- continue carvedilol
Bilateral lower extremity ultrasound negative for DVT.
Echocardiogram shows:
Repeat echocardiogram shows:
1. Limited follow-up study to evaluate left ventricular function.
2. Normal left ventricular chamber size with low normal left ventricular systolic function, ejection fraction 50% with hypokinesis of the apical inferior wall.
3. A full study echo from October 2024 showed similar LV findings.
Peripheral Arterial Disease
s/p Right Popliteal Stent
Permanent Atrial Fibrillation
- continue carvedilol and metoprolol
- continue Eliquis
Essential Hypertension
- continue lisinopril
Hyperlipidemia
- continue ezetimibe
Diabetes Mellitus, Type II
- AccuChecks AC & HS
- SSI
- continue Lantus, patient on NovoLog Premeal 10 units but blood sugar dropped, changed to 5 units AC.
Deconditioning and ambulatory dysfunction.
PT/OT consult
CODE STATUS: Full code
DVT prophylaxis: Eliquis
Diet: DM/cardiac diet
family communication: Discussed with at bedside/discussed with son at bedside
Disposition: Dc Home.
Total time spent on today's encounter was 40 minutes which included time spent in counseling the patient/family regarding diagnosis and treatment plan as listed above, goals of care, and symptom management. Case was discussed with nursing staff,
specialists, and care coordinators/case management. All labs and imaging personally reviewed by me. Remainder the time spent in detailed review of previous records, lab data, imaging, and other medical provider documentation.
Anticipated Discharge: Today
Discharge Plan
-
Patient Disposition: Home with Home Care
Discharge Diagnosis/Procedures: Acute CHF Exacerbation (Acute on Chronic HFpEF)
Peripheral Arterial Disease
Permanent Atrial Fibrillation
Diet: Low Cholesterol, Low Sodium and Diabetic, Carb Controlled
Activity: With assistance and As tolerated
Other Services: PT and OT
Activity Restrictions/Additional Instructions:
Wound Care Instructions
R leg: rinse with saline, Santyl to slough, cover with Vashe moistened gauze and dry dressing change daily and prn drainage.
L leg: clean with saline or vashe, adaptic and dry dressing change q other day and prn drainage.
buttocks: barrier cream daily and prn soilage
lesly wraps to legs knee high daily can remove at bedtime
leg elevation when sitting
increase protein in diet.
Follow up at wound care center call for an appointment.
Referrals:
Cole Suazo MD [Family Provider, Family Practice]
Ze Jose DO [Active, Cardiology] - in two to four weeks
Prescriptions:
Continued
Gammagard Liquid 10 GRAM/100 ML solution
50 ml IV UD
Rx Instructions:
take two days out of the month
carvedilol 12.5 MG tablet
6.25 mg PO BID
lisinopril 10 mg Tablet
5 mg PO HS
alendronate 70 mg tablet
70 mg PO FR
pantoprazole 40 mg Tablet,Delayed Release (Dr/Ec)
40 mg PO DAILY 30 Days Qty: 30 2RF
Eliquis 5 mg tablet
5 mg PO BID 30 Days Qty: 60 0RF
gabapentin 300 mg Capsule
300 mg PO BID
ezetimibe 10 mg Tablet
10 mg PO DAILY
prednisone 10 mg Tablet
10 mg PO DAILY Qty: 0 0RF
aspirin 81 mg Tablet,Delayed Release (Dr/Ec)
81 mg PO DAILY Qty: 0 0RF
cholecalciferol (vitamin D3) [Vitamin D3] 25 mcg (1,000 unit) Capsule
100 mcg PO DAILY
insulin glargine [Lantus Solostar U-100 Insulin] 100 unit/mL (3 mL) Insulin Pen
3 unit SC DAILY
potassium chloride 20 mEq Tablet Extended Release
20 meq PO DAILY
memantine 10 mg tablet
10 mg PO BID
Changed
furosemide 40 mg Tablet
60 mg PO DAILY Qty: 30 0RF
insulin aspart U-100 [Novolog FlexPen U-100 Insulin] 100 unit/mL (3 mL) Insulin Pen
5 sliding scale dose SC AC Qty: 0 0RF
Discharge Orders:
Discharge Patient (As Directed); Ordered 01/22/25
Ordered By: Eric Berg
Discharge Date and Time
Print Language: TAJIK
--- NOTE | 2025-01-22 15:20 | CM ---
Patient is for discharge to home with spouse and son when stable, patient is agreeable to visiting nurses, options were reviewed and patient has selected [facility], referral sent to [facility].
Plan; Home with [facility].
[2025-01-22 15:24] VITALS: BP 105/59
[2025-01-22 17:07] LABS: Glucose - Point of Care 165 mg/dl (70-99)
[2025-01-22] MEDS: DESENEX/MITRAZOL/ZEASORB TOPICAL (17:24)
[2025-01-22] MEDS: NOVOLOG FLEXPEN 5 UNITS SC (17:26)
[2025-01-22] MEDS: LASIX 20 MG IV (17:27)
[2025-01-22] MEDS: NOVOLOG FLEXPEN-LOW RESISTANCE 1 UNITS SC (17:27)
[2025-01-22 19:00] VITALS: BP 123/61
[2025-01-22] MEDS: DESENEX/MITRAZOL/ZEASORB 1 APPLIC TOPICAL (20:01)
[2025-01-22 21:13] LABS: Glucose - Point of Care 174 mg/dl (70-99)
[2025-01-22] MEDS: ZESTRIL 5 MG PO (21:46)
[2025-01-22 22:30] VITALS: BP 123/61
[2025-01-23 03:00] VITALS: BP 113/65
[2025-01-23 06:00] VITALS: BMI 29.4
[2025-01-23 07:19] LABS: Hematocrit 34.7 % (37.0-47.0); Hemoglobin 11.2 g/dL (12.0-16.0); Mean Corp Hgb Conc. 32.3 g/dL (33.0-37.0); Mean Corpuscular Volume 87.6 fL (81.0-99.0); Platelet Count 154 10^3/uL (130-400); Red Cell Dist. Width 19.6 % (11.5-14.5)
[2025-01-23 07:36] VITALS: BP 102/59
[2025-01-23 07:56] LABS: Blood Urea Nitrogen 35 mg/dl (7-17); Calcium 9.2 mg/dl (8.4-10.2); Carbon Dioxide 27 mmol/L (22-30); Chloride 106 mmol/L (98-107); Estimated Creatinine Clearance 61 ml/min; Glucose 116 mg/dl (70-99); Magnesium 1.9 mg/dl (1.6-2.3); Potassium 3.2 mmol/L (3.5-5.1); Sodium 139 mmol/L (135-145); eGFR > 60.00
[2025-01-23 08:21] LABS: Glucose - Point of Care 116 mg/dl (70-99)
[2025-01-23] MEDS: NEURONTIN 300 MG PO (08:30)
[2025-01-23] MEDS: LASIX 40 MG IV (08:30)
[2025-01-23] MEDS: KCL 20 MEQ PO (08:30)
[2025-01-23] MEDS: SANTYL OINTMENT 1 APPLIC TOPICAL (08:30)
[2025-01-23] MEDS: COREG 6.25 MG PO (08:30)
[2025-01-23] MEDS: ELIQUIS 5 MG PO (08:30)
[2025-01-23] MEDS: PROTONIX 40 MG PO (08:33)
[2025-01-23] MEDS: ASPIR LOW (ENTERIC COATED) 81 MG PO (08:33)
[2025-01-23] MEDS: ZETIA 10 MG PO (08:33)
[2025-01-23] MEDS: KCL 40 MEQ PO (08:33)
[2025-01-23] MEDS: NAMENDA 10 MG PO (08:33)
[2025-01-23] MEDS: DELTASONE 10 MG PO (08:33)
[2025-01-23] MEDS: LANTUS 0.03 UNITS SC (08:36)
[2025-01-23] MEDS: NOVOLOG FLEXPEN-LOW RESISTANCE SC ×2 (08:36→12:02)
[2025-01-23] MEDS: NOVOLOG FLEXPEN 5 UNITS SC ×2 (08:37→12:03)
[2025-01-23] MEDS: DESENEX/MITRAZOL/ZEASORB 1 APPLIC TOPICAL (08:47)
--- NOTE | 2025-01-23 09:54 | W.PN.CARDCBS ---
Addendum entered and electronically signed by Melissa Ortiz DO 01/23/25 19:23:
I saw and examined the patient.
The Roading Engineer's note was reviewed and I agree with the note.
Comment: Patient was seen and examined with at bedside. We reviewed hospitalization, heart failure diet/fluid restriction and outpatient medications. Outpatient cardiac follow-up also reviewed. Patient also has follow-up in the wound
care center with Dr. Lainez. All questions were answered. Stable for discharge home
GEN: No distress, awake, Ox3
HEENT: supple, anicteric, mmm
LUNGS: CTA, no wheezes/rales
CV: Irregular irregular
ABD: soft, BS+, NT/ND
EXT: No edema
NEURO: Gross non-focal
SKIN: Lower extremity wounds with dressings
Original Note:
Today's Communication / Plan
-
Now below dry weight. Stable for D/C from cardiac standpoint. Will plan to increase outpatient Lasix from 40 mg daily to 60 mg daily and increase potassium to 20 mEq twice daily. Check BMP in 1 week
-start Farxiga
Impression / Plan
-
PCP: Cole Suazo
Prim Cards: formerly a pt of Dr. Palmer at [facility], switching to Dr Ortiz but has not been seen by her in office yet
Impression:
Admitted with acute HF and LE edema 01/19/2025
Hypotension in home setting
PAD status post right popliteal stent
Acute on chronic HFpEF
h/o improved cardiomyopathy with EF 30% by echo in 2012 and then improved to greater than 50% by echo since at least 2020
Permanent atrial fibrillation
Hyperlipidemia
Type 2 diabetes
Polymyositis
Cognitive impairment
Minimal nonobstructive CAD by cardiac cath 06/26/2012
Echo 06/2012: EF 30%, moderate MR
Echo 05/2020: EF 50%, mild to moderate MR, mild TR
Echo 01/2022: EF 60 to 65%, mild to moderate MR, mild TR
Echo 10/10/2024: EF 50 to 55%, possible mild inferior apical hypokinesis, upper normal RV size and low normal RV function, mild to moderate MR, moderate TR
Echo 01/22/2025: Limited study: EF 50%, mild hypokinesis of apical inferior segment, RV size and function are within normal limits
Plan:
-Weight down 6 lbs overnight to 150 lbs but down at least 13 lbs with Lasix 40 mg IV BID and extra Lasix 20 mg IV 01/22/2025. Dry wt thought to be 152 lbs. Patient was taking Lasix 40 mg PO daily prior to admission. Will increase to Lasix 60 mg
daily.
-LE edema has resolved.
-LE US negative for DVT
-Cre is stable at 0.7 on my review of labs 01/23/25
-K 3.2 01/23/2025- on KCl 20 meq daily- need to increase this to BID in outpt setting. Pt already rec'd extra 40 meq today. Repeat BMP 1 week after discharge
-increase outpt Lasix from 40 mg daily to 60 mg daily
-Echo repeated 01/22/2025 and was stable, EF 50%. EF previously as low as 30% in 2012, but has been stable and greater than 50% since at least 2020. Given 2 admissions for heart failure since October 2024 and increase lower extremity edema in
outpatient setting requiring up titration of diuretics, we repeated echo this admission, as above
-GDMT has been adjusted in the last month due to hypotension to allow for increased diuretic dosing. Coreg and Lisinopril doses have both been decreased. BPs have been 100-120s/60s this admission. Pt denies dizziness.
-Outpatient dose of Coreg 6.25 mg BID has been continued
-Outpatient dose of lisinopril 5 mg daily has been continued
-start Farxiga 10 mg daily
-pt previously intolerant to spironolactone when she was admitted to in October 2024 due to hypotension
-Patient with known permanent A-fib and HR controlled with Coreg as noted above.
-Telemetry reviewed by me and patient remains in A-fib with controlled ventricular response in 70s with occ pvcs
-Outpatient dose of Eliquis 5 mg BID (age 74, Cre 0.7, wt 70.5) has been continued
-LDL 67 and outpatient dose of Zetia 10 mg daily has been continued
-Okay for discharge from cardiac standpoint with close outpatient follow-up. She is being discharged with [facility]. She has appointment in cardiology office on 02/09/2025 with me, and has apptmt with Dr Ortiz as new pt (transfer care from
[facility]) in Mar 2025.
Progress Note - Media Buyer
Subjective
Date of Service: January 23, 2025
Weight down 6 pounds overnight and now below dry weight (152 pounds)
- Denies shortness of breath, edema. Denies lightheadedness, dizziness
Objective
Labs:
01/23/25 06:53
01/23/25 06:53
Labs
Hgb 11.2 g/dL (12.0-16.0) L 01/23/25 06:53
Hct 34.7 % (37.0-47.0) L 01/23/25 06:53
Plt Count 154 10^3/uL (130-400) 01/23/25 06:53
Sodium 139 mmol/L (135-145) 01/23/25 06:53
Potassium 3.2 mmol/L (3.5-5.1) L 01/23/25 06:53
BUN 35 mg/dl (7-17) H 01/23/25 06:53
Creatinine 0.7 mg/dL (0.6-1.0) 01/23/25 06:53
Glucose 116 mg/dl (70-99) H 01/23/25 06:53
Vital Signs and I&O:
Vital Signs
Temp Pulse Resp BP Pulse Ox
97.5 F 85 16 102/59 99
01/23/25 07:36 01/23/25 07:36 01/23/25 07:36 01/23/25 07:36 01/23/25 07:36
Vital Signs
Temp Pulse Resp BP Pulse Ox
97.5 F 85 16 102/59 99
01/23/25 07:36 01/23/25 07:36 01/23/25 07:36 01/23/25 07:36 01/23/25 07:36
Intake & Output
01/21/25 01/22/25 01/23/25 01/24/25
06:59 06:59 06:59 06:59
Intake Total 1200 / 1200 960 / 960 480 / 480
Output Total 1795 / 1795 1400 / 1400 350 / 350
Balance -595 / -595 -440 / -440 130 / 130
Physical Exam
Physical Exam
GEN: No distress, awake, Ox3
HEENT: supple, anicteric, mmm
LUNGS: CTA, no wheezes/rales
CV: Irregular irregular
ABD: soft, BS+, NT/ND
EXT: No edema
NEURO: Gross non-focal
SKIN: Lower extremity wounds with dressings
[2025-01-23 11:06] VITALS: BP 90/50
[2025-01-23 11:15] VITALS: BP 92/52
--- NOTE | 2025-01-23 11:34 | W.DCSUMMARY ---
Discharge Summary
Discharge Data
Date of Admission: 01/19/25
Date of Discharge: 01/23/25
Total time spent discharging patient (in min): 40
-
Pending Results: No
Hospital Course
Hospital course
Patient presented to the ER with bilateral lower extremity swelling left more than right, Lasix increased recently to 40 mg daily, no response
�patient seen and examined at bedside, denies any chest pain or shortness of breath, no abdominal pain, no nausea, no vomiting, no diarrhea or constipation.
Will be admitted under hospitalist service
Patient started on IV Lasix 40 mg twice daily and was seen by cardiology.
For lower extremity edema improved
Repeat echocardiogram shows:
1. Limited follow-up study to evaluate left ventricular function.
2. Normal left ventricular chamber size with low normal left ventricular systolic function, ejection fraction 50% with hypokinesis of the apical inferior wall.
3. A full study echo from October 2024 showed similar LV findings.
Cardiology recommending to be discharged on 60 mg daily of Lasix.
During hospitalization patient was treated from the following
Acute CHF Exacerbation (Acute on Chronic HFpEF):
Patient has acute on chronic diastolic congestive heart failure
Patient presented with shortness of breath.
BNP level is elevated at 1140
Continue IV diuresing in form of Lasix 40 mg twice daily
Daily weight.
Strict I's and O's.
Consulted cardiology.
Most recent echo shows :
Normal left ventricular chamber size. Mild concentric left ventricular
hypertrophy. Low normal left ventricular systolic function. Possible mild
inferoapical hypokinesis. LVEF 50 to 55%. Stage I diastolic dysfunction
suggestive of abnormal relaxation.
Upper normal right ventricular size and low normal function.
Indexed LA volume is mildly abnormal (35-41 mL/m2).
Mildly dilated right atrium.
Mild to moderate mitral regurgitation.
Aortic sclerosis without stenosis.
Moderate tricuspid regurgitation. Estimated pulmonary artery pressure of 35
mmHg, assuming a right atrial pressure of 3 mmHg.
Compared to previous echo 01/20/22, there is now possible distal inferoapical
hypokinesis. The right ventricle is now upper normal size.
- continue carvedilol
Bilateral lower extremity ultrasound negative for DVT.
Echocardiogram shows:
Repeat echocardiogram shows:
1. Limited follow-up study to evaluate left ventricular function.
2. Normal left ventricular chamber size with low normal left ventricular systolic function, ejection fraction 50% with hypokinesis of the apical inferior wall.
3. A full study echo from October 2024 showed similar LV findings.
Discharged with Lasix 60 mg daily
Peripheral Arterial Disease
s/p Right Popliteal Stent
Permanent Atrial Fibrillation
- continue carvedilol and metoprolol
- continue Eliquis
Essential Hypertension
- continue lisinopril
Hyperlipidemia
- continue ezetimibe
Diabetes Mellitus, Type II
- AccuChecks AC & HS
- SSI
- continue Lantus, patient on NovoLog Premeal 10 units but blood sugar dropped, changed to 5 units AC.
Deconditioning and ambulatory dysfunction.
PT/OT consult
CODE STATUS: Full code
DVT prophylaxis: Eliquis
Diet: DM/cardiac diet
family communication: Discussed with at bedside/discussed with son at bedside
Disposition: Dc Home.
Total time spent on today's encounter was 40 minutes which included time spent in counseling the patient/family regarding diagnosis and treatment plan as listed above, goals of care, and symptom management. Case was discussed with nursing staff,
specialists, and care coordinators/case management. All labs and imaging personally reviewed by me. Remainder the time spent in detailed review of previous records, lab data, imaging, and other medical provider documentation.
Anticipated Discharge: Today
Discharge Plan
-
Patient Disposition: Home with Home Care
Discharge Diagnosis/Procedures: Acute CHF Exacerbation (Acute on Chronic HFpEF)
Peripheral Arterial Disease
Permanent Atrial Fibrillation
Diet: Low Cholesterol, Low Sodium and Diabetic, Carb Controlled
Activity: With assistance and As tolerated
Other Services: PT and OT
Activity Restrictions/Additional Instructions:
Wound Care Instructions
R leg: rinse with saline, Santyl to slough, cover with Vashe moistened gauze and dry dressing change daily and prn drainage.
L leg: clean with saline or vashe, adaptic and dry dressing change q other day and prn drainage.
buttocks: barrier cream daily and prn soilage
lesly wraps to legs knee high daily can remove at bedtime
leg elevation when sitting
increase protein in diet.
Follow up at wound care center call for an appointment.
Referrals:
Cole Suazo MD [Family Provider, Family Practice]
Melissa Ortiz DO [Active, Cardiology] - 03/16/25 2:00 pm
Referral Note: You have an appointment with Dr Ortiz at the [place] office. Call if questions.
Jada Acosta CRNP [Specified Professional Personl, Cardiology] - 02/09/25 3:40 pm
Referral Note: You have an appointment with Dr Ortiz's nurse practitioner, Jada Acosta, at the [place] office.
Prescriptions:
Continued
Gammagard Liquid 10 GRAM/100 ML solution
50 ml IV UD
Rx Instructions:
take two days out of the month
carvedilol 12.5 MG tablet
6.25 mg PO BID
lisinopril 10 mg Tablet
5 mg PO HS
alendronate 70 mg tablet
70 mg PO FR
pantoprazole 40 mg Tablet,Delayed Release (Dr/Ec)
40 mg PO DAILY 30 Days Qty: 30 2RF
Eliquis 5 mg tablet
5 mg PO BID 30 Days Qty: 60 0RF
gabapentin 300 mg Capsule
300 mg PO BID
ezetimibe 10 mg Tablet
10 mg PO DAILY
prednisone 10 mg Tablet
10 mg PO DAILY Qty: 0 0RF
aspirin 81 mg Tablet,Delayed Release (Dr/Ec)
81 mg PO DAILY Qty: 0 0RF
cholecalciferol (vitamin D3) [Vitamin D3] 25 mcg (1,000 unit) Capsule
100 mcg PO DAILY
insulin glargine [Lantus Solostar U-100 Insulin] 100 unit/mL (3 mL) Insulin Pen
3 unit SC DAILY
potassium chloride 20 mEq Tablet Extended Release
20 meq PO DAILY
memantine 10 mg tablet
10 mg PO BID
Changed
furosemide 40 mg Tablet
60 mg PO DAILY Qty: 30 0RF
insulin aspart U-100 [Novolog FlexPen U-100 Insulin] 100 unit/mL (3 mL) Insulin Pen
5 sliding scale dose SC AC Qty: 0 0RF
Discharge Orders:
Discharge Patient (As Directed); Ordered 01/23/25
Ordered By: Eric Berg
Discharge Date and Time
Print Language: PANAMANIAN
--- NOTE | 2025-01-23 11:39 | CM ---
Home with spouse, son and [facility].
Plan; Home with [facility]
[2025-01-23 11:41] LABS: Glucose - Point of Care 129 mg/dl (70-99)
[2025-01-23] MEDS: FARXIGA 10 MG PO (12:43)
== END 2025-01-23 13:47 | disposition home health service (06) | DRG 291 ==
LOC: 4 WEST ACU 18:45
PROVIDERS: Emergency Medicine; Nurse Practitioner Family; ADMITTING PHYSICIAN General Practice; EMERGENCY PHYSICIAN Emergency Medicine; FAMILY PHYSICIAN Family Medicine; OTHER PHYSICIAN Internal Medicine Cardiovascular Disease
DX: I11.0 Hypertensive heart disease with heart failure (principal); I50.33 Acute on chronic diastolic (congestive) heart failure; I48.21 Permanent atrial fibrillation; M33.20 Polymyositis, organ involvement unspecified; E11.51 Type 2 diabetes mellitus with diabetic peripheral angiopathy without gangrene; Z79.899 Other long term (current) drug therapy; Z79.01 Long term (current) use of anticoagulants; Z79.4 Long term (current) use of insulin; Z85.3 Personal history of malignant neoplasm of breast; Z90.12 Acquired absence of left breast and nipple; Z88.5 Allergy status to narcotic agent; Z88.8 Allergy status to other drugs, medicaments and biological substances; Z79.82 Long term (current) use of aspirin; M81.0 Age-related osteoporosis without current pathological fracture; K21.9 Gastro-esophageal reflux disease without esophagitis; E78.00 Pure hypercholesterolemia, unspecified; I49.3 Ventricular premature depolarization; J45.909 Unspecified asthma, uncomplicated; Z79.83 Long term (current) use of bisphosphonates; Z90.710 Acquired absence of both cervix and uterus
CPT/HCPCS: 71046; 80048; 80053; 82962; 83036; 83735; 83880; 85025; 85027; 93308; 93321; 93325; 93970; 97116; 97162; 97166; 99285

== ENCOUNTER → 2025-01-30 09:46 | Outpatient (REF) | payer MEDICARE, SELFPAY | LOC: WOUND 09:46 | PROVIDERS: ATTENDING PHYSICIAN Surgery; FAMILY PHYSICIAN Family Medicine | DX: L97.212 Non-pressure chronic ulcer of right calf with fat layer exposed (principal); L97.322 Non-pressure chronic ulcer of left ankle with fat layer exposed; I73.9 Peripheral vascular disease, unspecified; I87.2 Venous insufficiency (chronic) (peripheral); L88 Pyoderma gangrenosum; I50.43 Acute on chronic combined systolic (congestive) and diastolic (congestive) heart failure; M33.20 Polymyositis, organ involvement unspecified; E11.65 Type 2 diabetes mellitus with hyperglycemia; Z79.4 Long term (current) use of insulin; I77.6 Arteritis, unspecified | CPT/HCPCS: 99213 ==

== ENCOUNTER → 2025-02-13 10:22 | Outpatient (REF) | payer MEDICARE, SELFPAY | LOC: WOUND 10:22 | PROVIDERS: ATTENDING PHYSICIAN Surgery; FAMILY PHYSICIAN Family Medicine | DX: L97.212 Non-pressure chronic ulcer of right calf with fat layer exposed (principal); L97.322 Non-pressure chronic ulcer of left ankle with fat layer exposed; I73.9 Peripheral vascular disease, unspecified; I87.2 Venous insufficiency (chronic) (peripheral); L88 Pyoderma gangrenosum; I50.43 Acute on chronic combined systolic (congestive) and diastolic (congestive) heart failure; M33.20 Polymyositis, organ involvement unspecified; E11.65 Type 2 diabetes mellitus with hyperglycemia; Z79.4 Long term (current) use of insulin; I77.6 Arteritis, unspecified | CPT/HCPCS: 99213 ==

== ENCOUNTER 2025-02-24 13:40 | Inpatient (IN) | payer MEDICARE, SELFPAY ==
[2025-02-22 09:27] VITALS: BP 158/92
[2025-02-22] MEDS: NORCO 5/325 1 TABLET PO (10:14)
[2025-02-22 13:14] LABS: Hematocrit 35.8 % (37.0-47.0); Hemoglobin 11.8 g/dL (12.0-16.0); Mean Corp Hgb Conc. 33.0 g/dL (33.0-37.0); Mean Corpuscular Volume 90.4 fL (81.0-99.0); Nucleated Red Blood Cells % 0 %; Platelet Count 146 10^3/uL (130-400); Red Cell Dist. Width 21.0 % (11.5-14.5)
--- NOTE | 2025-02-22 13:17 | ED.GENMED ---
History of Present Illness
General
Chief Complaint: Back Pain
Source: patient and spouse
Time Seen by Provider: 02/22/25 09:42
History of Present Illness
History of Present Illness:
Note:
CHIEF COMPLAINT(S)
Severe back pain and difficulty with mobility.
HISTORY OF PRESENT ILLNESS
The patient is a 74-year-old female with a significant history of back issues, including disc problems and a previous compression fracture, experiencing a recent exacerbation of back pain. This episode began a few days ago when she awoke with acute
worsening of her back discomfort. The pain has increased in severity, currently localized near the top of the pelvis on the left side. The pain worsens with movement, leading to significant difficulty in ambulation and even rising from a chair. She
regularly uses a walker for mobility and a travel chair for transport to appointments. At home, she has had to use a commode and experiences challenges getting up. The patient has osteoporosis, diabetes managed with insulin, and is on furosemide for
swelling. A heating pad and a back brace have been used with limited relief. She reports no fever, dysuria, or changes in bowel movements.
ADDITIONAL HISTORY OBTAINED FROM SOURCES OTHER THAN THE PATIENT
Information regarding the patients condition, medications, and past interventions was provided by the patients . No fever or dysuria was reported, and they regularly monitor her weight, blood sugar, and blood pressure.
CHRONIC MEDICAL CONDITIONS SIGNIFICANTLY AFFECTING CARE
- Diabetes mellitus, currently on insulin therapy.
- Osteoporosis.
- History of compression fractures.
- History of disc issues.
- Currently on furosemide for edema control.
SOCIAL DETERMINANTS AFFECTING HEALTH
- The patients is actively involved in her care, indicating family support in managing her conditions.
ALLERGIES
- Codeine: Causes nausea.
- Metformin: Unspecified reaction.
MEDICATIONS
- Tylenol (acetaminophen): Recent dose of 2 tablets of 325 mg each.
- Furosemide (previous dose not administered today due to appointment).
- Gabapentin for nerve pain.
PHYSICAL EXAM
General: Alert, no acute distress noted but significant discomfort due to back pain.
Neck: Supple, no midline spinal tenderness.
Respiratory: No respiratory distress noted with bilateral breath sounds clear.
Gastrointestinal: Tenderness noted just above the left pelvic rim with no signs of bruising or erythema.
Neurological: No focal neurological deficits observed, movement significantly limited by pain.
Integumentary: Wound on the right back ankle, dressed by the the previous day, covered by compression socks.
PLAN
- Administer a trial dose of hydrocodone for pain management.
- Obtain imaging studies, starting with pelvic and lumbar X-rays. Consider a CT scan if further detail is required.
- Compare current imaging with previous MRI results to assess for any changes or worsening of compression fractures.
- Address pain management before shifting the patient for imaging studies.
- Discuss follow-up and further pain management strategies depending on the imaging findings.
DIFFERENTIAL DIAGNOSIS
The Differential Diagnosis includes, in no particular order and is not limited to:
1. Worsening compression fracture.
2. Osteoporotic fracture.
3. Lumbar radiculopathy.
4. Muscle spasm.
5. Disc herniation.
6. Spinal stenosis.
7. Sacroiliac joint dysfunction.
8. Degenerative disc disease.
9. Vertebral tumor or lesion.
10. Soft tissue injury.
CARE-UPDATE
02/22/25 - 12:24
Patients pain has improved while lying in bed but persists in preventing mobility, as she is unable to get out of bed or stand. expresses concern regarding his capacity to provide adequate care at home. Case management has been consulted to
assess and address potential support options, including in-home care assistance.
Disposition:
SUMMARY OF ENCOUNTER
A 74-year-old female presented to the emergency department with persistent, worsening low back pain, with difficulty ambulating. She has a history of compression fractures. Imaging in the emergency department, specifically a CT scan, revealed a new
L2 compression fracture with retroproposition of bony fragments. The patients current condition, coupled with her husbands difficulty and concerns about care at home, prompted further evaluation.
DISPOSITION
Consideration of admission was discussed due to the patients complexity and inability to manage independently at home, but case management was unable to arrange placement today.
ASSESSMENT
The patient has a new L2 compression fracture, complicating her history of osteoporosis and prior fractures, leading to significant mobility impairment and pain.
PLAN
Manage pain, assess placement or admission options due to inability to maintain care at home.
INDEPENDENT REVIEW OF LABS AND INTERPRETATION OF TESTS
- My independent review of the complete blood count (CBC) shows normal white count and hemoglobin at 11.8 g/dL.
ADDITIONAL TESTING AND IMAGING CONSIDERED
Further imaging, such as a CT scan, was considered necessary to diagnose the new L2 compression fracture.
MEDICAL DECISION MAKING
- Number and Complexity of Problems Addressed: Chronic conditions affecting care�diabetes mellitus, osteoporosis, history of compression fractures, history of disc issues. Differential diagnosis includes worsening compression fracture, osteoporotic
fracture, lumbar radiculopathy, muscle spasm, disc herniation, spinal stenosis, sacroiliac joint dysfunction, degenerative disc disease, vertebral tumor or lesion, and soft tissue injury.
Data:
Category 1:
- Non-emergency department records reviewed, including previous history of osteoporosis and compression fractures.
- Clinical information was obtained from the patients , acting as an independent historian.
Category 3:
- Discussion of management with case management regarding patients placement and care support.
CRITICAL CARE TIME
Not applicable.
DIAGNOSIS
- New L2 compression fracture (ICD-10: M48.56XA)
- Osteoporosis with current pathological fracture (ICD-10: M80.08XA)
Past History
Past History
ED Past Medical History: Asthma, CHF, HTN, Hypercholesterolemia, NIDDM, Other (polymyositis) and Other (breast cancer 2007)
ED Past Surgical History: Orthopedic and Other (breast lumpectomy x 2)
Social History
Tobacco: Non-smoker
Alcohol: None
Drug: None
Personal:
Living: with family
Employment: Disabled
Family History
Family History: Diabetes
Phy Exam
Physical Exam
Physical Exam:
.
Course
Orders/Labs/Results
Orders:
Orders
02/22/25 10:09
CT Lumbar Spine W/o Iv Contras Urgent
Comment:
Reason For Exam: low back pain, h/o compression fx
Hydrocodone 5/APAP 325 [[place] 5/325] 1 tablet PO NOW STA
02/22/25 12:15
Case Management Consult ONCE
Case Management Consult: Discharge Planning
02/22/25 13:02
Complete Blood Count/With Diff Urgent
02/22/25 13:47
Admit/Transfer Patient As Directed
Co-Sign Provider:
Level of Care: Observation services
Assign to:: Medical/Surgical
Physician / Group: Michael
Diagnosis: Compression Fracture
02/22/25 13:48
PRN Pain Medication Management As Directed
May give lesser potent ordered pain med per pt: Yes
preference::
Protocol:: Medication orders for pain may be administered in a
manner that supports deferring to patient preference
when the pt is:
- Requesting an ordered lesser potent pain medication.
Least to most potent pain medications are defined
as: acetaminophen < NSAID < tramadol < opioids
(morphine, oxycodone, hydromorphone).
- Requesting a lesser dose of the same medication IF
ORDERED.
- Requesting a less intrusive route of administration
if both routes are prescribed by the provider (PO <
IV).
02/22/25 13:50
Code Status As Directed
Resuscitation Status: Full Code
02/22/25 13:54
Lidocaine [Lidocaine 4% Patch] 1 patch TOPICAL NOW STA
Apply Lidocaine patch(s) to:: Apply to low back
02/22/25 22:00
Remove Patch [Remove Lidocaine Patch] See Dose Instructions REMOVE ONCE@2200 ONE
Abnormal Lab Results
02/22/25
13:02
RBC 3.96 L 10^6/uL
(4.20-5.40)
Hgb 11.8 L g/dL
(12.0-16.0)
Hct 35.8 L %
(37.0-47.0)
RDW 21.0 H %
(11.5-14.5)
Absolute Lymphs (auto) 0.8 L 10^3/uL
(1.2-3.4)
Immature Gran % 0.6 H %
(0-0.5)
Neutrophils % 81.4 H %
(42.2-75.2)
Lymphocytes % 11.6 L %
(20.5-51.1)
02/22/25 13:02
02/22/25 13:02
Vital Signs
Initial and Last Documented VS:
Initial Vital Signs
Temp Pulse Resp BP Pulse Ox
98 F 76 16 158/92 97
02/22/25 09:27 02/22/25 09:27 02/22/25 09:27 02/22/25 09:27 02/22/25 09:27
Last Documented Vital Signs
Temp Pulse Resp BP Pulse Ox
98 F 76 16 158/92 97
02/22/25 09:27 02/22/25 09:27 02/22/25 09:27 02/22/25 09:27 02/22/25 13:19
*Pulse Oximetry
SaO2: 97
Oxygen Mode of Delivery: Room air
Patient hypoxic: no
*Critical Care Note
Total Time (30-74mins, 75-104mins- exclusive of procedures): Not Applicable
ED Attending Note
-
Portions of this chart may have been created with voice recognition software.� Occasional wrong word or��sound alike� substitutions may have occurred due to the inherent limitations of voice recognition software.
Discharge Plan
Departure
Patient Disposition: Admit
Date of Disposition: 02/22/25
Time of Disposition: 13:18
Admit to: Med/Surg
Presentation/result/management discussed w/ accepting MD/DO: Hospitalist
Discharge Problem:
Lumbar compression fracture, Ambulatory dysfunction
Interventions
Interventions:
*Risk Screen - Suicide Last Done: 02/22/25 09:27
*General Assessment Last Done: 02/22/25 10:17
*Neglect/Abuse Screening Last Done: 02/22/25 09:27
*ED- Fall Risk Assessment Last Done: 02/22/25 10:17
*ED COVID-19 Vaccine History Last Done: 02/22/25 10:17
*ED Influenza Vaccine History Last Done: 02/22/25 10:17
ED-Musculoskeletal Assessment Last Done: 02/22/25 10:17
--- NOTE | 2025-02-22 13:26 | HPS.HSE ---
Addendum entered and electronically signed by Santiago Rodriguez MD 02/22/25 14:35:
This is an addendum to the H&P written by Alexandra White on 02/22/2025. �Patient seen and examined independently with PA.
74-year-old female past medical history of osteoporosis, minimal nonobstructive CAD, permanent atrial fibrillation on Eliquis, HFrEF with improved EF, hypertension, hyperlipidemia, type 2 diabetes, PAD status post right popliteal stent,
polymyositis, cognitive impairment, breast cancer in 2007 status post lobectomy, presenting with back pain few days ago.
Vital signs unremarkable.
Labs show stable anemia 11.8.
The lumbar CT shows new moderate L2 vertebral compression fracture. �Old moderate partial T11 and L1 vertebral compression fractures, mild L4 vertebral compression fracture possibly slightly increased compared to previously.
Patient with back pain secondary to new L2 vertebral compression fracture and possible increase L4 vertebral compression fracture. �Pain control with standing Tylenol, tramadol, lidocaine patch. �Try to avoid further opiates but as patient became
sleepy with Vicodin. �PT OT. �Case management cannot place at rehab today.
Original Note:
Family Physician
-
Family Physician: Cole Suazo
Chief Complaint
-
Back Pain
History of Present Illness
Patient is a 74 y/o female past medical history of CAD, CHF, A-Fib, Hypertension, Hyperlipidemia, Diabetes Mellitus, and Osteoporosis with prior compression fractures who presents with back pain. Patient reports pain started about 3 ago. She
reports pain is worse with movement, and she has having difficulty ambulating due to the pain. She denies any recent falls or injuries.
Medical History
Past Medical History
Past Medical History: Reports Other
Additional Past Medical History:
Peripheral Arterial Disease s/p Right Popliteal Stent
Chronic HFpEF
Permanent Atrial Fibrillation
Essential Hypertension
Hyperlipidemia
Diabetes Mellitus, Type II
Polymyositis
Dementia
Breast Cancer s/p Left Lumpectomy
Osteoporosis
Multiple Compression Fractures
Past Surgical History: Reports Other
Additional Past Surgical History:
Left Lumpectomy
Hysterectomy
Cholecystectomy
Carpal Tunnel Release
Right Total Knee Replacement
Bilateral Meniscus Repair
Social History
Tobacco: Non-smoker
Alcohol: None
Drug: None
Personal:
Living: With Family ( )
Family History
Family History: Not pertinent
Allergies / Home Medications
Allergies reflects when Allergies were last updated in [facility].
Home Medications with original date entered in [facility]
Allergy/Medication List:
Allergies
Allergy/AdvReac Type Severity Reaction Status Date / Time
codeine Allergy Vomiting Verified 02/22/25 09:27
metformin Allergy effects Verified 02/22/25 09:27
polymositis
Seascqn-GCS-[id number] Reductase Allergy effects Verified 02/22/25 09:27
Inhibitor (Ovoryfn-Rzj-Dgx polymyositis
Reductase Inhibitor)
Home Medications
immune glob,gamma (IgG) 10 %-gly-IgA over 50 mcg/mL injection solution (Gammagard Liquid) 50 g IV UD polymyositis 05/13/20
alendronate 70 mg tablet 70 mg PO FR Osteoporosis 01/20/22
apixaban 5 mg tablet (Eliquis) 5 mg PO BID Venous thrombosis 30 days #60 tabs 01/23/22
pantoprazole 40 mg tablet,delayed release 40 mg PO DAILY GERD 30 days #30 tabs 01/23/22
ezetimibe 10 mg tablet 10 mg PO DAILY High Cholesterol 08/01/24
gabapentin 300 mg capsule 300 mg PO BID Neurological Condition 08/01/24
aspirin 81 mg tablet,delayed release 81 mg PO DAILY #0 tabs 08/07/24
prednisone 10 mg tablet 10 mg PO DAILY #0 tabs 08/07/24
memantine 10 mg tablet 10 mg PO BID Neurological Condition 01/19/25
dapagliflozin propanediol 10 mg tablet (Farxiga) 10 mg PO DAILY #30 tabs 01/23/25
carvedilol 6.25 mg tablet 6.25 mg PO BID 02/22/25
cholecalciferol (vitamin D3) 100 mcg (4,000 unit) tablet 100 mcg PO DAILY 02/22/25
furosemide 20 mg tablet 20 mg PO DAILY 02/22/25
furosemide 40 mg tablet 40 mg PO DAILY 02/22/25
insulin aspart U-100 100 unit/mL (3 mL) subcutaneous pen (Novolog FlexPen U-100 Insulin aspart) 10 unit SC AC Diabetes 02/22/25
insulin glargine 100 unit/mL (3 mL) subcutaneous pen (Basaglar KwikPen U-100 Insulin) 3 unit SC DAILY 02/22/25
lisinopril 2.5 mg tablet 2.5 mg PO HS 02/22/25
potassium chloride 20 mEq tablet,extended release(part/cryst) 20 meq PO DAILY 02/22/25
Review of Systems
-
A 12 point ROS was completed and negative except as noted: Yes
Constitutional: Denies Fever or Chills
Respiratory: Denies Cough or Trouble Breathing
Cardiac: Denies Chest Pain or Palpitations
Abdomen/GI: Denies Abdominal Pain, Nausea, Vomiting, Diarrhea or Constipated
Physical Exam
Vital Signs
Vital Signs
Temp Pulse Resp BP Pulse Ox
98 F 76 16 158/92 97
02/22/25 09:27 02/22/25 09:27 02/22/25 09:27 02/22/25 09:27 02/22/25 13:19
Physical Exam
General: Well Developed, Well Nourished and No Apparent Distress
HEENT: Anicteric and Moist mucous membranes
Respiratory: Clear and Non Labored Respirations
Cardiac: S1/S2 and Irregular Rhythm; No Tachycardia
GI: Soft and Non Tender
Rectal: Deferred by Provider
Musculoskeletal: No Clubbing and No Cyanosis
Skin: Warm and Dry
Neuro: Awake, Alert, Oriented and Nonfocal/grossly intact
Psych: Calm
Laboratory Results
-
02/22/25 13:02
Laboratory Results
Total Bilirubin Cancelled 02/22/25 13:02
AST Cancelled 02/22/25 13:02
ALT Cancelled 02/22/25 13:02
Alkaline Phosphatase Cancelled 02/22/25 13:02
Data Reviewed
-
CT Scan: Report Reviewed by me
Lab Data: Labs Reviewed by me
Impression/Plan
-
Back Pain secondary to New L2 Compression Fracture
-Add Lidocaine Patch
-Start Tylenol 1000mg TID
-Tramadol PRN moderate/severe pain
-Avoid opioids as patient became very sleepy following dose of Melvin given in ED
Peripheral Arterial Disease s/p Right Popliteal Stent
-Continue aspirin
Chronic HFpEF
-Continue Farxiga and Lasix
-Monitor Daily Weights
Permanent Atrial Fibrillation
-Continue Eliquis
Essential Hypertension
-Continue carvedilol, and lisinopril
Hyperlipidemia
-Continue ezetimibe
Diabetes Mellitus, Type II
-Continue glargine and aspart
-Monitor sugars and continue coverage insulin
Polymyositis
-Continue prednisone
-Patient maintained on IV IG as outpatient
Dementia
-Continue memantine
DVT proph: Eliquis
Code Status: Full Code
--- NOTE | 2025-02-22 13:32 | EDCM ---
Addendum entered by April Frye 02/22/25 15:31:
Pt to be Obs admit, I asked Dr Ayala to place therapy orders.
Original Note:
CM received consult, reviewed chart and met with pt's in family waiting room. Per , pt has cognitive decline and cannot participate in conversation.
Lives with and son in 1 story mobile home, has ramp to enter. Needs assistance with ADLs and personal care, was ambulating with rolling walker, also has cane, wheelchair, 2 commodes, shower chair, shower rails and glucometer.
is her primary caregiver. Per she sleeps in LR, he keeps a commode right next to her.
She is [facility] with [facility], also goes [facility]2 [facility] a month for wound on R ankle. She gets home infusions of Gamma guard for her polymyositis.
She has a new compression fracture and has been unable to walk, having trouble caring for her at home.
She has been to [facility] for STR, mentioned [facility] as a facility of interest.
I printed Medicare.gov list of local SNF and highlighted the 4 and 5 star facilities. Discussed she needs to be evaluated by therapy before referrals can be made. Also discussed need for 3 night inpatient stay for SNF to be covered. Pt not yet
admitted but discussed with Dr Braden who will refer for admission.
Pt's is concerned about the amount of care she requires and the ability of a SNF to care for her. I reassured him that this is what SNFs do.
PCP: Cole Suazo
Pharmacy: [facility].
Discharge plan: Anticipate SNF for STR, CM Will continue to follow for all discharge planning needs.
[2025-02-22] MEDS: LIDOCAINE 4% PATCH 1 PATCH TOPICAL (14:04)
[2025-02-22 15:00] VITALS: BP 130/80
[2025-02-22 16:11] VITALS: BMI 30.5
[2025-02-22 16:21] VITALS: BP 128/82
[2025-02-22 16:25] LABS: ALT (SGPT) 44 U/L (0-35); AST (SGOT) 55 U/L (14-36); Albumin 3.6 g/dl (3.5-5.0); Alkaline Phosphatase 172 U/L (38-126); Blood Urea Nitrogen 28 mg/dl (7-17); Calcium 8.4 mg/dl (8.4-10.2); Carbon Dioxide 23 mmol/L (22-30); Chloride 114 mmol/L (98-107); Estimated Creatinine Clearance 72 ml/min; Glucose 120 mg/dl (70-99); Potassium 4.1 mmol/L (3.5-5.1); Sodium 143 mmol/L (135-145); Total Protein 8.8 g/dl (6.3-8.2); eGFR > 60.00
[2025-02-22 16:36] LABS: Glucose - Point of Care 104 mg/dl (70-99)
[2025-02-22] MEDS: TYLENOL 1000 MG PO ×2 (16:59→22:56)
[2025-02-22] MEDS: NOVOLOG FLEXPEN 10 UNITS SC (18:18)
[2025-02-22] MEDS: COREG 6.25 MG PO (20:12)
[2025-02-22] MEDS: NAMENDA 10 MG PO (20:12)
[2025-02-22] MEDS: NEURONTIN 300 MG PO (20:12)
[2025-02-22] MEDS: ELIQUIS 5 MG PO (20:12)
[2025-02-22 21:21] VITALS: BP 117/73; BMI 30.7
--- NOTE | 2025-02-22 22:18 | PTCARENOTE ---
Receive pt from ER in her bed. Pt alert, oriented X3, calm and cooperative, in no distress. Pt oriented to the room, call ramires within reach, bed alarm in place. Pt states that her back pain is acceptable (3-4/10) and pt doesn't want anything for
pain. VSS (T=97.2, RR=18, HR=83, AA=621/73, SpO2=97% on RA). Will continue to monitor the pt.
[2025-02-22 22:50] LABS: Glucose - Point of Care 76 mg/dl (70-99)
[2025-02-22] MEDS: ZESTRIL 2.5 MG PO (22:56)
[2025-02-22] MEDS: REMOVE LIDOCAINE PATCH 1 PATCH REMOVE (22:56)
[2025-02-22 23:58] VITALS: BP 125/82
[2025-02-23 06:00] VITALS: BMI 30.5
[2025-02-23 08:15] LABS: Glucose - Point of Care 88 mg/dl (70-99)
[2025-02-23 08:29] VITALS: BP 135/79
[2025-02-23] MEDS: LIDOCAINE 4% PATCH 1 PATCH TOPICAL (08:52)
[2025-02-23] MEDS: LANTUS 0.03 UNITS SC (08:53)
[2025-02-23] MEDS: NOVOLOG FLEXPEN 10 UNITS SC (08:53)
[2025-02-23] MEDS: TYLENOL 1000 MG PO ×3 (08:58→21:10)
[2025-02-23] MEDS: KCL 20 MEQ PO (08:59)
[2025-02-23] MEDS: PROTONIX 40 MG PO (08:59)
[2025-02-23] MEDS: NEURONTIN 300 MG PO ×2 (08:59→20:46)
[2025-02-23] MEDS: FARXIGA 10 MG PO (08:59)
[2025-02-23] MEDS: VITAMIN D3 (cholecalciferol) 100 MCG PO (08:59)
[2025-02-23] MEDS: ZETIA 10 MG PO (08:59)
[2025-02-23] MEDS: ASPIR LOW (ENTERIC COATED) 81 MG PO (08:59)
[2025-02-23] MEDS: LASIX 40 MG PO (08:59)
[2025-02-23] MEDS: ELIQUIS 5 MG PO ×2 (09:00→20:46)
[2025-02-23] MEDS: DELTASONE 10 MG PO (09:00)
[2025-02-23] MEDS: DESENEX/MITRAZOL/ZEASORB 1 APPLIC TOPICAL ×2 (09:00→20:46)
[2025-02-23] MEDS: LASIX 20 MG PO (09:00)
[2025-02-23] MEDS: NAMENDA 10 MG PO ×2 (09:00→20:46)
[2025-02-23] MEDS: COREG 6.25 MG PO ×2 (09:00→20:46)
--- NOTE | 2025-02-23 09:10 | VNURNOTE ---
Addendum entered by Sylwia Guadalupe RN 02/24/25 13:57:
[facility] Resumption referral placed in [facility]. Per chart review, spouse in process of hiring switchboard receptionist/ companions.
Original Note:
Chart reviewed. Patient is current with [facility]. As of now, appears that DC plan is STR. Will continue to follow hospital course and DC plans.
[2025-02-23] MEDS: ULTRAM 25 MG PO (09:23)
[2025-02-23 10:07] LABS: Glycohemoglobin (HgbA1c) 4.8 % (4.0-5.6)
--- NOTE | 2025-02-23 11:28 | WOUNDNOTE ---
R POSTERIOR LOWER LEG
--- NOTE | 2025-02-23 11:28 | WOUNDNOTE ---
SACRUM R LOWER BACK
--- NOTE | 2025-02-23 11:30 | WOUNDNOTE ---
[facility] RN note: Patient admitted with ambulatory dysfunction.
See H&P for complete history.
PMH: Afib, DM2, Polymyositis, breast cancer with lumpectomy, cognitive impairment, venous leg ulcers.
Wound Location and type/assessment: Patient known to service, last seen 01/20/25, with chronic FT venous wound to right posterior lower leg. Base of wound deep, pink mixed with yellow slough, moderate serosanguineous drainage, periwound red.
Reviewed current treatment with nurse at wound care center, follows weekly. Since last admission L medial lower leg blister healed, scar visible. + faint pedal palpable pulses, trace edema, uses jose elias wrap to legs. Patient turned self to side, heels
intact and buttocks with chronic discoloration, slow to aiden. Dry flaky MASD spots vs abrasions on buttocks that are chronic, suspect patient sits allot. Air cushion in use here for chair.
Appetite: Good, patient states she eats plenty of protein in diet.
Pressure redistribution devices in place: Accumax, pillow under calves. Encourage turning, leg elevation.
Plan: R leg dressing changed with adaptic and dry dressing. Will order Santyl to start tomorrow. JOSE ELIAS wrap applied knee high to R leg. Called [employer] for additional Jose Elias wrap and asked nurse to apply to L leg knee high when arrives. Recommend Calazime
for buttocks. Confirmed orders with Dr. Ash at bedside.
Updated nurse, care plan and will follow as needed.
Note to case management of equipment requested for discharge: none.
Recommend follow up at wound care center upon discharge.
[2025-02-23 12:22] LABS: Glucose - Point of Care 96 mg/dl (70-99)
--- NOTE | 2025-02-23 12:32 | W.PN.HOSP.TC ---
Today's Communication/Plan
-
Monitor vitals
See plan
Pain control
Decrease mealtime insulin
PT/OT
Will need placement
Assessment / Plan
Assessment / Plan
General: Well Developed, Well Nourished and No Apparent Distress
HEENT: Anicteric and Moist mucous membranes
Respiratory: Clear and Non Labored Respirations
Cardiac: S1/S2 and Irregular Rhythm; No Tachycardia
GI: Soft and Non Tender
Neuro: Awake, Alert, Oriented and Nonfocal/grossly intact
Psych: Calm
Back Pain secondary to New L2 Compression Fracture
Denies any neurological deficit
-Add Lidocaine Patch
-Started Tylenol 1000mg TID
-Tramadol PRN moderate/severe pain
-Avoid opioids as patient became very sleepy following dose of [place] given in ED
PT rec rehab
At baseline was using walker prior to coming to the hospital
Peripheral Arterial Disease s/p Right Popliteal Stent
-Continue aspirin
Chronic HFpEF
-Continue Farxiga and Lasix
-Monitor Daily Weights
Permanent Atrial Fibrillation
-Continue Eliquis
Essential Hypertension
-Continue carvedilol, and lisinopril
Hyperlipidemia
-Continue ezetimibe
Diabetes Mellitus, Type II
-Continue glargine and aspart. dec aspart
-Monitor sugars and continue coverage insulin
Polymyositis
-Continue prednisone
-Patient maintained on IV IG as outpatient
Dementia
-Continue memantine
DVT proph: Eliquis
Code Status: Full Code
Anticipated Discharge: Within 24 hours
Subjective/Interval History
-
Date of Service: February 23, 2025
denies nausea
Objective Data
-
Vital Signs:
Vital Signs
Temp Pulse Resp BP Pulse Ox
97.4 F 83 18 135/79 99
02/23/25 08:29 02/23/25 08:29 02/23/25 08:29 02/23/25 08:29 02/23/25 10:19
I&O
02/22/25 02/23/25 02/24/25
06:59 06:59 06:59
Intake Total 480 / 480
Balance 480 / 480
[2025-02-23] MEDS: NOVOLOG FLEXPEN 5 UNITS SC ×2 (12:49→17:53)
[2025-02-23 15:27] VITALS: BP 111/62
--- NOTE | 2025-02-23 16:43 | CM ---
Reviewed chart. IA completed. STAN[place] given to patient and placed on chart. Pain management ongoing.
Pt lives with her and son in a private home that is 1 story. There is a ramp at the entrance to the home. Baseline before this recent fracture was needing some assitance with personal care. New fx caused ambulation dysfunction due to pain,
[place] hx of wound care with [facility]. Unknown name of agency used. Has Hx of SNF at [facility] and does not want to go back there. DME: rolling walker, SPC, travel wheelchair, couch handles,grab bars in shower and shower chair, 2
commodes. No insecurities identified. Confirmed PCP, Rx insurance and drug coverage
Spoke about barrier to having pt go to a SNF due to observation status. Pt Does not qualify for the [facility] waiver program. They were informed they could private pay for SNF; they do not wish to select this option.
Upon further discussion with the and daughter, they decided they would like to explore having either companions or nursing assistants in the home to help with her ADLs. Resources were provided: Medicare.gov resources for home health aids and
resources for rn telemetry care. feels he can manage her with this level of assistance.
PCP: Cole Borja
Rx: [facility]
Plan: Home with Arnaldo or companions. Will revisit this topic with the tomorrow to evaluate if this is a safe discharge plan
[2025-02-23 17:02] LABS: Glucose - Point of Care 100 mg/dl (70-99)
[2025-02-23] MEDS: ZESTRIL 2.5 MG PO (20:46)
[2025-02-23 21:24] LABS: Glucose - Point of Care 107 mg/dl (70-99)
[2025-02-23] MEDS: ULTRAM 50 MG PO (22:45)
[2025-02-23 23:09] VITALS: BP 137/87
[2025-02-24 06:00] VITALS: BMI 29.8
[2025-02-24 07:42] VITALS: BP 114/69
[2025-02-24 07:48] LABS: Glucose - Point of Care 101 mg/dl (70-99)
[2025-02-24] MEDS: SANTYL OINTMENT 1 APPLIC TOPICAL (07:51)
[2025-02-24] MEDS: ULTRAM 50 MG PO (07:51)
[2025-02-24] MEDS: ELIQUIS 5 MG PO ×2 (07:52→19:41)
[2025-02-24] MEDS: NEURONTIN 300 MG PO ×2 (07:52→19:41)
[2025-02-24] MEDS: PROTONIX 40 MG PO (07:52)
[2025-02-24] MEDS: TYLENOL 1000 MG PO ×3 (07:52→21:04)
[2025-02-24] MEDS: FARXIGA 10 MG PO (07:52)
[2025-02-24] MEDS: DELTASONE 10 MG PO (07:52)
[2025-02-24] MEDS: COREG 6.25 MG PO ×2 (07:53→19:41)
[2025-02-24] MEDS: KCL 20 MEQ PO (07:53)
[2025-02-24] MEDS: VITAMIN D3 (cholecalciferol) 100 MCG PO (07:53)
[2025-02-24] MEDS: NAMENDA 10 MG PO ×2 (07:53→19:41)
[2025-02-24] MEDS: ASPIR LOW (ENTERIC COATED) 81 MG PO (07:53)
[2025-02-24] MEDS: ZETIA 10 MG PO (07:53)
[2025-02-24] MEDS: DESENEX/MITRAZOL/ZEASORB 1 APPLIC TOPICAL ×2 (07:53→19:41)
[2025-02-24] MEDS: LANTUS 0.03 UNITS SC (07:54)
[2025-02-24] MEDS: LIDOCAINE 4% PATCH 1 PATCH TOPICAL (07:54)
[2025-02-24] MEDS: NOVOLOG FLEXPEN 5 UNITS SC ×2 (08:18→18:27)
[2025-02-24 08:38] LABS: Hematocrit 38.6 % (37.0-47.0); Hemoglobin 12.1 g/dL (12.0-16.0); Mean Corp Hgb Conc. 31.3 g/dL (33.0-37.0); Mean Corpuscular Volume 94.8 fL (81.0-99.0); Nucleated Red Blood Cells % 0 %; Platelet Count 135 10^3/uL (130-400); Red Cell Dist. Width 21.0 % (11.5-14.5)
[2025-02-24 08:56] LABS: ALT (SGPT) 47 U/L (0-35); AST (SGOT) 60 U/L (14-36); Albumin 3.6 g/dl (3.5-5.0); Alkaline Phosphatase 200 U/L (38-126); Blood Urea Nitrogen 30 mg/dl (7-17); Calcium 8.5 mg/dl (8.4-10.2); Carbon Dioxide 22 mmol/L (22-30); Chloride 107 mmol/L (98-107); Estimated Creatinine Clearance 61 ml/min; Glucose 115 mg/dl (70-99); Potassium 3.5 mmol/L (3.5-5.1); Sodium 135 mmol/L (135-145); Total Protein 8.8 g/dl (6.3-8.2); eGFR > 60.00
[2025-02-24] MEDS: LASIX 40 MG PO (09:03)
[2025-02-24] MEDS: LASIX 20 MG PO (09:03)
[2025-02-24 09:22] VITALS: BP 122/80; PULSE 80; O2SAT 99
[2025-02-24 09:25] VITALS: BP 122/80; PULSE 78; O2SAT 99
[2025-02-24] MEDS: ZOFRAN 4 MG PO (11:24)
[2025-02-24 12:17] LABS: Glucose - Point of Care 129 mg/dl (70-99)
--- NOTE | 2025-02-24 12:46 | W.PN.HOSP.TC ---
Today's Communication/Plan
-
monitor vital signs and see plan
Monitor LFTs
Check ultrasound abdomen
Pain control
Zofran
Check EKG
Discussed with spouse over the phone
Assessment / Plan
Assessment / Plan
General: Well Developed, Well Nourished and No Apparent Distress
HEENT: Anicteric and Moist mucous membranes
Respiratory: Clear and Non Labored Respirations
Cardiac: S1/S2 and Irregular Rhythm; No Tachycardia
GI: Soft and Non Tender
Neuro: Awake, Alert, Oriented and Nonfocal/grossly intact
Psych: Calm
Back Pain secondary to New L2 Compression Fracture
Denies any neurological deficit
-Add Lidocaine Patch
-Started Tylenol 1000mg TID
-Tramadol PRN moderate/severe pain
-Avoid opioids as patient became very sleepy following dose of [place] given in ED
PT rec rehab
At baseline was using walker prior to coming to the hospital
Now with nausea
History of cholecystectomy in past. Per spouse patient does not get nauseous at home
Check EKG
zofran given, not much improvement. give Compazine
elevated LFT's
check abdominal US
Peripheral Arterial Disease s/p Right Popliteal Stent
-Continue aspirin
Chronic HFpEF
-Continue Farxiga and Lasix
-Monitor Daily Weights
Permanent Atrial Fibrillation
-Continue Eliquis
Essential Hypertension
-Continue carvedilol, and lisinopril
Hyperlipidemia
-Continue ezetimibe
Diabetes Mellitus, Type II
-Continue glargine and aspart. dec aspart
-Monitor sugars and continue coverage insulin
Polymyositis
-Continue prednisone
-Patient maintained on IV IG as outpatient
Dementia
-Continue memantine
DVT proph: Eliquis
Code Status: Full Code
Anticipated Discharge: Within 24 hours
Subjective/Interval History
-
Date of Service: February 24, 2025
has nausea
Objective Data
-
Labs:
Laboratory Results
02/24/25
07:56
WBC 4.9
Hgb 12.1
Hct 38.6
Plt Count 135
Sodium 135 D
Potassium 3.5
Chloride 107
Carbon Dioxide 22
BUN 30 H
Creatinine 0.7
Glucose 115 H
Calcium 8.5
Total Bilirubin 1.9 H
AST 60 H
ALT 47 H
Alkaline Phosphatase 200 H
Vital Signs:
Vital Signs
Temp Pulse Resp BP Pulse Ox
97.5 F 81 16 114/69 96
02/24/25 07:42 02/24/25 07:42 02/24/25 07:42 02/24/25 07:42 02/24/25 11:05
I&O
02/23/25 02/24/25 02/25/25
06:59 06:59 06:59
Intake Total 480 / 480
Balance 480 / 480
--- NOTE | 2025-02-24 13:02 | CM ---
Pt now with elevated liver enzymes. NO DC anticipated for today. Spoke with who is contacting [facility] in anticipation of discharge. Encourage him to obtain potential start date (s) from agencies to it can be coordinated with the DC.
Plan: Home with [facility]
[2025-02-24] MEDS: COMPAZINE 5 MG IV (13:20)
[2025-02-24] MEDS: NOVOLOG FLEXPEN SC (13:21)
[2025-02-24 15:31] VITALS: BP 105/63
[2025-02-24 17:03] LABS: Glucose - Point of Care 121 mg/dl (70-99)
[2025-02-24] MEDS: ZESTRIL 2.5 MG PO (19:41)
[2025-02-24 21:15] LABS: Glucose - Point of Care 121 mg/dl (70-99)
[2025-02-24 23:07] VITALS: BP 113/68
--- NOTE | 2025-02-25 02:23 | DOWNTIME ---
There was a [employer] Downtime on 02/25/2025 from 0100 to 02/25/2025 at 0215. Downtime documentation of patient's care, including medication administrations, has been reconciled in the electronic record per guidelines. Refer to the
patient's paper chart under the miscellaneous tab to see printed paper medication records and downtime forms.
[2025-02-25 03:31] VITALS: BMI 29.2
[2025-02-25 07:35] VITALS: BP 116/71
[2025-02-25 08:30] LABS: Glucose - Point of Care 106 mg/dl (70-99)
[2025-02-25 08:59] LABS: Hematocrit 39.2 % (37.0-47.0); Hemoglobin 12.1 g/dL (12.0-16.0); Mean Corp Hgb Conc. 30.9 g/dL (33.0-37.0); Mean Corpuscular Volume 94.9 fL (81.0-99.0); Nucleated Red Blood Cells % 0 %; Platelet Count 130 10^3/uL (130-400); Red Cell Dist. Width 21.2 % (11.5-14.5)
[2025-02-25] MEDS: LANTUS 0.03 UNITS SC (09:00)
[2025-02-25] MEDS: LIDOCAINE 4% PATCH 1 PATCH TOPICAL (09:00)
[2025-02-25] MEDS: NOVOLOG FLEXPEN 5 UNITS SC ×3 (09:00→17:50)
[2025-02-25] MEDS: NEURONTIN 300 MG PO ×2 (09:01→20:39)
[2025-02-25] MEDS: LASIX 20 MG PO (09:01)
[2025-02-25] MEDS: DELTASONE 10 MG PO (09:01)
[2025-02-25] MEDS: PROTONIX 40 MG PO (09:01)
[2025-02-25] MEDS: LASIX 40 MG PO (09:01)
[2025-02-25] MEDS: TYLENOL 1000 MG PO ×3 (09:01→21:52)
[2025-02-25] MEDS: VITAMIN D3 (cholecalciferol) 100 MCG PO (09:01)
[2025-02-25] MEDS: FARXIGA 10 MG PO (09:01)
[2025-02-25] MEDS: KCL 20 MEQ PO (09:01)
[2025-02-25] MEDS: ZETIA 10 MG PO (09:01)
[2025-02-25] MEDS: ASPIR LOW (ENTERIC COATED) 81 MG PO (09:01)
[2025-02-25] MEDS: COREG 6.25 MG PO ×2 (09:02→20:39)
[2025-02-25] MEDS: ELIQUIS 5 MG PO ×2 (09:02→20:39)
[2025-02-25] MEDS: DESENEX/MITRAZOL/ZEASORB 1 APPLIC TOPICAL ×2 (09:02→20:39)
[2025-02-25] MEDS: SANTYL OINTMENT 1 APPLIC TOPICAL (09:02)
[2025-02-25] MEDS: NAMENDA 10 MG PO ×2 (09:02→20:39)
[2025-02-25 09:31] LABS: ALT (SGPT) 44 U/L (0-35); AST (SGOT) 54 U/L (14-36); Albumin 3.5 g/dl (3.5-5.0); Alkaline Phosphatase 190 U/L (38-126); Blood Urea Nitrogen 32 mg/dl (7-17); Calcium 8.7 mg/dl (8.4-10.2); Carbon Dioxide 22 mmol/L (22-30); Chloride 107 mmol/L (98-107); Estimated Creatinine Clearance 71 ml/min; Glucose 109 mg/dl (70-99); Potassium 3.8 mmol/L (3.5-5.1); Sodium 136 mmol/L (135-145); Total Protein 8.5 g/dl (6.3-8.2); eGFR > 60.00
[2025-02-25 10:25] VITALS: BP 122/76; PULSE 78; O2SAT 98
[2025-02-25 10:41] LABS: Glucose - Point of Care 105 mg/dl (70-99)
[2025-02-25 11:05] VITALS: BP 122/76; PULSE 83; O2SAT 100
[2025-02-25 12:11] VITALS: BP 106/63; BP 122/79; BP 149/104; PULSE 74; PULSE 83
[2025-02-25 12:13] LABS: Glucose - Point of Care 96 mg/dl (70-99)
[2025-02-25] MEDS: ULTRAM 50 MG PO ×2 (12:15→21:52)
--- NOTE | 2025-02-25 13:51 | W.PN.HOSP.TC ---
Today's Communication/Plan
-
Monitor vital signs see plan
Pain control
Patient's family to decide home versus SNF
Discussed with son at bedside
Assessment / Plan
Assessment / Plan
General: Well Developed, Well Nourished and No Apparent Distress
HEENT: Anicteric and Moist mucous membranes
Respiratory: Clear and Non Labored Respirations
Cardiac: S1/S2 and Irregular Rhythm; No Tachycardia
GI: Soft and Non Tender
Neuro: Awake, Alert, Oriented and Nonfocal/grossly intact
Psych: Calm
Back Pain secondary to New L2 Compression Fracture
Denies any neurological deficit
-Add Lidocaine Patch
-Started Tylenol 1000mg TID
-Tramadol PRN moderate/severe pain
-Avoid opioids as patient became very sleepy following dose of [place] given in ED
PT rec rehab; family to decide
At baseline was using walker prior to coming to the hospital
Nausea 02/24
History of cholecystectomy in past. Per spouse patient does not get nauseous at home
Check EKG
zofran given, not much improvement. QTc elevated. Tigan as needed
elevated LFT's which are now improving, appears likely secondary from chronic disease
abdominal US negative for any acute abnormality
Peripheral Arterial Disease s/p Right Popliteal Stent
-Continue aspirin
Chronic HFpEF
-Continue Farxiga and Lasix
-Monitor Daily Weights
Permanent Atrial Fibrillation
-Continue Eliquis
Essential Hypertension
-Continue carvedilol, and lisinopril
Hyperlipidemia
-Continue ezetimibe
Diabetes Mellitus, Type II
-Continue glargine and aspart. dec aspart
-Monitor sugars and continue coverage insulin
Polymyositis
-Continue prednisone
-Patient maintained on IV IG as outpatient
Dementia
-Continue memantine
DVT proph: Eliquis
Code Status: Full Code
Anticipated Discharge: Today
Subjective/Interval History
-
Date of Service: February 25, 2025
denies nausea today
Objective Data
-
Labs:
Laboratory Results
02/25/25
08:36
WBC 4.5 L
Hgb 12.1
Hct 39.2
Plt Count 130
Sodium 136
Potassium 3.8
Chloride 107
Carbon Dioxide 22
BUN 32 H
Creatinine 0.6
Glucose 109 H
Calcium 8.7
Total Bilirubin 1.7 H
AST 54 H
ALT 44 H
Alkaline Phosphatase 190 H
Vital Signs:
Vital Signs
Temp Pulse Resp BP Pulse Ox
98.2 F 78 18 116/71 95
02/25/25 07:35 02/25/25 07:35 02/25/25 07:35 02/25/25 07:35 02/25/25 08:00
I&O
02/24/25 02/25/25 02/26/25
06:59 06:59 06:59
Intake Total 800 / 800
Balance 800 / 800
[2025-02-25 15:40] VITALS: BP 129/70
--- NOTE | 2025-02-25 16:49 | CM ---
Pt for discharge tomorrow.
Plan: Home with [facility] and volunteers to stay with patient when needs to leave the house.
[2025-02-25 17:00] LABS: Glucose - Point of Care 127 mg/dl (70-99)
[2025-02-25] MEDS: ZESTRIL 2.5 MG PO (20:39)
[2025-02-25 21:48] LABS: Glucose - Point of Care 93 mg/dl (70-99)
[2025-02-25 23:54] VITALS: BP 98/58
[2025-02-26 06:00] VITALS: BMI 29.1
[2025-02-26] MEDS: ULTRAM 50 MG PO (06:13)
[2025-02-26 07:00] VITALS: BP 110/60
[2025-02-26 07:11] LABS: Glucose - Point of Care 119 mg/dl (70-99)
[2025-02-26 08:06] LABS: Hematocrit 35.7 % (37.0-47.0); Hemoglobin 11.7 g/dL (12.0-16.0); Mean Corp Hgb Conc. 32.8 g/dL (33.0-37.0); Mean Corpuscular Volume 92.7 fL (81.0-99.0); Nucleated Red Blood Cells % 0 %; Platelet Count 138 10^3/uL (130-400); Red Cell Dist. Width 21.1 % (11.5-14.5)
[2025-02-26 08:12] LABS: ALT (SGPT) 45 U/L (0-35); AST (SGOT) 57 U/L (14-36); Albumin 3.6 g/dl (3.5-5.0); Alkaline Phosphatase 192 U/L (38-126); Blood Urea Nitrogen 40 mg/dl (7-17); Calcium 8.7 mg/dl (8.4-10.2); Carbon Dioxide 25 mmol/L (22-30); Chloride 105 mmol/L (98-107); Estimated Creatinine Clearance 53 ml/min; Glucose 113 mg/dl (70-99); Potassium 3.7 mmol/L (3.5-5.1); Sodium 139 mmol/L (135-145); Total Protein 8.2 g/dl (6.3-8.2); eGFR > 60.00
[2025-02-26] MEDS: LASIX 20 MG PO (08:33)
[2025-02-26] MEDS: ELIQUIS 5 MG PO (08:33)
[2025-02-26] MEDS: LASIX 40 MG PO (08:34)
[2025-02-26] MEDS: NAMENDA 10 MG PO (08:34)
[2025-02-26] MEDS: COREG 6.25 MG PO (08:34)
[2025-02-26] MEDS: ASPIR LOW (ENTERIC COATED) 81 MG PO (08:34)
[2025-02-26] MEDS: PROTONIX 40 MG PO (08:35)
[2025-02-26] MEDS: NEURONTIN 300 MG PO (08:35)
[2025-02-26] MEDS: DELTASONE 10 MG PO (08:35)
[2025-02-26] MEDS: ZETIA 10 MG PO (08:35)
[2025-02-26] MEDS: VITAMIN D3 (cholecalciferol) 100 MCG PO (08:35)
[2025-02-26] MEDS: KCL 20 MEQ PO (08:36)
[2025-02-26] MEDS: FARXIGA 10 MG PO (08:36)
[2025-02-26] MEDS: TYLENOL 1000 MG PO (08:36)
[2025-02-26] MEDS: LANTUS 0.03 UNITS SC (08:37)
[2025-02-26] MEDS: NOVOLOG FLEXPEN 5 UNITS SC (08:38)
[2025-02-26] MEDS: LIDOCAINE 4% PATCH 1 PATCH TOPICAL (08:38)
[2025-02-26] MEDS: DESENEX/MITRAZOL/ZEASORB 1 APPLIC TOPICAL (08:39)
[2025-02-26] MEDS: SANTYL OINTMENT 1 APPLIC TOPICAL (08:39)
--- NOTE | 2025-02-26 11:10 | W.PN.HOSP.TC ---
Today's Communication/Plan
-
Monitor vital signs and see plan
Continue with pain management
Patient and family decided to go home
Discharge today
Time of discharge 38 minutes
Assessment / Plan
Assessment / Plan
General: Well Developed, Well Nourished and No Apparent Distress
HEENT: Anicteric and Moist mucous membranes
Respiratory: Clear and Non Labored Respirations
Cardiac: S1/S2 and Irregular Rhythm; No Tachycardia
GI: Soft and Non Tender
Neuro: Awake, Alert, Oriented and Nonfocal/grossly intact
Psych: Calm
Back Pain secondary to New L2 Compression Fracture
Denies any neurological deficit
-Add Lidocaine Patch
-Started Tylenol 1000mg TID
-Tramadol PRN moderate/severe pain
-Avoid opioids as patient became very sleepy following dose of [place] given in ED
PT rec rehab; family decided to hire caregiver and plan is for patient to go home today
At baseline was using walker prior to coming to the hospital
Nausea 02/24
Resolved
History of cholecystectomy in past. Per spouse patient does not get nauseous at home
zofran given, not much improvement. QTc elevated. Tigan as needed
elevated LFT's which are now improving, appears likely secondary from chronic disease
abdominal US negative for any acute abnormality
Peripheral Arterial Disease s/p Right Popliteal Stent
-Continue aspirin
Chronic HFpEF
-Continue Farxiga and Lasix
Had some dizziness, decrease Lasix to 40 mg daily. Patient aware to go back up to 60 if she gets shortness of breath or weight gain
-Monitor Daily Weights
Permanent Atrial Fibrillation
-Continue Eliquis
Essential Hypertension
-Continue carvedilol, and lisinopril
Hyperlipidemia
-Continue ezetimibe
Diabetes Mellitus, Type II
-Continue glargine and aspart. dec aspart
-Monitor sugars and continue coverage insulin
Polymyositis
-Continue prednisone
-Patient maintained on IV IG as outpatient
Dementia
-Continue memantine
DVT proph: Eliquis
Code Status: Full Code
Anticipated Discharge: Today
Subjective/Interval History
-
Date of Service: February 26, 2025
Denies dizziness
Objective Data
-
Labs:
Laboratory Results
02/26/25
06:48
WBC 5.1
Hgb 11.7 L
Hct 35.7 L
Plt Count 138
Sodium 139
Potassium 3.7
Chloride 105
Carbon Dioxide 25
BUN 40 H
Creatinine 0.8
Glucose 113 H
Calcium 8.7
Total Bilirubin 1.3
AST 57 H
ALT 45 H
Alkaline Phosphatase 192 H
Vital Signs:
Vital Signs
Temp Pulse Resp BP Pulse Ox
97.3 F 78 16 110/60 95
02/26/25 07:00 02/26/25 07:00 02/26/25 07:00 02/26/25 07:00 02/26/25 08:10
I&O
02/25/25 02/26/25 02/27/25
06:59 06:59 06:59
Intake Total 800 / 800 840 / 840
Balance 800 / 800 840 / 840
--- NOTE | 2025-02-26 11:21 | W.DCSUMMARY ---
Discharge Summary
Discharge Data
Date of Admission: 02/24/25
Date of Discharge: 02/26/25
-
Pending Results: No
Hospital Course
74-year-old female with past medical history of peripheral arterial disease status post right popliteal stent, CHF, pulmonary atrial fibrillation, essential hypertension, hyperlipidemia, diabetes mellitus, polymyositis, dementia, compression
fracture came to the hospital with back pain secondary to new L2 compression fracture. Patient had no neurological deficit due to this compression fracture other than just pain. Patient pain was managed with tramadol along with lidocaine and
Tylenol. She was evaluated by physical therapy who recommended SNF however patient and family decided to rather go home with home health. While she was in the hospital she also had some nausea and she had mild LFT elevations ultrasound of the
abdomen was done which was negative for any acute abnormality. It appeared that patient symptoms were likely chronic. Over time her symptoms continue to improve and her pain was controlled so she was discharged home with instructions to follow-up
with all her physicians outpatient.
Discharge Plan
-
Patient Disposition: Home with Home Care
Discharge Diagnosis/Procedures: Back Pain secondary to New L2 Compression Fracture
Ambulatory dysfunction
Nausea
Elevated LFTs
Diet: As tolerated
Activity: As tolerated
Driving Restrictions: As prior to admission
Bathing Restrictions: None
Activity Restrictions/Additional Instructions:
Wound Care Instructions
R posterior lower leg: clean with saline, skin prep periwound, Santyl to slough, adaptic and dry dressing change daily and prn drainage.
Jose Elias wraps knee high, can remove at bedtime
leg elevation when sitting
offloading cushion for chair, can take upon discharge.
Follow up at wound care center call for an appointment.
Referrals:
Cole Suazo MD [Family Provider, [facility]] - in less than 1 week
Prescriptions:
New
insulin aspart U-100 100 unit/mL (3 mL) Insulin Pen
5 unit SC AC Qty: 0 0RF
tramadol 50 mg Tablet
50 mg PO Q6HPRN PRN (Reason: moderate to severe pain) Qty: 20 0RF
acetaminophen [Tylenol Extra Strength] 500 mg Tablet
1,000 mg PO TID Qty: 0 0RF
Santyl 250 unit/gram Ointment
1 applic topical DAILY Qty: 30 0RF
lidocaine 4 % Adhesive Patch,Medicated
1 patch topical DAILY Qty: 30 0RF
miconazole nitrate [Miconazorb AF] 2 % Powder
1 applic topical BID Qty: 85 0RF
Continued
Gammagard Liquid 10 GRAM/100 ML solution
50 g IV UD
Rx Instructions:
take two days out of the month
alendronate 70 mg tablet
70 mg PO FR
pantoprazole 40 mg Tablet,Delayed Release (Dr/Ec)
40 mg PO DAILY 30 Days Qty: 30 2RF
Eliquis 5 mg tablet
5 mg PO BID 30 Days Qty: 60 0RF
gabapentin 300 mg Capsule
300 mg PO BID
ezetimibe 10 mg Tablet
10 mg PO DAILY
prednisone 10 mg Tablet
10 mg PO DAILY Qty: 0 0RF
aspirin 81 mg Tablet,Delayed Release (Dr/Ec)
81 mg PO DAILY Qty: 0 0RF
memantine 10 mg tablet
10 mg PO BID
dapagliflozin propanediol [Farxiga] 10 mg tablet
10 mg PO DAILY Qty: 30 5RF
carvedilol 6.25 mg tablet
6.25 mg PO BID
lisinopril 2.5 mg tablet
2.5 mg PO HS
insulin glargine [Basaglar KwikPen U-100 Insulin] 100 unit/mL (3 mL) insulin pen
3 unit SC DAILY
cholecalciferol (vitamin D3) 100 mcg (4,000 unit) Tablet
100 mcg PO DAILY
furosemide 40 mg tablet
40 mg PO DAILY
Rx Instructions:
take with 20mg tab for 60mg total
potassium chloride 20 mEq tablet,ER particles/crystals
20 meq PO DAILY
Held
furosemide 20 mg tablet
20 mg PO DAILY
Hold Instructions: Until get shortness of breath or increasing weight gain
Rx Instructions:
take with 40mg for 60mg total
Discontinued
insulin aspart U-100 [Novolog FlexPen U-100 Insulin] 100 unit/mL (3 mL) insulin pen
10 unit SC AC
Discharge Orders:
Discharge Patient (As Directed); Ordered 02/26/25
Ordered By: Dereje Ash
Discharge Date and Time
Discharge Date/Time: 02/26/25 12:17
Print Language: AMERICAN
== END 2025-02-26 12:17 | disposition home or self-care (01) | DRG 543 ==
LOC: 4 EAST ACU 13:40
PROVIDERS: Physician Assistant Medical; ADMITTING PHYSICIAN Hospitalist; ATTENDING PHYSICIAN Internal Medicine; EMERGENCY PHYSICIAN Emergency Medicine; FAMILY PHYSICIAN Family Medicine
DX: M80.08XA Age-related osteoporosis with current pathological fracture, vertebra(e), initial encounter for fracture (principal); I48.21 Permanent atrial fibrillation; M33.20 Polymyositis, organ involvement unspecified; I50.32 Chronic diastolic (congestive) heart failure; E11.51 Type 2 diabetes mellitus with diabetic peripheral angiopathy without gangrene; F03.90 Unspecified dementia, unspecified severity, without behavioral disturbance, psychotic disturbance, mood disturbance, and anxiety; E78.00 Pure hypercholesterolemia, unspecified; D64.9 Anemia, unspecified; I25.10 Atherosclerotic heart disease of native coronary artery without angina pectoris; Z85.3 Personal history of malignant neoplasm of breast; I11.0 Hypertensive heart disease with heart failure; Z96.651 Presence of right artificial knee joint; J45.909 Unspecified asthma, uncomplicated; Z74.09 Other reduced mobility; Z79.01 Long term (current) use of anticoagulants; Z79.4 Long term (current) use of insulin; Z79.83 Long term (current) use of bisphosphonates; Z79.84 Long term (current) use of oral hypoglycemic drugs; Z87.310 Personal history of (healed) osteoporosis fracture; Z90.710 Acquired absence of both cervix and uterus
CPT/HCPCS: 72131; 76700; 80053; 82248; 82962; 83036; 85025; 93005; 97116; 97163; 97167; 97530; 97535; 99285

== ENCOUNTER 2025-03-09 21:52 | Inpatient (IN) | payer MEDICARE, SELFPAY ==
[2025-03-09 14:04] VITALS: BP 113/69
[2025-03-09 14:48] LABS: Hematocrit 36.0 % (37.0-47.0); Hemoglobin 11.6 g/dL (12.0-16.0); Mean Corp Hgb Conc. 32.2 g/dL (33.0-37.0); Mean Corpuscular Volume 92.3 fL (81.0-99.0); Nucleated Red Blood Cells % 0 %; Platelet Count 177 10^3/uL (130-400); Red Cell Dist. Width 19.6 % (11.5-14.5)
[2025-03-09 15:17] LABS: ALT (SGPT) 38 U/L (0-35); AST (SGOT) 58 U/L (14-36); Albumin 3.8 g/dl (3.5-5.0); Alkaline Phosphatase 197 U/L (38-126); Blood Urea Nitrogen 31 mg/dl (7-17); Calcium 8.6 mg/dl (8.4-10.2); Carbon Dioxide 20 mmol/L (22-30); Chloride 104 mmol/L (98-107); Glucose 115 mg/dl (70-99); Sodium 136 mmol/L (135-145); Total Protein 7.7 g/dl (6.3-8.2); eGFR > 60.00
[2025-03-09 15:23] LABS: Potassium 3.4 mmol/L (3.5-5.1)
[2025-03-09] MEDS: LASIX 60 MG IV (19:16)
[2025-03-09 19:26] VITALS: BP 116/61; BMI 29.7
--- NOTE | 2025-03-09 20:11 | ED.GENMED ---
History of Present Illness
<Chivo Benitez MD - Last Filed: 03/09/25 20:24>
General
Chief Complaint: Swelling
Time Seen by Provider: 03/09/25 18:22
<Ambrosio Barksdale Jr., PA-C - Last Filed: 03/09/25 20:45>
General
Source: patient
Exam Limitations: none
Nursing documentation reviewed up to this point in time: agreed with
History of Present Illness
History of Present Illness:
74-year-old female patient with history of CHF hypertension hyperlipidemia, diabetes presenting to the emergency department today with concerns of lower extremity swelling left side slightly worse than the right. Has been taking creasing doses of
Lasix without improvement. Also does have some short breath and difficulty ambulating at home secondary to her leg swelling and weakness.
Past History
<Chivo Benitez MD - Last Filed: 03/09/25 20:24>
Past History
ED Past Medical History: Asthma, CHF, HTN, Hypercholesterolemia, NIDDM, Other (polymyositis) and Other (breast cancer 2007)
ED Past Surgical History: Orthopedic and Other (breast lumpectomy x 2)
Social History
Tobacco: Non-smoker
Alcohol: None
Drug: None
Personal:
Living: with family
Employment: Disabled
Family History
Family History: Diabetes
Review of Systems
<Ambrosio Barksdale Jr., PA-C - Last Filed: 03/09/25 20:45>
Review of Systems
Allergies reviewed?: Yes
All Other Systems: ROS reviewed and negative except as documented in HPI and ROS
Phy Exam
<Ambrosio Barksdale Jr., PA-C - Last Filed: 03/09/25 20:45>
Physical Exam
Physical Exam:
GENERAL: Alert , in no apparent distress
EYE: pupils equal and reactive
NECK: Supple, no significant adenopathy.
ENT: o/p clr, mmm.
CARDIAC: Regular rate and rhythm .
LUNGS: Clear breath sounds bilaterally, no acute respiratory distress, no wheezes/rales/rhonchi
ABDOMEN: Soft, without focal tenderness, no r/g, no cvat
NEUROLOGICAL: Alert and oriented, no focal neuro deficits
SKIN: Warm and dry, skin intact.
MUSCULOSKELETAL: Swelling to lower extremities bilaterally left side worse in the right distal to the thigh bilaterally no redness or warmth. Normal distal pulses
PSYCH: Normal and appropriate interaction.
Scores
<Ambrosio Barksdale Jr., PA-C - Last Filed: 03/09/25 20:45>
Heart Failure Risk
Heart Failure Risk Score: Not Applicable
Course
<Chivo Benitez MD - Last Filed: 03/09/25 20:24>
Orders/Labs/Results
Orders:
Orders
03/09/25 14:09
US Periph Venous LOWER Ext LT Urgent
Comment:
Reason For Exam: swelling
03/09/25 14:21
Complete Blood Count/With Diff Urgent
Comprehensive Metabolic Panel Urgent
03/09/25 19:00
Furosemide [Lasix] 60 mg IV NOW STA
Chest [CR Chest - 2 Views ] Urgent
Comment:
Reason For Exam: sob swelling
03/09/25 19:16
BNP [NT-proBNP] Urgent
Abnormal Lab Results
03/09/25
14:21
RBC 3.90 L 10^6/uL
(4.20-5.40)
Hgb 11.6 L g/dL
(12.0-16.0)
Hct 36.0 L %
(37.0-47.0)
MCHC 32.2 L g/dL
(33.0-37.0)
RDW 19.6 H %
(11.5-14.5)
MPV 10.6 H fL
(7.4-10.4)
Absolute Neuts (auto) 6.6 H 10^3/uL
(1.4-6.5)
Absolute Lymphs (auto) 0.7 L 10^3/uL
(1.2-3.4)
Absolute Monos (auto) 0.8 H 10^3/uL
(0.1-0.6)
Neutrophils % 81.7 H %
(42.2-75.2)
Lymphocytes % 8.3 L %
(20.5-51.1)
Potassium 3.4 L mmol/L
(3.5-5.1)
Carbon Dioxide 20 L mmol/L
(22-30)
BUN 31 H mg/dl
(7-17)
Glucose 115 H mg/dl
(70-99)
AST 58 H U/L
(14-36)
ALT 38 H U/L
(0-35)
Alkaline Phosphatase 197 H U/L
(38-126)
03/09/25 14:21
03/09/25 14:21
Vital Signs
Initial and Last Documented VS:
Initial Vital Signs
Temp Pulse Resp BP Pulse Ox
98.6 F 70 18 113/69 100
03/09/25 14:04 03/09/25 14:04 03/09/25 14:04 03/09/25 14:04 03/09/25 14:04
Last Documented Vital Signs
Temp Pulse Resp BP Pulse Ox
98.6 F 78 18 116/61 100
03/09/25 14:04 03/09/25 19:26 03/09/25 19:26 03/09/25 19:26 03/09/25 20:13
<Ambrosio Barksdale Jr., PA-C - Last Filed: 03/09/25 20:45>
Orders/Labs/Results
Orders:
Orders
03/09/25 14:09
US Periph Venous LOWER Ext LT Urgent
Comment:
Reason For Exam: swelling
03/09/25 14:21
Complete Blood Count/With Diff Urgent
Comprehensive Metabolic Panel Urgent
03/09/25 19:00
Furosemide [Lasix] 60 mg IV NOW STA
Chest [CR Chest - 2 Views ] Urgent
Comment:
Reason For Exam: sob swelling
03/09/25 19:16
BNP [NT-proBNP] Urgent
Abnormal Lab Results
03/09/25
14:21
RBC 3.90 L 10^6/uL
(4.20-5.40)
Hgb 11.6 L g/dL
(12.0-16.0)
Hct 36.0 L %
(37.0-47.0)
MCHC 32.2 L g/dL
(33.0-37.0)
RDW 19.6 H %
(11.5-14.5)
MPV 10.6 H fL
(7.4-10.4)
Absolute Neuts (auto) 6.6 H 10^3/uL
(1.4-6.5)
Absolute Lymphs (auto) 0.7 L 10^3/uL
(1.2-3.4)
Absolute Monos (auto) 0.8 H 10^3/uL
(0.1-0.6)
Neutrophils % 81.7 H %
(42.2-75.2)
Lymphocytes % 8.3 L %
(20.5-51.1)
Potassium 3.4 L mmol/L
(3.5-5.1)
Carbon Dioxide 20 L mmol/L
(22-30)
BUN 31 H mg/dl
(7-17)
Glucose 115 H mg/dl
(70-99)
AST 58 H U/L
(14-36)
ALT 38 H U/L
(0-35)
Alkaline Phosphatase 197 H U/L
(38-126)
03/09/25 14:21
03/09/25 14:21
Vital Signs
Initial and Last Documented VS:
Initial Vital Signs
Temp Pulse Resp BP Pulse Ox
98.6 F 70 18 113/69 100
03/09/25 14:04 03/09/25 14:04 03/09/25 14:04 03/09/25 14:04 03/09/25 14:04
Last Documented Vital Signs
Temp Pulse Resp BP Pulse Ox
98.6 F 78 18 116/61 100
03/09/25 14:04 03/09/25 19:26 03/09/25 19:26 03/09/25 19:26 03/09/25 20:13
<Ambrosio Barksdale Jr., PA-C - Last Filed: 03/09/25 20:45>
MDM/Problems Addressed
MDM/Problems Addressed:
74-year-old female presenting to the emergency department today with concerns of lower extremity swelling worsening at home despite increasing doses of Lasix. Here she does have significant swelling to bilateral legs left side slightly worse than
the right. Good distal pulses. No redness or warmth or signs of infection. Ultrasound performed of the left leg without signs of blood clot. Patient did have some edema on chest x-ray. Concern of potential worsening heart failure plan to admit
for further treatment and monitoring.
<Chivo Benitez MD - Last Filed: 03/09/25 20:24>
*Pulse Oximetry
SaO2: 100
Oxygen Mode of Delivery: Room air
<Ambrosio Barksdale Jr., PA-C - Last Filed: 03/09/25 20:45>
*Pulse Oximetry
Patient hypoxic: no (100)
*Critical Care Note
Total Time (30-74mins, 75-104mins- exclusive of procedures): Not Applicable
ED Attending Note
<Chivo Benitez MD - Last Filed: 03/09/25 20:24>
ED Attending Note
Patient seen and examined by attending physician: Yes
I performed the substantive portion of visit, reviewed & personally made and approve the management plan that is documented in note by myself or LOLITA.: Yes
ED Attending Note:
74-year-old female with increased weight gain shortness of breath leg swelling despite increasing outpatient doses of diuretics. Also ADL issues at home.
On exam patient is chronically ill-appearing. Mild tachypnea at rest. Mildly anxious. Lungs with a few rales bilaterally. Heart regular rate and rhythm. Abdomen benign. Extremities +2 edema bilaterally. Warm and dry. Admitted for failed
diuresis despite increasing doses of outpatient diuretics/ADL issues
-
Portions of this chart may have been created with voice recognition software.� Occasional wrong word or��sound alike� substitutions may have occurred due to the inherent limitations of voice recognition software.
Discharge Plan
Departure
Patient Disposition: Admit
Date of Disposition: 03/09/25
Time of Disposition: 20:44
Admit to: Telemetry
Admit to doctor: Tani
Presentation/result/management discussed w/ accepting MD/DO: Hospitalist
Patient with high blood pressure during this ER visit?: No
Condition: Good
Covid-19: Not Applicable
Discharge Problem:
Acute exacerbation of CHF (congestive heart failure)
Prescriptions:
No Action
Gammagard Liquid 10 GRAM/100 ML solution
50 g IV UD
Rx Instructions:
take two days out of the month due 03/12/2025 and 03/13/25
alendronate 70 mg tablet
70 mg PO FR
pantoprazole 40 mg Tablet,Delayed Release (Dr/Ec)
40 mg PO DAILY 30 Days Qty: 30 2RF
Eliquis 5 mg tablet
5 mg PO BID 30 Days Qty: 60 0RF
gabapentin 300 mg Capsule
300 mg PO BID
ezetimibe 10 mg Tablet
10 mg PO DAILY
memantine 10 mg tablet
10 mg PO BID
carvedilol 6.25 mg tablet
6.25 mg PO BID
lisinopril 2.5 mg tablet
2.5 mg PO HS
insulin glargine [Basaglar KwikPen U-100 Insulin] 100 unit/mL (3 mL) insulin pen
3 unit SC DAILY
cholecalciferol (vitamin D3) 100 mcg (4,000 unit) Tablet
100 mcg PO DAILY
furosemide 40 mg tablet
60 mg PO DAILY
potassium chloride 20 mEq tablet,ER particles/crystals
20 meq PO DAILY
lidocaine 4 % Adhesive Patch,Medicated
1 patch topical DAILY Qty: 30 0RF
prednisone 10 mg tablet
10 mg PO DAILY
miconazole nitrate [Miconazorb AF] 2 % powder
1 applic topical BID
aspirin 81 mg tablet,delayed release (DR/EC)
81 mg PO DAILY
tramadol 50 mg tablet
50 mg PO HS
acetaminophen [Tylenol Extra Strength] 500 mg tablet
1,000 mg PO TIDPRN PRN (Reason: mild pain)
Santyl 250 unit/gram ointment
1 applic topical DAILY
insulin aspart U-100 100 unit/mL (3 mL) insulin pen
5 unit SC AC
dapagliflozin propanediol [Farxiga] 10 mg tablet
10 mg PO DAILY
Referrals:
Cole Suazo MD [Family Provider, Family Practice]
Interventions
Interventions:
*Risk Screen - Suicide Last Done: 03/09/25 19:26
*General Assessment Last Done: 03/09/25 19:26
*Neglect/Abuse Screening Last Done: 03/09/25 19:26
ED- Cardiac Assessment Last Done: 03/09/25 19:26
ED- Pulmonary Assessment Last Done: 03/09/25 19:26
ED-Skin Assessment Last Done: 03/09/25 19:26
Discharge Date and Time
Print Language: UKRAINIAN
--- NOTE | 2025-03-09 20:50 | HPS.HSE ---
Addendum entered and electronically signed by Geronimo Freire DO 03/09/25 22:07:
Patient seen and examined independently. Agree with findings and plan as set forth by AUGUSTO Keyes.
Patient is a74y F with PMH significant for hypertension, DM-II and HFpEF who presents to ED complaining of progressive LE swelling - L > R. Patient states that swelling has persisted despite taking Lasix at home, elevating extremities, etc. She
complains of heaviness and difficulty walking as a result. She denies any chest pain, dyspnea, etc. Patient weighs herself daily and notes that her weight today is up about 3 lbs.
Ass:
Acute on Chronic HFpEF
Hypokalemia
Abnormal LFTs - Likely secondary to CHF
ASCVD
Permanent Atrial Fibrillation
Benign Hypertension
DM-II
Polymyositis
RLE Wound
Polymyositis
Plan:
Admit for further evaluation and treatment.
IV Lasix BID and follow I/Os, daily weights, etc.
US done in the ED negative for LLE DVT given asymmetric edema.
Echo done 01/2025 with low-normal LVEF (50%).
Cardiology evaluation for additional recommendations.
Continue potassium supplementation / adjust as needed.
Continue GDMT.
Wound care for RLE wound / posterior lower leg.
Continue other usual medications.
Follow for clinical improvement.
Original Note:
Family Physician
-
Family Physician: Cole Suazo
Chief Complaint
-
LE edema
History of Present Illness
74-year-old female patient with history of CHF hypertension hyperlipidemia, diabetes presented to us with worsening LE edema for past few days. she was taking her Lasix as prescribed as well as keeping her leg up with no relief in her swelling. she
was having trouble walking due to the swelling. denied weight gain. denied sob. denied fever, chills, cough, congestion, chest pain. denied abdominal pain,n,v,d. denied dysuria or hematuria.
concern for CHf exacebation. recieved a dose of lasix and potassium in the ER. admitting for further management.
Medical History
Past Medical History
Past Medical History: Reports Other
Additional Past Medical History:
asthma, mitral regurgitation, polymyositis, pulmonary htn, vasculitis, CHF, venous insufficiency, peripheral vascular disease, type 2 DM, HTN, asthma, hld, atrial fib, acid reflux
Past Surgical History: Reports Other
Additional Past Surgical History:
2 lumpectomies, total right knee replacement, cholecystectomy, right LE angioplasty with stent
Social History
Tobacco: Non-smoker
Alcohol: None
Drug: None
Personal:
Living: With Family
Family History
Family History: Not pertinent
Allergies / Home Medications
Allergies reflects when Allergies were last updated in [facility].
Home Medications with original date entered in [facility]
Allergy/Medication List:
Allergies
Allergy/AdvReac Type Severity Reaction Status Date / Time
codeine Allergy Vomiting Verified 02/22/25 09:27
metformin Allergy effects Verified 02/22/25 09:27
polymositis
[id number] Reductase Allergy effects Verified 02/22/25 09:27
Inhibitor ([id number] polymyositis
Reductase Inhibitor)
Home Medications
immune glob,gamma (IgG) 10 %-gly-IgA over 50 mcg/mL injection solution (Gammagard Liquid) 50 g IV UD polymyositis 05/13/20
alendronate 70 mg tablet 70 mg PO FR Osteoporosis 01/20/22
apixaban 5 mg tablet (Eliquis) 5 mg PO BID Venous thrombosis 30 days #60 tabs 01/23/22
pantoprazole 40 mg tablet,delayed release 40 mg PO DAILY GERD 30 days #30 tabs 01/23/22
ezetimibe 10 mg tablet 10 mg PO DAILY High Cholesterol 08/01/24
gabapentin 300 mg capsule 300 mg PO BID Neurological Condition 08/01/24
memantine 10 mg tablet 10 mg PO BID Neurological Condition 01/19/25
carvedilol 6.25 mg tablet 6.25 mg PO BID Blood Pressure 02/22/25
cholecalciferol (vitamin D3) 100 mcg (4,000 unit) tablet 100 mcg PO DAILY Supplement 02/22/25
furosemide 40 mg tablet 60 mg PO DAILY Fluid Retention/Swelling 02/22/25
insulin glargine 100 unit/mL (3 mL) subcutaneous pen (Basaglar KwikPen U-100 Insulin) 3 unit SC DAILY Diabetes 02/22/25
lisinopril 2.5 mg tablet 2.5 mg PO HS Blood Pressure 02/22/25
potassium chloride 20 mEq tablet,extended release(part/cryst) 20 meq PO DAILY Electrolyte Repletion 02/22/25
lidocaine 4 % topical patch 1 patch topical DAILY #30 ea 02/26/25
acetaminophen 500 mg tablet (Tylenol Extra Strength) 1,000 mg PO TIDPRN PRN mild pain 03/09/25
aspirin 81 mg tablet,delayed release 81 mg PO DAILY Heart Disease/Condition 03/09/25
collagenase clostridium histo. 250 unit/gram topical ointment (Santyl) 1 applic topical DAILY right foot 03/09/25
dapagliflozin propanediol 10 mg tablet (Farxiga) 10 mg PO DAILY Diabetes 03/09/25
insulin aspart U-100 100 unit/mL (3 mL) subcutaneous pen 5 unit SC AC Diabetes 03/09/25
miconazole nitrate 2 % topical powder (Miconazorb AF) 1 applic topical BID folds 03/09/25
prednisone 10 mg tablet 10 mg PO DAILY Infection 03/09/25
tramadol 50 mg tablet 50 mg PO HS 03/09/25
Review of Systems
-
Constitutional: Reports No Symptoms
EENT: Reports No Symptoms
Respiratory: Reports No Symptoms
Cardiac: Reports No Symptoms
Abdomen/GI: Reports No Symptoms
: Reports No Symptoms
Musculoskeletal: Reports Edema (b/l LE edema)
Skin: Reports No Symptoms
Neurological: Reports No Symptoms
Endocrine: Reports No Symptoms
Hematologic/Lymphatic: Reports No Symptoms
Psych: Reports No Symptoms
Physical Exam
Vital Signs
Vital Signs
Temp Pulse Resp BP Pulse Ox
98.6 F 78 18 116/61 100
03/09/25 14:04 03/09/25 19:26 03/09/25 19:26 03/09/25 19:26 03/09/25 20:13
Physical Exam
General: Well Developed, Well Nourished and No Apparent Distress
HEENT: NormoCephalic, Moist mucous membranes and Atraumatic
Respiratory: Clear
Cardiac: S1/S2 and Regular Rhythm; No Murmur or Rub
GI: Soft, Non Tender, Non Distended and Normal Bowel Sounds; No Organomegaly
Rectal: Deferred by Provider
Musculoskeletal: No Clubbing, No Cyanosis and Other (b/l LE edema)
Skin: No Rash
Neuro: AO x 3 and Nonfocal/grossly intact
Psych: Calm
Laboratory Results
-
03/09/25 14:21
03/09/25 14:21
Laboratory Results
Total Bilirubin 1.0 mg/dl (0.2-1.3) 03/09/25 14:21
AST 58 U/L (14-36) H 03/09/25 14:21
ALT 38 U/L (0-35) H 03/09/25 14:21
Alkaline Phosphatase 197 U/L (38-126) H 03/09/25 14:21
Data Reviewed
-
Diagnostic Radiology: Report Reviewed by me
Lab Data: Labs Reviewed by me
Impression/Plan
-
#CHF exacerbation
-iv Lasix, strict I&O, daily weight
-fluid restriction
-cardiology consulted
-BNP 1290
-chest x ray with Mild interstitial cardiogenic pulmonary edema.
2. Moderate cardiomegaly.
3. Mild scarring in the left lower lung.
4. Mildly decreased bilateral lung volumes.
5. Multilevel vertebral body endplate insufficiency fractures in the lower thoracic and upper lumbar spine with moderate loss of vertebral body height.
-Duplex with no evidence of DVT
#hypokalemia likely from diuretics
-k 3.4,oral kcl
-BMP in am
#transaminitis likely hepatic congestion
-ast 58,lat 38,alk 197
-denied abdominal pain
-continue to trend
#Peripheral Arterial Disease s/p Right Popliteal Stent
-Continue aspirin
#Permanent Atrial Fibrillation
-Continue Eliquis and coreg
#Essential Hypertension
-Continue carvedilol, and lisinopril
#Hyperlipidemia
-Continue ezetimibe
#Diabetes Mellitus, Type II with neuropathy
-farxiga continued
-gabapentin continued
-Continue glargine and aspart. dec aspart
-Monitor sugars and continue coverage insulin
#Polymyositis
-Continue prednisone
-Patient maintained on IV IG as outpatient
#Dementia
-Continue memantine
#right LE wound
-wound ostomy consulted
#GERD
-PPI continued
DVT proph: Eliquis
Code Status: Full Code
[2025-03-09] MEDS: KCL 40 MEQ PO (21:42)
[2025-03-09 22:55] VITALS: BMI 28.7
[2025-03-09 23:04] VITALS: BP 132/83; BMI 28.7
[2025-03-09] MEDS: ZESTRIL 2.5 MG PO (23:24)
[2025-03-09] MEDS: ULTRAM 50 MG PO (23:25)
[2025-03-09 23:33] LABS: Glucose - Point of Care 142 mg/dl (70-99)
[2025-03-10] VITALS (7 sets, daily range): BP systolic 96–126; BP diastolic 56–68; PULSE 87; BMI 28.5
[2025-03-10] MEDS: SANTYL OINTMENT 1 APPLIC TOPICAL (05:29)
[2025-03-10 06:48] LABS: ALT (SGPT) 39 U/L (0-35); AST (SGOT) 54 U/L (14-36); Albumin 4.1 g/dl (3.5-5.0); Alkaline Phosphatase 209 U/L (38-126); Blood Urea Nitrogen 28 mg/dl (7-17); Calcium 8.9 mg/dl (8.4-10.2); Carbon Dioxide 24 mmol/L (22-30); Chloride 104 mmol/L (98-107); Estimated Creatinine Clearance 73 ml/min; Glucose 89 mg/dl (70-99); HDL Cholesterol 59 mg/dl; LDL Cholesterol, Calculated 68 mg/dl; Magnesium 2.3 mg/dl (1.6-2.3); Potassium 3.6 mmol/L (3.5-5.1); Sodium 138 mmol/L (135-145); Total Protein 8.5 g/dl (6.3-8.2); Very Low Density Lipoprotein 23 mg/dl (0-30); eGFR > 60.00
[2025-03-10 06:54] LABS: Hematocrit 38.1 % (37.0-47.0); Hemoglobin 12.4 g/dL (12.0-16.0); Mean Corp Hgb Conc. 32.5 g/dL (33.0-37.0); Mean Corpuscular Volume 92.3 fL (81.0-99.0); Platelet Count 157 10^3/uL (130-400); Red Cell Dist. Width 19.6 % (11.5-14.5)
[2025-03-10 07:49] LABS: Glucose - Point of Care 58 mg/dl (70-99)
[2025-03-10 08:16] LABS: Glucose - Point of Care 61 mg/dl (70-99)
--- NOTE | 2025-03-10 08:28 | VNURNOTE ---
Addendum entered by Sylwia Guadalupe RN 03/11/25 10:07:
Chart reviewed. Patient is current with [facility]. Will continue to follow hospital course and DC plans.
Original Note:
Chart reviewed. Patient is current with [facility]. Will continue to follow hospital course and DC plans.
[2025-03-10] MEDS: COREG PO (08:40)
[2025-03-10] MEDS: DELTASONE 10 MG PO (08:41)
[2025-03-10] MEDS: PROTONIX 40 MG PO (08:41)
[2025-03-10] MEDS: ASPIR LOW (ENTERIC COATED) 81 MG PO (08:41)
[2025-03-10] MEDS: KCL 20 MEQ PO (08:41)
[2025-03-10] MEDS: FARXIGA 10 MG PO (08:44)
[2025-03-10] MEDS: NEURONTIN 300 MG PO ×2 (08:44→20:39)
[2025-03-10] MEDS: NAMENDA 10 MG PO ×2 (08:44→20:39)
[2025-03-10] MEDS: ELIQUIS 5 MG PO ×2 (08:44→20:38)
[2025-03-10] MEDS: ZETIA 10 MG PO (08:44)
[2025-03-10 08:49] LABS: Glucose - Point of Care 35 mg/dl (70-99)
[2025-03-10 08:49] LABS: Glucose - Point of Care 41 mg/dl (70-99)
--- NOTE | 2025-03-10 08:50 | W.PN.HOSP.TC ---
Today's Communication/Plan
-
IV diuresis. Cardio eval. [facility]
Assessment / Plan
Assessment / Plan
Physical exam:
General: Acutely ill
HEENT: Normocephalic, Atraumatic and Moist Mucous Membranes
Respiratory: Clear to Auscultation; Negative Wheezes, Rales or Rhonchi
Cardiac: Regular Rhythm and S1/S2
GI: Soft, Nontender and Nondistended
Musculoskeletal: No Clubbing, No Cyanosis. Bilateral lower extremity edema
Neuro: Awake, Alert and Disoriented, no neurological deficits
Psych: Calm, limited judgment and insight
A/P:
Acute on chronic HFpEF:
Continue IV Lasix
GDMT limited by hypotension but on beta-blockers, KEILA inhibitor, and SGLT2 inhibitor
Cardiology consult appreciated
Family does not want cardiac interventions unable
Chronic lower extremity edema:
Likely related to heart failure that after my evaluation family concerns about vascular issues
She does have PAD and prior popliteal SAUS[employer]APPER stent back in July 2024 for limb threatening ischemia so we will go ahead and order [facility] to reevaluate
Permanent A-fib and atrial tachycardia:
Continue rate control of carvedilol
Continue anticoagulation of Eliquis
Chronic back pain:
Relatively recent compression fracture at L2
Restart pain medications and reevaluate
PT OT eval
Diabetes mellitus:
Insulin sliding scale
Lantus and insulin before meals
Mild hypoglycemia by fingerstick not confirmed by blood sugars
Hyperlipidemia:
Continue Zetia
Polymyositis:
Continue oral steroids
Apparently IVIG as outpatient
Dementia:
Continue Namenda 10 mg p.o. twice a day
Total time spent on today's encounter was 52 minutes which included time spent in counseling the patient/family regarding diagnosis and treatment plan as listed above, goals of care, and symptom management. Case was discussed with nursing staff,
specialists, and care coordinators/case management. All labs and imaging personally reviewed by me. Remainder the time spent in detailed review of previous records, lab data, imaging, and other medical provider documentation.
Anticipated Discharge: > 48 hours
Subjective/Interval History
-
Date of Service: March 10, 2025
Patient feels less short of breath. Still have some peripheral edema. No chest pain. Afebrile
Objective Data
-
Labs:
Laboratory Results
03/10/25
05:46
WBC 6.4
Hgb 12.4
Hct 38.1
Plt Count 157
Sodium 138
Potassium 3.6
Chloride 104
Carbon Dioxide 24
BUN 28 H
Creatinine 0.6
Glucose 89
Calcium 8.9
Total Bilirubin 1.3
AST 54 H
ALT 39 H
Alkaline Phosphatase 209 H
Vital Signs:
Vital Signs
Temp Pulse Resp BP Pulse Ox
97.4 F 85 18 96/64 98
03/10/25 07:27 03/10/25 07:27 03/10/25 07:27 03/10/25 07:27 03/10/25 07:27
I&O
03/09/25 03/10/25 03/11/25
06:59 06:59 06:59
Intake Total 200 / 200
Output Total 350 / 350
Balance -150 / -150
[2025-03-10] MEDS: LIDOCAINE 4% PATCH 1 PATCH TOPICAL (08:52)
[2025-03-10] MEDS: NOVOLOG FLEXPEN SC ×3 (09:01→17:40)
[2025-03-10] MEDS: NOVOLOG FLEXPEN-LOW RESISTANCE SC ×2 (09:01→12:25)
[2025-03-10 09:21] LABS: Glucose - Point of Care 41 mg/dl (70-99)
--- NOTE | 2025-03-10 09:33 | CON.CAR ---
Addendum entered and electronically signed by Babak Snyder MD 03/10/25 12:30:
74-year-old woman admitted with acute on chronic heart failure with improved EF. Most recent hospital stay mid February 2025 for compression fractures treated with steroids. Currently with episodes of hypotension., proBNP is 1240
PMH: PAD, right popliteal [employer] stent July 2024 for limb threatening ischemia, heart failure with improved EF, 50% 2024, permanent A-fib, left bundle branch block, diabetes, polymyositis, hyperlipidemia, UTI
Rest of history as below per MB.
105/56, pulse 78, respiratory rate 16, weight is 68.3 kg, down 0.6 kg, pleasant, no distress, legs are wrapped, with edema, lungs relatively clear, flinches when sitting up related to back pain, irregular rate and rhythm, JVD not markedly elevated
chest x-ray NAD
Hemoglobin 12.4, platelets are 157, BUN and creatinine are 28 and 0.6, glucose was 41
Telemetry: Left bundle branch block
ECG 02/2025 atypical atrial flutter, variable block, left bundle branch block with left axis
Impression:
As below. findings, assessments and recommendations reviewed in detail and agree unless otherwise specified.
Plan:
She presents with acute on chronic HFpEF with underlying atrial tachycardia and predominantly right-sided symptoms with proBNP noted is only modestly elevated.
She is intermittently relatively hypotensive which limits our ability to diurese her.
Right heart catheterization would be reasonable, but with underlying left bundle branch block risk of complete heart block during right heart catheter is increased, and family is somewhat reluctant to consider invasive procedures. At this point, we
will hold off right heart cath.
Continue IV furosemide and SGLT2 antagonist. Continue local care for edema.
Family may request vascular input per son.
We will continue to follow.
Original Note:
Consultation
Consultation Request
Date/Time Consultation Performed: 03/10/25
Requesting Provider: Dr. Shelley
Performing Provider: Joselyn Glover PA-C for Dr. KRISTY Snyder
Reason for Consultation: LE edema
Medical History
-
Chief Complaint: LE edema
History of Present Illness:
74-year-old female with past medical history of PAD status post right lower extremity stent 07/2024, heart failure with improved EF, permanent A-fib on Eliquis, left bundle branch block, diabetes mellitus, polymyositis on IVIG every 3 weeks who has
had multiple admissions for acute CHF over the last several months, however has also had issues with intermittent hypotension requiring de-escalation of guideline directed medical therapy. Most recent admission 02/22/2025 - 02/26/2025 for
compression fracture and was started on steroids. During that hospitalization, her Lasix dose was decreased from 60 mg daily to 40 mg daily due to intermittent dizziness. Her lisinopril has also been de-escalated and lasix has been intermittently
stopped due to hypotension and lethargy noted in outpatient setting. then called on 03/06 complaining of lower extremity edema and several pound weight gain and her Lasix dose was increased to 40 mg twice daily for 3 days and then return to
60 mg daily. With this weight remained the same at 152 (which reportedly is patient baseline), however left lower extremity edema worsened. Due to this patient was referred to the emergency room for further evaluation and subsequently admitted.
proBNP 1240. Cardiology consulted for evaluation.
Past medical history:
PAD status post right lower extremity stent 08/04/2024 balloon angioplasty and stent placement right [id number] popliteal artery for nonhealing necrotic right posterior calf wound
Heart failure improved EF, EF 30% 2012, Improved to 50% 2024
Atrial fibrillation, permanent
Chronic anticoagulation with Eliquis
Chronic left bundle branch block
Diabetes mellitus
Polymyositis on IVIG every 3 weeks
Hyperlipidemia
History of UTI
Past Medical History
Past Medical History: Other (in HPI)
Past Surgical History: Other (Right popliteal stent, hysterectomy, cholecystectomy, right total knee replacement, bilateral meniscus repair, left lumpectomy, carpal tunnel release)
Social History
Tobacco: Non-Smoker
Alcohol: None
Drug: None
Personal:
Living: With Family
Family History
Family History: Reviewed & Not Pertinent
Allergies / Home Medications
Allergy/AdvReac Type Severity Reaction Status Date / Time
codeine Allergy Vomiting Verified 02/22/25 09:27
metformin Allergy effects Verified 02/22/25 09:27
polymositis
Aetaokz-MGR-ZkT Reductase Allergy effects Verified 02/22/25 09:27
Inhibitor (Jbwzwwo-Esq-Zpc polymyositis
Reductase Inhibitor)
�Medication �Instructions �Recorded �Confirmed �Type
immune glob,gamma (IgG) 10 50 g IV UD polymyositis 05/13/20 03/09/25 History
%-gly-IgA over 50 mcg/mL injection
solution (Gammagard Liquid)
alendronate 70 mg tablet 70 mg PO FR Osteoporosis 01/20/22 03/09/25 History
apixaban 5 mg tablet (Eliquis) 5 mg PO BID Venous thrombosis 30 01/23/22 03/09/25 Rx
days #60 tabs
pantoprazole 40 mg tablet,delayed 40 mg PO DAILY GERD 30 days #30 01/23/22 03/09/25 Rx
release tabs
ezetimibe 10 mg tablet 10 mg PO DAILY High Cholesterol 08/01/24 03/09/25 History
gabapentin 300 mg capsule 300 mg PO BID Neurological 08/01/24 03/09/25 History
Condition
memantine 10 mg tablet 10 mg PO BID Neurological Condition 01/19/25 03/09/25 History
carvedilol 6.25 mg tablet 6.25 mg PO BID Blood Pressure 02/22/25 03/09/25 History
cholecalciferol (vitamin D3) 100 100 mcg PO DAILY Supplement 02/22/25 03/09/25 History
mcg (4,000 unit) tablet
furosemide 40 mg tablet 60 mg PO DAILY Fluid 02/22/25 03/09/25 History
Retention/Swelling
insulin glargine 100 unit/mL (3 3 unit SC DAILY Diabetes 02/22/25 03/09/25 History
mL) subcutaneous pen (Basaglar
KwikPen U-100 Insulin)
lisinopril 2.5 mg tablet 2.5 mg PO HS Blood Pressure 02/22/25 03/09/25 History
potassium chloride 20 mEq 20 meq PO DAILY Electrolyte 02/22/25 03/09/25 History
tablet,extended release(part/cryst) Repletion
lidocaine 4 % topical patch 1 patch topical DAILY #30 ea 02/26/25 03/09/25 Rx
acetaminophen 500 mg tablet 1,000 mg PO TIDPRN PRN mild pain 03/09/25 03/09/25 History
(Tylenol Extra Strength)
aspirin 81 mg tablet,delayed 81 mg PO DAILY Heart 03/09/25 03/09/25 History
release Disease/Condition
collagenase clostridium histo. 250 1 applic topical DAILY right foot 03/09/25 03/09/25 History
unit/gram topical ointment (Santyl)
dapagliflozin propanediol 10 mg 10 mg PO DAILY Diabetes 03/09/25 03/09/25 History
tablet (Farxiga)
insulin aspart U-100 100 unit/mL 5 unit SC AC Diabetes 03/09/25 03/09/25 History
(3 mL) subcutaneous pen
miconazole nitrate 2 % topical 1 applic topical BID folds 03/09/25 03/09/25 History
powder (Miconazorb AF)
prednisone 10 mg tablet 10 mg PO DAILY Infection 03/09/25 03/09/25 History
tramadol 50 mg tablet 50 mg PO HS Pain 03/09/25 03/09/25 History
Review of Systems
-
History Source: Patient and Family
All other systems: Negative unless noted
Physical Exam
Vital Signs
Temp Pulse Resp BP Pulse Ox
97.4 F 85 18 96/64 98
03/10/25 07:27 03/10/25 08:40 03/10/25 07:27 03/10/25 08:40 03/10/25 07:27
Lab Results
03/10/25 05:46
Kyy-F-Vsrshoznruj Pept 1290 pg/ml 03/09/25 19:16
Physical Exam
General: No Apparent Distress and Comfortable
HEENT: Normocephalic, Anicteric and Moist Mucous Membranes
Respiratory: Clear and Non Labored Respirations
Cardiac: S1/S2 and Irregular Rhythm
GI: Soft, Non Tender, Non Distended and Normal Bowel Sounds
Musculoskeletal: No Clubbing, No Cyanosis and Edema (trace of LLE. B/L LE with dressings in place)
Skin: Warm and Dry
Neuro: Awake, Alert and Oriented (to self, place)
Impression / Plan
-
Primary Compensation Advisor: Dr. Ortiz
Assessment:
Presentation with LLE edema
Concern for acute on chronic HFimpEF
Relative hypotension
Admission 02/2025 for acute compression fracture, on steroid therapy
Admission 01/2025 for acute CHF
Admission 12/2024 for hypotension, suspected overdiuresis
PAD status post right lower extremity stent 08/04/2024 balloon angioplasty and stent placement right [id number] popliteal artery for nonhealing necrotic right posterior calf wound
Heart failure improved EF, EF 30% 2012, Improved to 50% 2024
Atrial fibrillation, permanent
Chronic anticoagulation with Eliquis
Chronic left bundle branch block
Diabetes mellitus
Polymyositis on IVIG every 3 weeks
Hyperlipidemia
History of UTI
Mild LFT elevation, chronic
Echo 06/2012: EF 30%, moderate MR
Echo 05/2020: EF 50%, mild to moderate MR, mild TR
Echo 01/2022: EF 60 to 65%, mild to moderate MR, mild TR
Echo 10/10/2024: EF 50 to 55%, possible mild inferior apical hypokinesis, upper normal RV size and low normal RV function, mild to moderate MR, moderate TR
Echo 01/22/2025: Limited follow-up study, EF 50% with hypokinesis of apical inferior wall
Plan:
-Patient presents with left lower extremity edema, without significant response to escalation of outpatient diuretic therapy. Weights were stable at 152 pounds. Also on steroid therapy for recent diagnosis of acute compression fracture, which
could be contributing
-She has had monthly admissions over the last several months for concerns related to her volume status
-proBNP 03/09 was 1290 and CXR with evidence of mild pulm edema. Lower extremity edema is not impressive on exam. Family reports she does not drink much, and does not have significant urine output with the Lasix in general, however did not have
increased with escalation of outpatient diuretic therapy
-She received a dose of IV Lasix 60mg last evening, and weight trending down if accurate, however now hypotensive.
-Replete K. Mag stable. Creatinine stable
-? is volume status being impacted by IVIG infusions which she gets every 3 weeks as outpatient
-Would consider for right heart cath in a.m. as sense of volume status unclear
-Continue aspirin. Would hold Eliquis this evening and tomorrow morning if plan for RHC
-She has permanent atrial fibrillation. Remains rate controlled on review of telemetry. A.m. Coreg dose held due to hypotension
-She is presently on low-dose lisinopril and Farxiga. Of note she did have a UTI within the last several months. Would monitor closely on this medication
-Also with hypoglycemia which could be impacting above. Correction per primary service
-There are also concerns for cognitive decline in patient expressed by family members.
-Discussed with son at bedside. Discussed with nursing
Data Reviewed
-
EKG: Tracing Personally Visualized and interpreted
Radiology: Report Reviewed by me
Medical Tests (Nuc Med, Echo etc): Report Reviewed by me
Labs: Labs Reviewed by me
Old Records: Reviewed
[2025-03-10 10:19] LABS: Glucose 163 mg/dl (70-99)
[2025-03-10] MEDS: LANTUS SC (10:44)
[2025-03-10] MEDS: DILAUDID 0.25 MG IV (11:22)
[2025-03-10] MEDS: LASIX 40 MG IV ×2 (11:22→16:00)
[2025-03-10] MEDS: DESENEX/MITRAZOL/ZEASORB 1 APPLIC TOPICAL ×2 (11:23→20:40)
--- NOTE | 2025-03-10 12:35 | WOUNDNOTE ---
R POSTERIOR LOWER LEG
--- NOTE | 2025-03-10 12:35 | WOUNDNOTE ---
L MEDIAL LOWER LEG
--- NOTE | 2025-03-10 12:40 | WOUNDNOTE ---
[facility] RN note: Patient admitted with acute CHF.
See H&P for complete history.
PMH: Afib, DM2, Polymyositis, breast cancer with lumpectomy, cognitive impairment, venous leg ulcers.
Wound Location and type/assessment: Patient known to service, last seen 02/23/25, with chronic FT venous wound to right posterior lower leg. R leg wound lamp cleaner street light compared to last seen, using Santyl. Follows with wound care center weekly if able.
L medial lower leg blister remains healed, blanchable red. + faint pedal palpable pulses, trace edema, uses keila wrap to legs. Patient sitting in recliner chair, nurse Ella confirmed sacrum intact, MASD in groin skin folds, unchanged from last
recent admission.
Appetite: Good.
Pressure redistribution devices in place: Accumax, pillow placed under calves. Encourage turning, leg elevation. Brought in air chair cushion, nurse will place on chair when she next stands up.
Plan: R leg dressing changed with Santyl adaptic and dry dressing. L lower leg foam dressing changed. Heel foam dressings changed, heels intact. KEILA wraps applied knee high to both legs. Fungal powder in use for skin folds. Will confirm orders with
hospitalist and updated nurse. Will update care plan and follow as needed.
Note to case management of equipment requested for discharge: none.
Recommend follow up at wound care center upon discharge.
[2025-03-10 12:43] LABS: Glucose - Point of Care 93 mg/dl (70-99)
--- NOTE | 2025-03-10 15:59 | CM ---
CM following re: discharge planning.
Reviewed pt's chart, met with pt and pt's at bedside.
Pt is a 74 year old female, admitted with primary dx of CHF
Pt repprts she lives with and a son 1SH, no step, there is a ramp, has 2 supportive children. Pt reports she ambulates with a walker, has a transport chair, grab bars, BSC, SPC. Pt reports she is current with [facility]. pt expressed her desire to
return back home at discharge with [facility] and family support.
[facility] liaison following.
D/C plan: per pt's request, home with [facility] and family support.
CM will follow with discharge tyree updates as hospitalization progresses
[2025-03-10 16:04] LABS: Glucose - Point of Care 151 mg/dl (70-99)
[2025-03-10] MEDS: NOVOLOG FLEXPEN-LOW RESISTANCE 1 UNITS SC (17:39)
[2025-03-10] MEDS: COREG 6.25 MG PO (20:39)
[2025-03-10] MEDS: REMOVE LIDOCAINE PATCH 1 PATCH REMOVE (20:40)
[2025-03-10 21:35] LABS: Glucose - Point of Care 188 mg/dl (70-99)
[2025-03-10] MEDS: ULTRAM 50 MG PO (21:47)
[2025-03-10] MEDS: ZESTRIL 2.5 MG PO (21:48)
[2025-03-11 02:57] VITALS: BP 111/63
[2025-03-11 03:35] LABS: Glucose - Point of Care 150 mg/dl (70-99)
[2025-03-11 04:55] VITALS: BMI 28.0
[2025-03-11] MEDS: TYLENOL 650 MG PO ×2 (05:18→16:43)
[2025-03-11 06:19] LABS: Hematocrit 35.8 % (37.0-47.0); Hemoglobin 11.6 g/dL (12.0-16.0); Mean Corp Hgb Conc. 32.4 g/dL (33.0-37.0); Mean Corpuscular Volume 92.0 fL (81.0-99.0); Platelet Count 159 10^3/uL (130-400); Red Cell Dist. Width 19.0 % (11.5-14.5)
[2025-03-11 06:33] LABS: ALT (SGPT) 35 U/L (0-35); AST (SGOT) 39 U/L (14-36); Albumin 3.6 g/dl (3.5-5.0); Alkaline Phosphatase 183 U/L (38-126); Blood Urea Nitrogen 26 mg/dl (7-17); Calcium 8.9 mg/dl (8.4-10.2); Carbon Dioxide 28 mmol/L (22-30); Chloride 98 mmol/L (98-107); Estimated Creatinine Clearance 62 ml/min; Glucose 161 mg/dl (70-99); Potassium 3.3 mmol/L (3.5-5.1); Sodium 133 mmol/L (135-145); Total Protein 7.4 g/dl (6.3-8.2); eGFR > 60.00
[2025-03-11 07:58] VITALS: BP 102/59
[2025-03-11 08:05] LABS: Glucose - Point of Care 156 mg/dl (70-99)
[2025-03-11] MEDS: FARXIGA 10 MG PO (08:24)
[2025-03-11] MEDS: SANTYL OINTMENT 1 APPLIC TOPICAL (08:24)
[2025-03-11] MEDS: PROTONIX 40 MG PO (08:24)
[2025-03-11] MEDS: KCL 20 MEQ PO ×2 (08:24→16:43)
[2025-03-11] MEDS: ASPIR LOW (ENTERIC COATED) 81 MG PO (08:24)
[2025-03-11] MEDS: ELIQUIS 5 MG PO (08:24)
[2025-03-11] MEDS: NEURONTIN 300 MG PO ×2 (08:24→20:32)
[2025-03-11] MEDS: NAMENDA 10 MG PO ×2 (08:24→20:33)
[2025-03-11] MEDS: DELTASONE 10 MG PO (08:24)
[2025-03-11] MEDS: ZETIA 10 MG PO (08:24)
[2025-03-11] MEDS: LIDOCAINE 4% PATCH 1 PATCH TOPICAL (08:25)
[2025-03-11] MEDS: COREG 6.25 MG PO ×2 (08:25→20:33)
[2025-03-11] MEDS: LASIX 40 MG IV ×2 (08:25→16:14)
[2025-03-11] MEDS: LANTUS 0.03 UNITS SC (08:26)
[2025-03-11] MEDS: NOVOLOG FLEXPEN-LOW RESISTANCE 1 UNITS SC (08:26)
[2025-03-11] MEDS: NOVOLOG FLEXPEN 5 UNITS SC ×2 (08:44→12:59)
[2025-03-11] MEDS: DESENEX/MITRAZOL/ZEASORB 1 APPLIC TOPICAL ×2 (08:44→20:33)
[2025-03-11 11:10] LABS: Glucose - Point of Care 115 mg/dl (70-99)
[2025-03-11 11:13] VITALS: BP 119/71
[2025-03-11] MEDS: NOVOLOG FLEXPEN-LOW RESISTANCE SC ×2 (11:24→17:12)
--- NOTE | 2025-03-11 11:57 | W.PN.HOSP.TC ---
Today's Communication/Plan
-
IV Lasix. [facility]
Assessment / Plan
Assessment / Plan
Physical exam:
General: Acutely ill
HEENT: Normocephalic, Atraumatic and Moist Mucous Membranes
Respiratory: Clear to Auscultation; Negative Wheezes, Rales or Rhonchi
Cardiac: Regular Rhythm and S1/S2
GI: Soft, Nontender and Nondistended
Musculoskeletal: No Clubbing, No Cyanosis. Bilateral lower extremity edema
Neuro: Awake, Alert and Disoriented, no neurological deficits
Psych: Calm, limited judgment and insight
A/P:
Acute on chronic HFpEF:
Continue IV Lasix 40 mg twice daily
GDMT limited by hypotension but on beta-blockers, KEILA inhibitor, and SGLT2 inhibitor
Cardiology consult appreciated
Family does not want cardiac interventions unable
Chronic lower extremity edema:
Likely related to heart failure that after my evaluation family concerns about vascular issues yesterday
She does have PAD and prior popliteal [facility] stent back in July 2024 for limb threatening ischemia so we ordered [facility] to reevaluate and pending today.
Permanent A-fib and atrial tachycardia:
Continue rate control of carvedilol
Continue anticoagulation of Eliquis
Chronic back pain:
Relatively recent compression fracture at L2
Restart pain medications and reevaluate
PT OT eval
Diabetes mellitus:
Insulin sliding scale
Lantus and insulin before meals
Mild hypoglycemia by fingerstick not confirmed by blood sugars
Hyperlipidemia:
Continue Zetia
Polymyositis:
Continue oral steroids
Apparently IVIG as outpatient
Dementia:
Continue Namenda 10 mg p.o. twice a day
Total time spent on today's encounter was 52 minutes which included time spent in counseling the patient/family regarding diagnosis and treatment plan as listed above, goals of care, and symptom management. Case was discussed with nursing staff,
specialists, and care coordinators/case management. All labs and imaging personally reviewed by me. Remainder the time spent in detailed review of previous records, lab data, imaging, and other medical provider documentation.
Anticipated Discharge: > 48 hours
Subjective/Interval History
-
Date of Service: March 11, 2025
Patient feels better overall. Still peripheral edema. Pain is better overall as well.
Objective Data
-
Labs:
Laboratory Results
03/11/25
05:45
WBC 5.8
Hgb 11.6 L
Hct 35.8 L
Plt Count 159
Sodium 133 L
Potassium 3.3 L
Chloride 98
Carbon Dioxide 28
BUN 26 H
Creatinine 0.7
Glucose 161 H
Calcium 8.9
Total Bilirubin 1.2
AST 39 H
ALT 35
Alkaline Phosphatase 183 H
Vital Signs:
Vital Signs
Temp Pulse Resp BP Pulse Ox
97.4 F 81 18 119/71 100
03/11/25 11:13 03/11/25 11:13 03/11/25 11:13 03/11/25 11:13 03/11/25 11:13
I&O
03/10/25 03/11/25 03/12/25
06:59 06:59 06:59
Intake Total 200 / 200 660 / 660
Output Total 350 / 350 2170 / 2170
Balance -150 / -150 -1510 / -1510
[2025-03-11 15:36] VITALS: BP 100/61
--- NOTE | 2025-03-11 16:23 | W.PN.CARDCBS ---
Addendum entered and electronically signed by Howard Khan DO 03/11/25 17:50:
I saw and examined the patient.
The Shot Examiner's note was reviewed and I agree with the note.
Comment:
Plan:
Rate controlled perm aFib.
Cont IV diuresis
Wt coming down
With recurrent episodes of HF, right heart cath has been considered.
Will hold Eliquis for now and reeval volume and clinical status tomorrow.
Receives IVIG every 3 weeks and volume may be contributing to her recurrent symptoms.
Original Note:
Today's Communication / Plan
-
Continue IV diuresis.
Replete potassium
Holding Eliquis, as considering for right heart catheterization in a.m.
Impression / Plan
-
Primary Area Supervisor: Dr. Ortiz
Assessment:
Presentation with LLE edema
Concern for acute on chronic HFimpEF
Relative hypotension
Admission 02/2025 for acute compression fracture, on steroid therapy
Admission 01/2025 for acute CHF
Admission 12/2024 for hypotension, suspected overdiuresis
PAD status post right lower extremity stent 08/04/2024 balloon angioplasty and stent placement right [id number] popliteal artery for nonhealing necrotic right posterior calf wound
Heart failure improved EF, EF 30% 2012, Improved to 50% 2024
Atrial fibrillation, permanent
Chronic anticoagulation with Eliquis
Chronic left bundle branch block
Diabetes mellitus
Polymyositis on IVIG every 3 weeks
Hyperlipidemia
History of UTI
Mild LFT elevation, chronic
Echo 06/2012: EF 30%, moderate MR
Echo 05/2020: EF 50%, mild to moderate MR, mild TR
Echo 01/2022: EF 60 to 65%, mild to moderate MR, mild TR
Echo 10/10/2024: EF 50 to 55%, possible mild inferior apical hypokinesis, upper normal RV size and low normal RV function, mild to moderate MR, moderate TR
Echo 01/22/2025: Limited follow-up study, EF 50% with hypokinesis of apical inferior wall
Plan:
-Patient presents with left lower extremity edema, without significant response to escalation of outpatient diuretic therapy. Weights were stable at 152 pounds. Also on steroid therapy for recent diagnosis of acute compression fracture, which
could be contributing
-She has had monthly admissions over the last several months for concerns related to her volume status
-Continue attempts at diuresis, weight downtrending if accurate. Replete potassium. Creatinine stable
-If not feeling improved, would consider for right heart catheterization. Holding Eliquis this evening to allow for right heart cath in a.m. if needed
-? is volume status being impacted by IVIG infusions which she gets every 3 weeks as outpatient
-She has permanent atrial fibrillation. Remains rate controlled on review of telemetry. continue outpatient Coreg as blood pressure allows
-She is presently on low-dose lisinopril and Farxiga. Of note she did have a UTI within the last several months. Would monitor closely on this medication
-There are also concerns for cognitive decline in patient expressed by family members.
Progress Note - Area Supervisor
Subjective
Date of Service: March 11, 2025
No complaints by patient
Objective
Labs:
03/11/25 05:45
03/11/25 05:45
Labs
Hgb 11.6 g/dL (12.0-16.0) L 03/11/25 05:45
Hct 35.8 % (37.0-47.0) L 03/11/25 05:45
Plt Count 159 10^3/uL (130-400) 03/11/25 05:45
Sodium 133 mmol/L (135-145) L 03/11/25 05:45
Potassium 3.3 mmol/L (3.5-5.1) L 03/11/25 05:45
BUN 26 mg/dl (7-17) H 03/11/25 05:45
Creatinine 0.7 mg/dL (0.6-1.0) 03/11/25 05:45
Glucose 161 mg/dl (70-99) H 03/11/25 05:45
Vital Signs and I&O:
Vital Signs
Temp Pulse Resp BP Pulse Ox
97.3 F 89 18 100/61 98
03/11/25 15:36 03/11/25 16:14 03/11/25 15:36 03/11/25 16:14 03/11/25 15:36
Vital Signs
Temp Pulse Resp BP Pulse Ox
97.3 F 89 18 100/61 98
03/11/25 15:36 03/11/25 16:14 03/11/25 15:36 03/11/25 16:14 03/11/25 15:36
Intake & Output
03/09/25 03/10/25 03/11/25 03/12/25
07:59 07:59 07:59 07:59
Intake Total 200 / 200 660 / 660
Output Total 350 / 350 2170 / 2170
Balance -150 / -150 -1510 / -1510
--- NOTE | 2025-03-11 16:47 | W.PN.UPDATE ---
Addendum entered and electronically signed by Beny Dawson MD 03/11/25 16:58:
Discussed with patient's over the phone.
He had several questions regarding leg swelling.
I was underimpressed with swelling. Venous duplex negative. No sequelae of chronic venous insufficiency but could be present.
Recommend compression stockings, leg elevation in bed, can get venous reflux studies as outpatient if needed. Edema could also be related to systemic issues (ie CHF).
Will sign off please call with questions.
Original Note:
Update Note
Progress Note Update
Seen and evaluated. Full consultation and follow-up. 74-year-old female known to me. In August of this year I had done a right lower extremity angiogram with stenting of the popliteal artery. I debrided right posterior calf wound. Now asked for
repeated evaluation. Patient provides limited history. She is without complaints currently. She does note some pain at the site in the right posterior leg when it is pressed on or dressings are changed but otherwise no pain at rest. On exam her
feet are warm and well-perfused. Dressings removed bilaterally. Right posterior calf wound is small and superficial. Markedly improved from when I had treated her in the past. Good granulation tissue. Healthy appearing. Nearly healed. On the
left dorsal ankle/foot she has a small punctate superficial scab or maybe an ulcer. However it is very small. Nothing really more to offer here. I did review her [facility] TBI studies. Multiphasic waveforms at the pedal level bilaterally. TBI
slightly decreased bilaterally but may not be indicative of large vessel disease. Would obtain bilateral lower extremity arterial duplexes at some point. But no urgency. This can be done as an outpatient as well. I will sign off. Please call
with questions. She can follow-up in our office.
--- NOTE | 2025-03-11 16:54 | CON.VAS ---
Consultation
Consultation Request
Date/Time Consultation Performed: 03/11/2025 1630
Requesting Provider: [facility]
Performing Provider: Nancy Dela Cruz, MONTY-C for Beny Dawson MD
Reason for Consultation: BL lower extremity edema
Medical History
-
Chief Complaint: BL lower extremity edema
History of Present Illness:
73-year-old female with past medical history polymyositis, A-fib on Eliquis, history of DVT, CHF, GERD, insulin-dependent diabetes, hypertension admitted for CHF exacerbation management. Vascular asked to see by family for BL lower extremity edema.
She is known to our vascular surgery team for management of PAD and underwent right lower extremity angiogram with stenting of the popliteal artery in August of this year by Dr. Beny Dawson. At that time he also debrided right posterior calf wound.
Patient provides limited history. She is without complaints currently. She does note some pain at the site in the right posterior leg when it is pressed on or dressings are changed but otherwise no pain at rest.
Past Medical History
Past Medical History: Other (PAD status post right lower extremity stent 08/04/2024 balloon angioplasty and stent placement right [id number] popliteal artery for nonhealing necrotic right posterior calf wound Heart failure improved EF, EF 30%
2012, Improved to 50% 2024 Atrial fibrillation, permanent Chronic anticoagulation w)
Past Surgical History: Other (Right popliteal stent, hysterectomy, cholecystectomy, right total knee replacement, bilateral meniscus repair, left lumpectomy, carpal tunnel release)
Social History
Tobacco: Non-Smoker
Alcohol: None
Drug: None
Personal:
Living: With Family
Allergies / Home Medications
Allergy/AdvReac Type Severity Reaction Status Date / Time
codeine Allergy Vomiting Verified 02/22/25 09:27
metformin Allergy effects Verified 02/22/25 09:27
polymositis
Bikrfkx-[id number] Reductase Allergy effects Verified 02/22/25 09:27
Inhibitor (Frnpiwz-Ipj-Drp polymyositis
Reductase Inhibitor)
�Medication �Instructions �Recorded �Confirmed �Type
immune glob,gamma (IgG) 10 50 g IV UD polymyositis 05/13/20 03/09/25 History
%-gly-IgA over 50 mcg/mL injection
solution (Gammagard Liquid)
alendronate 70 mg tablet 70 mg PO FR Osteoporosis 01/20/22 03/09/25 History
apixaban 5 mg tablet (Eliquis) 5 mg PO BID Venous thrombosis 30 01/23/22 03/09/25 Rx
days #60 tabs
pantoprazole 40 mg tablet,delayed 40 mg PO DAILY GERD 30 days #30 01/23/22 03/09/25 Rx
release tabs
ezetimibe 10 mg tablet 10 mg PO DAILY High Cholesterol 08/01/24 03/09/25 History
gabapentin 300 mg capsule 300 mg PO BID Neurological 08/01/24 03/09/25 History
Condition
memantine 10 mg tablet 10 mg PO BID Neurological Condition 01/19/25 03/09/25 History
carvedilol 6.25 mg tablet 6.25 mg PO BID Blood Pressure 02/22/25 03/09/25 History
cholecalciferol (vitamin D3) 100 100 mcg PO DAILY Supplement 02/22/25 03/09/25 History
mcg (4,000 unit) tablet
furosemide 40 mg tablet 60 mg PO DAILY Fluid 02/22/25 03/09/25 History
Retention/Swelling
insulin glargine 100 unit/mL (3 3 unit SC DAILY Diabetes 02/22/25 03/09/25 History
mL) subcutaneous pen (Basaglar
KwikPen U-100 Insulin)
lisinopril 2.5 mg tablet 2.5 mg PO HS Blood Pressure 02/22/25 03/09/25 History
potassium chloride 20 mEq 20 meq PO DAILY Electrolyte 02/22/25 03/09/25 History
tablet,extended release(part/cryst) Repletion
lidocaine 4 % topical patch 1 patch topical DAILY #30 ea 02/26/25 03/09/25 Rx
acetaminophen 500 mg tablet 1,000 mg PO TIDPRN PRN mild pain 03/09/25 03/09/25 History
(Tylenol Extra Strength)
aspirin 81 mg tablet,delayed 81 mg PO DAILY Heart 03/09/25 03/09/25 History
release Disease/Condition
collagenase clostridium histo. 250 1 applic topical DAILY right foot 03/09/25 03/09/25 History
unit/gram topical ointment (Santyl)
dapagliflozin propanediol 10 mg 10 mg PO DAILY Diabetes 03/09/25 03/09/25 History
tablet (Farxiga)
insulin aspart U-100 100 unit/mL 5 unit SC AC Diabetes 03/09/25 03/09/25 History
(3 mL) subcutaneous pen
miconazole nitrate 2 % topical 1 applic topical BID folds 03/09/25 03/09/25 History
powder (Miconazorb AF)
prednisone 10 mg tablet 10 mg PO DAILY Infection 03/09/25 03/09/25 History
tramadol 50 mg tablet 50 mg PO HS Pain 03/09/25 03/09/25 History
Review of Systems
-
History Source: Patient
Constitutional: Reports No Symptoms
EENT: Reports No Symptoms
Respiratory: Reports No Symptoms
Cardiac: Reports No Symptoms
Abdomen/GI: Reports No Symptoms
: Reports No Symptoms
Musculoskeletal: Reports Edema
Skin: Reports Other (small superficial wounds BL tender with palpation over wound )
Neurological: Reports No Symptoms
Physical Exam
Vital Signs
Temp Pulse Resp BP Pulse Ox
97.3 F 89 18 100/61 98
03/11/25 15:36 03/11/25 16:14 03/11/25 15:36 03/11/25 16:14 03/11/25 15:36
Lab Results
03/11/25 05:45
03/11/25 05:45
Sng-S-Cezpbfulzym Pept 1290 pg/ml 03/09/25 19:16
Physical Exam
General: No Apparent Distress
HEENT: Normocephalic, Anicteric and Atraumatic
Respiratory: Non Labored Respirations
Cardiac: Negative JVD
GI: Non Distended
Musculoskeletal: No Edema
Skin: Warm, Dry and Other (feet are warm and well-perfused. Dressings removed bilaterally. Right posterior calf wound is small and superficial. Good granulation tissue. Healthy appearing. Nearly healed. On the left dorsal ankle/foot she has a
small punctate superficial scab or maybe an ulcer.)
Assessment / Plan
-
Assessment: 74 year old female with BL LE edema with PAD
Plan:
Patient seen and examined at bedside with Dr. Beny Dawson, reviewed [facility] TBI studies. Multiphasic waveforms at the pedal level bilaterally. TBI slightly decreased bilaterally but may not be indicative of large vessel disease. Would obtain bilateral
lower extremity arterial duplexes at some point. But no urgency. This can be done as an outpatient as well. We will sign off. Please call with questions. She can follow-up in our office.
[2025-03-11 17:11] LABS: Glucose - Point of Care 103 mg/dl (70-99)
[2025-03-11] MEDS: NOVOLOG FLEXPEN SC (17:12)
[2025-03-11 19:00] VITALS: BP 104/53
[2025-03-11] MEDS: REMOVE LIDOCAINE PATCH 1 PATCH REMOVE (20:33)
[2025-03-11 21:25] LABS: Glucose - Point of Care 158 mg/dl (70-99)
[2025-03-11] MEDS: ULTRAM 50 MG PO (21:41)
[2025-03-11] MEDS: ZESTRIL PO (21:42)
[2025-03-11 23:00] VITALS: BP 110/64
[2025-03-12 03:00] VITALS: BP 119/69
[2025-03-12 06:00] VITALS: BMI 28.2
[2025-03-12 07:23] VITALS: BP 130/78
[2025-03-12 07:34] LABS: Glucose - Point of Care 133 mg/dl (70-99)
[2025-03-12] MEDS: NOVOLOG FLEXPEN-LOW RESISTANCE SC ×2 (07:39→12:53)
[2025-03-12 07:54] LABS: Blood Urea Nitrogen 31 mg/dl (7-17); Calcium 8.9 mg/dl (8.4-10.2); Carbon Dioxide 26 mmol/L (22-30); Chloride 100 mmol/L (98-107); Estimated Creatinine Clearance 72 ml/min; Glucose 130 mg/dl (70-99); Potassium 3.7 mmol/L (3.5-5.1); Sodium 131 mmol/L (135-145); eGFR > 60.00
[2025-03-12] MEDS: NOVOLOG FLEXPEN 5 UNITS SC ×3 (08:46→17:29)
[2025-03-12] MEDS: LIDOCAINE 4% PATCH 1 PATCH TOPICAL (08:47)
[2025-03-12] MEDS: LANTUS 0.03 UNITS SC (08:47)
[2025-03-12] MEDS: KCL 20 MEQ PO (08:47)
[2025-03-12] MEDS: COREG 6.25 MG PO ×2 (08:47→20:48)
[2025-03-12] MEDS: ZETIA 10 MG PO (08:47)
[2025-03-12] MEDS: NEURONTIN 300 MG PO ×2 (08:48→20:45)
[2025-03-12] MEDS: FARXIGA 10 MG PO (08:48)
[2025-03-12] MEDS: SANTYL OINTMENT 1 APPLIC TOPICAL (08:48)
[2025-03-12] MEDS: PROTONIX 40 MG PO (08:48)
[2025-03-12] MEDS: DELTASONE 10 MG PO (08:48)
[2025-03-12] MEDS: NAMENDA 10 MG PO ×2 (08:48→20:45)
[2025-03-12] MEDS: LASIX 40 MG IV ×2 (08:48→17:29)
[2025-03-12] MEDS: ASPIR LOW (ENTERIC COATED) 81 MG PO (08:48)
[2025-03-12] MEDS: DESENEX/MITRAZOL/ZEASORB 1 APPLIC TOPICAL ×2 (08:50→20:46)
[2025-03-12 11:21] VITALS: BP 115/65
--- NOTE | 2025-03-12 11:53 | W.PN.HOSP.TC ---
Today's Communication/Plan
-
IV Lasix. Echo
Assessment / Plan
Assessment / Plan
Physical exam:
General: Acutely ill
HEENT: Normocephalic, Atraumatic and Moist Mucous Membranes
Respiratory: Clear to Auscultation; Negative Wheezes, Rales or Rhonchi
Cardiac: Regular Rhythm and S1/S2
GI: Soft, Nontender and Nondistended
Musculoskeletal: No Clubbing, No Cyanosis. Bilateral lower extremity edema
Neuro: Awake, Alert and Disoriented, no neurological deficits
Psych: Calm, limited judgment and insight
A/P:
Acute on chronic HFpEF:
Continue IV Lasix 40 mg twice daily
GDMT limited by hypotension but on beta-blockers, KEILA inhibitor, and SGLT2 inhibitor
Cardiology consult appreciated
Family does not want invasive cardiac interventions but defer to cardiology patient and family.
Plan for echocardiogram
PT OT eval
Discussed with at bedside today
Chronic lower extremity edema:
Likely related to heart failure that after my evaluation family concerns about vascular issues yesterday
She does have PAD and prior popliteal WALLCOVERING HANGER stent back in July 2024 for limb threatening ischemia so we ordered [facility] and reviewed results.
Vascular surgery consult appreciated and no need for any vascular interventions during this hospital stay and they will follow her up as outpatient.
Permanent A-fib and atrial tachycardia:
Continue rate control of carvedilol
Continue anticoagulation of Eliquis
Chronic back pain:
Relatively recent compression fracture at L2
Restart pain medications and reevaluate
PT OT eval
Diabetes mellitus:
Insulin sliding scale
Lantus and insulin before meals
Mild hypoglycemia by fingerstick not confirmed by blood sugars
Hyperlipidemia:
Continue Zetia
Polymyositis:
Continue oral steroids
Apparently IVIG as outpatient
Dementia:
Continue Namenda 10 mg p.o. twice a day
Total time spent on today's encounter was 36 minutes which included time spent in counseling the patient/family regarding diagnosis and treatment plan as listed above, goals of care, and symptom management. Case was discussed with nursing staff,
specialists, and care coordinators/case management. All labs and imaging personally reviewed by me. Remainder the time spent in detailed review of previous records, lab data, imaging, and other medical provider documentation.
Anticipated Discharge: Within 24 hours
Subjective/Interval History
-
Date of Service: March 12, 2025
Patient feels better overall. Still having some lower extremity edema but less. Less leg pain. No chest pain
Objective Data
-
Labs:
Laboratory Results
03/12/25
07:10
Sodium 131 L
Potassium 3.7
Chloride 100
Carbon Dioxide 26
BUN 31 H
Creatinine 0.6
Glucose 130 H
Calcium 8.9
Vital Signs:
Vital Signs
Temp Pulse Resp BP Pulse Ox
97.5 F 86 16 115/65 98
03/12/25 11:21 03/12/25 11:21 03/12/25 11:21 03/12/25 11:21 03/12/25 11:21
I&O
03/11/25 03/12/25 03/13/25
06:59 06:59 06:59
Intake Total 660 / 660 1320 / 1320
Output Total 2170 / 2170 2550 / 2550
Balance -1510 / -1510 -1230 / -1230
--- NOTE | 2025-03-12 12:34 | W.PN.CARDCBS ---
Today's Communication / Plan
-
Stable cardiology status on room air
Weight is lower than baseline at home
Discussed with patient Chivo he wishes to have repeat echo to assess LV function with concerns with IVIG affecting heart function
Consider change to oral Lasix 40 mg p.o. twice daily on 03/13 and discharge to home
Impression / Plan
-
Primary Correspondent: Dr. Ortiz
Assessment:
Presentation with LLE edema
Concern for acute on chronic HFimpEF
Relative hypotension
Admission 02/2025 for acute compression fracture, on steroid therapy
Admission 01/2025 for acute CHF
Admission 12/2024 for hypotension, suspected overdiuresis
PAD status post right lower extremity stent 08/04/2024 balloon angioplasty and stent placement right [id number] popliteal artery for nonhealing necrotic right posterior calf wound
Heart failure improved EF, EF 30% 2012, Improved to 50% 2024
Atrial fibrillation, permanent
Chronic anticoagulation with Eliquis
Chronic left bundle branch block
Diabetes mellitus
Polymyositis on IVIG every 3 weeks
Hyperlipidemia
History of UTI
Mild LFT elevation, chronic
Echo 06/2012: EF 30%, moderate MR
Echo 05/2020: EF 50%, mild to moderate MR, mild TR
Echo 01/2022: EF 60 to 65%, mild to moderate MR, mild TR
Echo 10/10/2024: EF 50 to 55%, possible mild inferior apical hypokinesis, upper normal RV size and low normal RV function, mild to moderate MR, moderate TR
Echo 01/22/2025: Limited follow-up study, EF 50% with hypokinesis of apical inferior wall
Plan:
She appears stable from a cardiology viewpoint
She claims her weight at home is 153 pounds normally and she is currently 149 pounds
I called and spoke with her Gonzalo and explained diagnosis and treatment in detail
He wishes to have her heart function checked again with concern about IVIG. Will check follow-up echo study.
Will likely change to oral Lasix on Tuesday 03/13 and should be stable from cardiology viewpoint for discharge
She was on 60 mg of Lasix daily as an outpatient and may consider discharging on Lasix 40 mg p.o. twice daily
No indication for right heart catheterization at present although Farhat has been on hold
Can reassess in a.m.
She has permanent atrial fibrillation. Remains rate controlled on review of telemetry. continue outpatient Coreg as blood pressure allows
She is presently on low-dose lisinopril and Farxiga. Of note she did have a UTI within the last several months. Would monitor closely on this medication
There are also concerns for cognitive decline in patient expressed by family members.
Progress Note - Correspondent
Subjective
Date of Service: March 12, 2025
No chest pain or shortness of breath. She wants to go home
Objective
Labs:
03/11/25 05:45
03/12/25 07:10
Labs
Hgb 11.6 g/dL (12.0-16.0) L 03/11/25 05:45
Hct 35.8 % (37.0-47.0) L 03/11/25 05:45
Plt Count 159 10^3/uL (130-400) 03/11/25 05:45
Sodium 131 mmol/L (135-145) L 03/12/25 07:10
Potassium 3.7 mmol/L (3.5-5.1) 03/12/25 07:10
BUN 31 mg/dl (7-17) H 03/12/25 07:10
Creatinine 0.6 mg/dL (0.6-1.0) 03/12/25 07:10
Glucose 130 mg/dl (70-99) H 03/12/25 07:10
Vital Signs and I&O:
Vital Signs
Temp Pulse Resp BP Pulse Ox
97.5 F 86 16 115/65 98
03/12/25 11:21 11/06/25 11:21 03/12/25 11:21 03/12/25 11:21 03/12/25 11:21
Vital Signs
Temp Pulse Resp BP Pulse Ox
97.5 F 86 16 115/65 98
03/12/25 11:21 03/12/25 11:21 03/12/25 11:21 03/12/25 11:21 03/12/25 11:21
Intake & Output
03/10/25 03/11/25 03/12/25 03/13/25
06:59 06:59 06:59 06:59
Intake Total 200 / 200 660 / 660 1320 / 1320
Output Total 350 / 350 2170 / 2170 2550 / 2550
Balance -150 / -150 -1510 / -1510 -1230 / -1230
Physical Exam
Physical Exam
General: Well developed, well nourished in NAD.
Neck: Supple, no JVD, HJR, carotids +2 B/L, no bruits bilaterally.
Heart: Non displaced PMI, Irreg, no murmurs, No S3, S4, no rubs.
Lungs: Scattered rhonchi at the bases
Extremities: No clubbing, cyanosis or edema bilaterally.
Neuro: Grossly nonfocal, awake, alert and oriented x3.
[2025-03-12 12:37] LABS: Glucose - Point of Care 128 mg/dl (70-99)
[2025-03-12 12:50] VITALS: O2SAT 98
[2025-03-12 15:46] VITALS: BP 117/69
[2025-03-12 17:09] LABS: Glucose - Point of Care 168 mg/dl (70-99)
[2025-03-12] MEDS: NOVOLOG FLEXPEN-LOW RESISTANCE 1 UNITS SC (17:29)
[2025-03-12] MEDS: REMOVE LIDOCAINE PATCH 1 PATCH REMOVE (20:46)
[2025-03-12] MEDS: FLUSH (NSS) 1 FLUSH IV (20:49)
[2025-03-12 21:50] LABS: Glucose - Point of Care 103 mg/dl (70-99)
[2025-03-12] MEDS: ULTRAM 50 MG PO (22:19)
[2025-03-12] MEDS: ZESTRIL 2.5 MG PO (22:21)
[2025-03-13 00:02] VITALS: BP 113/68
[2025-03-13 05:33] VITALS: BMI 28.4
[2025-03-13 06:50] LABS: Blood Urea Nitrogen 36 mg/dl (7-17); Calcium 8.6 mg/dl (8.4-10.2); Carbon Dioxide 27 mmol/L (22-30); Chloride 101 mmol/L (98-107); Estimated Creatinine Clearance 62 ml/min; Glucose 116 mg/dl (70-99); Potassium 3.0 mmol/L (3.5-5.1); Sodium 134 mmol/L (135-145); eGFR > 60.00
[2025-03-13 07:59] LABS: Glucose - Point of Care 111 mg/dl (70-99)
[2025-03-13 08:45] VITALS: BP 101/68
[2025-03-13 08:45] LABS: Glucose - Point of Care 112 mg/dl (70-99)
[2025-03-13] MEDS: NOVOLOG FLEXPEN-LOW RESISTANCE SC (08:46)
[2025-03-13] MEDS: KCL 20 MEQ PO (08:47)
[2025-03-13] MEDS: LIDOCAINE 4% PATCH 1 PATCH TOPICAL (08:47)
[2025-03-13] MEDS: NEURONTIN 300 MG PO ×2 (08:50→20:04)
[2025-03-13] MEDS: ZETIA 10 MG PO (08:50)
[2025-03-13] MEDS: DELTASONE 10 MG PO (08:50)
[2025-03-13] MEDS: NAMENDA 10 MG PO ×2 (08:50→20:04)
[2025-03-13] MEDS: PROTONIX 40 MG PO (08:50)
[2025-03-13] MEDS: FARXIGA 10 MG PO (08:50)
[2025-03-13] MEDS: SANTYL OINTMENT 1 APPLIC TOPICAL (08:50)
[2025-03-13] MEDS: ASPIR LOW (ENTERIC COATED) 81 MG PO (08:51)
[2025-03-13] MEDS: LANTUS 0.03 UNITS SC (08:57)
[2025-03-13] MEDS: LASIX 40 MG IV ×2 (08:58→16:10)
[2025-03-13] MEDS: NOVOLOG FLEXPEN 5 UNITS SC ×3 (08:59→17:50)
[2025-03-13] MEDS: DESENEX/MITRAZOL/ZEASORB 1 APPLIC TOPICAL ×2 (09:02→20:06)
[2025-03-13] MEDS: COREG PO ×2 (09:04→20:11)
[2025-03-13 09:39] VITALS: BP 111/68; PULSE 80; O2SAT 100
[2025-03-13] MEDS: KCL 40 MEQ PO ×2 (10:37→14:37)
--- NOTE | 2025-03-13 11:21 | W.PN.HOSP.TC ---
Today's Communication/Plan
-
Diuresis. Discharge planning once cleared by cardiology.
Assessment / Plan
Assessment / Plan
Physical exam:
General: No acute distress
HEENT: Normocephalic, Atraumatic and Moist Mucous Membranes
Respiratory: Clear to Auscultation; Negative Wheezes, Rales or Rhonchi
Cardiac: Regular Rhythm and S1/S2
GI: Soft, Nontender and Nondistended
Musculoskeletal: No Clubbing, No Cyanosis. Bilateral lower extremity edema
Neuro: Awake, Alert and Disoriented, no neurological deficits
Psych: Calm, limited judgment and insight
A/P:
Acute on chronic HFpEF:
Continue IV Lasix 40 mg twice daily and possibly switch to oral cardiology
GDMT limited by hypotension but on beta-blockers, KEILA inhibitor, and SGLT2 inhibitor
Cardiology consult appreciated
Family does not want invasive cardiac interventions but defer to cardiology patient and family.
Reviewed echocardiogram
PT OT recommends home health
Discussed with at bedside yesterday
Discharge planning once cleared by cardiology
Chronic lower extremity edema:
Likely related to heart failure that after my evaluation family concerns about vascular issues yesterday
She does have PAD and prior popliteal CHEMICAL HANDLER stent back in July 2024 for limb threatening ischemia so we ordered [facility] and reviewed results.
Vascular surgery consult appreciated and no need for any vascular interventions during this hospital stay and they will follow her up as outpatient.
Permanent A-fib and atrial tachycardia:
Continue rate control of carvedilol
Continue anticoagulation of Eliquis
Chronic back pain:
Relatively recent compression fracture at L2
Restart pain medications and reevaluate
PT OT eval
Diabetes mellitus:
Insulin sliding scale
Lantus and insulin before meals
Mild hypoglycemia by fingerstick not confirmed by blood sugars
Hyperlipidemia:
Continue Zetia
Polymyositis:
Continue oral steroids
Apparently IVIG as outpatient
Dementia:
Continue Namenda 10 mg p.o. twice a day
Total time spent on today's encounter was 36 minutes which included time spent in counseling the patient/family regarding diagnosis and treatment plan as listed above, goals of care, and symptom management. Case was discussed with nursing staff,
specialists, and care coordinators/case management. All labs and imaging personally reviewed by me. Remainder the time spent in detailed review of previous records, lab data, imaging, and other medical provider documentation.
Anticipated Discharge: Today
Subjective/Interval History
-
Date of Service: March 13, 2025
Patient shortness of breath and less peripheral edema. No chest pain
Objective Data
-
Labs:
Laboratory Results
03/13/25
06:02
Sodium 134 L
Potassium 3.0 L
Chloride 101
Carbon Dioxide 27
BUN 36 H
Creatinine 0.7
Glucose 116 H
Calcium 8.6
Vital Signs:
Vital Signs
Temp Pulse Resp BP Pulse Ox
98.0 F 83 18 101/68 100
03/13/25 08:45 03/13/25 08:58 03/13/25 08:45 03/13/25 08:58 03/13/25 08:45
I&O
03/12/25 03/13/25 03/14/25
06:59 06:59 06:59
Intake Total 1320 / 1320 480 / 480
Output Total 2550 / 2550 2900 / 2900
Balance -1230 / -1230 -2420 / -2420
[2025-03-13 12:42] LABS: Glucose - Point of Care 167 mg/dl (70-99)
[2025-03-13] MEDS: NOVOLOG FLEXPEN-LOW RESISTANCE 1 UNITS SC ×2 (12:46→17:50)
--- NOTE | 2025-03-13 13:56 | CM ---
Addendum entered by Philippe Jimenez 03/13/25 16:26:
IMM reviewed, placed on chart, pt has a copy
Original Note:
CM following re: discharge planning.
Reviewed pt's chart, met with pt and pt's at bedside.
PT and OT evaluations noted - home PT/OT recommended. Pt referred to [facility].
[facility] liaison following.
D/C plan: home with [facility] and family support.
[2025-03-13 14:38] VITALS: BP 112/61
[2025-03-13 15:52] VITALS: BP 104/60
--- NOTE | 2025-03-13 16:24 | W.PN.CARDCBS ---
Addendum entered and electronically signed by Luther Sevilla MD 03/13/25 16:41:
I saw and examined the patient.
The Associate Financial Analyst's note was reviewed and I agree with the note.
Comment: Briefly, 74-year-old woman past medical history of heart failure with recovered ejection fraction presenting with worsening lower extremity edema concerning for acute heart failure.
Received IV Lasix with subjective improvement in her edema
Appears euvolemic on exam
Weight is relatively stable around 150 pounds, it sounds like this is her likely dry weight
Plan to discharge on higher dose of oral Lasix, 40 mg twice daily
Will need supplemental potassium
Continue home Farxiga. As well as Coreg and lisinopril given history of recovered cardiomyopathy.
Atrial fibrillation is permanent
Coreg for rate control
Eliquis for risk reduction of cardioembolic stroke
Stable for discharge from my perspective. Close outpatient follow-up has been arranged.
Original Note:
Today's Communication / Plan
-
P.o. Lasix 40 mg twice daily for discharge
Outpatient cardiac follow-up scheduled for 03/16
BMP in 1 week
Continue Coreg, lisinopril, Farxiga
Continue Eliquis
Okay for discharge
Impression / Plan
-
Primary Shelving Supervisor: Dr. Ortiz
Assessment:
Presentation with LLE edema
Concern for acute on chronic HFimpEF
Relative hypotension
Admission 02/2025 for acute compression fracture, on steroid therapy
Admission 01/2025 for acute CHF
Admission 12/2024 for hypotension, suspected overdiuresis
PAD status post right lower extremity stent 08/04/2024 balloon angioplasty and stent placement right [id number] popliteal artery for nonhealing necrotic right posterior calf wound
Heart failure improved EF, EF 30% 2012, Improved to 50% 2024
Atrial fibrillation, permanent
Chronic anticoagulation with Eliquis
Chronic left bundle branch block
Diabetes mellitus
Polymyositis on IVIG every 3 weeks
Hyperlipidemia
History of UTI
Mild LFT elevation, chronic
Echo 06/2012: EF 30%, moderate MR
Echo 05/2020: EF 50%, mild to moderate MR, mild TR
Echo 01/2022: EF 60 to 65%, mild to moderate MR, mild TR
Echo 10/10/2024: EF 50 to 55%, possible mild inferior apical hypokinesis, upper normal RV size and low normal RV function, mild to moderate MR, moderate TR
Echo 01/22/2025: Limited follow-up study, EF 50% with hypokinesis of apical inferior wall
ECHO 03/12/25: Limited study, EF 50 to 55%, moderate MR, apical inferior segment abnormal, moderate TR with mildly dilated RV
Plan:
-she reports LE edema improved
-weight suspected in accurate as up 1 pound overnight despite negative I&O. Dry weight felt to be 150 pounds
-plan for DC on po lasix 40mg BID
-K repleted
-Cr stable
-BMP in 1 week
- Follow-up echo study overall similar to prior
- Eliquis resumed. She has permanent atrial fibrillation, remains rate controlled on review of telemetry. Continue Coreg
-She is presently on low-dose lisinopril and Farxiga. Of note she did have a UTI within the last several months. Would monitor closely on this medication
-Outpatient cardiac follow-up arranged for Friday 03/16
- Discussed with hospitalist via [place] text
Progress Note - Shelving Supervisor
Subjective
Date of Service: March 13, 2025
Reports lower extremity edema improved. Feeling well
Objective
Labs:
03/11/25 05:45
03/13/25 06:02
Labs
Hgb 11.6 g/dL (12.0-16.0) L 03/11/25 05:45
Hct 35.8 % (37.0-47.0) L 03/11/25 05:45
Plt Count 159 10^3/uL (130-400) 03/11/25 05:45
Sodium 134 mmol/L (135-145) L 03/13/25 06:02
Potassium 3.0 mmol/L (3.5-5.1) L 03/13/25 06:02
BUN 36 mg/dl (7-17) H 03/13/25 06:02
Creatinine 0.7 mg/dL (0.6-1.0) 03/13/25 06:02
Glucose 116 mg/dl (70-99) H 03/13/25 06:02
Vital Signs and I&O:
Vital Signs
Temp Pulse Resp BP Pulse Ox
98.0 F 75 18 104/60 98
03/13/25 15:52 03/13/25 16:10 03/13/25 15:52 03/13/25 16:10 03/13/25 15:52
Vital Signs
Temp Pulse Resp BP Pulse Ox
98.0 F 75 18 104/60 98
03/13/25 15:52 03/13/25 16:10 03/13/25 15:52 03/13/25 16:10 03/13/25 15:52
Intake & Output
03/11/25 03/12/25 03/13/25 03/14/25
07:59 07:59 07:59 07:59
Intake Total 660 / 660 1320 / 1320 480 / 480
Output Total 2170 / 2170 2550 / 2550 2900 / 2900
Balance -1510 / -1510 -1230 / -1230 -2420 / -2420
Physical Exam
Physical Exam
GEN: No distress, awake, alert, oriented x3. Sitting in chair
HEENT: supple, anicteric, mmm, EOMI
LUNGS: CTA bilaterally, no wheezes/rales
CV: Irreg, S1/S2, 1/6 syst LSB
ABD: soft, BS+, NT/ND
EXT: No cyanosis, clubbing, edema
NEURO: Gross non-focal
SKIN: Warm, pink, dry. No rash
[2025-03-13 16:59] LABS: Glucose - Point of Care 156 mg/dl (70-99)
[2025-03-13] MEDS: REMOVE LIDOCAINE PATCH 1 PATCH REMOVE (20:02)
[2025-03-13] MEDS: ELIQUIS 5 MG PO (20:04)
[2025-03-13] MEDS: FLUSH (NSS) 1 FLUSH IV (20:12)
[2025-03-13 21:44] LABS: Glucose - Point of Care 190 mg/dl (70-99)
[2025-03-13] MEDS: ULTRAM 50 MG PO (21:50)
[2025-03-13] MEDS: ZESTRIL 2.5 MG PO (21:57)
[2025-03-14 00:01] VITALS: BP 111/61
[2025-03-14 06:00] VITALS: BMI 27.5
[2025-03-14 07:52] VITALS: BP 110/62
[2025-03-14 07:52] LABS: Blood Urea Nitrogen 36 mg/dl (7-17); Calcium 8.9 mg/dl (8.4-10.2); Carbon Dioxide 26 mmol/L (22-30); Chloride 103 mmol/L (98-107); Estimated Creatinine Clearance 61 ml/min; Glucose 100 mg/dl (70-99); Potassium 3.4 mmol/L (3.5-5.1); Sodium 137 mmol/L (135-145); eGFR > 60.00
[2025-03-14 08:05] LABS: Glucose - Point of Care 103 mg/dl (70-99)
[2025-03-14] MEDS: LANTUS 0.03 UNITS SC (08:16)
[2025-03-14] MEDS: FARXIGA 10 MG PO (08:17)
[2025-03-14] MEDS: NAMENDA 10 MG PO (08:17)
[2025-03-14] MEDS: SANTYL OINTMENT 1 APPLIC TOPICAL (08:17)
[2025-03-14] MEDS: KCL 20 MEQ PO (08:18)
[2025-03-14] MEDS: KCL 40 MEQ PO (08:18)
[2025-03-14] MEDS: ZETIA 10 MG PO (08:18)
[2025-03-14] MEDS: ELIQUIS 5 MG PO (08:18)
[2025-03-14] MEDS: LIDOCAINE 4% PATCH 1 PATCH TOPICAL (08:19)
[2025-03-14] MEDS: ASPIR LOW (ENTERIC COATED) 81 MG PO (08:19)
[2025-03-14] MEDS: NEURONTIN 300 MG PO (08:19)
[2025-03-14] MEDS: PROTONIX 40 MG PO (08:19)
[2025-03-14] MEDS: DELTASONE 10 MG PO (08:20)
[2025-03-14] MEDS: LASIX 40 MG PO (08:21)
[2025-03-14] MEDS: COREG 6.25 MG PO (08:21)
[2025-03-14] MEDS: NOVOLOG FLEXPEN 5 UNITS SC (08:22)
[2025-03-14] MEDS: NOVOLOG FLEXPEN-LOW RESISTANCE SC (08:23)
[2025-03-14] MEDS: DESENEX/MITRAZOL/ZEASORB 1 APPLIC TOPICAL (08:25)
--- NOTE | 2025-03-14 09:29 | W.PN.HOSP.TC ---
Today's Communication/Plan
-
Discharge planning today
Assessment / Plan
Assessment / Plan
Physical exam:
General: No acute distress
HEENT: Normocephalic, Atraumatic and Moist Mucous Membranes
Respiratory: Clear to Auscultation; Negative Wheezes, Rales or Rhonchi
Cardiac: Regular Rhythm and S1/S2
GI: Soft, Nontender and Nondistended
Musculoskeletal: No Clubbing, No Cyanosis. Bilateral lower extremity edema
Neuro: Awake, Alert and Disoriented, no neurological deficits
Psych: Calm, limited judgment and insight
A/P:
Acute on chronic HFpEF:
On oral Lasix 40 mg twice a day
GDMT limited by hypotension but on beta-blockers, KEILA inhibitor, and SGLT2 inhibitor
Cardiology consult appreciated
Family does not want invasive cardiac interventions but defer to cardiology patient and family.
Reviewed echocardiogram
PT OT recommends home health
Discharge ordered yesterday but did not go.
Discussed with over the phone today
Cleared for discharge by cardiology
Chronic lower extremity edema:
Likely related to heart failure that after my evaluation family concerns about vascular issues yesterday
She does have PAD and prior popliteal DIRECTOR OF RESTAURANT stent back in July 2024 for limb threatening ischemia so we ordered [facility] and reviewed results.
Vascular surgery consult appreciated and no need for any vascular interventions during this hospital stay and they will follow her up as outpatient.
Permanent A-fib and atrial tachycardia:
Continue rate control of carvedilol
Continue anticoagulation of Eliquis
Chronic back pain:
Relatively recent compression fracture at L2
Restart pain medications and reevaluate
PT OT eval
Diabetes mellitus:
Insulin sliding scale
Lantus and insulin before meals
Mild hypoglycemia by fingerstick not confirmed by blood sugars
Hyperlipidemia:
Continue Zetia
Polymyositis:
Continue oral steroids
Apparently IVIG as outpatient
Dementia:
Continue Namenda 10 mg p.o. twice a day
Anticipated Discharge: Today
Subjective/Interval History
-
Date of Service: March 14, 2025
Patient doing well.
Objective Data
-
Labs:
Laboratory Results
03/14/25
07:12
Sodium 137
Potassium 3.4 L
Chloride 103
Carbon Dioxide 26
BUN 36 H
Creatinine 0.7
Glucose 100 H
Calcium 8.9
Vital Signs:
Vital Signs
Temp Pulse Resp BP Pulse Ox
97.9 F 81 20 110/62 97
03/14/25 07:52 03/14/25 08:21 03/14/25 07:52 03/14/25 08:21 03/14/25 07:52
I&O
03/13/25 03/14/25 03/15/25
06:59 06:59 06:59
Intake Total 480 / 480
Output Total 2900 / 2900 1050 / 1050
Balance -2420 / -2420 -1050 / -1050
--- NOTE | 2025-03-14 09:29 | W.DCSUMMARY ---
Discharge Summary
Discharge Data
Date of Admission: 03/09/25
Date of Discharge: 03/14/25
Total time spent discharging patient (in min): 35
-
Pending Results: No
Hospital Course
Patient is 74 years old female with history of polymyositis, A-fib, DVT, CHF, GERD, diabetes mellitus, hypertension, came into the hospital with lower extremity edema and found to be in heart failure exacerbation. Cardiology consulted. Patient was
started on IV diuresis and she had negative balance and improved substantially. There was some concerns of peripheral vascular issues and vascular surgery was consulted but they felt there was no need for any surgical intervention and they will
follow-up as outpatient for further vascular testing and reevaluation. She had an echocardiogram which shows normal ejection fraction and wall motion abnormality and valvulopathy. Cardiology cleared her to switch her to oral diuretics at increased
doses and go home. She participated with PT on OT who recommended home health. We did ask caser up to arrange for home health. Patient is hemodynamically stable and feels symptomatically much improved. She will be discharged in stable
condition today.
Discharge duration: 35 minutes
Discharge Plan
-
Patient Disposition: Home with Home Care
Discharge Diagnosis/Procedures: Acute on chronic diastolic congestive heart failure. Peripheral vascular disease.
Diet: 2 Gram Sodium and Restrict fluids to 48 oz
Activity: As tolerated
Blood Work: Please PCP to order CBC, BMP within 1 week
Specialty Instructions: Weigh Daily- Call MD for wt gain/loss 3 lbs overnight/5 lbs in 1 week
Activity Restrictions/Additional Instructions:
Wound Care Instructions
R leg: clean with saline, Santyl, adaptic, gauze and darby change daily and prn drainage.
L lower leg: silicone to protect, change q 3 days
lesly wraps or compression stockings knee high daily
leg elevation when sitting
air chair cushion when sitting
Follow up at wound care center call for an appointment.
Instructions: *[facility] Heart Failure Instructions
Referrals:
Cole Suazo MD [Family Provider, Family Practice]
Melissa Ortiz DO [Active, Cardiology] - 03/16/25 2:00 pm
Referral Note: You have a cardiology follow-up appointment at the [place] office. Please call with questions
Magi Rosario CRNP [Specified Professional Personl, Vascular Surgery] - 04/17/25 2:30 pm
Prescriptions:
New
furosemide [Lasix] 40 mg tablet
40 mg PO BID Qty: 60 0RF
Continued
Gammagard Liquid 10 GRAM/100 ML solution
50 g IV UD
Rx Instructions:
take two days out of the month due 03/12/2025 and 03/13/25
alendronate 70 mg tablet
70 mg PO FR
pantoprazole 40 mg Tablet,Delayed Release (Dr/Ec)
40 mg PO DAILY 30 Days Qty: 30 2RF
Eliquis 5 mg tablet
5 mg PO BID 30 Days Qty: 60 0RF
gabapentin 300 mg Capsule
300 mg PO BID
ezetimibe 10 mg Tablet
10 mg PO DAILY
memantine 10 mg tablet
10 mg PO BID
carvedilol 6.25 mg tablet
6.25 mg PO BID
lisinopril 2.5 mg tablet
2.5 mg PO HS
insulin glargine [Basaglar KwikPen U-100 Insulin] 100 unit/mL (3 mL) insulin pen
3 unit SC DAILY
cholecalciferol (vitamin D3) 100 mcg (4,000 unit) Tablet
100 mcg PO DAILY
potassium chloride 20 mEq tablet,ER particles/crystals
20 meq PO DAILY
lidocaine 4 % Adhesive Patch,Medicated
1 patch topical DAILY Qty: 30 0RF
prednisone 10 mg tablet
10 mg PO DAILY
miconazole nitrate [Miconazorb AF] 2 % powder
1 applic topical BID
aspirin 81 mg tablet,delayed release (DR/EC)
81 mg PO DAILY
tramadol 50 mg tablet
50 mg PO HS
acetaminophen [Tylenol Extra Strength] 500 mg tablet
1,000 mg PO TIDPRN PRN (Reason: mild pain)
Santyl 250 unit/gram ointment
1 applic topical DAILY
insulin aspart U-100 100 unit/mL (3 mL) insulin pen
5 unit SC AC
dapagliflozin propanediol [Farxiga] 10 mg tablet
10 mg PO DAILY
Discontinued
furosemide 40 mg tablet
60 mg PO DAILY
Discharge Orders:
Discharge Patient (As Directed); Ordered 03/14/25
Ordered By: Geraldo Shelley
Discharge Date and Time
Discharge Date/Time: 03/14/25 12:15
Print Language: ARABIC
--- NOTE | 2025-03-14 14:11 | CM ---
Pt for dc today. [facility].
No additional needs identified.
--- NOTE | 2025-03-16 09:37 | W.HF.CON ---
Heart Failure
- LV Function
Left ventricular function study result: LV Ejection fraction >/= 50%
Ejection Fraction Percentage: 50-55
- ARNI
Patient already on ARNI: No
Heart Failure ARNI Not Indicated: LV Ejection Fraction >/= 40%
- ACEI/ARB
Patient already on ACEI/ARB: Yes
- Beta Suleiman
Patient already on Evidence Based Beta Suleiman: Yes
- Mineralocorticord Receptor Antagonist
Patient already on MRA: No
Heart Failure MRA Not Indicated: LV Ejection Fraction > 40%
- SGLT-2 Inhibitor
Patient already on SGLT-2 Inhibitor: Yes
- Afib Anticoagulation
Patient already on Anticoagulation for Afib: Yes
- NYHA CHF Classification
NYHA CHF Classification Level: Class III - Symptoms w/ min exertion, interferes w/ nml daily activity
- ACC/AHA Stage
ACC/AHA Stage: Stage C: Symptomatic Heart Failure
== END 2025-03-14 12:15 | disposition home health service (06) | DRG 291 ==
LOC: 2 NORTH 21:52
PROVIDERS: Physician Assistant; Registered Nurse; ADMITTING PHYSICIAN Hospitalist; ATTENDING PHYSICIAN Hospitalist; CONSULT PHYSICIAN Internal Medicine Cardiovascular Disease; CONSULT PHYSICIAN Surgery Vascular Surgery; EMERGENCY PHYSICIAN Emergency Medicine; FAMILY PHYSICIAN Family Medicine
DX: I11.0 Hypertensive heart disease with heart failure (principal); I50.33 Acute on chronic diastolic (congestive) heart failure; I47.19 Other supraventricular tachycardia; I48.21 Permanent atrial fibrillation; M33.20 Polymyositis, organ involvement unspecified; E11.51 Type 2 diabetes mellitus with diabetic peripheral angiopathy without gangrene; E11.40 Type 2 diabetes mellitus with diabetic neuropathy, unspecified; E78.00 Pure hypercholesterolemia, unspecified; E87.6 Hypokalemia; F03.90 Unspecified dementia, unspecified severity, without behavioral disturbance, psychotic disturbance, mood disturbance, and anxiety; I25.10 Atherosclerotic heart disease of native coronary artery without angina pectoris; K21.9 Gastro-esophageal reflux disease without esophagitis; K76.1 Chronic passive congestion of liver; T50.2X5A Adverse effect of carbonic-anhydrase inhibitors, benzothiadiazides and other diuretics, initial encounter; I95.9 Hypotension, unspecified; G89.29 Other chronic pain; S32.020D Wedge compression fracture of second lumbar vertebra, subsequent encounter for fracture with routine healing; X58.XXXD Exposure to other specified factors, subsequent encounter; Z79.01 Long term (current) use of anticoagulants; Z79.4 Long term (current) use of insulin; Z79.899 Other long term (current) drug therapy; Z79.82 Long term (current) use of aspirin; Z87.440 Personal history of urinary (tract) infections
CPT/HCPCS: 71046; 80048; 80053; 80061; 82248; 82947; 82962; 83735; 83880; 84443; 85025; 85027; 93308; 93922; 93971; 96376; 97110; 97116; 97162; 97166; 97535; 99285

== ENCOUNTER 2025-03-20 10:19 | Outpatient (REF) | payer MEDICARE, SELFPAY | END 2025-03-20 23:59 | disposition home or self-care (01) | LOC: WOUND 10:19 | PROVIDERS: ATTENDING PHYSICIAN Surgery; FAMILY PHYSICIAN Family Medicine | DX: L97.212 Non-pressure chronic ulcer of right calf with fat layer exposed (principal); L97.322 Non-pressure chronic ulcer of left ankle with fat layer exposed; I73.9 Peripheral vascular disease, unspecified; I87.2 Venous insufficiency (chronic) (peripheral); L88 Pyoderma gangrenosum; I50.43 Acute on chronic combined systolic (congestive) and diastolic (congestive) heart failure; M33.20 Polymyositis, organ involvement unspecified; E11.65 Type 2 diabetes mellitus with hyperglycemia; I77.6 Arteritis, unspecified; Z79.4 Long term (current) use of insulin | CPT/HCPCS: 99213 ==

== ENCOUNTER 2025-04-09 13:10 | Outpatient (REF) | payer MEDICARE, SELFPAY | END 2025-04-09 23:59 | disposition home or self-care (01) | LOC: WOUND 13:10 | PROVIDERS: ATTENDING PHYSICIAN Registered Nurse; FAMILY PHYSICIAN Family Medicine | DX: L97.212 Non-pressure chronic ulcer of right calf with fat layer exposed (principal); L97.322 Non-pressure chronic ulcer of left ankle with fat layer exposed; I73.9 Peripheral vascular disease, unspecified; I87.2 Venous insufficiency (chronic) (peripheral); L88 Pyoderma gangrenosum; I50.43 Acute on chronic combined systolic (congestive) and diastolic (congestive) heart failure; M33.20 Polymyositis, organ involvement unspecified; E11.65 Type 2 diabetes mellitus with hyperglycemia; I77.6 Arteritis, unspecified; Z79.4 Long term (current) use of insulin | CPT/HCPCS: 99213 ==